=== PATIENT | male | born 1970 | race Caucasian/White ===

== ENCOUNTER 2020-12-17 09:51 | Inpatient (IN) ==
[2020-12-17] MEDS ORDERED: ONDANSETRON INJ 2 MG/ML 2 ML VIAL IV STA (10:42)
[2020-12-17] MEDS ORDERED: HYDROmorphone INJ 0.5 MG/0.5 ML SYR IV PRN (10:42)
--- NOTE | 2020-12-17 10:42 | Emergency Department Note ---
Impression & Plan Left-sided weakness ED Provider Note INFORMANT: Patient ED PROVIDER(S): Reza Felton MD CHIEF COMPLAINT: Weakness PLAN: Disposition: Admitted Condition: Guarded Outpatient prescription management: none Referral: None MEDICAL DECISION MAKING: Patient presented because of left-sided weakness. Patient also noted headache. He has had similar episodes in the past but those other 3 episodes were related to head trauma. He has had no trauma this time around. Patient has a history of a GBM removal but is been doing well with that aspect. Patient worsened today and presented. He does have a significant amount of left upper extremity weakness and some moderate left lower extremity weakness on physical examination. Findings were concerning for possible stroke but his history of intracranial pathology was very concerning. A work-up was initiated. Patient was treated with Dilaudid and Zofran. He underwent CT imaging. He had angiography of the head and neck done as well. Encephalomalacia was noted but no acute process was noted on CT or CT angiography. The patient was reassessed and was feeling better. He still had a mild headache. He had no neck stiffness. No fever. The patient did have a mild leukocytosis. On record review he has had 1 prior visit and had a significant leukocytosis at that point in time it was felt to be stress related. He had no infectious issues. The patient had a consultation placed with neurology, Dr. Moyer. We discussed the case, diagnostic results, history and presentation He did recommend MR imaging. Given the strokelike findings on examination aspirin was also recommended. Patient was given a dose of aspirin. I discussed further management in the hospital with the patient and significant other. They were both in agreement. Consultation was made with Dr. Ya of the hospitalist service. He evaluated patient in the ER and admitted him for further management. Triage Nursing notes reviewed and agree them. Vital Signs: reviewed and remarkable for no significant abnormalities Differential diagnosis: Tumor, ICH, Infection, dehydration, metabolic abnormality, hypo/hyperglycemia, electrolyte disturbance, anemia, hypoxia, cardiac sources, intracerebral event, toxicologic, neurologic, as well as other pathologies. Diagnostics interpreted by me: ECG: Twelve-lead ECG reveals normal sinus rhythm at 60 bpm. LVH present. Left anterior fascicular block present. Inferior T wave inversion noted. Cardiac Monitoring: Cardiac monitoring ordered by me: The patient was placed on continuous cardiac monitoring and observed. It revealed a normal sinus rhythm at 69 beats per minute without ectopy or evidence of dysrhythmia. Imaging studies: CT head and CT angiography as noted below. No acute findings noted. Encephalomalacia. MRI pending. HPI: The patient is a 50 year old male who presents to the Emergency Room with complaints of left sided weakness. This started yesterday and is persisting. The patient also notes the following associated symptoms, nausea and vomiting, headache. The patient has found no relieving factors. Current pain is rated as 7/10. Needed help to get up this morning. Hx of GBM resection 15 years ago. Hx of ICH secondary to a fall 2020. Pt denies LOC, fevers, chills, diaphoresis, visual changes, neck pain, chest pain, breathing difficulties, nausea, vomiting, abdominal pain, back pain, melena, hematochezia, urinary symptoms, numbness, lymphadenopathy, rash, or other complaints. ROS: See above HPI for pertinent positives & negatives. A total of 10 systems reviewed and were otherwise negative. PAST MEDICAL HISTORY:See Below , GBM PAST SURGICAL HISTORY:See Below,GBM resection FAMILY HISTORY:See Below SOCIAL HISTORY:See Below, No tobacco HOME MEDICATIONS:See Below ALLERGIES:See Below VITALS:See Below PHYSICAL EXAMINATION: GENERAL: Awake, alert, well-appearing, in no distress HENT: Normocephalic, atraumatic. Oropharynx unremarkable. EYES: Normal conjunctiva. Sclera non-icteric. NECK: Inspection normal. Non-tender. Supple. No nuchal rigidity. FROM. No masses. RESPIRATORY: Clear to auscultation. No wheezes. No rales. Normal respiratory effort. CARDIAC: Normal rate. Normal rhythm. No murmurs. No rubs. Extremities warm and well perfused. Pulses equal. No JVD. GI: Soft, non-distended. No tenderness to palpation. No rebound or guarding. No masses. RECTAL: Deferred. MUSCULOSKELETAL: Atraumatic. Chest examination reveals no tenderness. The back is symmetrical on inspection without obvious abnormality. There is no CVA tenderness to palpation. No joint edema. LOWER EXTREMITIES: Calves are equal size bilaterally and non-tender. No edema. No discoloration. NEURO: Normal sensorium. No sensory or motor deficits noted. Left sided weakness worse in arm than leg. SKIN: No rash or jaundice noted. Reza Felton MD Past Med/Surg History Medical History (Updated 11/08/21 @ 10:42 by Reza Felton MD) Brain cancer Surgical History (Updated 03/21/20 @ 04:51 by Finn Jaeger PA-C) Status post craniectomy Social History Smoking Status: Unknown if ever smoked Preferred Language: Welsh Feels Safe at Home: Yes Allergies Allergies Allergy/AdvReac Type Severity Reaction Status Date / Time bacitracin Allergy Rash Verified 12/17/20 11:31 [From Neosporin ([id number])] neomycin Allergy Rash Verified 12/17/20 11:31 [From Neosporin ([id number])] polymyxin B Allergy Rash Verified 12/17/20 11:31 [From Neosporin ([id number])] Home Meds Home Medications Medication Instructions Recorded Confirmed levetiracetam 750 mg tablet 1,500 mg PO .OCCASIONALLY 12/17/20 12/17/20 Results & Data (ED) Vital Signs Vital Signs - 24 hr 12/17/20 09:54 12/17/20 11:13 12/17/20 11:20 Temperature 36.7 C Temperature Source Oral Pulse Rate 56 L 59 L 62 Pulse Rate [Apical] Respiratory Rate 16 21 18 Respiratory Effort / Characteristics Blood Pressure 141/87 H Blood Pressure [Right Arm] Blood Pressure Mean 105 Blood Pressure Mean [Right Arm] Blood Pressure Position [Right Arm] Pulse Oximetry 97 Oxygen Delivery Method Sepsis Recent Fever Within 48 Hours No Sepsis New/Unexplained Change in Mental Status No Sepsis Action Taken by Nursing No Action Required 12/17/20 11:30 12/17/20 11:40 12/17/20 11:50 Temperature Temperature Source Pulse Rate 59 L 60 74 Pulse Rate [Apical] Respiratory Rate 17 17 21 Respiratory Effort / Characteristics Blood Pressure Blood Pressure [Right Arm] Blood Pressure Mean Blood Pressure Mean [Right Arm] Blood Pressure Position [Right Arm] Pulse Oximetry Oxygen Delivery Method Sepsis Recent Fever Within 48 Hours Sepsis New/Unexplained Change in Mental Status Sepsis Action Taken by Nursing 12/17/20 11:52 12/17/20 12:00 12/17/20 12:10 Temperature Temperature Source Pulse Rate 57 L 63 Pulse Rate [Apical] 61 Respiratory Rate 15 19 22 Respiratory Effort / Characteristics Non-Labored Blood Pressure Blood Pressure [Right Arm] 137/80 Blood Pressure Mean Blood Pressure Mean [Right Arm] 99 Blood Pressure Position [Right Arm] Lying Pulse Oximetry 97 Oxygen Delivery Method Room Air Sepsis Recent Fever Within 48 Hours Sepsis New/Unexplained Change in Mental Status Sepsis Action Taken by Nursing 12/17/20 12:20 12/17/20 12:30 12/17/20 13:00 Temperature Temperature Source Pulse Rate 64 59 L Pulse Rate [Apical] 72 Respiratory Rate 16 18 13 Respiratory Effort / Characteristics Non-Labored Blood Pressure Blood Pressure [Right Arm] 124/97 Blood Pressure Mean Blood Pressure Mean [Right Arm] 106 Blood Pressure Position [Right Arm] Pulse Oximetry 94 Oxygen Delivery Method Room Air Sepsis Recent Fever Within 48 Hours Sepsis New/Unexplained Change in Mental Status Sepsis Action Taken by Nursing 12/17/20 14:33 12/17/20 14:40 12/17/20 14:50 Temperature Temperature Source Pulse Rate 61 65 Pulse Rate [Apical] Respiratory Rate 15 14 18 Respiratory Effort / Characteristics Blood Pressure Blood Pressure [Right Arm] Blood Pressure Mean Blood Pressure Mean [Right Arm] Blood Pressure Position [Right Arm] Pulse Oximetry Oxygen Delivery Method Sepsis Recent Fever Within 48 Hours Sepsis New/Unexplained Change in Mental Status Sepsis Action Taken by Nursing 12/17/20 15:00 12/17/20 15:10 Temperature Temperature Source Pulse Rate 64 Pulse Rate [Apical] Respiratory Rate 13 14 Respiratory Effort / Characteristics Blood Pressure Blood Pressure [Right Arm] Blood Pressure Mean Blood Pressure Mean [Right Arm] Blood Pressure Position [Right Arm] Pulse Oximetry Oxygen Delivery Method Sepsis Recent Fever Within 48 Hours Sepsis New/Unexplained Change in Mental Status Sepsis Action Taken by Nursing Laboratory Data Result diagrams: 12/17/20 10:55 12/17/20 10:55 Lab Results 12/17/20 12/17/20 12/17/20 Range/Units 10:55 10:55 10:55 WBC 12.80 H (4.8-10.8) K/uL RBC 5.28 (4.7-6.1) M/uL Hgb 16.4 (14.0-18.0) g/dL Hct 46.4 (42-52) % MCV 87.9 (80-100) fL MCH 31.1 (25-34) pg MCHC 35.3 (32-36) g/dL RDW Std Deviation 39.7 (36.4-46.3) fL RDW Coeff of Aisha 12.4 (11.5-14.5) % Plt Count 232 (130-400) K/uL MPV 11.1 H (7.4-10.4) fL Immature Gran % (Auto) 0.2 % Neut % (Auto) 86.2 % Lymph % (Auto) 10.0 % Arthur % (Auto) 3.5 % Eos % (Auto) 0.0 % Baso % (Auto) 0.1 % Neut # (Auto) 11.04 H (1.4-6.5) K/uL Lymph # (Auto) 1.28 (1.2-3.4) K/uL Arthur # (Auto) 0.45 (0.11-0.59) K/uL Eos # (Auto) 0.00 (0-0.5) K/uL Baso # (Auto) 0.01 (0-0.2) K/uL Immature Gran # (Auto) 0.02 (0.00-0.02) K/uL PT 10.3 (9.0-12.0) Seconds INR 1.0 (0.9-1.1) APTT 24.3 (21.0-31.0) Seconds PTT Ratio 0.9 Sodium 131 L (136-145) mmol/L Potassium 3.5 (3.5-5.1) mmol/L Chloride 95 L (98-107) mmol/L Carbon Dioxide 29 (21-32) mmol/L Anion Gap 7.0 (3-11) BUN 10 (7-18) mg/dl Creatinine 0.98 (0.6-1.4) mg/dl Est Cr Clr Drug Dosing Not Reportable Est GFR ( Amer) 103.0 ml/min Est GFR (Non-Af Amer) 88.9 ml/min BUN/Creatinine Ratio 9.9 L (10-20) Glucose 182 H (70-99) mg/dl Calcium 9.1 (8.5-10.1) mg/dl Magnesium 1.8 (1.8-2.4) mg/dl Total Bilirubin 1.7 H (0.2-1) mg/dl AST 13 L (15-37) U/L ALT 27 (12-78) U/L Alkaline Phosphatase 75 (45-117) U/L Troponin I < 0.015 (0-0.045) ng/ml Total Protein 7.6 (6.4-8.2) gm/dl Albumin 3.9 (3.4-5.0) gm/dl Globulin 3.7 (2.5-4.0) gm/dl Albumin/Globulin Ratio 1.1 (0.9-2) COVID-19 Eval Order SARS-CoV-2 (PCR) (Negative) 12/17/20 12/17/20 Range/Units 10:55 10:55 WBC (4.8-10.8) K/uL RBC (4.7-6.1) M/uL Hgb (14.0-18.0) g/dL Hct (42-52) % MCV (80-100) fL MCH (25-34) pg MCHC (32-36) g/dL RDW Std Deviation (36.4-46.3) fL RDW Coeff of Aisha (11.5-14.5) % Plt Count (130-400) K/uL MPV (7.4-10.4) fL Immature Gran % (Auto) % Neut % (Auto) % Lymph % (Auto) % Arthur % (Auto) % Eos % (Auto) % Baso % (Auto) % Neut # (Auto) (1.4-6.5) K/uL Lymph # (Auto) (1.2-3.4) K/uL Arthur # (Auto) (0.11-0.59) K/uL Eos # (Auto) (0-0.5) K/uL Baso # (Auto) (0-0.2) K/uL Immature Gran # (Auto) (0.00-0.02) K/uL PT (9.0-12.0) Seconds INR (0.9-1.1) APTT (21.0-31.0) Seconds PTT Ratio Sodium (136-145) mmol/L Potassium (3.5-5.1) mmol/L Chloride (98-107) mmol/L Carbon Dioxide (21-32) mmol/L Anion Gap (3-11) BUN (7-18) mg/dl Creatinine (0.6-1.4) mg/dl Est Cr Clr Drug Dosing Est GFR ( Amer) ml/min Est GFR (Non-Af Amer) ml/min BUN/Creatinine Ratio (10-20) Glucose (70-99) mg/dl Calcium (8.5-10.1) mg/dl Magnesium (1.8-2.4) mg/dl Total Bilirubin (0.2-1) mg/dl AST (15-37) U/L ALT (12-78) U/L Alkaline Phosphatase (45-117) U/L Troponin I (0-0.045) ng/ml Total Protein (6.4-8.2) gm/dl Albumin (3.4-5.0) gm/dl Globulin (2.5-4.0) gm/dl Albumin/Globulin Ratio (0.9-2) COVID-19 Eval Order Covid19 at [facility] SARS-CoV-2 (PCR) NEGATIVE (Negative) Administered Medications Sodium Chloride (Nss 1000ml) 1,000 mls @ 50 mls/hr IV .Q20H NAMAN Stop: 01/16/21 10:44 Last Infusion: 12/17/20 13:10 Dose: 0 mls/hr Documented by: [id number] Admin: 12/17/20 11:10 Dose: 50 mls/hr Documented by: [id number] Discontinued Medications Aspirin (Aspirin Chew 324 Mg) 324 mg PO NOW STA Stop: 12/17/20 14:19 Last Admin: 12/17/20 14:32 Dose: 324 mg Documented by: [id number] Hydromorphone HCl (Hydromorphone Inj 0.5 Mg/0.5 Ml Syr) 0.5 mg IV Q15M PRN PRN Reason: Pain Stop: 12/31/20 10:41 Last Admin: 12/17/20 11:10 Dose: 0.5 mg Documented by: [id number] Ioversol (Optiray 320 125ml) 120 ml IV ONCE ONE Stop: 12/17/20 12:59 Last Admin: 12/17/20 12:49 Dose: 120 ml Documented by: [id number] Ondansetron HCl (Ondansetron Inj 2 Mg/Ml 2 Ml Vial) 4 mg IV NOW STA Stop: 12/17/20 10:43 Last Admin: 12/17/20 11:10 Dose: 4 mg Documented by: [id number] Imaging Data Radiologist's Impression: Head CT 12/17/20 10:43 CT angio head w con, CT head/brain wo con, CT angio neck with con CLINICAL HISTORY: Left-sided weakness TECHNIQUE: Contiguous axial CT images of the head were acquired from the base of the skull to the vertex without intravenous contrast administration. CT angiography of the head and neck was performed following intravenous administration of iodinated contrast. Automated dose lowering techniques and/or adjustment according to patient size were utilized for this examination. Comparison: None available at the time of this dictation. FINDINGS: CT head: Areas of decreased attenuation are present in the periventricular and subcortical white matter bilaterally consistent with small vessel ischemic disease. Generalized cerebral atrophy with commensurate enlargement of the ventricles, sulci, and cisterns is also present. There is no acute intracranial hemorrhage or evidence of acute territorial infarction. No shift of the midline structures, mass effect, or extra-axial abnormalities are shown. Atherosclerotic calcifications are present in the intracranial segments of the internal carotid arteries. Focal encephalomalacia and post osteotomy changes are again seen in the right parietal region. CTA Neck: The aortic arch and the origins of the innominate, left subclavian, and left common carotid artery are not imaged There is no atherosclerotic plaque at the origins of the vertebral arteries. The common carotid, external carotid, cervical segments of the internal carotid arteries, and the cervical segments of the vertebral arteries are patent. There is no hemodynamically significant diameter stenosis or dissection present. The left vertebral artery is dominant. Subcentimeter thyroid nodules are seen which do not require follow-up by ACR criteria. CTA Head: The anterior and posterior cerebral circulations are patent. No hemodynamically significant stenosis, aneurysm, dissection, or arteriovenous malformation is shown. Incidentally noted is highly diminutive anterior communicating artery on the right with the right anterior cerebral artery supplied from the left anterior communicating artery. origin of the posterior cerebral arteries noted bilaterally. IMPRESSION: 1. No occlusion, hemodynamically significant stenosis, aneurysm, dissection, or arteriovenous malformation in the major intracranial arteries. 2. No occlusion, hemodynamically significant stenosis, or dissection in the m ajor cervical arteries. 3. No acute intracranial hemorrhage, evidence of acute territorial infarction, or other acute intracranial disease process. Old postcraniotomy changes and encephalomalacia noted. Assessment of stenosis of the internal carotid arteries is based on NASCET criteria. ACT 112: Negative or not required by law. Electronically signed by: Gonzalez Becker M.D. 12/17/2020 1:23 PM Head CTA 12/17/20 10:43 CT angio head w con, CT head/brain wo con, CT angio neck with con CLINICAL HISTORY: Left-sided weakness TECHNIQUE: Contiguous axial CT images of the head were acquired from the base of the skull to the vertex without intravenous contrast administration. CT angiography of the head and neck was performed following intravenous administration of iodinated contrast. Automated dose lowering techniques and/or adjustment according to patient size were utilized for this examination. Comparison: None available at the time of this dictation. FINDINGS: CT head: Areas of decreased attenuation are present in the periventricular and s ubcortical white matter bilaterally consistent with small vessel ischemic disease. Generalized cerebral atrophy with commensurate enlargement of the ventricles, sulci, and cisterns is also present. There is no acute intracranial hemorrhage or evidence of acute territorial infarction. No shift of the midline structures, mass effect, or extra-axial abnormalities are shown. Atherosclerotic calcifications are present in the intracranial segments of the internal carotid arteries. Focal encephalomalacia and post osteotomy changes are again seen in the right parietal region. CTA Neck: The aortic arch and the origins of the innominate, left subclavian, and left common carotid artery are not imaged There is no atherosclerotic plaque at the origins of the vertebral arteries. The common carotid, external carotid, cervical segments of the internal carotid arteries, and the cervical segments of the vertebral arteries are patent. There is no hemodynamically significant d iameter stenosis or dissection present. The left vertebral artery is dominant. Subcentimeter thyroid nodules are seen which do not require follow-up by ACR criteria. CTA Head: The anterior and posterior cerebral circulations are patent. No hemodynamically significant stenosis, aneurysm, dissection, or arteriovenous malformation is shown. Incidentally noted is highly diminutive anterior communicating artery on the right with the right anterior cerebral artery supplied from the left anterior communicating artery. origin of the posterior cerebral arteries noted bilaterally. IMPRESSION: 1. No occlusion, hemodynamically significant stenosis, aneurysm, dissection, or arteriovenous malformation in the major intracranial arteries. 2. No occlusion, hemodynamically significant stenosis, or dissection in the ma jodee cervical arteries. 3. No acute intracranial hemorrhage, evidence of acute territorial infarction, or other acute intracranial disease process. Old postcraniotomy changes and encephalomalacia noted. Assessment of stenosis of the internal carotid arteries is based on NASCET criteria. ACT 112: Negative or not required by law. Electronically signed by: Gonzalez Becker M.D. 12/17/2020 1:23 PM Neck CTA 12/17/20 10:43 CT angio head w con, CT head/brain wo con, CT angio neck with con CLINICAL HISTORY: Left-sided weakness TECHNIQUE: Contiguous axial CT images of the head were acquired from the base of the skull to the vertex without intravenous contrast administration. CT angiography of the head and neck was performed following intravenous administration of iodinated contrast. Automated dose lowering techniques and/or adjustment according to patient size were utilized for this examination. Comparison: None available at the time of this dictation. FINDINGS: CT head: Areas of decreased attenuation are present in the periventricular and subcortical white matter bilaterally consistent with small vessel ischemic disease. Generalized cerebral atrophy with commensurate enlargement of the ventricles, sulci, and cisterns is also present. There is no acute intracranial hemorrhage or evidence of acute territorial infarction. No shift of the midline structures, mass effect, or extra-axial abnormalities are shown. Atherosclerotic calcifications are present in the intracranial segments of the internal carotid arteries. Focal encephalomalacia and post osteotomy changes are again seen in the right parietal region. CTA Neck: The aortic arch and the origins of the innominate, left subclavian, and left common carotid artery are not imaged There is no atherosclerotic plaque at the origins of the vertebral arteries. The common carotid, external carotid, cervical segments of the internal carotid arteries, and the cervical segments of the vertebral arteries are patent. There is no hemodynamically significant di ameter stenosis or dissection present. The left vertebral artery is dominant. Subcentimeter thyroid nodules are seen which do not require follow-up by ACR criteria. CTA Head: The anterior and posterior cerebral circulations are patent. No hemodynamically significant stenosis, aneurysm, dissection, or arteriovenous malformation is shown. Incidentally noted is highly diminutive anterior communicating artery on the right with the right anterior cerebral artery supplied from the left anterior communicating artery. origin of the posterior cerebral arteries noted bilaterally. IMPRESSION: 1. No occlusion, hemodynamically significant stenosis, aneurysm, dissection, or arteriovenous malformation in the major intracranial arteries. 2. No occlusion, hemodynamically significant stenosis, or dissection in the jaelyn or cervical arteries. 3. No acute intracranial hemorrhage, evidence of acute territorial infarction, or other acute intracranial disease process. Old postcraniotomy changes and encephalomalacia noted. Assessment of stenosis of the internal carotid arteries is based on NASCET criteria. ACT 112: Negative or not required by law. Electronically signed by: Gonzalez Becker M.D. 12/17/2020 1:23 PM Chest X-Ray 12/17/20 14:36 SINGLE VIEW CHEST CLINICAL HISTORY: Cough. Leukocytosis FINDINGS: An AP, portable, semierect chest radiograph is compared to study dated 03/21/2020. The heart is enlarged. The pulmonary vasculature is noncongested. Airspace consolidation is seen at the left lung base. There is right basilar atelectasis. No large pleural effusion or pneumothorax is identified. The skeletal structures are osteopenic. The bony thorax is grossly intact. IMPRESSION: 1. Cardiomegaly with no radiographic evidence of congestive failure. 2. Airspace consolidation is seen at the left lung base. Correlate clinically for evidence of pneumonia/aspiration pneumonitis. Radiographic follow-up to resolution is recommended. ACT 112: Negative or not required by law. Electronically signed by: Temo Santos M.D. 12/17/2020 3:48 PM Discharge Plan Visit Data Chief Complaint: Illness Stated Complaint: FATIGUE, VOMITING, LT SIDE WEAKNESS ED Provider: Reza Felton Discharge Problem: Left-sided weakness Forms Stand Alone Forms: [facility] Prescriptions Prescriptions: No Action levetiracetam 750 mg tablet 1,500 mg PO .OCCASIONALLY RF: 0 Referrals Referrals: PCP,NO [Primary Care Provider] -
[2020-12-17 11:06] LABS: Basophils # (auto) 0.01 K/uL (0-0.2); Basophils % (auto) 0.1 %; Hematocrit (blood only) 46.4 % (42-52); Hemoglobin 16.4 g/dL (14.0-18.0); Immature Granulocytes # (auto) 0.02 K/uL (0.00-0.02); Immature Granulocytes % (auto) 0.2 %; Lymphocytes # (auto) 1.28 K/uL (1.2-3.4); Mean Corpuscular Hemoglobin 31.1 pg (25-34); Mean Corpuscular Hgb Conc 35.3 g/dL (32-36); Mean Corpuscular Volume 87.9 fL (80-100); Mean Platelet Volume 11.1 fL (7.4-10.4); Monocytes # (auto) 0.45 K/uL (0.11-0.59); Monocytes % (auto) 3.5 %; Neutrophils # (auto) 11.04 K/uL (1.4-6.5); Neutrophils % (auto) 86.2 %; Platelet Count 232 K/uL (130-400); RDW Coefficient of Variation 12.4 % (11.5-14.5); RDW Standard Deviation 39.7 fL (36.4-46.3); Red Blood Count 5.28 M/uL (4.7-6.1)
[2020-12-17] MEDS: SODIUM CHLORIDE 0.9% 1000ML 1,000 ML IV SCH (11:10)
[2020-12-17 11:17] LABS: Partial Thromboplastin Ratio 0.9; Partial Thromboplastin Time 24.3 Seconds (21.0-31.0); Prothrombin Time 10.3 Seconds (9.0-12.0)
[2020-12-17 11:29] LABS: Alanine Aminotransferase 27 U/L (12-78); Albumin Level 3.9 gm/dl (3.4-5.0); Aspartate Aminotransferase 13 U/L (15-37); BUN Creatinine Ratio 9.9 (10-20); Blood Urea Nitrogen 10 mg/dl (7-18); Calcium 9.1 mg/dl (8.5-10.1); Carbon Dioxide 29 mmol/L (21-32); Chloride 95 mmol/L (98-107); Est GFR (Non-African American) 88.9 ml/min; Glucose 182 mg/dl (70-99); Magnesium 1.8 mg/dl (1.8-2.4); Potassium 3.5 mmol/L (3.5-5.1); Sodium 131 mmol/L (136-145)
[2020-12-17 11:33] LABS: Albumin Globulin Ratio 1.1 (0.9-2); Alkaline Phosphatase 75 U/L (45-117); Bilirubin,Total 1.7 mg/dl (0.2-1); Globulin 3.7 gm/dl (2.5-4.0); Total Protein 7.6 gm/dl (6.4-8.2); Troponin I < 0.015 ng/ml (0-0.045)
--- NOTE | 2020-12-17 12:26 | Electrocardiogram Report ---
Test Reason : Blood Pressure : / mmHG Vent. Rate : 060 BPM Atrial Rate : 060 BPM P-R Int : 142 ms QRS Dur : 110 ms QT Int : 410 ms P-R-T Axes : 009 -49 -15 degrees QTc Int : 410 ms Normal sinus rhythm Left anterior fascicular block Moderate voltage criteria for LVH, may be normal variant Abnormal ECG When compared with ECG of 22-JUL-2007 15:35, Left anterior fascicular block is now Present T wave inversion now evident in Inferior leads Confirmed by Hermes Medina ([id number]) on 12/17/2020 12:25:42 PM Referred By: REFERRED SELF Confirmed By:Hermes Medina
[2020-12-17] MEDS ORDERED: OPTIRAY 320 125ml IV ONE (12:58)
--- NOTE | 2020-12-17 13:25 | CT Scan Report ---
CT angio head w con, CT head/brain wo con, CT angio neck with con CLINICAL HISTORY: Left-sided weakness TECHNIQUE: Contiguous axial CT images of the head were acquired from the base of the skull to the vito miguel without intravenous contrast administration. CT angiography of the head and neck was performed f ollowing intravenous administration of iodinated contrast. Automated dose lowering techniques and/or adjustment according to patient size were utilized for this examination. Comparison: None available at the time of this dictation. FINDINGS: CT head: Areas of decreased attenuation are present in the periventricular and subcortical white shelbie er bilaterally consistent with small vessel ischemic disease. Generalized cerebral atrophy with comme nsurate enlargement of the ventricles, sulci, and cisterns is also present. There is no acute intracr anial hemorrhage or evidence of acute territorial infarction. No shift of the midline structures, mas s effect, or extra-axial abnormalities are shown. Atherosclerotic calcifications are present in the intracranial segments of the internal carotid arteries. Focal encephalomalacia and post osteotomy nadiya nges are again seen in the right parietal region. CTA Neck: The aortic arch and the origins of the innominate, left subclavian, and left common caroti d artery are not imaged There is no atherosclerotic plaque at the origins of the vertebral arteries. The common carotid, external carotid, cervical segments of the internal carotid arteries, and the cer vical segments of the vertebral arteries are patent. There is no hemodynamically significant diamete r stenosis or dissection present. The left vertebral artery is dominant. Subcentimeter thyroid nodule s are seen which do not require follow-up by ACR criteria. CTA Head: The anterior and posterior cerebral circulations are patent. No hemodynamically significan t stenosis, aneurysm, dissection, or arteriovenous malformation is shown. Incidentally noted is highl y diminutive anterior communicating artery on the right with the right anterior cerebral artery suppl ied from the left anterior communicating artery. origin of the posterior cerebral arteries note d bilaterally. IMPRESSION: 1. No occlusion, hemodynamically significant stenosis, aneurysm, dissection, or arteriovenous malfor mation in the major intracranial arteries. 2. No occlusion, hemodynamically significant stenosis, or dissection in the major cervical arteries. 3. No acute intracranial hemorrhage, evidence of acute territorial infarction, or other acute intrac ranial disease process. Old postcraniotomy changes and encephalomalacia noted. Assessment of stenosis of the internal carotid arteries is based on NASCET criteria. ACT 112: Negative or not required by law. Electronically signed by: Gonzalez Becker M.D. 12/17/2020 1:23 PM
[2020-12-17] MEDS ORDERED: ASPIRIN CHEW 324 MG PO STA (14:18)
--- NOTE | 2020-12-17 14:33 | History & Physical Report ---
Date of Service December 17, 2020 Assessment & Plan (1) Left-sided weakness: Plan: Similar symptoms cause by recrudescence of are of encephalomalacia after head trauma however no head trauma on this occasion. ?Recrudescence with pneumonia. r/o CVA with MRI w/wo IV contrast r/o cervical spine etiology with MRI cervical spine Lipid panel and HbA1C for risk management in AM Routine neuro checks PT/OT Start aspirin per neurology recommendations Consult neurology - will defer EEG to neurology as no clear seizure activity noted by patient (2) Pneumonia: Plan: Procalcitonin pending Blood cultures Ceftriaxone + azithromycin Incentive spirometry Flutter valve (3) Seizure disorder: Plan: Continue Keppra 750mg PO BID Plan: VTE Prophylaxis - Low risk given age however depending on mobility tomorrow may reconsider lovenox dosing Diet - dysphagia screen passed, heart healthy diet Disposition - observation status to med/tele Admission and Anticipated Discharge Date Admission Date: December 17, 2020 History of Present Illness Chief Complaint: Left sided weakness Primary Care Provider: NO PCP Ziggy Jones is a 50 year old male with significant PMHx glioblastoma multiforme s/p resection 15 years ago who presents to the ER with left upper sided weakness. Unclear onset but possibly yesterday morning however he slept most of yesterday therefore unclear how weak he was at this time. No fever but chills noticed. He has a chronic cough but reports this is at baseline. No sinus pain, however he does report a headache. He also vomited yesterday once and today. No abdominal pain, change in bowels, melena or bright red blood in stool. No urinary symptoms. No chest pain, palpitations. This morning he had more definitive left sided weakness and was unable to get up out of chair to go to bathroom around 3:40am this morning. No change in speech, hearing or vision. No facial droop. He reports similar symptoms in the past but these were all related to head trauma. He has had balance problems since his brain resection and has had multiple falls. On these occasions he has required rehabilitation to get his strength back (although he also tells me he usually gets better in a few days). His last rehabilitation stay was in June this year and his strength had been doing much better since then. He also has a seizure history, many years since a tonic/clonic seizure but reports the rehabilitation doctor at rehab suspected an occasional tingling in his left side was seizure activity. The patient reports only occasionally taking his anti-seizure medication as he doesn't like to take medications. In the ER CT head and angio head/neck were unremarkable for acute etiology however showed old postcraniotomy findings with encephalomalacia of right parietal lobe. Case was discussed by the ER physician with Dr Moyer and recommended admission for stroke workup at this time. He was referred to medicine for admission and ongoing management. Allergies Allergy/AdvReac Type Severity Reaction Status Date / Time bacitracin Allergy Rash Verified 12/17/20 11:31 [From Neosporin ([id number])] neomycin Allergy Rash Verified 12/17/20 11:31 [From Neosporin ([id number])] polymyxin B Allergy Rash Verified 12/17/20 11:31 [From Neosporin ([id number])] Home Medications Medication Instructions Recorded Confirmed Type levetiracetam 750 mg tablet 1,500 mg PO .OCCASIONALLY 12/17/20 12/17/20 History Past Med/Surg History Medical History (Updated 12/17/20 @ 17:56 by Isreal Ya MD) Brain cancer Surgical History (Updated 03/21/20 @ 04:51 by Finn Jaeger PA-C) Status post craniectomy Social History Smoking Status: Never smoker Second Hand Exposure: No; Do You Dip or Chew Tobacco: No; Hx Alcohol Use: Yes Alcohol type: beer Hx Substance Use: Yes Preferred Language: Polish Beliefs That Will Affect Care: None Current Living Situation: Parent and Family Feels Safe at Home: Yes Review of Systems Review of Systems: All systems reviewed & are unremarkable except as noted in HPI & below Physical Exam Constitutional: WD/WN, vitals as above no acute distress Eyes: PERRL, conjunctivae normal, anicteric sclerae Respiratory: normal respiratory effort, lungs clear to auscultation Cardiovascular: Rate/Rhythm: regular rate and regular rhythm Heart Sounds: no murmur Gastrointestinal (Abdomen): normal bowel sounds, soft, nontender, no hepatosplenomegaly Skin: no rashes, warm and dry Neurologic: + focal motor deficit (LUE > LLE weakness) and awake; not confused Speech / Cognition: normal speech Motor/Sensory: + pronator drift (significant LUE weakness); no tremor and no sensory deficit Cranial Nerves: PERRL, EOM intact bilaterally, normal facial strength, tongue midline, able to rotate head bilaterally, able to elevate shoulders bilaterally, no nystagmus and symmetric palate elevation Coordination: + abnormal lhkoxl-jy-vcuh test (Left sided reduced co-ordination) and + abnormal yghe-zr-zjaj test (Left reduced co- ordination) 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, finger extension 3/5, wrist flex 4/5, wrist ext 3/5, elbow ext 2+/5, shoulder abduct 2/5 RUE strength 5/5 throughout Psychiatric: A+Ox3, euthymic affect Genitourinary: no CVA tenderness Results & Data Results & Data ([facility]) Vital Signs (Past 12 Hours) Vital Signs Temp Pulse Pulse Resp BP BP Pulse Ox 12/17/20 11:52 61 15 137/80 97 12/17/20 09:54 36.7 C 56 L 16 141/[address] angio head w con, CT head/brain wo con, CT angio neck with con CLINICAL HISTORY: Left-sided weakness TECHNIQUE: Contiguous axial CT images of the head were acquired from the base of the skull to the vertex without intravenous contrast administration. CT angiography of the head and neck was performed following intravenous administration of iodinated contrast. Automated dose lowering techniques and/or adjustment according to patient size were utilized for this examination. Comparison: None available at the time of this dictation. FINDINGS: CT head: Areas of decreased attenuation are present in the periventricular and subcortical white matter bilaterally consistent with small vessel ischemic disease. Generalized cerebral atrophy with commensurate enlargement of the ventricles, sulci, and cisterns is also present. There is no acute intracranial hemorrhage or evidence of acute territorial infarction. No shift of the midline structures, mass effect, or extra-axial abnormalities are shown. Atherosclerotic calcifications are present in the intracranial segments of the internal carotid arteries. Focal encephalomalacia and post osteotomy changes are again seen in the right parietal region. CTA Neck: The aortic arch and the origins of the innominate, left subclavian, and left common carotid artery are not imaged There is no atherosclerotic plaque at the origins of the vertebral arteries. The common carotid, external carotid, cervical segments of the internal carotid arteries, and the cervical segments of the vertebral arteries are patent. There is no hemodynamically significant diameter stenosis or dissection present. The left vertebral artery is dominant. Subcentimeter thyroid nodules are seen which do not require follow-up by ACR criteria. CTA Head: The anterior and posterior cerebral circulations are patent. No hemodynamically significant stenosis, aneurysm, dissection, or arteriovenous malformation is shown. Incidentally noted is highly diminutive anterior communicating artery on the right with the right anterior cerebral artery supplied from the left anterior communicating artery. origin of the posterior cerebral arteries noted bilaterally. IMPRESSION: 1. No occlusion, hemodynamically significant stenosis, aneurysm, dissection, or arteriovenous malformation in the major intracranial arteries. 2. No occlusion, hemodynamically significant stenosis, or dissection in the major cervical arteries. 3. No acute intracranial hemorrhage, evidence of acute territorial infarction, or other acute intracranial disease process. Old postcraniotomy changes and encephalomalacia noted. Medications Administered ER Medications Given: Dilaudid 0.5mg IV Ondansetron 4mg IV Aspirin 324mg PO ECG Indication: other (stroke like symptoms) Rate (beats per minute): 60 Rhythm: normal sinus Findings: + T-wave inversion (Lateral) Code Status & VTE Plan Code Status Full VTE Prophylaxis Plan VTE Prophylaxis will be ordered: No PG Care Time/CCT Total # of Minutes Spent Total Time Spent with Patient: Total time spent is greater than 50% in coordination of care (as documented) at patient's floor/unit and/or counseling patient: Coding Level of Care Code INT OBSERVATION CARE 70M LVL 3 Diagnoses Left-sided weakness R53.1 Pneumonia J18.9 Seizure disorder G40.909
--- NOTE | 2020-12-17 15:49 | XRay Report ---
SINGLE VIEW CHEST CLINICAL HISTORY: Cough. Leukocytosis FINDINGS: An AP, portable, semierect chest radiograph is compared to study dated 03/21/2020. The heart is enlarged. The pulmonary vasculature is noncongested. Airspace consolidation is seen at the left l yvonne base. There is right basilar atelectasis. No large pleural effusion or pneumothorax is identified . The skeletal structures are osteopenic. The bony thorax is grossly intact. IMPRESSION: 1. Cardiomegaly with no radiographic evidence of congestive failure. 2. Airspace consolidation is seen at the left lung base. Correlate clinically for evidence of pneumon ia/aspiration pneumonitis. Radiographic follow-up to resolution is recommended. ACT 112: Negative or not required by law. Electronically signed by: Temo Santos M.D. 12/17/2020 3:48 PM
[2020-12-17] MEDS ORDERED: guaiFENesin 200 MG TAB PO STA (16:08)
[2020-12-17] MEDS ORDERED: ACETAMINOPHEN 500 MG TAB PO STA (16:08)
[2020-12-17] MEDS ORDERED: ONDANSETRON INJ 2 MG/ML 2 ML VIAL ONE (17:30)
[2020-12-17] MEDS ORDERED: PHARMACIST DISCHARGE MED REC CONSULT PRN (17:33)
[2020-12-17] MEDS ORDERED: ACETAMINOPHEN 325 MG TAB PO PRN (17:33)
[2020-12-17] MEDS ORDERED: AZITHROMYCIN 500 MG in DEXTROSE 5% 250 ML IV ONE (18:00)
[2020-12-17] MEDS ORDERED: HYDROmorphone INJ 0.5 MG/0.5 ML SYR ONE (18:38)
[2020-12-17] MEDS: guaiFENesin 600 MG TABCR PO SCH (18:40)
[2020-12-17] MEDS: cefTRIAXone SODIUM 2,000 MG in DEXTROSE 5% 50 ML IV SCH (18:41)
[2020-12-17] MEDS: HYDROmorphone INJ 0.5 MG/0.5 ML SYR IV PRN (18:43)
[2020-12-17] MEDS: levETIRAcetam 250 MG TAB PO SCH (20:37)
[2020-12-18 05:03] LABS: Appearance Urine Clear (Clear); Bilirubin Urine Negative (Negative); Blood Urine Negative (Negative); Color Urine Yellow; Glucose Urine UA Negative (Negative); Ketones Urine Negative (Negative); Leukocyte Esterase Urine 2+ (Negative); Nitrite Urine Negative (Negative); Protein Urine Negative (Negative); Specific Gravity Urine 1.004 (1.000-1.030); Urobilinogen Urine Negative (Negative)
[2020-12-18] MEDS: SODIUM CHLORIDE 0.9% 1000ML 1,000 ML IV SCH (05:43)
[2020-12-18 05:50] LABS: RBC Urine Automated 0-4 /hpf (0-4)
[2020-12-18 05:52] LABS: Bacteria Urine Automated 1+ (Negative); Cast Urine Automated 0 /lpf (0-5)
[2020-12-18 06:31] LABS: Basophils # (auto) 0.01 K/uL (0-0.2); Basophils % (auto) 0.1 %; Eosinophils # (auto) 0.01 K/uL (0-0.5); Eosinophils % (auto) 0.1 %; Hematocrit (blood only) 47.6 % (42-52); Hemoglobin 16.9 g/dL (14.0-18.0); Immature Granulocytes # (auto) 0.01 K/uL (0.00-0.02); Immature Granulocytes % (auto) 0.1 %; Lymphocytes # (auto) 1.48 K/uL (1.2-3.4); Lymphocytes % (auto) 15.2 %; Mean Corpuscular Hemoglobin 31.2 pg (25-34); Mean Corpuscular Hgb Conc 35.5 g/dL (32-36); Mean Corpuscular Volume 87.8 fL (80-100); Mean Platelet Volume 11.1 fL (7.4-10.4); Monocytes # (auto) 0.69 K/uL (0.11-0.59); Monocytes % (auto) 7.1 %; Neutrophils # (auto) 7.54 K/uL (1.4-6.5); Neutrophils % (auto) 77.4 %; Platelet Count 233 K/uL (130-400); RDW Coefficient of Variation 12.6 % (11.5-14.5); Red Blood Count 5.42 M/uL (4.7-6.1); White Blood Count 9.74 K/uL (4.8-10.8)
[2020-12-18 06:56] LABS: Creatinine Clr Calc Pharmacy 125.1 ml/min; Est GFR (African American) 115.8 ml/min; Est GFR (Non-African American) 99.9 ml/min; Potassium 3.6 mmol/L (3.5-5.1)
[2020-12-18 07:52] LABS: Estimated Average Glucose 137 mg/dl; Hemoglobin A1C 6.4 % (4.5-5.6)
--- NOTE | 2020-12-18 08:36 | Neurology Consultation ---
Date of Consultation December 18, 2020 Assessment & Plan (1) Left-sided weakness: (2) Seizure disorder: (3) Complicated migraine: (4) Status post craniectomy: this patient had the acute onset of left arm greater than leg weakness ( with some left facial asymmetry as well) starting December 17. In addition he has a right-sided headache which has migraine features. He has no other neurologic deficits. The patient has a history of right parietal glioblastoma multiforme removal surg ically in 2004 post radiation therapy and 2-3 years of Temodar pills with gamma knife in 2009 for a mild recurrence. I am not certain when he had his last MRI of the brain but I cannot exclude a recurrence. 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 I cannot exclude a stroke in the right hemisphere. This may be a complicated migraine but may also be a Nathan's paralysis post partial seizure. The patient has had similar events in the past. Recommendations: 1. MRI of the brain with without contrast. 2. Treat headache. Consider ketorolac. Consider short course of prednisone to help the headache as well. 3. The patient is not compliant on levetiracetam and he believes it gives him fatigue. Consider initiating lamotrigine 25 mg twice daily for 1 week then increase to 50 mg twice daily (titrating 25 mg twice a day per week until he hits 100 mg twice a day). Once he gets to a good Lamictal level I would consider tapering off levetiracetam. This would be a better medication for him and control seizures as good better than the levetiracetam. 4. I would be happy to follow him as an outpatient. Overall, I spent a total of 90 minutes with this case including review of records, review of CT films, direct evaluation the patient at bedside, and discussion of the case with the patient and RN at bedside, and Dr. Ya, including differential diagnosis and treatment options. History of Present Illness Reason for Consultation: Patient is a 50-year-old, who was asked to see at the request of Dr. vance, for neurologic consultation regarding acute left mila paresis. Requesting Physician: Dr. Ya Attending Physician: Isreal Ya MD History of Present Illness this patient has a complicated past neurologic history. Apparently he had a right parietal glioblastoma multiforme removal in [place] by Dr. Davis in 2004. he apparently received radiation therapy to the head ( unknown dose ) and Temodar pills for about 2 or 3 years and then he stopped. Apparently, he had a recurrence about 5 years after is our initial surgery and he had received Gamma Knife radiation. Apparently he has had no recurrence of the tumor since. I do not know when his last MRI of the brain was however. Patient had tonic-clonic seizures initially and was put on phenytoin and levetiracetam. He stop the phenytoin a couple of years ago because it affected his liver and gave him other side effects. He remains on levetiracetam 750 mg twice daily, however, he admits to not taking medication regularly. This summer parent Darius he lost his balance and hit his head. He then had a "seizure" consisting of tingling down the left arm and leg followed by weakness that lasted a couple of days. He did not have a headache with that. He does get right-sided headaches only rarely. He denies neck pain. Recently, he was out and had 4 beers December 15. On December 16, he believes he says "slept most of the day". He woke up December 17 at 6:00 a.m. and noticed that his left arm and leg were weak arm greater than leg. He could not walk. He also noted a right sided headache around the right eye and mormon. He had photophobia, nausea, and vomiting. He was a steady sharp pain. He arrived to the emergency room December 17 at 9:54 a.m., with a temperature of 36.7, pulse 56 and regular, respiratory rate 16, blood pressure 141/87, and O2 saturation 97%. He was was noted to have weakness in the arm greater than leg on the left side. CBC showed white count 12.8. Sodium was 131 and glucose 182. The rest of his labs were unremarkable. He was given Dilaudid and Zofran. This helped his nausea and headache temporarily but his headache returned. Chest x-ray showed cardiomegaly and a left lung finding consistent with possible pneumonia. CT scan of the head showed no acute changes. CT angiography of the head and neck were unremarkable as well. He was given a baby aspirin. He has not had any seizures or new spells since admission. He claims that his headache is just as bad as yesterday and is a 7/10. He feels his left leg is less weak but his arm is still very weak as before. He denies neck pain but has some low back pain. Blood pressure is 133/78 and CBC and Chem profile were unremarkable although a triglyceride was 151 and total cholesterol 166. Allergies Allergy/AdvReac Type Severity Reaction Status Date / Time bacitracin Allergy Rash Verified 12/17/20 11:31 [From Neosporin ([id number])] neomycin Allergy Rash Verified 12/17/20 11:31 [From Neosporin ([id number])] polymyxin B Allergy Rash Verified 12/17/20 11:31 [From Neosporin ([id number])] Home Medications Medication Instructions Recorded Confirmed Type levetiracetam 750 mg tablet 1,500 mg PO .OCCASIONALLY 12/17/20 12/17/20 History Patient History Medical History (Updated 12/18/20 @ 08:24 by Zelalem Moyer MD) Brain cancer Renal stone Surgical History (Updated 12/18/20 @ 08:24 by Zelalem Moyer MD) S/P cholecystectomy Status post craniectomy Family History Mother No problems noted. Father , the diagnose 60s of lung cancer Lung cancer Social History Smoking Status: Former smoker Number of Years Since Quit: 20; Second Hand Exposure: No; Do You Dip or Chew Tobacco: No; Hx Alcohol Use: Yes Alcohol type: beer Alcohol Intake Frequency Comment: 4 beers per week every 1-2 weeks Hx Substance Use: Yes Preferred Language: Kyrgyz Beliefs That Will Affect Care: None Current Living Situation: Parent and Family current occupational status: unemployed current occupation: former [employer] Feels Safe at Home: Yes Review of Systems Constitutional: + weakness; no fever and no fatigue Eyes: no diplopia, no eye pain and no worsening vision Ear, Nose, Mouth, Throat: no ear pain, no tinnitus, no hearing loss, no dizziness, no hoarseness and no dysphagia Respiratory: no cough and no dyspnea Cardiovascular: no chest pain, no palpitations and no lightheadedness Gastrointestinal: no abdominal pain, no nausea and no vomiting Musculoskeletal: + back pain; no neck pain, no radicular pain, no joint pain and no myalgia Integumentary: no rash and no lesions Neurologic: + localized weakness and + headache(s); no gait abnormality, no generalized weakness, no tingling, no numbness, no tremor(s), no abnormal movements, no abnormal speech, no confusion and no memory loss Psychiatric: no depression, no irritability, no anxiety, no difficulty concentrating, no confusion and no hallucinations Endocrine: no fatigue and no flushing Hematologic / Lymphatic: no easy bleeding and no easy bruising Allergy / Immunological: no urticaria and no problem reported Exam (Neuro) Physical Exam: The patient ezats and writes with his left hand and throws with his right The patient is awake, alert, and attentive. Speech is normal without any aphasia or dysarthria. The patient can name objects, repeat phrases, and has normal spontaneous speech. Mentation and thought processes are intact, with orientation to person, place and time, and normal fund of knowledge. Attention and concentration are normal. Mood and affect are normal and appropriate. General appearance and grooming are normal. Short and long-term memory are intact. The discs are sharp with positive venous pulsations bilaterally. There are no exudates, hemorrhages, or blood vessel changes seen. Pupils are 4 mm bilaterally and reactive to light. Extraocular eye muscles are intact without nystagmus. Visual acuity and visual cox seem normal grossly to confrontation. There are no deficits to sensation in the face in all 3 distributions of the fifth cranial nerve bilaterally. Corneal reflexes are positive bilaterally. there was some mild facial asymmetry on the left but it did move with voluntary smile. Hearing seems normal bilaterally. Palate moves well without asymmetry. There is normal sternocleidomastoid and trapezius (shoulder shrug) strength bilaterally. Tongue is midline with good strength bilaterally. Neck has a full range of motion without discomfort. There are no cervical bruits bilaterally. There are no cranial or ocular bruits. Heart is without murmur. There is a regular rhythm and rate. Cervical, thoracic, and lumbar spine are nontender to palpation. Gait Is not tested, but his stance was somewhat poor sitting up in bed with feet dangling as he tended to the fall to the left and needed to hold onto the rail. With outstretched arms there is no drift on the right. There are no resting, postural, or action tremors. There is no ataxia with finger to nose testing on the right. There is good facility in the right hand. No other abnormal involuntary movements are noted. Motor strength is 5/5 diffusely in the right upper extremity including deltoids, biceps, triceps, brachioradialis, wrist flexors and extensors, store stocker, and intrinsic hand muscles. Motor strength is 5/5 diffusely in the right lower extremity including hip flexors, quadriceps, hamstrings, gastrocnemius, tibialis anterior, tibialis posterior, and Peroneii muscles. the left upper extremity has 1/5 strength proximally in the shoulder and deltoid. The biceps and triceps is closer to 4/5 but he guards it unusually. The hand including wrist fingers and store stocker seems closer to 1/5. I am not certain that he is giving maximum effort. The left lower extremity has 4+/5 strength proximally and 5/5 strength distally The limbs have good tone without rigidity or spasticity. There is no atrophy noted in the muscles. Muscle bulk is normal, there is no tenderness to palpation, no myotonia to percussion, and no fasciculations seen. Sensory examination is intact to touch and pin throughout all 4 limbs diffusely. Reflexes are 2/4 in the biceps, triceps, quadriceps, and Achilles tendons bilaterally. the left brachioradialis reflex seemed absent and the right was 2/4. There is no clonus bilaterally. Toes are Upgoing with plantar stimulation on the left Peripheral pulses are present and of normal quality distally in all 4 limbs. There is no peripheral edema noted in the limbs. Results & Data ([facility]) Vital Signs (Past 12 Hours) Vital Signs Temp Pulse Pulse Pulse Resp BP Pulse Ox 12/18/20 07:45 36.7 C 59 L 16 124/71 94 12/18/20 04:59 36.7 C 67 18 133/78 94 12/17/20 22:26 36.7 C 59 L 18 148/81 H 94 12/17/20 22:00 56 L PG Care Time/CCT Total # of Minutes Spent Total Time Spent with Patient: Total time spent is greater than 50% in coordination of care (as documented) at patient's floor/unit and/or counseling patient: Coding Level of Care Code 97039 Initial Inpt Care Lvl 3 Diagnoses Left-sided weakness R53.1 Seizure disorder G40.909 Complicated migraine G43.109 Status post craniectomy Z98.890 Time Spent (min) 90 Comment Add modifiers as able
[2020-12-18] MEDS ORDERED: AZITHROMYCIN 250 MG TAB PO SCH (09:00)
[2020-12-18] MEDS: ASPIRIN 81 MG ECTAB PO SCH (09:57)
[2020-12-18] MEDS: levETIRAcetam 250 MG TAB PO SCH ×2 (09:57→20:19)
[2020-12-18] MEDS: guaiFENesin 600 MG TABCR PO SCH ×2 (09:57→20:19)
[2020-12-18] MEDS: HYDROmorphone INJ 0.5 MG/0.5 ML SYR IV PRN (11:04)
[2020-12-18] MEDS ORDERED: KETOROLAC TROMETHAMINE 15 MG/ML VIAL IV ONE (11:16)
--- NOTE | 2020-12-18 11:57 | Hospitalist Progress Note ---
Date of Service December 18, 2020 Assessment & Plan (1) Left-sided weakness: Plan: Patient presents to the hospital with worsening left sided weakness, upper > Lower Some improvement in lower extremity weakness, however, upper remains the same CT head done yesterday showed old encephalomalacia MRI has been orderd Neurology on consult, appreciate recs Continue PT (2) Seizure disorder: Plan: Continue Keppra 750mg PO BID Plan: VTE Prophylaxis - Low risk given age however depending on mobility tomorrow may reconsider lovenox dosing Diet - dysphagia screen passed, heart healthy diet Disposition - observation status to med/tele Admission and Anticipated Discharge Date Admission Date: December 17, 2020 Subjective Patient seen and examined, still some weakness on the left upper extremity, but improving weakness on the lower Review of Systems Review of Systems: All systems reviewed are negative, apart from the ones contained in the history. Physical Exam Physical Exam: The patient is awake, alert and oriented 3, well developed and well nourished, normocephalic and atraumatic, lying in bed and in no acute distress. HEENT--PERRL, EOMI, mucous membranes and oropharynx mildly dry Neck--supple. No JVD. No bruits. Thyroid normal, trachea midline, no adenopathy. Heart--normal S1 and S2. No murmurs, rubs or gallops. Lungs--clear bilaterally, no respiratory distress, no accessory muscle use. Abdomen--normal bowel sounds and soft. Mild epigastric and left sided abdominal pain Extremities--no cyanosis or clubbing. No edema. Dermatologic--normal skin turgor, normal color, no abnormal lymph nodes, no rash. Neurologic--Left mila paresis Rheumatologic--normal range of motion. Psychiatric--normal affect. Results & Data Results & Data ([facility]) Vital Signs (Past 12 Hours) Vital Signs Temp Pulse Resp BP Pulse Ox 12/18/20 10:49 98.1 F 64 18 141/92 H 93 12/18/20 07:45 98.1 F 59 L 16 124/71 94 12/18/20 04:59 98.1 F 67 18 133/78 94 Laboratory Results Vital Signs Temp Pulse Pulse Pulse Resp BP Pulse Ox 12/18/20 10:49 98.1 F 64 18 141/92 H 93 12/18/20 07:45 98.1 F 59 L 16 124/71 94 12/18/20 04:59 98.1 F 67 18 133/78 94 12/17/20 22:26 98.1 F 59 L 18 148/81 H 94 12/17/20 22:00 56 L 12/17/20 19:44 98.1 F 61 20 116/73 93 12/17/20 18:00 60 12/17/20 16:01 69 15 138/75 96 12/17/20 15:10 64 14 12/17/20 15:00 13 12/17/20 14:50 65 18 12/17/20 14:40 14 12/17/20 14:33 61 15 12/17/20 13:00 72 13 124/97 94 12/17/20 12:30 59 L 18 12/17/20 12:20 64 16 12/17/20 12:10 63 22 12/17/20 12:00 57 L 19 Intake and Output 12/17/20 12/18/20 12/18/20 22:59 06:59 14:59 Intake Total 470 / 925 355 / 925 Output Total 200 / 950 750 / 950 350 / 350 Balance 270 / -25 -395 / -25 -350 / -350 Intake: IV 70 / 425 255 / 425 Azithromycin 500 mg In Dextrose 255 / 255 5% 250 ml @ 125 mls/hr IV 1800 ONE Rx#:[id number] cefTRIAXone SODIUM 2,000 mg In 70 / 70 Dextrose 5% 50 ml @ 100 mls/hr IV Q24H [facility] Rx#:[id number] Oral 400 / 500 100 / 500 Output: Urine 200 / 950 750 / 950 350 / 350 Other: Weight 265 lb 6.985 oz 228 lb 9.91 oz Weight Measurement Method Estimated by Patient Built in [facility] Laboratory Results - last 24 hr 12/17/20 12/17/20 12/18/20 10:55 17:14 04:30 WBC RBC Hgb Hct MCV MCH MCHC RDW Std Deviation RDW Coeff of Aisha Plt Count MPV Immature Gran % (Auto) Neut % (Auto) Lymph % (Auto) [place] % (Auto) Eos % (Auto) Baso % (Auto) Neut # (Auto) Lymph # (Auto) [place] # (Auto) Eos # (Auto) Baso # (Auto) Immature Gran # (Auto) Sodium Potassium Chloride Carbon Dioxide Anion Gap BUN Creatinine Est Cr Clr Drug Dosing Est GFR ( Amer) Est GFR (Non-Af Amer) BUN/Creatinine Ratio Glucose Estimat Average Glucose Hemoglobin A1c Calcium Triglycerides Cholesterol LDL Cholesterol, Calc VLDL Cholesterol, Calc HDL Cholesterol Cholesterol/HDL Ratio Procalcitonin < 0.05 Urine Color Yellow Urine Appearance Clear Urine pH 7.0 Ur Specific [place] 1.004 Urine Protein Negative Urine Glucose (UA) Negative Urine Ketones Negative Urine Blood Negative Urine Nitrite Negative Urine Bilirubin Negative Urine Urobilinogen Negative Ur Leukocyte Esterase 2+ H Urine WBC (Auto) 10-30 H Urine RBC (Auto) 0-4 U Hyaline Cast (Auto) 0 U Epithel Cells (Auto) 5-10 H Urine Bacteria (Auto) 1+ H SARS-CoV-2 (PCR) NEGATIVE 12/18/20 12/18/20 12/18/20 05:50 05:50 05:50 WBC 9.74 RBC 5.42 Hgb 16.9 Hct 47.6 MCV 87.8 MCH 31.2 MCHC 35.5 RDW Std Deviation 40.0 RDW Coeff of Aisha 12.6 Plt Count 233 MPV 11.1 H Immature Gran % (Auto) 0.1 Neut % (Auto) 77.4 Lymph % (Auto) 15.2 [place] % (Auto) 7.1 Eos % (Auto) 0.1 Baso % (Auto) 0.1 Neut # (Auto) 7.54 H Lymph # (Auto) 1.48 [place] # (Auto) 0.69 H Eos # (Auto) 0.01 Baso # (Auto) 0.01 Immature Gran # (Auto) 0.01 Sodium 136 Potassium 3.6 Chloride 99 Carbon Dioxide 32 Anion Gap 5.0 BUN 11 Creatinine 0.87 Est Cr Clr Drug Dosing 125.1 Est GFR ( Amer) 115.8 Est GFR (Non-Af Amer) 99.9 BUN/Creatinine Ratio 13.0 Glucose 145 H Estimat Average Glucose 137 Hemoglobin A1c 6.4 H Calcium 9.0 Triglycerides 151 H Cholesterol 166 LDL Cholesterol, Calc 97 VLDL Cholesterol, Calc 30 HDL Cholesterol 39 Cholesterol/HDL Ratio 4 Procalcitonin Urine Color Urine Appearance Urine pH Ur Specific [place] Urine Protein Urine Glucose (UA) Urine Ketones Urine Blood Urine Nitrite Urine Bilirubin Urine Urobilinogen Ur Leukocyte Esterase Urine WBC (Auto) Urine RBC (Auto) U Hyaline Cast (Auto) U Epithel Cells (Auto) Urine Bacteria (Auto) SARS-CoV-2 (PCR) PG Care Time/CCT Total # of Minutes Spent Total Time Spent with Patient: Total time spent is greater than 50% in coordination of care (as documented) at patient's floor/unit and/or counseling patient: Coding Level of Care Code 29088 Subseq Hosp Care Lvl 2 Diagnoses Left-sided weakness R53.1 Seizure disorder G40.909
[2020-12-18] MEDS ORDERED: LORazepam 2 MG/4 ML VIAL IV PRN (12:31)
[2020-12-18] MEDS ORDERED: GADOBUTROL 65ML VIAL IV ONE (18:23)
--- NOTE | 2020-12-18 18:56 | Magnetic Resonance Report ---
MRI OF THE CERVICAL SPINE WITHOUT IV CONTRAST CLINICAL HISTORY: Left-sided weakness. COMPARISON STUDY: CT of the cervical spine dated 03/21/2020. TECHNIQUE: MRI of the cervical spine is performed utilizing various T1 and T2-weighted sequences in t he axial and sagittal planes. IV contrast was not administered for this examination. The examination is significantly degraded by motion artifact. FINDINGS: Cervical spine: Vertebral body height and alignment are maintained throughout the cervical spine. The re is straightening of the cervical lordosis. The atlantodental articulation is maintained. The spino us processes appear intact. Small anterior osteophytes are seen throughout. A large hemangioma is see n in the body of T2. No destructive bony lesion is identified. Mild chronic degenerative endplate nadiya nge is seen at several levels. Intervertebral discs: Degenerative disc desiccation and loss of height are seen throughout the cervic al spine. This is mild to moderate at C5-C6 and C6-C7. Spinal cord: The cervical spinal cord is normal in morphology and signal intensity. C2-C3: Mild facet arthropathy is of no consequence. The central canal and neural foramina are patent. C3-C4: Uncovertebral and facet arthropathy contribute to mild right neural foraminal stenosis. The ce ntral canal is clear. C4-C5: Unremarkable. C5-C6: A posterior disc osteophyte complex eccentric to the left abuts the ventral cord. There is lef t lateral disc extrusion. In conjunction with facet arthropathy, this contributes to severe left-side d neural foraminal stenosis and impinges on the exiting left C6 nerve root. There is mild right-sided neural foraminal stenosis. C6-C7: A posterior disc osteophyte complex effaces the ventral subarachnoid space. Uncovertebral and facet arthropathy contributes to mild to moderate bilateral neural foraminal stenosis. C7-T1: Unremarkable. Soft tissues: The prevertebral and paraspinous soft tissues are normal as visualized. Brain parenchyma: The imaged brain parenchyma at the skull base is normal in appearance. IMPRESSION: 1. Significantly motion compromised examination. 2. Spondylotic change as above, greatest at C5-C6 where there is impingement on the exiting left C6 n erve root. See discussion for detailed level by level analysis. 3. The cervical spinal cord is normal in morphology and signal intensity. 4. No destructive bony process is identified. Dictated: 12/18/2020 6:35 PM Transcribed: 12/18/2020 6:47 PM Kesha [id number] CLAUDIA_Tiffani Electronically signed by: Temo Santos M.D. 12/18/2020 6:55 PM
--- NOTE | 2020-12-18 19:24 | Magnetic Resonance Report ---
MRI OF THE BRAIN COMBO CLINICAL HISTORY: Left hemiparesis. COMPARISON STUDY: CT of the brain dated 12/17/2020. TECHNIQUE: MRI of the brain was performed utilizing various T1 and T2-weighted sequences in the axial , sagittal, and coronal planes. Contrast-enhanced sequences were acquired following the administratio n of 9 cc of Gadavist. The examination is severely compromised by motion artifact. FINDINGS: Brain parenchyma: Left hemiparesis. Right parieto-occipital encephalomalacia is consistent with a rem ote insult/previous surgery. There is a focus of restricted diffusion the right occipital lobe consis tent with acute to subacute ischemia. No additional foci of restricted diffusion are identified. Ther e is no hemorrhage or mass effect. No evidence of enhancing mass lesion is seen on the postcontrast i mages. There is age-related involutional change noting mild subcortical and periventricular microangi opathic disease. No extra-axial fluid collection is identified. The cerebellar tonsils are normal in configuration. Ventricles, sulci, and cisterns: Prominent secondary to involutional change. There is ex vacuo dilata tion of the right lateral ventricle. Pituitary and sella: Unremarkable. Intracranial vasculature: Normal flow voids are maintained at the skull base. Orbits: The bony orbits are grossly intact. Orbital contents are normal in appearance. Sinuses and mastoids: There is trace mucosal thickening in the right maxillary antrum. The remaining paranasal sinuses are clear, as are the mastoid air cells. Calvarium: There is evidence of previous right sided craniotomy. No destructive calvarial lesion is i dentified. Cervical cord: Partially visualized cervical spinal cord is normal in morphology and signal intensity . IMPRESSION: 1. Severely motion compromised examination. 2. A focus of restricted diffusion in the right occipital lobe is consistent with acute to subacute i schemia. 3. No additional foci of ischemia are identified. There is no hemorrhage or mass effect. 4. Chronic and postoperative changes as above. 5. There is no evidence of recurrent or residual enhancing mass lesion on today's examination. ACT 112: Negative or not required by law. Electronically signed by: Temo Santos M.D. 12/18/2020 7:23 PM
[2020-12-18] MEDS: cefTRIAXone SODIUM 2,000 MG in DEXTROSE 5% 50 ML IV SCH (20:19)
[2020-12-19] MEDS: SODIUM CHLORIDE 0.9% 1000ML 1,000 ML IV SCH ×2 (02:30→23:41)
[2020-12-19 07:13] LABS: Basophils # (auto) 0.04 K/uL (0-0.2); Basophils % (auto) 0.4 %; Eosinophils % (auto) 0.9 %; Hematocrit (blood only) 48.8 % (42-52); Hemoglobin 17.1 g/dL (14.0-18.0); Immature Granulocytes # (auto) 0.03 K/uL (0.00-0.02); Immature Granulocytes % (auto) 0.3 %; Lymphocytes # (auto) 2.15 K/uL (1.2-3.4); Lymphocytes % (auto) 20.1 %; Mean Corpuscular Hemoglobin 31.4 pg (25-34); Mean Corpuscular Volume 89.5 fL (80-100); Monocytes # (auto) 0.62 K/uL (0.11-0.59); Monocytes % (auto) 5.8 %; Neutrophils # (auto) 7.78 K/uL (1.4-6.5); Neutrophils % (auto) 72.5 %; Platelet Count 219 K/uL (130-400); RDW Coefficient of Variation 12.5 % (11.5-14.5); RDW Standard Deviation 40.4 fL (36.4-46.3); Red Blood Count 5.45 M/uL (4.7-6.1); White Blood Count 10.72 K/uL (4.8-10.8)
[2020-12-19 07:44] LABS: BUN Creatinine Ratio 13.3 (10-20); Creatinine Clr Calc Pharmacy 99.9 ml/min; Est GFR (African American) 105.6 ml/min; Est GFR (Non-African American) 91.2 ml/min; Potassium 3.4 mmol/L (3.5-5.1)
[2020-12-19] MEDS: levETIRAcetam 250 MG TAB PO SCH (08:29)
[2020-12-19] MEDS: ASPIRIN 81 MG ECTAB PO SCH (08:29)
[2020-12-19] MEDS: guaiFENesin 600 MG TABCR PO SCH ×2 (08:29→23:03)
[2020-12-19] MEDS: lamoTRIgine 25 MG TAB PO SCH ×2 (10:14→23:05)
--- NOTE | 2020-12-19 10:17 | Neurology Progress Note ---
Date of Service December 19, 2020 Assessment & Plan (1) Left-sided weakness: (2) Seizure disorder: (3) Stroke: Plan: Persistent left-sided weakness and associated partial left hemianopsia. Differential diagnosis includes Nathan's paralysis and stroke. Patient's brain MRI does reveal an area of restricted diffusion within the right occipital lobe that would be consistent with an acute to subacute infarct. However, a seizure focus may also exhibit restricted diffusion. It is notable that this patient has had a similar episode of prolonged left-sided weakness in the past, potentially post ictal. There does not appear to be any evidence of a significant vascular lesion on CT angiography of the head and neck. He has been noncompliant with his anticonvulsant regimen. I agree with the addition of Lamictal and continuing with Keppra at this time. The Lamictal will need to be gradually uptitrated going forward, follow-up in neurology clinic with Dr. Moyer or one of our APCs. Would continue with daily low-dose aspirin for secondary stroke risk reduction. Would also recommend 30-day mobile cardiac outpatient telemetry. Patient should also have an outpatient ophthalmology evaluation to assess his visual cox. Admission and Anticipated Discharge Date Admission Date: December 17, 2020 Subjective Follow-up for left-sided weakness The patient continues to complain of left-sided weakness, face arm and leg. He remarks that he has had a similar episode of left-sided weakness in the past that persisted for many weeks. He has a history notable for right parietal glioblastoma resection, follows with Dr. Davis in [place]. He has been noncompliant with his anticonvulsant medication. Patient was evaluated by Dr. Moyer yesterday for initial neurological assessment. Thought to possibly have a post ictal, Nathan's paralysis. May have had a nocturnal seizure prior to the onset of his left-sided weakness. Stroke was also considered in the differential diagnosis. Patient did complete follow-up brain MRI that does reveal an area of restricted diffusion within the right occipital region potentially consistent with acute to subacute infarct. However, a seizure focus may also exhibit restricted diffusion. Previously completed CT angiography of the head and neck were unremarkable. Patient was started on lamotrigine as an adjunctive medication for seizure control. He continues with Keppra. He has not had any observed convulsive activity during his current hospitalization. Results & Data ([facility]) Vital Signs (Past 12 Hours) Vital Signs Temp Pulse Resp BP Pulse Ox 11/10/21 07:36 36.7 C 65 16 133/85 96 12/19/20 04:09 36.9 C 87 16 127/70 100 12/18/20 23:45 36.4 C L 67 16 126/76 95 Exam (Neuro) Neurologic: Oriented to:: Person, Place and Time Attention: Span Intact Speech Fluency: negative Dysarthria or Dysfluency Fund of Knowledge: Vocabulary Cranial Nerves: Normal III, IV, ; Abnorm II (Patient has a partial left hemianopsia with confrontation testing.) or VII (Patient has fl attening of the left nasolabial fold.) Motor Strength: Hemiparesis (Left hemiparesis, leg greater than arm. Arm 0-1 out of 5 strength. Grasp 0. Elbow flexion 2-3 out of 5.) Laterality: Left; negative Normal Lower Extremities or Normal Upper Extremities Muscle Bulk/Involuntary Movements: No Involuntary Movements Special Tests: Babinski Present (left) Coding Level of Care Code 68224 Subseq Hosp Care Lvl 2 Diagnoses Left-sided weakness R53.1 Seizure disorder G40.909 Stroke I63.9
[2020-12-19] MEDS ORDERED: LORazepam 2 MG/4 ML VIAL ONE (12:00)
[2020-12-19] MEDS ORDERED: levETIRAcetam 1,000 MG in 0.9 % SODIUM CHLORIDE 100 ML IV STA (12:32)
[2020-12-19] MEDS ORDERED: levETIRAcetam 1,000 MG in 0.9 % SODIUM CHLORIDE 100 ML IV ONE (12:45)
--- NOTE | 2020-12-19 13:11 | Hospitalist Progress Note ---
Date of Service December 19, 2020 Assessment & Plan (1) Left-sided weakness: Plan: Patient presents to the hospital with worsening left sided weakness, upper > Lower Some improvement in lower extremity weakness, however, upper remains the same CT head done showed old encephalomalacia MRI shows limited diffusion which could be suggestive of acute or subacute stroke. However on the background of his seizures, the finding could also be seen in seizures. Neurology on consult, appreciate recs Continue PT (2) Seizure disorder: Plan: Had a tonic-clonic seizure this morning. I spoke to neurology on the phone. Was already started p.o. lamotrigine 25 mg twice daily Loaded with 1000 mg of IV Keppra Continue Keppra 750mg PO BID (3) Brain cancer: Plan: History of glioblastoma multiforme Status post craniotomy (4) Status post craniectomy: Plan: VTE Prophylaxis - Low risk given age however depending on mobility tomorrow may reconsider lovenox dosing Diet - dysphagia screen passed, heart healthy diet Disposition - observation status to med/tele Admission and Anticipated Discharge Date Admission Date: December 17, 2020 Subjective Patient seen and examined today, was having twitches in the left ear which he correctly identified her seizures, he later developed full-blown tonic-clonic seizures Review of Systems Review of Systems: All systems reviewed are negative, apart from the ones contained in the history. Physical Exam Physical Exam: The patient is awake, alert and oriented 3, well developed and well nourished, normocephalic and atraumatic, lying in bed and in no acute distress. HEENT--PERRL, EOMI, mucous membranes and oropharynx mildly dry Neck--supple. No JVD. No bruits. Thyroid normal, trachea midline, no adenopathy. Heart--normal S1 and S2. No murmurs, rubs or gallops. Lungs--clear bilaterally, no respiratory distress, no accessory muscle use. Abdomen--normal bowel sounds and soft. Mild epigastric and left sided abdominal pain Extremities--no cyanosis or clubbing. No edema. Dermatologic--normal skin turgor, normal color, no abnormal lymph nodes, no rash. Neurologic--Left mila paresis Rheumatologic--normal range of motion. Psychiatric--normal affect. Results & Data Results & Data ([facility]) Vital Signs (Past 12 Hours) Vital Signs Temp Pulse Resp BP Pulse Ox 11/10/21 07:36 98.1 F 65 16 133/85 96 12/19/20 04:09 98.4 F 87 16 127/70 100 PG Care Time/CCT Total # of Minutes Spent Total Time Spent with Patient: Total time spent is greater than 50% in coordination of care (as documented) at patient's floor/unit and/or counseling patient: Coding Level of Care Code 06697 Subseq Hosp Care Lvl 2 Diagnoses Left-sided weakness R53.1 Seizure disorder G40.909 Brain cancer C71.9 Status post craniectomy Z98.890
[2020-12-19] MEDS ORDERED: DIVALPROEX DELAY RELEASE 500 MG TAB PO ONE (17:38)
[2020-12-19] MEDS: HYDROmorphone INJ 0.5 MG/0.5 ML SYR IV PRN ×2 (18:20→22:58)
[2020-12-19] MEDS: levETIRAcetam 1,000 MG in 0.9 % SODIUM CHLORIDE 100 ML IV SCH (22:53)
[2020-12-20] MEDS: HYDROmorphone INJ 0.5 MG/0.5 ML SYR IV PRN (03:11)
[2020-12-20] MEDS: levETIRAcetam 1,000 MG in 0.9 % SODIUM CHLORIDE 100 ML IV SCH (08:15)
[2020-12-20] MEDS ORDERED: LORazepam 2 MG/4 ML VIAL ONE (08:30)
[2020-12-20] MEDS ORDERED: PHENYTOIN 1,500 MG in 0.9 % SODIUM CHLORIDE 100 ML IV ONE (09:00)
[2020-12-20] MEDS ORDERED: 0.2 MICRON FILTER SET 1 EA IV ONE (09:00)
[2020-12-20 09:21] LABS: Basophils # (auto) 0.03 K/uL (0-0.2); Basophils % (auto) 0.3 %; Eosinophils # (auto) 0.09 K/uL (0-0.5); Eosinophils % (auto) 0.9 %; Hematocrit (blood only) 46.2 % (42-52); Hemoglobin 16.5 g/dL (14.0-18.0); Immature Granulocytes # (auto) 0.02 K/uL (0.00-0.02); Immature Granulocytes % (auto) 0.2 %; Lymphocytes % (auto) 13.2 %; Mean Corpuscular Hemoglobin 31.3 pg (25-34); Mean Corpuscular Hgb Conc 35.7 g/dL (32-36); Mean Corpuscular Volume 87.7 fL (80-100); Mean Platelet Volume 10.9 fL (7.4-10.4); Monocytes # (auto) 0.63 K/uL (0.11-0.59); Neutrophils # (auto) 8.41 K/uL (1.4-6.5); Neutrophils % (auto) 79.4 %; Platelet Count 211 K/uL (130-400); RDW Coefficient of Variation 12.5 % (11.5-14.5); RDW Standard Deviation 39.9 fL (36.4-46.3); Red Blood Count 5.27 M/uL (4.7-6.1); White Blood Count 10.58 K/uL (4.8-10.8)
--- NOTE | 2020-12-20 09:40 | Neurology Progress Note ---
Date of Service December 20, 2020 Assessment & Plan (1) Seizure disorder: (2) Focal motor seizure: Plan: Recurrent focal motor seizures originating from the right cerebral hemisphere characterized by left-sided seizure activity and associated Nathan's paralysis, now with another recurrent seizure occurring this morning, resolved with lorazepam and IV phenytoin. Patient has an established diagnosis of seizure disorder related to remote right hemispheric glioma resection. He has been noncompliant with Keppra. He has continued to exhibit seizure activity in spite of receiving additional IV Keppra and starting lamotrigine during this hospitalization. I am concerned about his ongoing clinical stability and high risk for further seizure episodes going forward in the context of this current hospitalization. After further discussion with Dr. Deras, hospitalist physician, I would recommend transfer to a tertiary center for neuro critical care, continuous EEG monitoring as we do not have these capabilities at [facility]. I will order a routine EEG. Continue with Keppra 1000 mg IV every 12 hours. Would also recommend phenytoin 100 mg IV every 8 hours. Would obtain a phenytoin level tomorrow morning if patient remains at [facility]. Admission and Anticipated Discharge Date Admission Date: December 19, 2020 Subjective Follow-up for seizures I was contacted yesterday afternoon regarding recurrent seizures for this patient on the floor. Focal motor seizures affecting the left face arm and leg. He was loaded with additional Keppra. Routine Keppra switched over to IV. This morning, patient exhibited additional focal motor seizure activity localizing to the right cerebral hemisphere characterized by eyes driven over to the left, rhythmic shaking of the left arm, minimal shaking for the left leg. Patient was minimally conversant during this episode. Treated with IV lorazepam and phenytoin IV. Results & Data ([facility]) Vital Signs (Past 12 Hours) Vital Signs Temp Pulse Resp BP Pulse Ox 12/20/20 08:56 37.8 C H 101 H 28 H 144/87 H 90 12/20/20 07:00 36.9 C 81 20 145/82 H 95 12/20/20 06:56 36.4 C L 76 16 128/80 94 12/20/20 04:27 36.9 C 81 20 137/80 93 12/19/20 23:49 36.6 C 67 20 128/66 95 Laboratory Results WBC 10.58, hemoglobin 16.5, hematocrit 46.2, platelet count 211 Diagnostic Findings Brain MRI completed December 18 revealed a focus of restricted diffusion within the right occipital lobe potentially consistent with an acute to subacute infarct although a seizure focus may also exhibit restricted diffusion. CT angiography of the head and neck completed on December [address] of the head and brain MRI have also revealed chronic postoperative changes within the right parieto-occipital region. Exam (Neuro) Physical Exam: Patient observed during focal motor seizure this morning. As above, eyes driven to left. Able to converse minimally. Focal twitching of the left facial musculature observed. Focal seizure activity involving the left arm and leg observed. Seizure activity did not generalize and responded to IV lorazepam. Was also given 1.5 g of phenytoin IV. Patient observed sleeping soundly after the episode. PG Care Time/CCT Total # of Minutes Spent Total Time Spent with Patient: Total time spent is greater than 50% in coordination of care (as documented) at patient's floor/unit and/or counseling patient: Coding Level of Care Code 46315 Subseq Hosp Care Lvl 3 Diagnoses Seizure disorder G40.909 Focal motor seizure G40.109
[2020-12-20 09:51] LABS: BUN Creatinine Ratio 15.6 (10-20); Calcium 8.8 mg/dl (8.5-10.1); Creatinine Clr Calc Pharmacy 148.4 ml/min; Est GFR (African American) 124.5 ml/min; Est GFR (Non-African American) 107.4 ml/min; Potassium 3.5 mmol/L (3.5-5.1)
[2020-12-20] MEDS: ASPIRIN 81 MG ECTAB PO SCH (10:27)
[2020-12-20] MEDS: guaiFENesin 600 MG TABCR PO SCH ×2 (10:28→21:05)
[2020-12-20] MEDS: lamoTRIgine 25 MG TAB PO SCH ×2 (10:29→21:06)
--- NOTE | 2020-12-20 12:15 | Electroencephalogram ---
EEG Procedure Note Date of Service December 20, 2020 Start / End Times Start Time: 10:37 AM End Time: 10:57 AM Referring Physician Teddy Salas MD History Focal motor seizures localizing to the right cerebral hemisphere, history of right parieto-occipital glioma resection. Home Medication List Medication Instructions Recorded Confirmed Type levetiracetam 750 mg tablet 1,500 mg PO .OCCASIONALLY 12/17/20 12/17/20 History Inpatient Medication List Aspirin (Aspirin 81 Mg Ectab) 81 mg PO QAM NAMAN Stop: 01/17/21 08:59 Last Admin: 12/20/20 10:27 Dose: Not Given Documented by: [id number] Admin: 12/19/20 08:29 Dose: 81 mg Documented by: [id number] Admin: 12/18/20 09:57 Dose: 81 mg Documented by: [id number] Guaifenesin (Guaifenesin 600 Mg Tabcr) 1,200 mg PO BID [facility] Stop: 01/16/21 20:59 Last Admin: 12/20/20 10:28 Dose: Not Given Documented by: [id number] Admin: 12/19/20 23:03 Dose: 1,200 mg Documented by: [id number] Admin: 12/19/20 08:29 Dose: 1,200 mg Documented by: [id number] Admin: 12/18/20 20:19 Dose: 1,200 mg Documented by: [id number] Admin: 12/18/20 09:57 Dose: 1,200 mg Documented by: [id number] Admin: 12/17/20 18:40 Dose: 1,200 mg Documented by: [id number] Hydromorphone HCl (Hydromorphone Inj 0.5 Mg/0.5 Ml Syr) 0.5 mg IV Q4H PRN PRN Reason: Pain Stop: 12/31/20 18:19 Last Admin: 12/20/20 03:11 Dose: 0.5 mg Documented by: [id number] Admin: 12/19/20 22:58 Dose: 0.5 mg Documented by: [id number] Admin: 12/19/20 18:20 Dose: 0.5 mg Documented by: [id number] Admin: 12/18/20 11:04 Dose: 0.5 mg Documented by: [id number] Admin: 12/17/20 18:43 Dose: 0.5 mg Documented by: [id number] Sodium Chloride (Nss 1000ml) 1,000 mls @ 50 mls/hr IV .Q20H NAMAN Stop: 01/16/21 10:44 Last Infusion: 12/20/20 00:58 Dose: 0 mls/hr Documented by: [id number] Admin: 12/19/20 23:41 Dose: 50 mls/hr Documented by: [id number] Admin: 12/19/20 02:30 Dose: Not Given Documented by: [id number] Infusion: 12/18/20 15:20 Dose: 0 mls/hr Documented by: [id number] Admin: 12/18/20 05:43 Dose: Not Given Documented by: [id number] Infusion: 12/17/20 13:10 Dose: 0 mls/hr Documented by: [id number] Admin: 12/17/20 11:10 Dose: 50 mls/hr Documented by: [id number] Lamotrigine (Lamotrigine 25 Mg Tab) 25 mg PO BID NAMAN Stop: 01/18/21 08:59 Last Admin: 12/20/20 10:29 Dose: Not Given Documented by: [id number] Admin: 12/19/20 23:05 Dose: 25 mg Documented by: [id number] Admin: 12/19/20 10:14 Dose: 25 mg Documented by: [id number] Discontinued Medications Acetaminophen (Acetaminophen 500 Mg Tab) 1,000 mg PO NOW STA Stop: 12/17/20 16:09 Last Admin: 12/17/20 18:07 Dose: 1,000 mg Documented by: [id number] Aspirin (Aspirin Chew 324 Mg) 324 mg PO NOW STA Stop: 12/17/20 14:19 Last Admin: 12/17/20 14:32 Dose: 324 mg Documented by: [id number] Azithromycin (Azithromycin 250 Mg Tab) 250 mg PO QAM NAMAN Stop: 12/22/20 08:59 Last Admin: 12/18/20 09:57 Dose: 250 mg Documented by: [id number] Divalproex Sodium (Divalproex Delay Release 500 Mg Tab) 500 mg PO NOW ONE Stop: 12/19/20 17:39 Last Admin: 12/19/20 18:37 Dose: 500 mg Documented by: [id number] Gadobutrol (Gadobutrol 65ml Vial) 9 ml IV ONCE ONE Stop: 12/18/20 18:24 Last Admin: 12/18/20 18:23 Dose: 9 ml Documented by: [id number] Guaifenesin (Guaifenesin 200 Mg Tab) 200 mg PO ONE STA Stop: 12/17/20 16:09 Last Admin: 12/17/20 18:41 Dose: Not Given Documented by: [id number] Hydromorphone HCl (Hydromorphone Inj 0.5 Mg/0.5 Ml Syr) 0.5 mg IV Q15M PRN PRN Reason: Pain Stop: 12/31/20 10:41 Last Admin: 12/17/20 11:10 Dose: 0.5 mg Documented by: [id number] Hydromorphone HCl (Hydromorphone Inj 0.5 Mg/0.5 Ml Syr) Confirm Administered Dose 0.5 mg .ROUTE .STK-MED ONE Stop: 12/17/20 18:39 Last Admin: 12/17/20 18:44 Dose: Not Given Documented by: [id number] Ceftriaxone Sodium 2,000 mg/ (Dextrose) 70 mls @ 100 mls/hr IV Q24H [facility]; Protocol Stop: 12/24/20 17:59 Last Infusion: 12/18/20 21:01 Dose: 0 mls/hr Documented by: [id number] Admin: 12/18/20 20:19 Dose: 100 mls/hr Documented by: [id number] Infusion: 12/17/20 19:25 Dose: 0 mls/hr Documented by: [id number] Admin: 12/17/20 18:41 Dose: 100 mls/hr Documented by: [id number] Azithromycin 500 mg/ Dextrose 255 mls @ 125 mls/hr IV 1800 ONE Stop: 12/17/20 20:02 Last Infusion: 12/18/20 00:12 Dose: 0 mls/hr Documented by: [id number] Admin: 12/17/20 22:15 Dose: 125 mls/hr Documented by: [id number] Levetiracetam 1,000 mg/ Sodium (Chloride) 110 mls @ 440 mls/hr IV NOW STA Stop: 12/19/20 12:46 Last Infusion: 12/19/20 14:15 Dose: 0 mls/hr Documented by: [id number] Admin: 12/19/20 13:39 Dose: 440 mls/hr Documented by: [id number] Levetiracetam 1,000 mg/ Sodium (Chloride) 110 mls @ 420 mls/hr IV Q12H NAMAN Stop: 01/18/21 19:59 Last Admin: 12/20/20 08:15 Dose: 420 mls/hr Documented by: [id number] Infusion: 12/19/20 23:42 Dose: 0 mls/hr Documented by: [id number] Admin: 12/19/20 22:53 Dose: 420 mls/hr Documented by: [id number] Phenytoin 1,500 mg/ Sodium (Chloride) 130 mls @ 260 mls/hr IV NOW ONE Stop: 12/20/20 09:29 Last Admin: 12/20/20 10:07 Dose: 260 mls/hr Documented by: [id number] Cosigned by: [id number] Ioversol (Optiray 320 125ml) 120 ml IV ONCE ONE Stop: 12/17/20 12:59 Last Admin: 12/17/20 12:49 Dose: 120 ml Documented by: [id number] Ketorolac Tromethamine (Ketorolac Tromethamine 15 Mg/Ml Vial) 15 mg IV NOW ONE Stop: 12/18/20 11:17 Last Admin: 12/18/20 12:16 Dose: 15 mg Documented by: [id number] Levetiracetam (Levetiracetam 250 Mg Tab) 750 mg PO BID NAMAN Stop: 01/16/21 20:59 Last Admin: 12/19/20 08:29 Dose: 750 mg Documented by: [id number] Admin: 12/18/20 20:19 Dose: 750 mg Documented by: [id number] Admin: 12/18/20 09:57 Dose: 750 mg Documented by: [id number] Admin: 12/17/20 20:37 Dose: 750 mg Documented by: [id number] Lorazepam (Lorazepam 2 Mg/4 Ml Vial) Confirm Administered Dose 2 mg .ROUTE .STK- MED ONE Stop: 12/19/20 12:01 Last Admin: 12/19/20 12:06 Dose: 2 mg Documented by: [id number] Lorazepam (Lorazepam 2 Mg/4 Ml Vial) Confirm Administered Dose 4 mg .ROUTE .STK- MED ONE Stop: 12/20/20 08:31 Last Increment: 12/20/20 08:39 Dose: 2 mg Documented by: [id number] Ondansetron HCl (Ondansetron Inj 2 Mg/Ml 2 Ml Vial) 4 mg IV NOW STA Stop: 12/17/20 10:43 Last Admin: 12/17/20 11:10 Dose: 4 mg Documented by: [id number] Ondansetron HCl (Ondansetron Inj 2 Mg/Ml 2 Ml Vial) Confirm Administered Dose 4 mg .ROUTE .STK-MED ONE Stop: 12/17/20 17:31 Last Admin: 12/17/20 17:40 Dose: 4 mg Documented by: [id number] Description This is a 21 electrode EEG with a single channel dedicated to limited EKG. The electrodes were placed in accordance with the International 10-20 system. There is a posterior dominant rhythm of 10 to 12 Hz which is symmetrically distr ibuted and attenuates with eye opening. There is a normal anterior to posterior organization. Photic stimulation is unremarkable. Hyperventilation is not performed. There is a symmetric frontal beta rhythm. There is fairly continuous right parietal theta slowing and occasional associated right parietal sharps. Interpretation Abnormal awake/drowsy EEG with evidence of right parietal slowing and occasional sharp waves. Clinical Correlation These EEG findings are supportive of an underlying tendency for focal seizures localizing to the right cerebral hemisphere and would be consistent with patient's history of remote right parieto-occipital tumor resection and observed focal motor seizure activity involving the left face arm and leg. Please see neurology clinic notes for further details. [facility] EEG Procedure Codes Indication for Procedure (1) Focal motor seizure: Neurology Neurology: [id number] EEG include record awake & drowsy
--- NOTE | 2020-12-20 12:23 | Hospitalist Progress Note ---
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 He had a recurrent focal seizure again this morning CT head showed old encephalomalcia, MRI showed evidence of acute/sub acute stroke, however, the MRI changes could also be found in focal seizures (2) Seizure disorder: Plan: This morning, patient had what seemed like a Focal motor seizures affecting the left face arm and leg, which lasted for at least 10-15 min He was treated with 4mg of lorazepam and 1500mg of Phenytoin He is still currently on his Keppra 1000 mg BID After talking with the tele neurologist at [facility], he suggested a serum Phenytoin level And also to increase the Keppra to 1500mg BID and add Phenytoin 100mg TID A request for transfer has been placed, but the currently have no beds, probably till tomorrow They suggested to call again tomorrow if he continues to have seizures ([phone]) (3) Brain cancer: Plan: History of glioblastoma multiforme Status post craniotomy (4) Status post craniectomy: Plan: VTE Prophylaxis - Low risk given age however depending on mobility tomorrow may reconsider lovenox dosing Diet - dysphagia screen passed, heart healthy diet Disposition - observation status to med/tele Admission and Anticipated Discharge Date Admission Date: December 19, 2020 Subjective Patient seen and examined this morning, was in status epilepticus, which was eventually controlled with keppra, lorazepam, dilantin Review of Systems Review of Systems: All systems reviewed are negative, apart from the ones contained in the history. Physical Exam Physical Exam: The patient is awake, alert and oriented 3, well developed and well nourished, normocephalic and atraumatic, lying in bed and in no acute distress. HEENT--PERRL, EOMI, mucous membranes and oropharynx mildly dry Neck--supple. No JVD. No bruits. Thyroid normal, trachea midline, no adenopathy. Heart--normal S1 and S2. No murmurs, rubs or gallops. Lungs--clear bilaterally, no respiratory distress, no accessory muscle use. Abdomen--normal bowel sounds and soft. Mild epigastric and left sided abdominal pain Extremities--no cyanosis or clubbing. No edema. Dermatologic--normal skin turgor, normal color, no abnormal lymph nodes, no rash. Neurologic--Left mila paresis Rheumatologic--normal range of motion. Psychiatric--normal affect. Results & Data Results & Data ([facility]) Vital Signs (Past 12 Hours) Vital Signs Temp Pulse Resp BP Pulse Ox 12/20/20 11:00 98.8 F 100 H 20 137/78 95 12/20/20 08:56 100.0 F H 101 H 28 H 144/87 H 90 12/20/20 07:00 98.4 F 81 20 145/82 H 95 12/20/20 06:56 97.5 F L 76 16 128/80 94 12/20/20 04:27 98.4 F 81 20 137/80 93 PG Care Time/CCT Total # of Minutes Spent Total Time Spent with Patient: Total time spent is greater than 50% in coordination of care (as documented) at patient's floor/unit and/or counseling patient: Coding Level of Care Code 84501 Subseq Hosp Care Lvl 2 Diagnoses Left-sided weakness R53.1 Seizure disorder G40.909 Brain cancer C71.9 Status post craniectomy Z98.890
[2020-12-20] MEDS: PHENYTOIN SODIUM ER 100 MG CAP PO SCH ×2 (14:10→21:07)
[2020-12-20] MEDS ORDERED: SODIUM CHLORIDE 0.9% 10ML FLUSH IV STA (17:47)
[2020-12-20] MEDS ORDERED: PHENYTOIN 200 MG in SYRINGE 0 ML IV ONE (17:48)
[2020-12-20] MEDS: SODIUM CHLORIDE 0.9% 1000ML 1,000 ML IV SCH (18:02)
[2020-12-20] MEDS: levETIRAcetam 1,500 MG in 0.9 % SODIUM CHLORIDE 100 ML IV SCH (20:56)
--- NOTE | 2020-12-21 01:10 | Communication Note ---
Date of Service: December 21, 2020 notified by nursing at 11:37 pm patient complaining of "feeling weird" like he's having a seizure but no visible seizing or focal motor activity. Neuro checks shortened from Q4h to Q2h. Notified by nursing at 12:46 am patient again reporting seizure now behaving abnormally, left sided facial droop, slurred and slowed speech. Stroke alert called. Examined patient at bedside. Visible left sided facial droop. Able to raise eyebrows, puff cheeks somewhat uniformly. unable to move left arm (baseline). slow, somewhat slurred speech. stat CT head wo con ordered. Chart review - Pt 50 yo M with hx glioblastoma s/p craniectomy, seizures admitted on 12/17 for L sided weakness. MRI revealed subacute/acute stroke though changes also possibly related to seizure activity. Keppra increased from 1000 mg BID to 1500 mg BID and added phenytoin 100 mg TID. 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 Can increase keppra to 2000 mg BID if worsening seizure activity. Phenytoin level pending.
--- NOTE | 2020-12-21 01:46 | CT Scan Report ---
CT OF THE HEAD WITHOUT CONTRAST CLINICAL HISTORY: stroke alert, recent hx subacute stroke, seizures COMPARISON STUDY: Head CT, CTA of the head December 17, 2020. MRI of the brain December 18, 2020. CT DOSE: 537.48 mGy.cm TECHNIQUE: Helical axial images of the head were obtained without IV contrast. Automated exposure con trol was utilized for the study. A dose lowering technique was utilized adhering to the principles o f ALARA. FINDINGS: No acute intracranial hemorrhage, midline shift or mass effect is present. Right sided cran iotomy is noted. Encephalomalacia within the right occipital lobe is unchanged. The ventricular syste m is stable. Basal cisterns are patent. There are no extra-axial collections. The appearance of the b rain is unchanged. The acute to subacute infarct evident by MRI is not evident by CT. IMPRESSION: 1. No acute intracranial hemorrhage or mass effect. No change in appearance of the brain. 2. The acute to subacute infarct within the right occipital lobe on MRI of December 18, 2020 is not ev ident, possibly due to technique. ACT 112: Negative or not required by law. Electronically signed by: Han Woodruff M.D. 12/21/2020 1:45 AM
[2020-12-21] MEDS ORDERED: OPTIRAY 320 125ml IV ONE (02:14)
--- NOTE | 2020-12-21 02:44 | CT Scan Report ---
CT ANGIOGRAPHY OF THE NECK WITH CONTRAST CLINICAL HISTORY: Stroke alert. Facial droop. COMPARISON STUDY: CTA of the neck December 17, 2020. Technique: CT angiography of the carotid and vertebral arteries was obtained using Optiray and 3D rec onstruction on an independent workstation. NASCET criteria was utilized. Automated exposure control was utilized for the study. A dose lowering technique was utilized adhering to the principles of ALA RA. CT DOSE: 705.37 mGy.cm Findings: There is no cervical lymphadenopathy. No acute cervical spine fracture is present. The bila teral common carotid, cervical internal carotid and vertebral arteries are patent. There is no dissec tion or stenosis within these vessels. No aneurysm within the neck is present. The appearance is unch anged since CTA of December 17, 2020. CTA of the head will be reported separately. IMPRESSION: Unremarkable CTA of the neck. No stenosis or dissection. ACT 112: Negative or not required by law. Electronically signed by: Han Woodruff M.D. 12/21/2020 2:43 AM
--- NOTE | 2020-12-21 02:55 | CT Scan Report ---
CTA ANGIOGRAPHY OF THE HEAD CLINICAL HISTORY: Stroke alert. Facial droop. History of brain tumor. COMPARISON STUDY: CTA of the head and head CT December 17, 2020. MRI of the brain December 18, 2020. H ead CT performed earlier today TECHNIQUE: Helical axial images of the head were obtained following uneventful intravenous administr ation of 119 cc of Optiray. Sagittal and coronal reconstructions were viewed as well as maximal inten sity projections on an independent 3-D workstation. Automated exposure control was utilized for the study. A dose lowering technique was utilized adhering to the principles of ALARA. FINDINGS: Right sided craniotomy is noted. Calvarial irregularity is similar to head CT of March 122020. Associated encephalomalacia within the right parieto-occipital region is noted. There is als o encephalomalacia within the anterior right temporal lobe. This is unchanged since head CT of [facility] 2020. Right temporal lobe encephalomalacia is new since head CT of March 21, 2020. No acute intracranial hemorrhage, midline shift or mass effect is present. There is mild ethmoid sinus mucosal thickening. Both anterior cerebral arteries arise from the left internal carotid artery. Anterior ci rculation is intact. There is no central vessel occlusion or intracranial aneurysm. Posterior circula tion is largely supplied by the anterior circulation. Large right posterior communicating artery is n oted. There is persistence of the left posterior cerebral artery. No dissection within the intr acranial vessels is noted. The appearance is unchanged and CTA of December 17, 2020. Major dural sinus es are patent. IMPRESSION: 1. No central vessel occlusion. No intracranial aneurysm. 2. No significant change since CTA of December 17, 2020. 3. Status post right sided craniotomy with right parieto-occipital encephalomalacia which is unchange d since CT of March 21, 2020. Right temporal lobe encephalomalacia is new since that exam but unch anged since CT of December 17, 2020. ACT 112: Negative or not required by law. Electronically signed by: Han Woodruff M.D. 12/21/2020 2:54 AM
[2020-12-21] MEDS: levETIRAcetam 1,500 MG in 0.9 % SODIUM CHLORIDE 100 ML IV SCH (09:11)
[2020-12-21] MEDS: PHENYTOIN SODIUM ER 100 MG CAP PO SCH ×2 (09:22→14:00)
[2020-12-21] MEDS: guaiFENesin 600 MG TABCR PO SCH (09:23)
[2020-12-21] MEDS: ASPIRIN 81 MG ECTAB PO SCH (09:23)
[2020-12-21] MEDS: lamoTRIgine 25 MG TAB PO SCH (09:23)
--- NOTE | 2020-12-21 10:55 | Neurology Progress Note ---
Date of Service December 21, 2020 Assessment & Plan (1) Focal motor seizure: (2) Stroke: (3) Status post craniectomy: Plan: This patient continues to have focal motor seizures related to a right parieto- occipital glioblastoma resection done in [place] in 2004. 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 However, a brain MRI done on December 18 did suggest an area of possible acute to subacute ischemia within the right occipital region on diffusion-weighted imaging. The location of this area of restricted diffusion would not explain patient's left hemiparesis, however. I would like this patient to have a repeat MRI of the brain with and without contrast to reassess for interval stroke or any significant change compared with the previous study done on December 18. That study was compromised by motion artifact. Patient should continue with daily low-dose aspirin. I would like him to have a transthoracic echocardiogram with bubble study as well. Furthermore, given that he continues to exhibit focal motor seizures I would recommend starting Vimpat as an adjunctive anticonvulsant. Would recommend 100 mg IV every 12 hours. Would discontinue lamotrigine at this time. Continue with phenytoin 100 mg p.o. 3 times daily. Continue with levetiracetam 1500 mg IV every 12 hours. If patient continues to have convulsive episodes would recommend transfer to a tertiary center for continuous EEG monitoring/neuro critical care. Admission and Anticipated Discharge Date Admission Date: December 19, 2020 Subjective Follow-up for seizures The patient has continued to exhibit focal motor seizures with residual left- sided weakness/Nathan's paralysis. He may have had another focal motor seizure episode last night at around 12:46 AM. He was evaluated by the house staff resident at that time who noted his left-sided weakness and contacted the stroke specialist at [facility] who was on-call. Patient had another CT angiogram of the head and neck completed that was unremarkable. He continues with Keppra, current dosage 1500 mg IV every 12 hours. Had also been given a loading dose of phenytoin yesterday followed by maintenance dose, 100 mg p.o. 3 times per day. Follow-up phenytoin levels on the high end of the therapeutic range. He also continues with a low-dose of lamotrigine. Attempts were made by the hospitalist physician to have the patient transferred to a tertiary center for neuro critical care/continuous EEG monitoring. However, no beds available. The patient is sitting quietly in bed this morning. He continues to report left-sided weakness, especially the arm, no headache. Review of Systems Constitutional: no fever and no chills Eyes: no blind spots Neurologic: + localized weakness and + seizure-like activity; no headache(s) Psychiatric: no depression and no anxiety Results & Data ([facility]) Vital Signs (Past 12 Hours) Vital Signs Temp Pulse Pulse Resp BP Pulse Ox 12/21/20 07:23 36.9 C 93 H 20 146/83 H 91 12/21/20 04:54 37.1 C 94 H 18 156/98 H 94 12/21/20 04:00 36.7 C 92 H 20 144/96 H 94 12/21/20 02:35 89 20 141/99 H 95 12/21/20 02:24 90 18 133/89 94 12/21/20 01:32 95 H 20 146/94 H 91 12/21/20 01:17 36.8 C 90 20 149/90 H 96 12/20/20 23:15 37.0 C 89 20 127/75 93 Laboratory Results WBC 10.58, hemoglobin 16.5, hematocrit 46.2, platelet count 211, sodium 136, potassium 3.5, BUN 11, creatinine 0.73, glucose 149, phenytoin level this morning 19.[address] of the head including CT angiography of the head and neck completed overnight reviewed. No evidence of large vessel occlusion or aneurysm, no significant change compared with previous CT angiography done December 17, 2020. There is evidence of chronic encephalomalacia involving the right parieto- occipital region, unchanged compared with previous study. Exam (Neuro) Neurologic: Oriented to:: Person and Place Attention: negative Span Intact Speech Fluency: negative Dysarthria or Dysfluency Fund of Knowledge: Vocabulary Cranial Nerves: Normal II and III, IV, ; Abnorm VII (left lower facial weakness noted) Motor Strength: Hemiparesis (arm>leg) Laterality: Left Muscle Bulk/Involuntary Movements: No Involuntary Movements Special Tests: Babinski Present (left) Details: Patient has a significant left hemiparesis, arm much greater than leg. Does have some residual elbow flexion strength, grasp is 0. Left lower extremity modestly weak. PG Care Time/CCT Total # of Minutes Spent Total Time Spent with Patient: t: Coding Level of Care Code 32810 Subseq Hosp Care Lvl 3 Diagnoses Focal motor seizure G40.109 Stroke I63.9 Status post craniectomy Z98.890
[2020-12-21] MEDS ORDERED: LACOSAMIDE 100 MG in SODIUM CHLORIDE 0.9% 50 ML IV SCH (11:15)
--- NOTE | 2020-12-21 13:25 | XCELERA ---
[id number] \\[id number]
--- NOTE | 2020-12-21 13:34 | Discharge Summary ---
Date of Service December 21, 2020 Admission HPI Per Admitting Provider Ziggy Jones is a 50 year old male with significant PMHx glioblastoma multiforme s/p resection 15 years ago who presents to the ER with left upper sided weakness. Unclear onset but possibly yesterday morning however he slept most of yesterday therefore unclear how weak he was at this time. No fever but chills noticed. He has a chronic cough but reports this is at baseline. No sinus pain, however he does report a headache. He also vomited yesterday once and today. No abdominal pain, change in bowels, melena or bright red blood in stool. No urinary symptoms. No chest pain, palpitations. This morning he had more definitive left sided weakness and was unable to get up out of chair to go to bathroom around 3:40am this morning. No change in speech, hearing or vision. No facial droop. He reports similar symptoms in the past but these were all related to head trauma. He has had balance problems since his brain resection and has had multiple falls. On these occasions he has required rehabilitation to get his strength back (although he also tells me he usually gets better in a few days). His last rehabilitation stay was in June this year and his strength had been doing much better since then. He also has a seizure history, many years since a tonic/clonic seizure but reports the rehabilitation doctor at rehab suspected an occasional tingling in his left side was seizure activity. The patient reports o nly occasionally taking his anti-seizure medication as he doesn't like to take medications. In the ER CT head and angio head/neck were unremarkable for acute etiology however showed old postcraniotomy findings with encephalomalacia of right parietal lobe. Case was discussed by the ER physician with Dr Moyer and recommended admission for stroke workup at this time. He was referred to medicine for admission and ongoing management. Principal Diagnosis seizures Discharge Exam The patient is awake, alert and oriented 3, well developed and well nourished, normocephalic and atraumatic, lying in bed and in no acute distress. HEENT--PERRL, EOMI, mucous membranes and oropharynx mildly dry Neck--supple. No JVD. No bruits. Thyroid normal, trachea midline, no adenopathy. Heart--normal S1 and S2. No murmurs, rubs or gallops. Lungs--clear bilaterally, no respiratory distress, no accessory muscle use. Abdomen--normal bowel sounds and soft. Mild epigastric and left sided abdominal pain Extremities--no cyanosis or clubbing. No edema. Dermatologic--normal skin turgor, normal color, no abnormal lymph nodes, no rash. Neurologic--Left mila paresis Rheumatologic--normal range of motion. Psychiatric--normal affect. Discharge Data Allergies Allergy/AdvReac Type Severity Reaction Status Date / Time bacitracin Allergy Rash Verified 12/17/20 11:31 [From Neosporin ([id number])] neomycin Allergy Rash Verified 12/17/20 11:31 [From Neosporin ([id number])] polymyxin B Allergy Rash Verified 12/17/20 11:31 [From Neosporin ([id number])] Consultations 12/17/20 17:33 Consult Neurology Routine 12/21/20 12:20 Burn CD for patient Stat Ordered Studies 12/17/20 10:43 CT angio head w con Stat CT angio neck with con Stat CT head/brain wo con Stat 12/18/20 14:18 MR brain wo/w con Stat 12/18/20 14:45 MR cervical spine wo con Stat 12/21/20 01:02 CT head/brain wo con Stat 12/21/20 01:36 CT angio head w con Stat CT angio neck with con Stat 12/21/20 10:55 MR brain seizure wo/w con Routine Hospital Course (1) Left-sided weakness: 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 He had a recurrent focal seizure again this morning CT head showed old encephalomalcia, MRI showed evidence of acute/sub acute stroke, however, the MRI changes could also be found in focal seizures (2) Seizure disorder: This morning, patient had what seemed like a Focal motor seizures affecting the left face arm and leg, which lasted for at least 10-15 min He was treated with 4mg of lorazepam and 1500mg of Phenytoin He is still currently on his Keppra 1000 mg BID After talking with the tele neurologist at [facility], he suggested a serum Phenytoin level And also to increase the Keppra to 1500mg BID and add Phenytoin 100mg TID A request for transfer has been placed, but the currently have no beds, probably till tomorrow They suggested to call again tomorrow if he continues to have seizures ([phone]) Eventually, a bed opened up at [facility] and the patient was accepted, however, he refused transfer and said he wanted to go home. All the risks were explained to him but he insisted and signed out Against Medical Advice (3) Brain cancer: History of glioblastoma multiforme Status post craniotomy (4) Status post craniectomy: VTE Prophylaxis - Low risk given age however depending on mobility tomorrow may reconsider lovenox dosing Diet - dysphagia screen passed, heart healthy diet Disposition - observation status to med/tele Total Time Total Time Spent Total Time Spent (In Minutes): 35 min Discharge Plan Discharge Items Patient Disposition: Against Medical Advice Reason For Visit: LT SIDED WEAKNESS Condition on Discharge: Fair Activity: As commented below Non-emergency contact: Primary Care Provider Follow-up/Referrals: PCP,NO [Primary Care Provider] - Pending Studies at Discharge: No Stand-Alone Forms: Repunch, Smoking Cessation Skilled Items Patient informed of condition?: Yes DNR: No Discharge Level of Care: Other Communicable Disease: No Discharge Prognosis: Other Medications and DC Order Prescriptions: New phenytoin sodium extended [Dilantin Extended] 100 mg Capsule 100 mg PO TID 30 Days Qty: 90 RF: 0 aspirin 81 mg Tablet,Delayed Release (Dr/Ec) 81 mg PO QAM 30 Days Qty: 30 RF: 0 lamotrigine [Lamictal] 25 mg Tablet 25 mg PO BID 30 Days Qty: 60 RF: 0 Continued levetiracetam 750 mg tablet 1,500 mg PO .OCCASIONALLY RF: 0 Discharge Orders: Left Against Medical Advice (Routine); Ordered 12/21/20 Ordered By: Taty Gifford/Other Patient Handouts: A1C, Prediabetes, 5 Steps for Eating Healthier Admission Data Admit Date/Time: 12/19/20 13:15 Attending Provider: Taty Deras Admit Provider: Isreal Ya Primary Care Provider: PCP,NO Other Providers: Zelalem Moyer Coding Level of Care Code D/C DAY MANAGEMENT >30 MINS Diagnoses Left-sided weakness R53.1 Seizure disorder G40.909 Brain cancer C71.9 Status post craniectomy Z98.890
[2020-12-21] MEDS ORDERED: clonazePAM 0.5 MG TAB PO SCH (14:00)
[2020-12-21] MEDS: SODIUM CHLORIDE 0.9% 1000ML 1,000 ML IV SCH (17:16)
--- NOTE | 2020-12-29 11:06 | Coding Query ---
To promote full compliance with coding requirements relating to patient care, provider participation is requested in all cases of typewriter aligner uncertainty. Please assist us with the question(s) below: Coding Question(s): The diagnosis(es) below was documented in the H&P and Neuro progress notes then subsequently fell off all further documentation. Please indicate if it is still a possible diagnosis or ruled out. Physician's Response(s): PNEUMONIA ( ) Diagnosed and POA ( ) Diagnosed and not POA ( Y ) Ruled out ( ) Other (please specify) STROKE: a brain MRI done on December 18 suggested an area of possible acute to subacute ischemia within the right occipital region on diffusion-weighted imaging ( ) Diagnosed and POA ( ) Diagnosed and not POA ( ) Ruled out ( unlikely to be stroke ) Other (please specify) Thank you for your time, Melissa Jarquin, [place], [facility]
== END 2020-12-21 18:12 | disposition left against medical advice (07) | DRG 100 ==
LOC: ED 09:51 → 2N 09:51 → SUATTDRO 15:13 → 2N 15:59

== ENCOUNTER 2020-12-21 18:44 | Inpatient (IN) ==
--- NOTE | 2020-12-21 20:35 | XRay Report ---
XR chest 1V portable CLINICAL HISTORY: weakness TECHNIQUE: Single frontal radiograph of the chest was obtained. Comparison: Comparison is made to chest one view 12/17/2020 FINDINGS: No lines and tubes are seen. The cardiomediastinal silhouette is normal. The lungs are clear. No evid ence of pleural effusion or pneumothorax. IMPRESSION: No acute chest disease. ACT 112: Negative or not required by law. Electronically signed by: Gonzalez Becker M.D. 12/21/2020 8:34 PM
[2020-12-21 23:44] LABS: Basophils # (auto) 0.05 K/uL (0-0.2); Basophils % (auto) 0.4 %; Eosinophils # (auto) 0.09 K/uL (0-0.5); Eosinophils % (auto) 0.7 %; Hematocrit (blood only) 51.9 % (42-52); Hemoglobin 18.3 g/dL (14.0-18.0); Immature Granulocytes # (auto) 0.04 K/uL (0.00-0.02); Immature Granulocytes % (auto) 0.3 %; Lymphocytes # (auto) 1.82 K/uL (1.2-3.4); Lymphocytes % (auto) 13.6 %; Mean Corpuscular Hemoglobin 32.3 pg (25-34); Mean Corpuscular Hgb Conc 35.3 g/dL (32-36); Mean Corpuscular Volume 91.5 fL (80-100); Mean Platelet Volume 10.8 fL (7.4-10.4); Monocytes # (auto) 0.69 K/uL (0.11-0.59); Monocytes % (auto) 5.1 %; Neutrophils # (auto) 10.73 K/uL (1.4-6.5); Neutrophils % (auto) 79.9 %; Platelet Count 223 K/uL (130-400); RDW Coefficient of Variation 12.5 % (11.5-14.5); Red Blood Count 5.67 M/uL (4.7-6.1); White Blood Count 13.42 K/uL (4.8-10.8)
[2020-12-21] MEDS ORDERED: LACOSAMIDE 100 MG in SODIUM CHLORIDE 0.9% 50 ML IV STA (23:47)
[2020-12-21] MEDS ORDERED: levETIRAcetam 1,500 MG in 0.9 % SODIUM CHLORIDE 100 ML IV STA (23:47)
[2020-12-21] MEDS ORDERED: PHENYTOIN SODIUM ER 100 MG CAP PO STA (23:47)
[2020-12-22 00:08] LABS: Albumin Level 3.9 gm/dl (3.4-5.0); Aspartate Aminotransferase 10 U/L (15-37); BUN Creatinine Ratio 14.4 (10-20); Blood Urea Nitrogen 13 mg/dl (7-18); Calcium 9.5 mg/dl (8.5-10.1); Carbon Dioxide 27 mmol/L (21-32); Chloride 105 mmol/L (98-107); Creatinine Clr Calc Pharmacy 124.7 ml/min; Est GFR (African American) 114.7 ml/min; Glucose 149 mg/dl (70-99); Magnesium 2.2 mg/dl (1.8-2.4); Potassium 4.4 mmol/L (3.5-5.1); Sodium 138 mmol/L (136-145)
[2020-12-22 00:16] LABS: Alanine Aminotransferase 20 U/L (12-78); Albumin Globulin Ratio 0.9 (0.9-2); Alkaline Phosphatase 83 U/L (45-117); Globulin 4.4 gm/dl (2.5-4.0); Total Protein 8.3 gm/dl (6.4-8.2); Troponin I < 0.015 ng/ml (0-0.045)
[2020-12-22 00:49] LABS: Appearance Urine Clear (Clear); Bacteria Urine Automated Negative (Negative); Blood Urine Negative (Negative); Color Urine Dark Yellow; Epithelial Cell Urine Auto >30 /lpf (0-5); Glucose Urine UA Negative (Negative); Ketones Urine 3+ (Negative); Leukocyte Esterase Urine Trace (Negative); Nitrite Urine Negative (Negative); Protein Urine Trace (Negative); RBC Urine Automated 0-4 /hpf (0-4); Specific Gravity Urine 1.032 (1.000-1.030); Urobilinogen Urine Negative (Negative)
[2020-12-22 00:57] LABS: Bilirubin Urine 1+ (Negative)
--- NOTE | 2020-12-22 01:31 | Emergency Department Note ---
Impression & Plan Focal motor seizure, Left-sided weakness, H/O brain tumor ED Provider Note CHIEF COMPLAINT: Weakness, seizure versus stroke HISTORY OF PRESENT ILLNESS: This patient is a 50-year-old male who presents emergency department with complaints of generalized weakness. The patient was admitted to the hospital 12/17 worsening left sided hemiplegia. The patient has a history of GBM status post resection 15 years ago in [place]. It was determined that the patient was suffering from focal motor seizures although the MRI was read as potentially an acute to subacute infarct. Patient's antiepilept ic medications were rearranged, current recommendations are for Vimpat 100 every 12 hours Keppra 1500 every 12 hours and phenytoin extended 100 p.o. 3 times daily. Arrangements were made for the patient to be transferred to [facility] presumably for EEG monitoring, however the patient signed out AGAINST MEDICAL ADVICE. The patient's bed at [facility] has apparently been given up. The patient was not able to get into the vehicle which came to pick him up at discharge. He then checked back into the emergency department and waited for the better part of 4 hours to be seen. There is a question as to whether or not he had additional focal motor seizures but he confirms he did not have any medications since he was given them in hospital as a patient. He denies any pain, change in mental status or falls. He states he is willing to be hospitalized but does not want transfer to [facility] as they are too far away. He is too weak at this time for private transport to home or elsewhere. He denies any fever, chills, chest pain, shortness of breath, abdominal pain, vomiting or diarrhea. REVIEW OF SYSTEMS: A review of systems was performed with positives and pertinent negatives listed in the history of present illness. 10 systems were reviewed and are otherwise negative. ALLERGIES: see below MEDICATIONS: see below PMH: see below SOCIAL HISTORY: see below DDx: Infection, dehydration, metabolic abnormality, hypo/hyperglycemia, electrol yte disturbance, anemia, hypoxia, cardiac sources, intracerebral event, toxicologic, neurologic, as well as other pathologies. PHYSICAL EXAM: Vital signs reviewed. General: Chronically ill appearing 50 yo male, in no significant distress. HEENT: No scleral icterus, PERRLA, neck supple. Atraumatic. Tongue with thick brown tobacco stained film. Poor dentition Cardiovascular: Regular rate and rhythm, no extra sounds. Pulmonary: Clear to auscultation bilaterally, normal work of breathing. Abdomen: Soft, obese, nontender, nondistended, positive bowel sounds. Musculoskeletal: Atraumatic, no peripheral edema. Neurologic: Patient awake alert and oriented x 3, speech is clear, L subtle facial asymmetry, LUE/LLE weakness with 2/5 strength LUE, 4/5 strength LLE Skin: Warm, dry, no rash. tattoos BUE EMERGENCY DEPARTMENT COURSE/MDM: This patient was evaluated and appeared to be in no significant distress. The patient apparently is at the baseline from what she left the hospital AMA approximately 5 hours prior to my evaluation. The patient waited for his ride after signing out and upon the ride's arrival was unable to get into the vehicle due to his left hemiparesis. The patient had d eclined transfer to [place] when a bed became available as this is too far from home. Patient states his previous surgeries were done at [place]. The patient was medicated with his p.o. Dilantin, IV Vimpat and IV Keppra. He was hydrated with normal saline solution. CT imaging of the head was performed and is read as below. The patient's case was discussed with the hospitalist service who will evaluate the patient for further management. Patient is aware of the plan and agrees. MONITORING: An order for cardiac monitoring was placed and the patient is noted to be in a normal sinus rhythm at 90 beats per minute. RADIOLOGY: See below EKG: Normal sinus rhythm at 91 bpm. No PVC, no PAC. Incomplete right bundle branch block with repolarization abnormality in the inferior leads. Previous inferior infarct. RVH. QTC is 450. DISPOSITION: Hospitalist consult for admission Past Med/Surg History Medical History (Updated 12/22/20 @ 01:31 by Bree Wei MD) Brain cancer Renal stone Surgical History (Updated 12/18/20 @ 08:24 by Zelalem Moyer MD) S/P cholecystectomy Status post craniectomy Family History Mother No problems noted. Father , the diagnose 60s of lung cancer Lung cancer Social History Smoking Status: Former smoker Number of Years Since Quit: 20; Second Hand Exposure: No; Hx Alcohol Use: Yes Alcohol type: beer Alcohol Intake Frequency Comment: 4 beers per week every 1-2 weeks Hx Substance Use: Yes Preferred Language: Turkish Communication Ability: Effective Curtain Worker Required: No Beliefs That Will Affect Care: None Current Living Situation: Family current occupational status: unemployed current occupation: former [employer] Feels Safe at Home: Yes Assistive Devices: None Allergies Allergies Allergy/AdvReac Type Severity Reaction Status Date / Time bacitracin Allergy Rash Verified 12/17/20 11:31 [From Neosporin ([id number])] neomycin Allergy Rash Verified 12/17/20 11:31 [From Neosporin ([id number])] polymyxin B Allergy Rash Verified 12/17/20 11:31 [From Neosporin ([id number])] Home Meds Home Medications Medication Instructions Recorded Confirmed levetiracetam 750 mg tablet 1,500 mg PO .OCCASIONALLY 12/17/20 12/21/20 Previous Rx's Medication Instructions Recorded aspirin 81 mg tablet,delayed 81 mg PO QAM 30 Days #30 tab 12/21/20 release lamotrigine 25 mg tablet (Lamictal) 25 mg PO BID 30 Days #60 tab 12/21/20 phenytoin sodium extended 100 mg 100 mg PO TID 30 Days #90 cap 12/21/20 capsule (Dilantin Extended) Results & Data (ED) Vital Signs Vital Signs - 24 hr 12/21/20 19:59 12/21/20 23:54 12/21/20 23:56 Temperature 36.4 C L Temperature Source Temporal Artery Scan Pulse Rate 99 H 88 Pulse Rate [Finger] 87 Pulse Rhythm Regular Respiratory Rate 18 Respiratory Depth Normal Blood Pressure 153/94 H Blood Pressure [Left Arm] 139/91 Blood Pressure Mean 113 Blood Pressure Mean [Left Arm] 107 Blood Pressure Position [Left Arm] Lying Pulse Oximetry 97 97 97 Oxygen Delivery Method Room Air Room Air Room Air Sepsis Recent Fever Within 48 Hours No Sepsis New/Unexplained Change in Mental Status N/A Sepsis Action Taken by Nursing No Action Required 12/22/20 01:08 Temperature Temperature Source Pulse Rate Pulse Rate [Finger] 87 Pulse Rhythm Respiratory Rate Respiratory Depth Blood Pressure Blood Pressure [Left Arm] 127/101 H Blood Pressure Mean Blood Pressure Mean [Left Arm] 109 Blood Pressure Position [Left Arm] Pulse Oximetry Oxygen Delivery Method Sepsis Recent Fever Within 48 Hours Sepsis New/Unexplained Change in Mental Status Sepsis Action Taken by Intermediate Medications Current Medication List: was personally reviewed by me Laboratory Data Attestation: I reviewed the patient's lab results. Result diagrams: 12/21/20 23:32 12/21/20 23:32 Lab Results 12/21/20 12/21/20 Range/Units 23:32 23:32 WBC 13.42 H (4.8-10.8) K/uL RBC 5.67 (4.7-6.1) M/uL Hgb 18.3 H (14.0-18.0) g/dL Hct 51.9 (42-52) % MCV 91.5 (80-100) fL MCH 32.3 (25-34) pg MCHC 35.3 (32-36) g/dL RDW Std Deviation 42.0 (36.4-46.3) fL RDW Coeff of Aisha 12.5 (11.5-14.5) % Plt Count 223 (130-400) K/uL MPV 10.8 H (7.4-10.4) fL Immature Gran % (Auto) 0.3 % Neut % (Auto) 79.9 % Lymph % (Auto) 13.6 % Gilchrist % (Auto) 5.1 % Eos % (Auto) 0.7 % Baso % (Auto) 0.4 % Neut # (Auto) 10.73 H (1.4-6.5) K/uL Lymph # (Auto) 1.82 (1.2-3.4) K/uL Gilchrist # (Auto) 0.69 H (0.11-0.59) K/uL Eos # (Auto) 0.09 (0-0.5) K/uL Baso # (Auto) 0.05 (0-0.2) K/uL Immature Gran # (Auto) 0.04 H (0.00-0.02) K/uL Sodium 138 (136-145) mmol/L Potassium 4.4 D (3.5-5.1) mmol/L Chloride 105 (98-107) mmol/L Carbon Dioxide 27 (21-32) mmol/L Anion Gap 6.0 (3-11) BUN 13 (7-18) mg/dl Creatinine 0.89 (0.6-1.4) mg/dl Est Cr Clr Drug Dosing 124.7 ml/min Est GFR ( Amer) 114.7 ml/min Est GFR (Non-Af Amer) 99.0 ml/min BUN/Creatinine Ratio 14.4 (10-20) Glucose 149 H (70-99) mg/dl Calcium 9.5 (8.5-10.1) mg/dl Magnesium 2.2 (1.8-2.4) mg/dl Total Bilirubin 1.0 (0.2-1) mg/dl AST 10 L (15-37) U/L ALT 20 (12-78) U/L Alkaline Phosphatase 83 (45-117) U/L Troponin I < 0.015 (0-0.045) ng/ml Total Protein 8.3 H (6.4-8.2) gm/dl Albumin 3.9 (3.4-5.0) gm/dl Globulin 4.4 H (2.5-4.0) gm/dl Albumin/Globulin Ratio 0.9 (0.9-2) TSH 2.020 (0.300-4.500) uIu/ml Administered Medications Acetaminophen (Acetaminophen 325 Mg Tab) 650 mg PO Q4H PRN PRN Reason: pain/fever Stop: 01/21/21 05:20 Last Admin: 12/22/20 12:37 Dose: 650 mg Documented by: [id number] Aspirin (Aspirin 81 Mg Ectab) [facility] Stop: 01/21/21 08:59 Last Admin: 12/22/20 08:59 Dose: 81 mg Documented by: [id number] Lacosamide 100 mg/ Sodium (Chloride) 60 mls @ 120 mls/hr IV Q12H [facility] Stop: 01/21/21 11:59 Last Infusion: 12/23/20 01:00 Dose: 0 mls/hr Documented by: [id number] Admin: 12/23/20 00:29 Dose: 120 mls/hr Documented by: [id number] Infusion: 12/22/20 13:05 Dose: 0 mls/hr Documented by: [id number] Admin: 12/22/20 12:38 Dose: 120 mls/hr Documented by: [id number] Lorazepam (Ativan) 2 mg in 4 mls @ 4 mls/min IV ONCE PRN PRN Reason: during MRI Stop: 01/21/21 15:22 Last Admin: 12/22/20 19:59 Dose: 4 mls/min Documented by: [id number] Levetiracetam (Levetiracetam 500 Mg Tab) 1,500 mg PO BID NAMAN Stop: 01/21/21 08:59 Last Admin: 12/22/20 20:03 Dose: 1,500 mg Documented by: [id number] Admin: 12/22/20 08:59 Dose: 1,500 mg Documented by: [id number] Phenytoin Sodium (Phenytoin Sodium Er 100 Mg Cap) 100 mg PO TID NAMAN Stop: 01/21/21 08:59 Last Admin: 12/22/20 20:03 Dose: 100 mg Documented by: [id number] Admin: 12/22/20 13:16 Dose: 100 mg Documented by: [id number] Admin: 12/22/20 08:59 Dose: 100 mg Documented by: [id number] Discontinued Medications Levetiracetam 1,500 mg/ Sodium (Chloride) 115 mls @ 440 mls/hr IV NOW STA Stop: 12/22/20 00:01 Last Infusion: 12/22/20 00:40 Dose: 0 mls/hr Documented by: [id number] Admin: 12/22/20 00:17 Dose: 440 mls/hr Documented by: [id number] Lacosamide 100 mg/ Sodium (Chloride) 60 mls @ 120 mls/hr IV NOW STA Stop: 12/21/20 23:48 Last Infusion: 12/22/20 01:15 Dose: 0 mls/hr Documented by: [id number] Admin: 12/22/20 00:40 Dose: 120 mls/hr Documented by: [id number] Lorazepam (Lorazepam 2 Mg/4 Ml Vial) Confirm Administered Dose 2 mg .ROUTE .STK- MED ONE Stop: 12/22/20 16:17 Last Admin: 12/22/20 18:30 Dose: Not Given Documented by: [id number] Phenytoin Sodium (Phenytoin Sodium Er 100 Mg Cap) 100 mg PO NOW STA Stop: 12/21/20 23:48 Last Admin: 12/22/20 00:17 Dose: 100 mg Documented by: [id number] Imaging Data Radiologist's Impression: Chest X-Ray 12/21/20 20:13 XR chest 1V portable CLINICAL HISTORY: weakness TECHNIQUE: Single frontal radiograph of the chest was obtained. Comparison: Comparison is made to chest one view 12/17/2020 FINDINGS: No lines and tubes are seen. The cardiomediastinal silhouette is normal. The lungs are clear. No evidence of pleural effusion or pneumothorax. IMPRESSION: No acute chest disease. ACT 112: Negative or not required by law. Electronically signed by: Gonzalez Becker M.D. 12/21/2020 8:34 PM Blood Pressure Blood Pressure Findings: Elevated blood pressure Blood Pressure Disposition: Referred to patients primary care provider Discharge Plan Visit Data Chief Complaint: Weakness Stated Complaint: WEAKNESS ON LEFT SIDE, HISTORY OF STROKE ED Provider: Bree Wei Discharge Problem: Focal motor seizure, Left-sided weakness, H/O brain tumor Patient Disposition: Admitted As Inpatient Discharge Instructions Interventions: ED Discharge Assessment Last Done: 12/22/20 03:10
--- NOTE | 2020-12-22 02:16 | History & Physical Report ---
Date of Service December 22, 2020 Assessment & Plan (1) Seizure disorder: Plan: Ziggy Jones is a 50y/o M with PMH significant for glioblastoma multiforme status post resection; who presents following seizure in the waiting room after leaving AMA earlier today. Seizure: -recently admitted following concern for focal seizures -PMH of glioblastoma s/p resection >15 years ago, with subsequent seizure disorder -had planned/pending transfer to [facility] prior to leaving AMA for monitoring on EEG -as he left AMA the bed at [facility] was not held -despite re-admission does not want transfer to [facility] given distance from family -continue Phenytoin 100mg TID, Keppra 1500mg BID -transition from lamictal to Vimpat 100mg BID Left sided weakness: -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 He was to be transferred to [facility] earlier today for continued EEG monitoring, however due to discomfort with the idea of being so far away from family decided to sign himself out AMA. Due to the weakness of his arm and leg he was unable to get into the car that was his transportation home and subsequently went to the emergency room waiting room to continue to wait. At some point during this time he had a another seizure, as he had not been receiving any his meds and did not have any oral medications on him. Allergies Allergy/AdvReac Type Severity Reaction Status Date / Time bacitracin Allergy Rash Verified 12/17/20 11:31 [From Neosporin ([id number])] neomycin Allergy Rash Verified 12/17/20 11:31 [From Neosporin ([id number])] polymyxin B Allergy Rash Verified 12/17/20 11:31 [From Neosporin ([id number])] Home Medications Medication Instructions Recorded Confirmed Type levetiracetam 750 mg tablet 1,500 mg PO .OCCASIONALLY 12/17/20 12/21/20 History aspirin 81 mg tablet,delayed 81 mg PO QAM 30 Days #30 tab 12/21/20 12/21/20 Rx release lamotrigine 25 mg tablet (Lamictal) 25 mg PO BID 30 Days #60 tab 12/21/20 12/21/20 Rx phenytoin sodium extended 100 mg 100 mg PO TID 30 Days #90 cap 12/21/20 12/21/20 Rx capsule (Dilantin Extended) Past Med/Surg History Medical History (Updated 12/22/20 @ 01:31 by Bree Wei MD) Brain cancer Renal stone Surgical History (Updated 12/18/20 @ 08:24 by Zelalem Moyer MD) S/P cholecystectomy Status post craniectomy Family History Mother No problems noted. Father , the diagnose 60s of lung cancer Lung cancer Social History Smoking Status: Former smoker Number of Years Since Quit: 20; Second Hand Exposure: No; Hx Alcohol Use: Yes Alcohol type: beer Alcohol Intake Frequency Comment: 4 beers per week every 1-2 weeks Hx Substance Use: Yes Preferred Language: Greek Communication Ability: Effective Environmental Epidemiologist Required: No Beliefs That Will Affect Care: None Current Living Situation: Family current occupational status: unemployed current occupation: former [employer] Feels Safe at Home: Yes Assistive Devices: None Review of Systems Review of Systems: All systems reviewed & are unremarkable except as noted in HPI & below Physical Exam Constitutional: WD/WN, vitals as above Eyes: PERRL, conjunctivae normal, anicteric sclerae Respiratory: normal respiratory effort, lungs clear to auscultation Auscultation: no crackles, no rales, no rhonchi and no wheezes Cardiovascular: Rate/Rhythm: regular rate and regular rhythm Heart Sounds: no gallop, no murmur and no cardiac rub Vessels: normal peripheral pulses; no JVD Extremities: no edema Gastrointestinal (Abdomen): Inspection/Auscultation: normal bowel sounds; abdomen not distended Percussion/Palpation: abdomen soft; abdomen nontender and no guarding Musculoskeletal: no cyanosis or clubbing, extremities motor strength 5/5 Left hemiparesis most noted in upper extremity, with limited major motor function of left lower extremity; asymmetric face with left lower facial droop Skin: no rashes, warm and dry Psychiatric: Orientation: alert and oriented x 3 Results & Data Results & Data ([facility]) Vital Signs (Past 12 Hours) Vital Signs Temp Pulse Pulse Resp BP BP Pulse Ox 12/22/20 01:08 87 127/101 H 12/21/20 23:56 88 97 12/21/20 23:54 87 139/91 97 12/21/20 19:59 36.4 C L 99 H 18 153/94 H 97 Laboratory Results 12/22/20 12/22/20 12/22/20 Range/Units Unknown Unknown Unknown WBC (4.8-10.8) K/uL RBC (4.7-6.1) M/uL Hgb (14.0-18.0) g/dL Hct (42-52) % MCV (80-100) fL MCH (25-34) pg MCHC (32-36) g/dL RDW Std Deviation (36.4-46.3) fL RDW Coeff of Aisha (11.5-14.5) % Plt Count (130-400) K/uL MPV (7.4-10.4) fL Immature Gran % (Auto) % Neut % (Auto) % Lymph % (Auto) % [place] % (Auto) % Eos % (Auto) % Baso % (Auto) % Neut # (Auto) (1.4-6.5) K/uL Lymph # (Auto) (1.2-3.4) K/uL [place] # (Auto) (0.11-0.59) K/uL Eos # (Auto) (0-0.5) K/uL Baso # (Auto) (0-0.2) K/uL Immature Gran # (Auto) (0.00-0.02) K/uL Sodium (136-145) mmol/L Potassium (3.5-5.1) mmol/L Chloride (98-107) mmol/L Carbon Dioxide (21-32) mmol/L Anion Gap (3-11) BUN (7-18) mg/dl Creatinine (0.6-1.4) mg/dl Est Cr Clr Drug Dosing ml/min Est GFR ( Amer) ml/min Est GFR (Non-Af Amer) ml/min BUN/Creatinine Ratio (10-20) Glucose (70-99) mg/dl Calcium (8.5-10.1) mg/dl Magnesium (1.8-2.4) mg/dl Total Bilirubin (0.2-1) mg/dl AST (15-37) U/L ALT (12-78) U/L Alkaline Phosphatase (45-117) U/L Troponin I (0-0.045) ng/ml Total Protein (6.4-8.2) gm/dl Albumin (3.4-5.0) gm/dl Globulin (2.5-4.0) gm/dl Albumin/Globulin Ratio (0.9-2) TSH (0.300-4.500) uIu/ml Urine Color Dark Yellow Urine Appearance Clear (Clear) Urine pH 6.0 (4.5-7.5) Ur Specific Vina 1.032 H (1.000-1.030) Urine Protein Trace H (Negative) Urine Glucose (UA) Negative (Negative) Urine Ketones 3+ H (Negative) Urine Blood Negative (Negative) Urine Nitrite Negative (Negative) Urine Bilirubin 1+ H (Negative) Urine Urobilinogen Negative (Negative) Ur Leukocyte Esterase Trace H (Negative) Urine WBC (Auto) 5-10 H (0-5) /hpf Urine RBC (Auto) 0-4 (0-4) /hpf U Hyaline Cast (Auto) 5-10 H (0-5) /lpf U Epithel Cells (Auto) >30 H (0-5) /lpf Urine Bacteria (Auto) Negative (Negative) COVID-19 Eval Order Covid19 at [facility] SARS-CoV-2 (PCR) NEGATIVE (Negative) 12/21/20 12/21/20 Range/Units 23:32 23:32 WBC 13.42 H (4.8-10.8) K/uL RBC 5.67 (4.7-6.1) M/uL Hgb 18.3 H (14.0-18.0) g/dL Hct 51.9 (42-52) % MCV 91.5 (80-100) fL MCH 32.3 (25-34) pg MCHC 35.3 (32-36) g/dL RDW Std Deviation 42.0 (36.4-46.3) fL RDW Coeff of Aisha 12.5 (11.5-14.5) % Plt Count 223 (130-400) K/uL MPV 10.8 H (7.4-10.4) fL Immature Gran % (Auto) 0.3 % Neut % (Auto) 79.9 % Lymph % (Auto) 13.6 % [place] % (Auto) 5.1 % Eos % (Auto) 0.7 % Baso % (Auto) 0.4 % Neut # (Auto) 10.73 H (1.4-6.5) K/uL Lymph # (Auto) 1.82 (1.2-3.4) K/uL [place] # (Auto) 0.69 H (0.11-0.59) K/uL Eos # (Auto) 0.09 (0-0.5) K/uL Baso # (Auto) 0.05 (0-0.2) K/uL Immature Gran # (Auto) 0.04 H (0.00-0.02) K/uL Sodium 138 (136-145) mmol/L Potassium 4.4 D (3.5-5.1) mmol/L Chloride 105 (98-107) mmol/L Carbon Dioxide 27 (21-32) mmol/L Anion Gap 6.0 (3-11) BUN 13 (7-18) mg/dl Creatinine 0.89 (0.6-1.4) mg/dl Est Cr Clr Drug Dosing 124.7 ml/min Est GFR ( Amer) 114.7 ml/min Est GFR (Non-Af Amer) 99.0 ml/min BUN/Creatinine Ratio 14.4 (10-20) Glucose 149 H (70-99) mg/dl Calcium 9.5 (8.5-10.1) mg/dl Magnesium 2.2 (1.8-2.4) mg/dl Total Bilirubin 1.0 (0.2-1) mg/dl AST 10 L (15-37) U/L ALT 20 (12-78) U/L Alkaline Phosphatase 83 (45-117) U/L Troponin I < 0.015 (0-0.045) ng/ml Total Protein 8.3 H (6.4-8.2) gm/dl Albumin 3.9 (3.4-5.0) gm/dl Globulin 4.4 H (2.5-4.0) gm/dl Albumin/Globulin Ratio 0.9 (0.9-2) TSH 2.020 (0.300-4.500) uIu/ml Urine Color Urine Appearance (Clear) Urine pH (4.5-7.5) Ur Specific Vina (1.000-1.030) Urine Protein (Negative) Urine Glucose (UA) (Negative) Urine Ketones (Negative) Urine Blood (Negative) Urine Nitrite (Negative) Urine Bilirubin (Negative) Urine Urobilinogen (Negative) Ur Leukocyte Esterase (Negative) Urine WBC (Auto) (0-5) /hpf Urine RBC (Auto) (0-4) /hpf U Hyaline Cast (Auto) (0-5) /lpf U Epithel Cells (Auto) (0-5) /lpf Urine Bacteria (Auto) (Negative) COVID-19 Eval Order SARS-CoV-2 (PCR) (Negative) Medications Administered Home Medication List Medication Instructions Recorded levetiracetam 750 mg tablet 1,500 mg PO .OCCASIONALLY 12/17/20 aspirin 81 mg tablet,delayed 81 mg PO QAM 30 Days #30 tab 12/21/20 release lamotrigine 25 mg tablet (Lamictal) 25 mg PO BID 30 Days #60 tab 12/21/20 phenytoin sodium extended 100 mg 100 mg PO TID 30 Days #90 cap 12/21/20 capsule (Dilantin Extended) Supervising Physician Co-Signing Physician Notes Attending addendum: I have physically seen this patient, have supervised the medical residents activities, and agree with the H&P unless as otherwise noted. Assessment and Plan: Seizure activity/known seizure disorder- History glioblastoma status post resection greater than 15 years ago Patient left AMA from previous admission due to not wanting to be transferred to [facility], with bed [facility] loss Continue phenytoin 100 mg p.o 3 times daily, Keppra 1500 mg p.o. twice daily Stop Lamictal as recommended previously. Start Vimpat 100 mg p.o. twice daily Admit with seizure protocol Remaining orders and notations as noted Resident Activity Tracking Resident Involvement: Resident Care Provided Care Provided: Adult Hospital Medicine
[2020-12-22] MEDS ORDERED: MAGNESIUM HYDROXIDE SUSP 30 ML UDC PO PRN (05:21)
[2020-12-22] MEDS ORDERED: POLYETHYLENE (MIRALAX) 17 GM PACK PO PRN (05:21)
[2020-12-22] MEDS ORDERED: ONDANSETRON INJ 2 MG/ML 2 ML VIAL IV PRN (05:21)
[2020-12-22] MEDS ORDERED: ALUMINUM/MAGNESIUM SUSP 30 ML UDC PO PRN (05:21)
[2020-12-22] MEDS ORDERED: ZOLPIDEM TARTRATE 5 MG TAB PO PRN (05:21)
[2020-12-22] MEDS: PHENYTOIN SODIUM ER 100 MG CAP PO SCH ×3 (08:59→20:03)
[2020-12-22] MEDS: levETIRAcetam 500 MG TAB PO SCH ×2 (08:59→20:03)
[2020-12-22] MEDS: ASPIRIN 81 MG ECTAB PO SCH (08:59)
--- NOTE | 2020-12-22 09:21 | Neurology Progress Note ---
Date of Service December 22, 2020 Assessment & Plan (1) H/O brain tumor: (2) Focal motor seizure: (3) Stroke: Plan: History of focal motor seizures originating from the right cerebral hemisphere with recurrent episodes of left-sided weakness/Nathan's paralysis, current hospitalization, discharged AGAINST MEDICAL ADVICE yesterday, readmission noted. History of noncompliance with outpatient anticonvulsant treatment. Patient's focal motor seizures have been difficult to control although much improved with the addition of Vimpat IV yesterday. We will continue with Vimpat 100 mg IV every 12 hours. Continue with Keppra 1500 mg p.o. twice daily and phenytoin 100 mg p.o. 3 times daily. Would check a follow-up phenytoin level tomorrow morning. Would recommend obtaining a follow-up brain MRI to reassess the area of restricted diffusion identified within the right occipital lobe on previous MRI done on the . As discussed previously, this imaging abnormality could be consistent with either an acute to subacute infarct or possibly a seizure focus given this patient's clinical presentation. Would continue with aspirin 81 mg/day as well. As noted, patient has refused transfer to [facility] for what had been refractory seizures. I am cautiously optimistic that his seizures will remain better controlled with his current anticonvulsant regimen. However, if he continues to exhibit further convulsive episodes would again need to recomm end transfer to a tertiary center for neuro critical care services including prolonged EEG monitoring. Admission and Anticipated Discharge Date Admission Date: December 22, 2020 Subjective Follow-up for seizures Patient signed out AGAINST MEDICAL ADVICE yesterday afternoon. However, due to his persistent left-sided weakness he was unable to get into a motor vehicle that came to pick him up and subsequently went to the emergency department where he reportedly waited several hours prior to being seen. Is unclear if he had additional focal motor seizures while waiting to be seen. The patient was readmitted to the medical service and neurology has been reconsulted to assist with his management. Because I last saw this patient for a follow-up visit yesterday morning, today's encounter will be a follow-up visit rather than a repeat consultation. Please see my previous inpatient follow-up encounter notes as well as Dr. Moyer's initial consultation note for additional details. His previous inpatient anticonvulsant regimen has been restarted. He is currently receiving Vimpat 100 mg IV every 12 hours, Keppra 1500 mg p.o. twice daily, and phenytoin 100 mg 3 times daily. He is also on aspirin 81 mg/day as his recently completed brain MRI suggested a possible ischemic infarct within the right occipital region. However, this focus of restricted diffusion could also be related to recurrent focal motor seizures originating from this region. CT angiography of the head and neck are unremarkable. He did have a transthoracic echocardiogram completed yesterday that was negative for cardioembolic source. He continues to exhibit a significant left hemiparesis, arm greater than leg. I did review nursing notes as well, there is no documentation of any definitive seizure activity overnight. Review of Systems Eyes: no blind spots and no diplopia Cardiovascular: no chest pain and no palpitations Neurologic: + gait abnormality, + localized weakness and + seizure-like activity; no headache(s) Results & Data ([facility]) Vital Signs (Past 12 Hours) Vital Signs Pulse Pulse Resp BP Pulse Ox 12/22/20 05:22 88 14 137/89 95 12/22/20 03:33 90 18 153/109 H 97 12/22/20 03:04 92 H 153/97 H 97 12/22/20 01:08 87 127/101 H 12/21/20 23:56 88 97 12/21/20 23:54 87 139/91 97 Laboratory Results WBC 13.42, hemoglobin 18.3, hematocrit 51.9, platelet count 223, sodium 138, potassium 4.4, BUN 13, creatinine 0.89, glucose 149, calcium 9.5, magnesium 2.2, AST 10, ALT 20, troponin less than 0.015, TSH 2.020, phenytoin level yesterday 19.6 Exam (Neuro) Neurologic: Oriented to:: Person and Place Attention: negative Span Intact or Concentration Intact Speech Fluency: negative Dysarthria or Dysfluency Fund of Knowledge: Current Events, Past History and Vocabulary Cranial Nerves: Normal II and III, IV, ; Abnorm VII Motor Strength: Hemiparesis (arm>leg) Laterality: Left Muscle Bulk/Involuntary Movements: No Involuntary Movements Coordination: Finger-Nose Abnormal Laterality: Left and Heel-Cavazos Abnormal Laterality: Left Details: Patient continues to display a significant left hemiparesis, arm much greater than leg. Unable to grasp with the left hand. Strength for the left upper extremity 0-1 out of 5. Strength for the left lower extremity 2-3 out of 5. Coding Level of Care Code 88164 Subseq Hosp Care Lvl 3 Diagnoses H/O brain tumor Z87.898 Focal motor seizure G40.109 Stroke I63.9
[2020-12-22] MEDS: ACETAMINOPHEN 325 MG TAB PO PRN (12:37)
[2020-12-22] MEDS: LACOSAMIDE 100 MG in SODIUM CHLORIDE 0.9% 50 ML IV SCH (12:38)
--- NOTE | 2020-12-22 14:42 | Hospitalist Progress Note ---
Date of Service December 22, 2020 Assessment & Plan (1) Focal motor seizure: Plan: Patient was admitted to the hospital initially on the Dec on account of left sided weakness He later started having seizures, MRI showed some restricted diffusion Despite escalating doses of AED, he continued to have seizures Initial plan was to transfer him to [facility] for continuous EEG monitoring, however, patient refused and left the hospital Against Medical Advice He came back to the Ed again today Currently on Vimpat 100mg IV Q 12 hrs, Keppra 1500mg BID and Phenytoin 100mg TID Neurology on consult Will obtain repeat MRI per neurology (2) H/O brain tumor: Plan: Had craniotomy for glioblastoma (3) Status post craniectomy: Admission and Anticipated Discharge Date Admission Date: December 22, 2020 Subjective patient seen and examined in he ED Review of Systems Review of Systems: All systems reviewed are negative, apart from the ones contained in the history. Physical Exam Physical Exam: The patient is awake, alert and oriented 3, well developed and well nourished, normocephalic and atraumatic, lying in bed and in no acute distress. HEENT--PERRL, EOMI, mucous membranes and oropharynx mildly dry Neck--supple. No JVD. No bruits. Thyroid normal, trachea midline, no adenopathy. Heart--normal S1 and S2. No murmurs, rubs or gallops. Lungs--clear bilaterally, no respiratory distress, no accessory muscle use. Abdomen--normal bowel sounds and soft. Mild epigastric and left sided abdominal pain Extremities--no cyanosis or clubbing. No edema. Dermatologic--normal skin turgor, normal color, no abnormal lymph nodes, no rash. Neurologic--cranial nerves II through XII grossly intact. left hemiparesis Rheumatologic--normal range of motion. Psychiatric--normal affect. Results & Data Results & Data ([facility]) Vital Signs (Past 12 Hours) Vital Signs Pulse Resp BP Pulse Ox 12/22/20 05:22 88 14 137/89 95 12/22/20 03:33 90 18 153/109 H 97 12/22/20 03:04 92 H 153/97 H 97 Laboratory Results Laboratory Results - last 24 hr 12/21/20 12/21/20 12/22/20 23:32 23:32 Unknown WBC 13.42 H RBC 5.67 Hgb 18.3 H Hct 51.9 MCV 91.5 MCH 32.3 MCHC 35.3 RDW Std Deviation 42.0 RDW Coeff of Aisha 12.5 Plt Count 223 MPV 10.8 H Immature Gran % (Auto) 0.3 Neut % (Auto) 79.9 Lymph % (Auto) 13.6 [place] % (Auto) 5.1 Eos % (Auto) 0.7 Baso % (Auto) 0.4 Neut # (Auto) 10.73 H Lymph # (Auto) 1.82 [place]ell # (Auto) 0.69 H Eos # (Auto) 0.09 Baso # (Auto) 0.05 Immature Gran # (Auto) 0.04 H Sodium 138 Potassium 4.4 D Chloride 105 Carbon Dioxide 27 Anion Gap 6.0 BUN 13 Creatinine 0.89 Est Cr Clr Drug Dosing 124.7 Est GFR ( Amer) 114.7 Est GFR (Non-Af Amer) 99.0 BUN/Creatinine Ratio 14.4 Glucose 149 H Calcium 9.5 Magnesium 2.2 Total Bilirubin 1.0 AST 10 L ALT 20 Alkaline Phosphatase 83 Troponin I < 0.015 Total Protein 8.3 H Albumin 3.9 Globulin 4.4 H Albumin/Globulin Ratio 0.9 TSH 2.020 Urine Color Dark Yellow Urine Appearance Clear Urine pH 6.0 Ur Specific Balm 1.032 H Urine Protein Trace H Urine Glucose (UA) Negative Urine Ketones 3+ H Urine Blood Negative Urine Nitrite Negative Urine Bilirubin 1+ H Urine Urobilinogen Negative Ur Leukocyte Esterase Trace H Urine WBC (Auto) 5-10 H Urine RBC (Auto) 0-4 U Hyaline Cast (Auto) 5-10 H U Epithel Cells (Auto) >30 H Urine Bacteria (Auto) Negative COVID-19 Eval Order SARS-CoV-2 (PCR) 12/22/20 12/22/20 Unknown Unknown WBC RBC Hgb Hct MCV MCH MCHC RDW Std Deviation RDW Coeff of Aisha Plt Count MPV Immature Gran % (Auto) Neut % (Auto) Lymph % (Auto) [place] % (Auto) Eos % (Auto) Baso % (Auto) Neut # (Auto) Lymph # (Auto) [place] # (Auto) Eos # (Auto) Baso # (Auto) Immature Gran # (Auto) Sodium Potassium Chloride Carbon Dioxide Anion Gap BUN Creatinine Est Cr Clr Drug Dosing Est GFR ( Amer) Est GFR (Non-Af Amer) BUN/Creatinine Ratio Glucose Calcium Magnesium Total Bilirubin AST ALT Alkaline Phosphatase Troponin I Total Protein Albumin Globulin Albumin/Globulin Ratio TSH Urine Color Urine Appearance Urine pH Ur Specific Balm Urine Protein Urine Glucose (UA) Urine Ketones Urine Blood Urine Nitrite Urine Bilirubin Urine Urobilinogen Ur Leukocyte Esterase Urine WBC (Auto) Urine RBC (Auto) U Hyaline Cast (Auto) U Epithel Cells (Auto) Urine Bacteria (Auto) COVID-19 Eval Order Covid19 at [facility] SARS-CoV-2 (PCR) NEGATIVE PG Care Time/CCT Total # of Minutes Spent Total Time Spent with Patient: Total time spent is greater than 50% in coordination of care (as documented) at patient's floor/unit and/or counseling patient: Coding Level of Care Code 30811 Subseq Hosp Care Lvl 2 Diagnoses Focal motor seizure G40.109 H/O brain tumor Z87.898 Status post craniectomy Z98.890
[2020-12-22] MEDS ORDERED: LORazepam 2 MG/4 ML VIAL IV PRN (15:23)
[2020-12-22] MEDS ORDERED: LORazepam 2 MG/4 ML VIAL ONE (16:16)
--- NOTE | 2020-12-22 19:55 | Billing Data ---
Date of Service December 22, 2020 Coding Level of Care Code 77290 Initial Inpt Care Lvl 2
--- NOTE | 2020-12-22 21:48 | Magnetic Resonance Report ---
MR brain seizure wo/w con CLINICAL HISTORY: seizure TECHNIQUE: Multiplanar and multisequence MR images of the brain were obtained prior to and following administration of gadolinium contrast. Comparison: Comparison is made to MR brain 12/18/2020 FINDINGS: Exam is limited by patient motion. No abnormal restricted diffusion is identified. Focal encephalomal acia is seen in the right occipital cortex with overlying craniotomy changes. There is no evidence of acute intraparenchymal hemorrhage. No extra axial fluid collections are seen. There are no masses, m ass effect, or midline shift. No abnormal enhancement is seen. The ventricular system is normal in ap pearance. The corpus callosum, pituitary gland, and cerebellar tonsils appear grossly unremarkable.Hi gh-resolution images of the temporal lobes do not demonstrate any signal abnormality. Flow voids of the major intracranial arterial vessels are identified. The imaged portions of the para nasal sinuses, mastoid air cells, and orbits are unremarkable. IMPRESSION: 1. Limited exam. No edema is seen in the temporal lobes bilaterally in this postictal patient. 2. Redemonstration of right occipital encephalomalacia with overlying craniotomy changes. ACT 112: Negative or not required by law. Electronically signed by: Gonzalez Becker M.D. 12/22/2020 9:46 PM
[2020-12-23] MEDS: LACOSAMIDE 100 MG in SODIUM CHLORIDE 0.9% 50 ML IV SCH ×2 (00:29→11:37)
--- NOTE | 2020-12-23 06:50 | Electrocardiogram Report ---
Test Reason : Blood Pressure : / mmHG Vent. Rate : 091 BPM Atrial Rate : 091 BPM P-R Int : 164 ms QRS Dur : 102 ms QT Int : 366 ms P-R-T Axes : 000 177 -72 degrees QTc Int : 450 ms Poor data quality, interpretation may be adversely affected Normal sinus rhythm Incomplete right bundle branch block Right ventricular hypertrophy Inferior infarct , age undetermined Abnormal ECG When compared with ECG of 17-DEC-2020 10:55, Vent. rate has increased BY 31 BPM Left anterior fascicular block is no longer Present Incomplete right bundle branch block is now Present Inferior infarct is now Present Confirmed by Ranjan Daley ([id number]) on 12/23/2020 6:49:45 AM Referred By: REFERRED SELF Confirmed By:Ranjan Daley
[2020-12-23] MEDS: ASPIRIN 81 MG ECTAB PO SCH (07:57)
[2020-12-23] MEDS: levETIRAcetam 500 MG TAB PO SCH ×2 (07:58→20:33)
[2020-12-23] MEDS: PHENYTOIN SODIUM ER 100 MG CAP PO SCH ×3 (07:59→20:34)
[2020-12-23 08:24] LABS: Basophils # (auto) 0.04 K/uL (0-0.2); Basophils % (auto) 0.4 %; Eosinophils # (auto) 0.21 K/uL (0-0.5); Eosinophils % (auto) 2.1 %; Hematocrit (blood only) 50.1 % (42-52); Hemoglobin 17.1 g/dL (14.0-18.0); Immature Granulocytes # (auto) 0.02 K/uL (0.00-0.02); Immature Granulocytes % (auto) 0.2 %; Lymphocytes # (auto) 2.38 K/uL (1.2-3.4); Mean Corpuscular Hemoglobin 31.1 pg (25-34); Mean Corpuscular Hgb Conc 34.1 g/dL (32-36); Mean Corpuscular Volume 91.3 fL (80-100); Monocytes # (auto) 0.52 K/uL (0.11-0.59); Monocytes % (auto) 5.3 %; Neutrophils # (auto) 6.73 K/uL (1.4-6.5); Platelet Count 248 K/uL (130-400); RDW Coefficient of Variation 12.6 % (11.5-14.5); RDW Standard Deviation 42.2 fL (36.4-46.3); Red Blood Count 5.49 M/uL (4.7-6.1)
[2020-12-23 08:38] LABS: BUN Creatinine Ratio 18.7 (10-20); Calcium 9.2 mg/dl (8.5-10.1); Creatinine Clr Calc Pharmacy 154.1 ml/min; Est GFR (African American) 125.2 ml/min; Magnesium 2.2 mg/dl (1.8-2.4); Phosphorus 2.9 mg/dl (2.5-4.9); Potassium 4.1 mmol/L (3.5-5.1)
--- NOTE | 2020-12-23 12:24 | Hospitalist Progress Note ---
Date of Service December 23, 2020 Assessment & Plan (1) Seizure disorder: Plan: Patient was admitted to the hospital initially on the Dec on account of left sided weakness He later started having focal seizures, MRI showed some restricted diffusion, repeat MRI showed evidence of encephalomalacia Despite escalating doses of AED, he continued to have seizures Initial plan was to transfer him to [place] for continuous EEG monitoring, however, patient refused and left the hospital Against Medical Advice He came back to the Ed again and was admitted Currently on Vimpat 100mg IV Q 12 hrs, Keppra 1500mg BID and Phenytoin 100mg TID No more seizures overnight Neurology on consult (2) Left-sided weakness: Plan: 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 Physical Exam Physical Exam: The patient is awake, alert and oriented 3, well developed and well nourished, normocephalic and atraumatic, lying in bed and in no acute distress. HEENT--PERRL, EOMI, mucous membranes and oropharynx mildly dry Neck--supple. No JVD. No bruits. Thyroid normal, trachea midline, no adenopathy. Heart--normal S1 and S2. No murmurs, rubs or gallops. Lungs--clear bilaterally, no respiratory distress, no accessory muscle use. Abdomen--normal bowel sounds and soft. Mild epigastric and left sided abdominal pain Extremities--no cyanosis or clubbing. No edema. Dermatologic--normal skin turgor, normal color, no abnormal lymph nodes, no rash. Neurologic--cranial nerves II through XII grossly intact. left hemiparesis Rheumatologic--normal range of motion. Psychiatric--normal affect. Results & Data Results & Data ([facility]) Vital Signs (Past 12 Hours) Vital Signs Temp Pulse Pulse Resp BP Pulse Ox 12/23/20 09:05 84 12/23/20 03:53 97.7 F 92 H 16 138/90 96 12/23/20 00:46 105 H Laboratory Results Laboratory Results - last 24 hr 12/23/20 12/23/20 07:33 07:33 WBC 9.90 RBC 5.49 Hgb 17.1 Hct 50.1 MCV 91.3 MCH 31.1 MCHC 34.1 RDW Std Deviation 42.2 RDW Coeff of Aisha 12.6 Plt Count 248 MPV 11.0 H Immature Gran % (Auto) 0.2 Neut % (Auto) 68.0 Lymph % (Auto) 24.0 Wilcox % (Auto) 5.3 Eos % (Auto) 2.1 Baso % (Auto) 0.4 Neut # (Auto) 6.73 H Lymph # (Auto) 2.38 Wilcox # (Auto) 0.52 Eos # (Auto) 0.21 Baso # (Auto) 0.04 Immature Gran # (Auto) 0.02 Sodium 142 Potassium 4.1 Chloride 106 Carbon Dioxide 28 Anion Gap 8.0 BUN 14 Creatinine 0.72 Est Cr Clr Drug Dosing 154.1 Est GFR ( Amer) 125.2 Est GFR (Non-Af Amer) 108.0 BUN/Creatinine Ratio 18.7 Glucose 137 H Calcium 9.2 Phosphorus 2.9 Magnesium 2.2 PG Care Time/CCT Total # of Minutes Spent Total Time Spent with Patient: Total time spent is greater than 50% in coordination of care (as documented) at patient's floor/unit and/or counseling patient: Coding Level of Care Code 88986 Subseq Hosp Care Lvl 2 Diagnoses Seizure disorder G40.909 Left-sided weakness R53.1 H/O brain tumor Z87.898
[2020-12-23] MEDS ORDERED: diphenhydrAMINE 50 MG/ML VIAL IV ONE (21:38)
[2020-12-24] MEDS: LACOSAMIDE 100 MG in SODIUM CHLORIDE 0.9% 50 ML IV SCH (00:15)
[2020-12-24 08:13] LABS: Est GFR (African American) 124.5 ml/min; Est GFR (Non-African American) 107.4 ml/min
[2020-12-24] MEDS: levETIRAcetam 500 MG TAB PO SCH ×2 (08:44→20:42)
[2020-12-24] MEDS: PHENYTOIN SODIUM ER 100 MG CAP PO SCH ×2 (08:45→20:43)
[2020-12-24] MEDS: ASPIRIN 81 MG ECTAB PO SCH (08:45)
--- NOTE | 2020-12-24 09:09 | Hospitalist Progress Note ---
Date of Service December 24, 2020 Assessment & Plan (1) Seizure disorder: Plan: Hx GBM, s/p RIGHT SIDED resection in 2004. Follows w Dr Davis (also NEEDS NEW PCP). Never had issues until previous Thursday per patient (although issues at prior rehab where thought to have had seizures but no tx at that time) Admitted to the hospital initially on the Nov on account of left sided weakness He later started having focal seizures, MRI showed some restricted diffusion, repeat MRI showed evidence of encephalomalacia Despite escalating doses of AED, he continued to have seizures Initial plan was to transfer him to [place] for continuous EEG monitoring, however, patient refused and left the hospital Against Medical Advice but came back to ER when unable to get into car and apparently had an additional seizure Neurology consulted Follow up Brain MRI completed given concerns for restricted diffusion seen on previous admit on the , but follow up NEGATIVE and relt likely due to seizure focus Vimpat 100mg IV BID --> changed to PO today (started last admit) Continue Keppra 1500mg BID (has had issues with non-compliance in past) Phenytoin level rechecked, elevated --> Per Neuro, reducing phenytoin to 100mg BID x 5 days, then 10mg x 5 days, then stop altogether Seizure precautions Follow up with Neuro in office in next 2-3 weeks No need for EEG at this time but if any further episodes would rec tx for continuous monitoring PT/OT -- recs rehab CM following --> he would like [facility] [place]. He is on ex- insurance and living with mom and friends and moving around so home health not ideal. 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 Also needs new PCP as was released from previous practice at [facility] Admission and Anticipated Discharge Date Admission Date: December 22, 2020 Supervising Physician Co-Signing Physician Notes CRYSTAL Supervision Note: I did not personally see or examine the patient today, but I verified all martinez points of CRYSTAL Liriano's assessment and plan with the following exceptions/additions: None Subjective seen this morning Doing well. Neurosurgeon in past Dr Davis not received infor from this hosp -- will ensure recs get sent at d/c. Reviewed recs by neuro with patient and he is agreeable to rehab -- [facility]. Alerted CM. No further seizure activity and weaning phenytoin as discussed some side effects and hoping to limit extra pills. He notes "you could be like me and not take them." In a joking manner however did appear to be serious and discussed this is cause for patient to have seizures. Had been doing well since surgery in 2005 up until this past Thursday when he had weakness on left side. Previously he notes at rehab he had been having shakes and thought was seizures all along but never did anything about it, using profanity to describe experience. Review of Systems Review of Systems: All systems reviewed & are unremarkable except as noted in HPI & below Physical Exam Physical Exam: General: AOx3, WN/ND, no acute distress, laying in hospital bed HEENT--PERRL, EOMI, mmm Neck--supple. No JVD. No bruits. Thyroid normal, trachea midline Heart--normal S1 and S2. No murmurs, rubs or gallops. Lungs--clear bilaterally, no respiratory distress, no accessory muscle use. Abdomen--+BS throughout, non-tender, no guarding or rigidity Extremities--no cyanosis or clubbing. No edema. Dermatologic--normal skin turgor, normal color, no abnormal lymph nodes, no rash. Neurologic--cranial nerves II through XII grossly intact. left hemiparesis Rheumatologic--normal range of motion. Psychiatric--AOx3, cooperative Results & Data Results & Data ([facility]) Vital Signs (Past 12 Hours) Vital Signs Temp Pulse Pulse Resp BP Pulse Ox 12/24/20 08:21 82 12/24/20 04:54 36.4 C L 81 18 131/74 96 12/24/20 02:02 86 12/23/20 23:14 36.6 C 77 18 116/74 94 Laboratory Results 12/24/20 12/24/20 Range/Units 10:26 07:19 Sodium 140 (136-145) mmol/L Potassium 4.0 (3.5-5.1) mmol/L Chloride 107 (98-107) mmol/L Carbon Dioxide 27 (21-32) mmol/L Anion Gap 6.0 (3-11) BUN 11 (7-18) mg/dl Creatinine 0.73 (0.6-1.4) mg/dl Est Cr Clr Drug Dosing 152.0 ml/min Est GFR ( Amer) 124.5 ml/min Est GFR (Non-Af Amer) 107.4 ml/min BUN/Creatinine Ratio 15.0 (10-20) Glucose 133 H (70-99) mg/dl Calcium 9.0 (8.5-10.1) mg/dl Phenytoin 20.7 H (10-20) mcg/ml PG Care Time/CCT Total # of Minutes Spent Total Time Spent with Patient: Total time spent is greater than 50% in coordination of care (as documented) at patient's floor/unit and/or counseling patient: Coding Level of Care Code 68182 Subseq Hosp Care Lvl 2 Diagnoses Seizure disorder G40.909 Left-sided weakness R53.1 H/O brain tumor Z87.898
--- NOTE | 2020-12-24 10:07 | Neurology Progress Note ---
Date of Service December 24, 2020 Assessment & Plan (1) Focal motor seizure: (2) H/O brain tumor: (3) Seizure disorder: Plan: History of seizure disorder related to right parieto-occipital craniotomy done in 2004 for resection of glioma. Patient has been noncompliant with outpatient anticonvulsant regimen and presented with recurrent focal motor seizures affecting the left face arm and leg and associated Nathan's paralysis. His left- sided weakness is significantly improved this morning although he continues to have some difficulty with strength and fine motor control for the left upper limb. Follow-up brain MRI negative for acute or subacute stroke. Previous identified area of restricted diffusion likely due to seizure focus. Patient may switch from IV Vimpat to p.o. Would use same dose, therefore, 100 mg p.o. twice daily. Continue with Keppra 1500 mg p.o. twice daily. Would taper off phenytoin. Reduce dosage to 100 mg p.o. twice daily for 5 days, then 100 mg p.o. daily for 5 days, then stop altogether. Ongoing outpatient follow-up with Dr. Moyer or one of our APC's within the next 2 to 3 weeks. Admission and Anticipated Discharge Date Admission Date: December 22, 2020 Subjective Follow-up for seizures No further seizure episodes have occurred. Patient's left-sided weakness is modestly improved. He continues with Vimpat 100 mg IV every 12 hours, levetiracetam 1500 mg p.o. twice daily and phenytoin 100 mg p.o. 3 times daily. He does relate a history of liver disease potentially related to phenytoin in the past. Follow-up brain MRI completed on December 22 was negative for acute or subacute infarct. Post craniotomy changes affecting the right occipital region were again observed. I did review the images as well as the radiologist interpretation of this test. The previously identified area of restricted diffusion within the right occipital lobe on MRI done December 18 is no longer present. Last phenytoin level done December 21 was 19.6. Review of Systems Eyes: no blind spots Neurologic: + localized weakness; no headache(s) Results & Data ([facility]) Vital Signs (Past 12 Hours) Vital Signs Temp Pulse Pulse Resp BP Pulse Ox 12/24/20 08:21 82 12/24/20 04:54 36.4 C L 81 18 131/74 96 12/24/20 02:02 86 12/23/20 23:14 36.6 C 77 18 116/74 94 Exam (Neuro) Neurologic: Oriented to:: Person and Place Attention: Span Intact; negative Concentration Intact Speech Fluency: negative Dysarthria or Dysfluency Fund of Knowledge: Vocabulary Cranial Nerves: Normal II, III, IV, and VII Motor Strength: Hemiparesis (arms>leg, mild, poor dexterity left hand) Laterality: Left Muscle Bulk/Involuntary Movements: No Involuntary Movements Coordination: Finger-Nose Abnormal Laterality: Left and Heel-Cavazos Abnormal Laterality: Left PG Care Time/CCT Total # of Minutes Spent Total Time Spent with Patient: Total time spent is greater than 50% in coordination of care (as documented) at patient's floor/unit and/or counseling patient: Coding Level of Care Code 62715 Subseq Hosp Care Lvl 2 Diagnoses Focal motor seizure G40.109 H/O brain tumor Z87.898 Seizure disorder G40.909
[2020-12-24] MEDS: LACOSAMIDE 50 MG TABLET PO SCH (12:15)
[2020-12-24] MEDS: diphenhydrAMINE 50 MG/ML VIAL IV PRN (20:43)
[2020-12-25] MEDS: LACOSAMIDE 50 MG TABLET PO SCH ×3 (01:57→21:50)
[2020-12-25] MEDS: PHENYTOIN SODIUM ER 100 MG CAP PO SCH ×2 (08:06→20:37)
[2020-12-25] MEDS: levETIRAcetam 500 MG TAB PO SCH ×2 (08:06→20:36)
[2020-12-25] MEDS: ASPIRIN 81 MG ECTAB PO SCH (08:07)
[2020-12-25] MEDS: diphenhydrAMINE 50 MG/ML VIAL IV PRN ×2 (08:12→21:55)
--- NOTE | 2020-12-25 08:25 | Hospitalist Progress Note ---
Date of Service December 25, 2020 Assessment & Plan (1) Seizure disorder: Plan: Hx GBM, s/p RIGHT SIDED resection in 2004. Follows w Dr Davis (also NEEDS NEW PCP). Never had issues until previous Thursday per patient (although issues at prior rehab where thought to have had seizures but no tx at that time) and upon further questioning today he did have recurrence of brain ca and had undergone gamma knife he thinks within 5 year of initial surgery. Admitted 12/17 for left sided weakness Later started having focal seizures, MRI showed some restricted diffusion, repeat MRI showed evidence of encephalomalacia Despite escalating doses of AED, he continued to have seizures and initial plan was for tx to [facility] for continuous EEG monitoring however patient refused and left AMA but came back to ER when unable to get back into car and may have had additional seizure Seizure precautions Neurology consulted. Follow up Brain MRI completed given concerns for restricted diffusion seen on previous admit on the , but follow up NEGATIVE and felt likely due to seizure focus Vimpat 100mg IV BID --> changed to PO 12/24 (started last admit) and continue at discharge Continue Keppra 1500mg BID (has had issues with non-compliance in past) Phenytoin level rechecked, elevated --> Per Neuro, reducing phenytoin to 100mg BID x 5 days, then 10mg x 5 days (starting 12/29 through 01/02 ) , then stop altogether No need for EEG at this time but if any further episodes would rec tx for continuous monitoring Follow up with Neuro in office in next 2-3 weeks --> Patient did report he hates taking pills and while joking yesterday about "just not taking them", he did endorse that once out of rehab in June he stopped taking his medications and hasn't picked them up since that time. Discussed [id number] as major issue for seizures (also hx alcohol but none recently and discussed this lowers threshold as well) and encouraged compliance. Hopefully limiting number of pills by eliminating the phenytoin and utilizing Vimpat will help but do have concerns about him again being non-complaint. Stated he had been using marijuana off the street for his seizures as rec by Dr. Davis and he had been approved for MMJ program however never completed the proce ss and does not have card. Encouraged antiepileptic medications as ordered given it is apparent that route is no longer keeping seizures at bay as evident by recent events PT/OT -- recs rehab CM following --> he would like [facility] [place]. He is on ex- insurance and living friend and mom who lives nearby, making home health difficult given living situation (gets ~8-900$ monthly support from his ex) Prior PFA from ex- but they have been talking recently. Unsafe for return home currently and would benefit from short term at rehab but if continues to make progress if not able to go to rehab (prior episodes resolving after 2-3 days) may be able to go home. (2) Left-sided weakness: Plan: Improving -- upper extremity chronic issues, lower extremity most recent issue (occurred in past two with resolution) and this strength is also improving. made advancements with therapy Most likely due to todds paralysis from above Hopefully will be able to go to [facility] tomorrow if approved as had been going to gym several days/week prior since d/c from rehab and would benefit from short term stay Continue PT/OT while inpatient. CM following (3) H/O brain tumor: Plan: post craniotomy, gamma knife for recurrence no recurrence on MRI Brain w/w/o during hospitalization Plan: Continued inpatient stay Also needs new PCP as was released from previous practice at [facility] -- messaged nurse navigator to look into setting this up. Spoke with Anca avalos prior about getting new PCP as well. PT/OT recs rehab -- CM following. Just got insurance approved for [facility] in [place] for tomorrow. CM to attempt to set up w/c van for tomorrow late morning. Admission and Anticipated Discharge Date Admission Date: December 22, 2020 Supervising Physician Co-Signing Physician Notes PA Supervision Note: I did not personally see or examine the patient today, but I verified all martinez points of CRYSTAL Liriano's assessment and plan with the following exceptions/additions: None Subjective patient eval this afternoon doing well anxious to get up and moving out of bed discussed therapy evals to be sent today for review -- he wsa up and did couple side steps with therapy today. left upper arm still w weakness/contractures but that's chronic LLE weakness improved and lifting leg off bed and moving around without issue. discussed continuing PT while here if still waiting and home if able to make progress as he had in past but hopeful for [facility] approval and possible discharge to rehab tomorrow. he notes main issue may be he stopped all antiepileptic medications once d/c from rehab earlier in june. discussed compliance as #1 reason for recurrence. and getting divorce from . 4 kids. oldest son heroin addict and destroyed current house -- had one seen 1x in past 2 yrs due to PFA from ex- although denied ever putting hand on her. living at friends who is within eyeshot of his mom's house and occasionally stays there. Pre-DM and drinking 8 2L bottles of Mt Dew at times -- discussed dietary changes/watching carbs. His favorite things to eat are nauruan fries fried in butter and venison wrapped in fernandes. Also discussed this could be problematic. Previous hx with alcohol use but no "addiction" and hasn't drank in a while. Discussed could also lead to seizures. He notes he did have recurrence of brain tumor maybe within 5 years of initial surgery and he had gamma knife following and no issues since that time and follows with Dr. Davis in [place] and rec records at d/c get forwarded t him as well. Review of Systems Review of Systems: All systems reviewed & are unremarkable except as noted in HPI & below Physical Exam Physical Exam: General: AOx3, WN/ND, no acute distress, laying in hospital bed HEENT--PERRL, EOMI, mmm Neck--supple. No JVD. No bruits. Thyroid normal, trachea midline Heart--normal S1 and S2. No murmurs, rubs or gallops. Lungs--clear bilaterally, no respiratory distress, no accessory muscle use. Abdomen--+BS throughout, non-tender, no guarding or rigidity Extremities--no cyanosis or clubbing. No edema. Dermatologic--normal skin turgor, normal color, no rash. Neurologic--cranial nerves II through XII grossly intact. left hemiparesis with L hand contracture. moving left leg much better today with improved strength(reported side stepping with therapy) Rheumatologic--normal range of motion Psychiatric--AOx3, cooperative Results & Data Results & Data ([facility]) Vital Signs (Past 12 Hours) Vital Signs Temp Pulse Pulse Resp BP Pulse Ox 12/25/20 04:51 89 12/25/20 03:41 36.8 C 82 20 128/82 96 12/24/20 23:16 36.6 C 85 16 141/79 H 96 Laboratory Results 12/25/20 12/25/20 Range/Units 09:41 09:41 Sodium 139 (136-145) mmol/L Potassium 3.6 (3.5-5.1) mmol/L Chloride 105 (98-107) mmol/L Carbon Dioxide 25 (21-32) mmol/L Anion Gap 9.0 (3-11) BUN 10 (7-18) mg/dl Creatinine 0.91 (0.6-1.4) mg/dl Est Cr Clr Drug Dosing 121.9 ml/min Est GFR ( Amer) 112.7 ml/min Est GFR (Non-Af Amer) 97.2 ml/min BUN/Creatinine Ratio 10.8 (10-20) Glucose 226 H (70-99) mg/dl Calcium 9.6 (8.5-10.1) mg/dl Vitamin B12 681 (193-986) pg/ml PG Care Time/CCT Total # of Minutes Spent Total Time Spent with Patient: Total time spent is greater than 50% in coordination of care (as documented) at patient's floor/unit and/or counseling patient: Coding Level of Care Code 22457 Subseq Hosp Care Lvl 2 Diagnoses Seizure disorder G40.909 Left-sided weakness R53.1 H/O brain tumor Z87.898
[2020-12-25 10:33] LABS: BUN Creatinine Ratio 10.8 (10-20); Calcium 9.6 mg/dl (8.5-10.1); Creatinine Clr Calc Pharmacy 121.9 ml/min; Est GFR (African American) 112.7 ml/min; Est GFR (Non-African American) 97.2 ml/min; Potassium 3.6 mmol/L (3.5-5.1)
[2020-12-25] MEDS ORDERED: hydrALAZINE HCL 20 MG/ML VIAL IV PRN (11:32)
[2020-12-26] MEDS: ACETAMINOPHEN 325 MG TAB PO PRN (06:15)
--- NOTE | 2020-12-26 07:43 | Discharge Summary ---
Date of Service December 26, 2020 Admission HPI Per Admitting Provider Ziggy Jones is a 50y/o M with PMH significant for glioblastoma multiforme status post resection; who presents following seizure in the waiting room after leaving AMA earlier today. He was to be transferred to [facility] earlier today for continued EEG monitoring, however due to discomfort with the idea of being so far away from family decided to sign himself out AMA. Due to the weakness of his arm and leg he was unable to get into the car that was his transportation home and subsequently went to the emergency room waiting room to continue to wait. At some point during this time he had a another seizure, as he had not been receiving any his meds and did not have any oral medications on him. Admission Exam Per Admitting Provider Constitutional: WD/WN, vitals as above Eyes: PERRL, conjunctivae normal, anicteric sclerae Respiratory: normal respiratory effort, lungs clear to auscultation Auscultation: no crackles, no rales, no rhonchi and no wheezes Cardiovascular: Rate/Rhythm: regular rate and regular rhythm Heart Sounds: no gallop, no murmur and no cardiac rub Vessels: normal peripheral pulses; no JVD Extremities: no edema Gastrointestinal (Abdomen): Inspection/Auscultation: normal bowel sounds; abdomen not distended Percussion/Palpation: abdomen soft; abdomen nontender and no guarding Musculoskeletal: no cyanosis or clubbing, extremities motor strength 5/5 Left hemiparesis most noted in upper extremity, with limited major motor function of left lower extremity; asymmetric face with left lower facial droop Skin: no rashes, warm and dry Psychiatric: Orientation: alert and oriented x 3 Principal Diagnosis Seizures Discharge Exam General: AOx3, WN/ND, no acute distress, laying in hospital bed HEENT--PERRL, EOMI, mmm Neck--supple. No JVD. No bruits. Thyroid normal, trachea midline Heart--normal S1 and S2. No murmurs, rubs or gallops. Lungs--clear bilaterally, no respiratory distress, no accessory muscle use. Abdomen--+BS throughout, non-tender, no guarding or rigidity Extremities--no cyanosis or clubbing. No edema. Dermatologic--normal skin turgor, normal color, no rash. Neurologic--cranial nerves II through XII grossly intact. left hemiparesis with residual L upper ext weakness (improving but limited against resistance), improved strength LLE against resistance today Rheumatologic--normal range of motion Psychiatric--AOx3, cooperative Discharge Data Allergies Allergy/AdvReac Type Severity Reaction Status Date / Time bacitracin Allergy Rash Verified 12/17/20 11:31 [From Neosporin ([id number])] neomycin Allergy Rash Verified 12/17/20 11:31 [From Neosporin ([id number])] polymyxin B Allergy Rash Verified 12/17/20 11:31 [From Neosporin ([id number])] Consultations 12/22/20 01:05 ED Decision to Admit Stat 12/22/20 05:21 Consult Neurology Routine Ordered Studies Chest X-Ray 12/21/20 20:13 XR chest 1V portable CLINICAL HISTORY: weakness TECHNIQUE: Single frontal radiograph of the chest was obtained. Comparison: Comparison is made to chest one view 12/17/2020 FINDINGS: No lines and tubes are seen. The cardiomediastinal silhouette is normal. The lungs are clear. No evidence of pleural effusion or pneumothorax. IMPRESSION: No acute chest disease. ACT 112: Negative or not required by law. Electronically signed by: Gonzalez Becker M.D. 12/21/2020 8:34 PM Brain MRI 12/22/20 15:04 MR brain seizure wo/w con CLINICAL HISTORY: seizure TECHNIQUE: Multiplanar and multisequence MR images of the brain were obtained prior to and following administration of gadolinium contrast. Comparison: Comparison is made to MR brain 12/18/2020 FINDINGS: Exam is limited by patient motion. No abnormal restricted diffusion is identified. Focal encephalomalacia is seen in the right occipital cortex with overlying craniotomy changes. There is no evidence of acute intraparenchymal he morrhage. No extra axial fluid collections are seen. There are no masses, mass effect, or midline shift. No abnormal enhancement is seen. The ventricular system is normal in appearance. The corpus callosum, pituitary gland, and cerebellar tonsils appear grossly unremarkable.High-resolution images of the temporal lobes do not demonstrate any signal abnormality. Flow voids of the major intracranial arterial vessels are identified. The imaged portions of the paranasal sinuses, mastoid air cells, and orbits are unremarkable. IMPRESSION: 1. Limited exam. No edema is seen in the temporal lobes bilaterally in this postictal patient. 2. Redemonstration of right occipital encephalomalacia with overlying craniotomy changes. ACT 112: Negative or not required by law. Electronically signed by: Gonzalez Becker M.D. 12/22/2020 9:46 PM Hospital Course (1) Seizure disorder: Hx GBM, s/p RIGHT SIDED resection in 2004. Follows w Dr Davis (also NEEDS NEW PCP). Never had issues until previous Thursday per patient (although issues at prior rehab where thought to have had seizures but no tx at that time) and upon further questioning today he did have recurrence of brain ca and had undergone gamma knife he thinks within 5 year of initial surgery. Admitted 12/17 for left sided weakness Later started having focal seizures, MRI showed some restricted diffusion, repeat MRI showed evidence of encephalomalacia Despite escalating doses of AED, he continued to have seizures and initial plan was for tx to [facility] for continuous EEG monitoring however patient refused and left AMA but came back to ER when unable to get back into car and may have had additional seizure Seizure precautions Neurology consulted. Follow up Brain MRI completed given concerns for restricted diffusion seen on previous admit on the , but follow up NEGATIVE and felt likely due to seizure focus Vimpat 100mg IV BID --> changed to PO 12/24 (started last admit) and continue at discharge Continued Keppra 1500mg BID (has had issues with non-compliance in past). His lamictal was discontinued Phenytoin level rechecked, elevated --> Per Neuro, reducing phenytoin to 100mg BID x 5 days, then 10mg x 5 days (starting 12/29 through 01/02 ) , then stop altogether No need for EEG at this time but if any further episodes would rec tx for continuous monitoring Follow up with Neuro in office in next 2-3 weeks --> Patient did report he hates taking pills and while joking about "just not taking them", he did endorse that once out of rehab in June he stopped taking his medications and hasn't picked them up since that time. Discussed [id number] as major issue for seizures (also hx alcohol but none recently and discussed this lowers threshold as well) and encouraged compliance. Hopefully limiting number of pills by eliminating the phenytoin and utilizing Vimpat will help but do have concerns about him again being non-complaint. Stated he had been using marijuana off the street for his seizures as rec by Dr. Davis and he had been approved for MMJ program however never completed the process and does not have card. Encouraged antiepileptic medications as ordered given it is apparent that route is no longer keeping seizures at bay as evident by recent events PT/OT -- recs rehab. [place] [facility] arranged He is on ex- insurance and living friend and mom who lives nearby, making home health difficult given living situation (gets ~8-900$ monthly support from his ex) Prior PFA from ex- but they have been talking recently. (2) Left-sided weakness: Improving -- upper extremity chronic issues, lower extremity most recent issue (occurred in past two with resolution) and this strength is also improving. made advancements with therapy Most likely due to todds paralysis from above PT/OT --> [facility] for rehab (3) H/O brain tumor: post craniotomy, gamma knife for recurrence no recurrence on MRI Brain w/w/o during hospitalization [facility] for rehab in [place] Nurse navigator working on getting patient new PCP as was released from last practice Total Time Total Time Spent Total Time Spent (In Minutes): 45 Discharge Plan Discharge Items Patient Disposition: Transfer Inpatient Rehab Fac Reason For Visit: SEIZURE Discharge Diagnosis: Seizure Goals: You have been hospitalized for an acute medical problem. During your stay at [facility], we have made an effort to correct the problem that brought you to the hospital while keeping you as comfortable as possible. Medications were used to bring your condition under control and your discharge instructions will include directions for any medications you should take after leaving the hospital. Please make sure you see your Primary Care Provider as part of your follow up plan. Activity: As commented below Activity Comment: advance with therapy as tolerated Non-emergency contact: Primary Care Provider and Neurologist Call non-emergency contact if: you have any medication questions, your symptoms worsen and your pain is unusual for you Follow-up/Referrals: Teddy Salas MD [Physician] - (2-3 weeks, PA is ok for follow up) Finn Davis MD [Outside Practitioners] - PCP,NO [Primary Care Provider] - Diet: Carb Consistent or DM2 and Heart Healthy Addtl Attending Provider Instructions: You have been hospitalized for seizure. Imaging of brain was negative for stroke. It did not show any evidence of recurrence of brain tumor as well, and repeat imaging that was done for concerns of stroke showed that this resolved and was likely from the seizure. You were seen by Neurology and recommendations were made and adjustments to your medications as follows: * Vimpat 100mg by mouth twice daily * Keppra 1500mg by mouth twice daily * Phenytoin --> this medication is being weaned off to discontinue and you will continue this as 100mg by mouth twice daily until 12/28, then decrease to 100mg by mouth once daily until 01/02, then stop altogether Your LAMICTAL WAS DISCONTINUED It is very important to continue these medications to prevent recurrence. You will have follow up with Neurology in the next 2-3 weeks for follow up. You have been set up for rehab at [facility]. We are working on getting you a new primary care provider and you should be called for follow up appointment. As discussed, it is important to watch dietary intake given pre-diabetic state to prevent fci effects from this, as well as watch your salt intake to prevent need for additional medications for your blood pressure as you have voiced you don't like taking pills. This can be helped by diet/exercise, however sometimes medications are necessary, as above and discussed at length. Please follow up with your primary neurosurgeon as regularly scheduled -- we will forward your records to their office as requested. Please return to the emergency department with any increased weakness, confusion, fever, or for any other symptoms that are concerning for you. It has been a pleasure being a part of the medical team providing for you while you have been in the hospital. Take care! Pending Studies at Discharge: No Stand-Alone Forms: My [facility] Skilled Items Patient informed of condition?: Yes DNR: No Discharge Level of Care: Acute rehab Communicable Disease: No Discharge Prognosis: Improving Lines: None Urinary Catheter: No Medications and DC Order Prescriptions: New levetiracetam [Keppra] 500 mg Tablet 1,500 mg PO BID 30 Days Qty: 180 RF: 0 phenytoin sodium extended [Dilantin Extended] 100 mg Capsule See Rx Instructions .ROUTE .COMPLEX Qty: 10 RF: 0 Vimpat 50 mg Tablet 100 mg PO Q12H 30 Days Qty: 120 RF: 0 Continued aspirin 81 mg Tablet,Delayed Release (Dr/Ec) 81 mg PO QAM 30 Days Qty: 30 RF: 0 Discontinued levetiracetam 750 mg tablet 1,500 mg PO .OCCASIONALLY RF: 0 phenytoin sodium extended [Dilantin Extended] 100 mg Capsule 100 mg PO TID 30 Days Qty: 90 RF: 0 lamotrigine [Lamictal] 25 mg Tablet 25 mg PO BID 30 Days Qty: 60 RF: 0 Discharge Orders: Discharge Order (Routine); Ordered 12/26/20 Ordered By: Kenzie Liriano Admission Data Admit Date/Time: 12/22/20 02:13 Attending Provider: Haily Olmstead Admit Provider: Shahzad Cespedes Primary Care Provider: PCP,NO Other Providers: Carlo Tirado ; Teddy Salas Coding Level of Care Code D/C DAY MANAGEMENT >30 MINS Diagnoses Seizure disorder G40.909 Left-sided weakness R53.1 H/O brain tumor Z87.898
[2020-12-26] MEDS: levETIRAcetam 500 MG TAB PO SCH (08:51)
[2020-12-26] MEDS: ASPIRIN 81 MG ECTAB PO SCH (08:51)
[2020-12-26] MEDS: PHENYTOIN SODIUM ER 100 MG CAP PO SCH (08:51)
[2020-12-26] MEDS: LACOSAMIDE 50 MG TABLET PO SCH (09:33)
== END 2020-12-26 15:35 | DRG 101 ==
LOC: ED 18:44 → SUATTDRO 12-22 02:13 → EDINP 12-22 02:13 → 2W 12-22 03:10

== ENCOUNTER 2021-04-10 19:29 | Inpatient (IN) ==
--- NOTE | 2021-04-10 19:57 | Emergency Department Note ---
Impression & Plan Acute left-sided weakness, Seizure ED Provider Note NAME: KIRBY KRUSE JR AGE: 50 SEX: M : 1970 ARRIVES VIA: Walk-In INFORMANT: Patient, ED PROVIDER(S): Hermes Damian DO CHIEF COMPLAINT: Weakness HPI: The patient is a 50-year-old male who has a history of glioblastoma who presented to the emergency department for an evaluation of left-sided weakness. The patient has had similar symptoms in the past. Yesterday he started having a headache and thinks he may have had a seizure. The patient states that in the p ast when this is happened has had weakness which has been ongoing in his left side. He noticed ongoing weakness in his arm as well as his leg. He has had no speech difficulty. He said no tonic-clonic activity. He presented with his significant other. He does complain of a headache as well. He has had no recent nausea or vomiting. He had no trauma. He did not see his family doctor for the symptoms. The patient states that in the past he has been admitted to our facility and then sent to inpatient rehab. ROS: See above HPI for pertinent positives & negatives. A total of 10 systems reviewed and were otherwise negative. PAST MEDICAL HISTORY: See Below PAST SURGICAL HISTORY: See Below FAMILY HISTORY: See Below SOCIAL HISTORY: See Below HOME MEDICATIONS: See Below ALLERGIES: See Below VITALS: See Below PHYSICAL EXAMINATION: MEDICAL DECISION MAKING: GENERAL: Patient is awake alert in no acute distress patient is resting comfortably and showing no signs of anxiety EYES: The conjunctivae are clear. The pupils are round and reactive. EARS, NOSE, MOUTH AND THROAT: The nose is without any evidence of any deformity. Mucous membranes are moist. Tongue is midline. NECK: The neck is nontender and supple. RESPIRATORY: Normal respiratory effort is noted there is no evidence of wheezing rhonchi or rales CARDIOVASCULAR: Regular rate and rhythm noted there no murmurs rubs or gallops normal S1 normal S2. GASTROINTESTINAL: The abdomen is soft. Abdomen is nontender. MUSCULOSKELETAL/EXTREMITIES: There is no evidence of gross deformity full range of motion is noted in the hips and shoulders. SKIN: There is no obvious evidence of any rash. There are no petechiae, pallor or cyanosis noted. NEUROLOGIC: Patient is awake alert and oriented x 3. Rubber Liner strength is diminished in the left upper extremity. There is a drift in the left upper extremity. The patient is able to hold each leg off the bed for greater than 5 seconds however there is asymmetry between the strength in the left leg and the right leg. The left leg appears weaker. There is no facial droop. Speech is clear. Triage Nursing notes reviewed. The patient is a 50-year-old male who has a history of glioblastoma who presented to emergency department for an evaluation of left-sided weakness. The patient thinks he may have had a seizure yesterday and afterwards he had left- sided weakness. 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 I discussed patient's laboratory and radiographic studies with him. Given his ongoing symptoms I discussed his case with the on-call [facility] hospitalist. The patient admitted to the hospitalist that he had not been taking his seizure medication. For this reason he was loaded with IV Keppra in the emergency department. Vital Signs: reviewed and remarkable for elevated blood pressure. Differential diagnosis: Infection, dehydration, metabolic abnormality, hypo/hyperglycemia, electrolyte disturbance, anemia, hypoxia, cardiac sources, intracerebral event, toxicologic, neurologic, as well as other pathologies. ER treatment provided: See below Diagnostics interpreted by me: ECG: AG was obtained in the emergency department. My interpretation is normal sinus rhythm at 60 bpm. There was no ectopy. LVH was suggested by voltage criteria. Nonspecific ST segment abnormalities were noted. This was compared to a tracing from December 212020. No changes were noted. Cardiac Monitoring: An order was placed for continuous cardiac monitoring. The monitor shows a rate of 69 bpm with sinus rhythm. Laboratory studies: As stated above and show below. Imaging studies: See below Consultation(s): I discussed this case with the on-call [facility] hospitalist. Past Med/Surg History Medical History Brain cancer Renal stone Surgical History S/P cholecystectomy Status post craniectomy Family History Mother No problems noted. Father , the diagnose 60s of lung cancer Lung cancer Social History (Reviewed 04/10/21 @ 19:55 by ANTWAN Dewey Smoking Status: Never smoker Number of Years Since Quit: 20; Second Hand Exposure: No; Hx Alcohol Use: Yes Alcohol type: beer Alcohol Intake Frequency Comment: 4 beers per week every 1-2 weeks Hx Substance Use: Yes Preferred Language: [place] Communication Ability: Effective Mattress Maker Required: No Beliefs That Will Affect Care: None marital status: Current Living Situation: Family current occupational status: unemployed current occupation: former [employer] How many Children do You have: 4 Feels Safe at Home: Yes Assistive Devices: None Allergies Allergies Allergy/AdvReac Type Severity Reaction Status Date / Time bacitracin Allergy Rash Verified 04/10/21 20:37 [From Neosporin ([id number])] neomycin Allergy Rash Verified 04/10/21 20:37 [From Neosporin ([id number])] polymyxin B Allergy Rash Verified 04/10/21 20:37 [From Neosporin ([id number])] Home Meds Home Medications Medication Instructions Recorded Confirmed levetiracetam 750 mg tablet 1,500 mg PO BID 04/10/21 04/10/21 Results & Data (ED) Vital Signs Vital Signs - 24 hr 04/10/21 19:32 04/10/21 19:52 04/10/21 19:56 Temperature 36.6 C Temperature Source Temporal Artery Scan Pulse Rate 71 Pulse Rate [Apical] 69 Pulse Rhythm [Apical] Regular Respiratory Rate 16 18 Respiratory Effort / Characteristics Non-Labored Respiratory Depth Normal Blood Pressure 132/79 Blood Pressure [Left Arm] 151/86 H Blood Pressure Mean 96 Blood Pressure Mean [Left Arm] 107 Blood Pressure Position Sitting Pulse Oximetry 95 95 95 Oxygen Delivery Method Room Air Room Air Room Air Sepsis Recent Fever Within 48 Hours No Sepsis New/Unexplained Change in Mental Status No Sepsis Action Taken by Nursing No Action Required Home Medications Current Medication List: was personally reviewed by me Laboratory Data Attestation: I reviewed the patient's lab results. Result diagrams: 04/10/21 20:05 04/10/21 20:05 Lab Results 04/10/21 04/10/21 04/10/21 Range/Units 20:05 20:05 20:05 WBC 10.72 (4.8-10.8) K/uL RBC 5.07 (4.7-6.1) M/uL Hgb 15.7 (14.0-18.0) g/dL Hct 45.2 (42-52) % MCV 89.2 (80-100) fL MCH 31.0 (25-34) pg MCHC 34.7 (32-36) g/dL RDW Std Deviation 39.0 (36.4-46.3) fL RDW Coeff of Aisha 12.0 (11.5-14.5) % Plt Count 205 (130-400) K/uL MPV 11.1 H (7.4-10.4) fL Immature Gran % (Auto) 0.1 % Neut % (Auto) 77.7 % Lymph % (Auto) 18.1 % Titus % (Auto) 3.8 % Eos % (Auto) 0.1 % Baso % (Auto) 0.2 % Neut # (Auto) 8.33 H (1.4-6.5) K/uL Lymph # (Auto) 1.94 (1.2-3.4) K/uL Titus # (Auto) 0.41 (0.11-0.59) K/uL Eos # (Auto) 0.01 (0-0.5) K/uL Baso # (Auto) 0.02 (0-0.2) K/uL Immature Gran # (Auto) 0.01 (0.00-0.02) K/uL PT 11.1 (9.0-12.0) Seconds INR 1.0 (0.9-1.1) APTT 23.6 (21.0-31.0) Seconds PTT Ratio 0.9 Sodium 134 L (136-145) mmol/L Potassium 3.4 L (3.5-5.1) mmol/L Chloride 98 (98-107) mmol/L Carbon Dioxide 28 (21-32) mmol/L Anion Gap 8 (3-11) BUN 6 (6-23) mg/dl Creatinine 0.81 (0.6-1.4) mg/dl Est Cr Clr Drug Dosing Not Reportable Est GFR ( Amer) 119.3 ml/min Est GFR (Non-Af Amer) 102.9 ml/min BUN/Creatinine Ratio 7.4 L (10-20) Glucose 143 H (70-99(Fasting)) mg/dl POC Glucose (70-99) mg/dl Calcium 9.4 (8.5-10.1) mg/dl Magnesium 1.5 L (1.7-2.4) mg/dl Total Bilirubin 1.3 H (0.2-1.0) mg/dl AST 11 L (13-39) U/L ALT 17 (7-52) U/L Alkaline Phosphatase 59 (34-104) U/L Troponin I < 0.03 (0-0.04) ng/ml Total Protein 6.8 (6.0-8.3) gm/dl Albumin 4.3 (3.4-5.0) gm/dl Globulin 2.5 (2.5-4.0) gm/dl Albumin/Globulin Ratio 1.7 (0.9-2) Phenytoin (10-20) mcg/ml SARS-CoV-2, RNA, NAAT (NEGATIVE) 04/10/21 04/10/21 04/10/21 Range/Units 20:05 20:24 Unknown WBC (4.8-10.8) K/uL RBC (4.7-6.1) M/uL Hgb (14.0-18.0) g/dL Hct (42-52) % MCV (80-100) fL MCH (25-34) pg MCHC (32-36) g/dL RDW Std Deviation (36.4-46.3) fL RDW Coeff of Aisha (11.5-14.5) % Plt Count (130-400) K/uL MPV (7.4-10.4) fL Immature Gran % (Auto) % Neut % (Auto) % Lymph % (Auto) % Titus % (Auto) % Eos % (Auto) % Baso % (Auto) % Neut # (Auto) (1.4-6.5) K/uL Lymph # (Auto) (1.2-3.4) K/uL Titus # (Auto) (0.11-0.59) K/uL Eos # (Auto) (0-0.5) K/uL Baso # (Auto) (0-0.2) K/uL Immature Gran # (Auto) (0.00-0.02) K/uL PT (9.0-12.0) Seconds INR (0.9-1.1) APTT (21.0-31.0) Seconds PTT Ratio Sodium (136-145) mmol/L Potassium (3.5-5.1) mmol/L Chloride (98-107) mmol/L Carbon Dioxide (21-32) mmol/L Anion Gap (3-11) BUN (6-23) mg/dl Creatinine (0.6-1.4) mg/dl Est Cr Clr Drug Dosing Est GFR ( Amer) ml/min Est GFR (Non-Af Amer) ml/min BUN/Creatinine Ratio (10-20) Glucose (70-99(Fasting)) mg/dl POC Glucose 131 H (70-99) mg/dl Calcium (8.5-10.1) mg/dl Magnesium (1.7-2.4) mg/dl Total Bilirubin (0.2-1.0) mg/dl AST (13-39) U/L ALT (7-52) U/L Alkaline Phosphatase (34-104) U/L Troponin I (0-0.04) ng/ml Total Protein (6.0-8.3) gm/dl Albumin (3.4-5.0) gm/dl Globulin (2.5-4.0) gm/dl Albumin/Globulin Ratio (0.9-2) Phenytoin < 3.0 L (10-20) mcg/ml SARS-CoV-2, RNA, NAAT NEGATIVE (NEGATIVE) Administered Medications Discontinued Medications Ioversol (Optiray 320 125ml) 120 ml IV ONCE ONE Stop: 04/10/21 21:18 Last Admin: 04/10/21 21:23 Dose: 120 ml Documented by: [id number] Magnesium Oxide (Magnesium Oxide 400 Mg Tab) 800 mg PO ONE ONE Stop: 04/10/21 21:24 Last Admin: 04/10/21 21:51 Dose: 800 mg Documented by: [id number] Imaging Data Radiologist's Impression: Chest X-Ray 04/10/21 19:38 SINGLE VIEW CHEST CLINICAL HISTORY: Strokelike symptoms. FINDINGS: 2 AP, portable, upright chest radiographs are compared to study dated 12/21/2020. The heart is top normal for projection. The lungs and pleural spaces are clear. No pneumothorax is seen. The bony thorax is grossly intact. IMPRESSION: No active disease in the chest. ACT 112: Negative or not required by law. Electronically signed by: Temo Santos M.D. 04/10/2021 8:19 PM Patient: KIRBY KRUSE JR (Male) : 68 Status: ER Date: 04/10/21 21:32 Room #: History: Patient cannot currently afford his seizure medication and believes he had a seizure around 1300 yesterday. Patient reports weakness in his left arm and leg. Similar issues before, has been to rehab for symtoms post seizure. Also c/o a headache. Has not had seizure medications for 3 weeks. Slices: 630 Priors: Tech: Jayme Bauer @ [phone] Exams: CTA HEAD Contrast: IV Amt: 120 Accession Numbers: [id number] Referring Physician: REFERRED SELF Preliminary Findings Only See Final Report For Complete Findings CTA HEAD: No large vessel occlusion or flow-limiting stenosis. Radiologist:Luc Oropeza MD Study ready at 22:18 and initial results transmitted at 22:20 Patient: KIRBY KURSE JR (Male) : 68 Status: ER Date: 04/10/21 21:31 Room #: History: Patient cannot currently afford his seizure medication and believes he had a seizure around 1300 yesterday. Patient reports weakness in his left arm and leg. Similar issues before, has been to rehab for symtoms post seizure. Also c/o a headache. Has not had seizure medications for 3 weeks. Slices: [id number] Priors: Tech: Jayme Bauer @ [phone] C Exams: CTA NECK Contrast: IV Amt: 120 Accession Numbers: [id number] Referring Physician: REFERRED SELF Preliminary Findings Only See Final Report For Complete Findings CTA NECK: No arterial occlusion, flow limiting stenosis, aneurysm, or dissection. Radiologist: Siddhartha Oropeza MD Study ready at 22:18 and initial results transmitted at 22:21 Patient: KIRBY KRUSE JR (Male) : 68 Status: ER Date: 04/10/21 21:30 Room #: History: Patient cannot currently afford his seizure medication and believes he had a seizure around 1300 yesterday. Patient reports weakness in his left arm and leg. Similar issues before, has been to rehab for symtoms post seizure. Also c/o a headache. Has not had seizure medications for 3 weeks. Slices: 59 Priors: Tech: KemperJayme olson @ [phone] Exams: CT HEAD Contrast: Accession Numbers: [id number] Referring Physician: REFERRED SELF Preliminary Findings Only See Final Report For Complete Findings CT HEAD: Comparison 12/21/2020 Encephalomalacia within the right parietal lobe and right temporal lobe. No hemorrhage or mass-effect. Exvacuo dilatation of the right lateral ventricle. Prior right-sided craniotomy. Somewhat permeative appearance of the skull aroun d the region of craniotomy which is unchanged. Radiologist: Siddhartha Oropeza MD Study ready at 21:33 and initial results transmitted at 21:49 Discharge Plan Visit Data Chief Complaint: Neuro Symptoms/Deficit Stated Complaint: LT SIDE WEAKNESS, HEADACHE, CAN'T MOVE LT ARM ED Provider: Hermes Damian Discharge Problem: Acute left-sided weakness, Seizure Patient Disposition: Being Evaluated by Hospitalist Forms Stand Alone Forms: My [facility] [employer] Prescriptions Prescriptions: No Action levetiracetam 750 mg tablet 1,500 mg PO BID RF: 0 Referrals Referrals: Ronald Hickman DO [Primary Care Provider] -
--- NOTE | 2021-04-10 20:20 | XRay Report ---
SINGLE VIEW CHEST CLINICAL HISTORY: Strokelike symptoms. FINDINGS: 2 AP, portable, upright chest radiographs are compared to study dated 12/21/2020. The heart is top normal for projection. The lungs and pleural spaces are clear. No pneumothorax is seen. The b ellen thorax is grossly intact. IMPRESSION: No active disease in the chest. ACT 112: Negative or not required by law. Electronically signed by: Temo Santos M.D. 04/10/2021 8:19 PM
[2021-04-10 20:24] LABS: Basophils # (auto) 0.02 K/uL (0-0.2); Basophils % (auto) 0.2 %; Eosinophils # (auto) 0.01 K/uL (0-0.5); Eosinophils % (auto) 0.1 %; Hematocrit (blood only) 45.2 % (42-52); Hemoglobin 15.7 g/dL (14.0-18.0); Immature Granulocytes # (auto) 0.01 K/uL (0.00-0.02); Immature Granulocytes % (auto) 0.1 %; Lymphocytes # (auto) 1.94 K/uL (1.2-3.4); Lymphocytes % (auto) 18.1 %; Mean Corpuscular Hgb Conc 34.7 g/dL (32-36); Mean Corpuscular Volume 89.2 fL (80-100); Mean Platelet Volume 11.1 fL (7.4-10.4); Monocytes # (auto) 0.41 K/uL (0.11-0.59); Monocytes % (auto) 3.8 %; Neutrophils # (auto) 8.33 K/uL (1.4-6.5); Neutrophils % (auto) 77.7 %; Platelet Count 205 K/uL (130-400); Red Blood Count 5.07 M/uL (4.7-6.1); White Blood Count 10.72 K/uL (4.8-10.8)
[2021-04-10 20:35] LABS: Partial Thromboplastin Ratio 0.9; Partial Thromboplastin Time 23.6 Seconds (21.0-31.0); Prothrombin Time 11.1 Seconds (9.0-12.0)
[2021-04-10 20:43] LABS: Alanine Aminotransferase 17 U/L (7-52); Albumin Globulin Ratio 1.7 (0.9-2); Albumin Level 4.3 gm/dl (3.4-5.0); Alkaline Phosphatase 59 U/L (34-104); Anion Gap 8 (3-11); Aspartate Aminotransferase 11 U/L (13-39); BUN Creatinine Ratio 7.4 (10-20); Bilirubin,Total 1.3 mg/dl (0.2-1.0); Blood Urea Nitrogen 6 mg/dl (6-23); Calcium 9.4 mg/dl (8.5-10.1); Carbon Dioxide 28 mmol/L (21-32); Chloride 98 mmol/L (98-107); Est GFR (African American) 119.3 ml/min; Est GFR (Non-African American) 102.9 ml/min; Globulin 2.5 gm/dl (2.5-4.0); Glucose 143 mg/dl (70-99(Fasting)); Magnesium 1.5 mg/dl (1.7-2.4); Potassium 3.4 mmol/L (3.5-5.1); Sodium 134 mmol/L (136-145); Total Protein 6.8 gm/dl (6.0-8.3)
[2021-04-10 20:45] LABS: Troponin I < 0.03 ng/ml (0-0.04)
[2021-04-10] MEDS ORDERED: OPTIRAY 320 125ml IV ONE (21:17)
[2021-04-10] MEDS ORDERED: MAGNESIUM OXIDE 400 MG TAB PO ONE (21:23)
--- NOTE | 2021-04-10 23:11 | History & Physical Report ---
Date of Service April 10, 2021 Assessment & Plan (1) Anthan's paralysis (postepileptic): Plan: Seizure disorder/residual left-sided weakness/Nathan's paralysis/history of glioblastoma status post craniectomy- Patient has not taken his Keppra 1500 milligrams p.o. twice daily for at least 2 weeks Giving Keppra 2000 mg IV loading dose in the ED Resume Keppra 1500 [address] twice daily CT head showing old right parietal and temporal encephalomalacia CTA head neck negative Most recent brain MRI on 12/22/2020 Patient symptoms are consistent with similar post epileptic weakness in the past Consult neurology (2) Seizure disorder: Plan: See above (3) Left-sided weakness: Plan: See above (4) Glioblastoma: Plan: See above (5) Status post craniectomy: Plan: See above (6) Complicated migraine: (7) Hypomagnesemia: Plan: Hypomagnesemia/hypokalemia- Replace with IV supplementation, recheck laboratories in a.m. (8) Hypokalemia: Plan: See above History of Present Illness Chief Complaint: The patient presents to the emergency department, with his , who reports that he probably had a headache followed by a seizure yesterday, and continues to have fluctuating left-sided weakness, similar to symptoms in the past. Primary Care Provider: Ronald Hickman DO The patient is a 50-year-old male with a past medical history including history of glioblastoma status post surgery, focal motor seizure, CVA, complicated migraine, pneumonia, left-sided weakness, and status post craniectomy. The patient presents with symptoms similar to previous events of seizures. Work-up in the emergency department include the following imaging: CT of head shows chronic right parietal and temporal encephalomalacia. CTA head and neck were both negative. Upon further discussion with the patient's , she reports that the patient stopped taking his Keppra at least 2 weeks ago when his last prescription ran out, because he did not like the way it made his body feel At that point, he was given a loading dose of Keppra 2000 mg IV by the ED. Allergies Allergy/AdvReac Type Severity Reaction Status Date / Time bacitracin Allergy Rash Verified 04/10/21 20:37 [From Neosporin ([id number])] neomycin Allergy Rash Verified 04/10/21 20:37 [From Neosporin ([id number])] polymyxin B Allergy Rash Verified 04/10/21 20:37 [From Neosporin ([id number])] Home Medications Medication Instructions Recorded Confirmed Type levetiracetam 750 mg tablet 1,500 mg PO BID 04/10/21 04/10/21 History Past Med/Surg History Medical History (Updated 04/11/21 @ 04:04 by Carlo Tirado MD) Brain cancer Glioblastoma Renal stone Surgical History S/P cholecystectomy Status post craniectomy Family History Mother No problems noted. Father , the diagnose 60s of lung cancer Lung cancer Social History Smoking Status: Never smoker Number of Years Since Quit: 20; Second Hand Exposure: Yes; Hx Alcohol Use: Yes Alcohol type: beer Alcohol Intake Frequency Comment: 4 beers per week every 1-2 weeks Hx Substance Use: Yes Last Used Substance: Unknown Preferred Language: Moldovan Communication Ability: Effective Back Up Scan Coordinator Required: No Beliefs That Will Affect Care: None marital status: Current Living Situation: Spouse current occupational status: unemployed current occupation: former [employer] How many Children do You have: 4 Other Information That Helps Us Care for You: No Feels Safe at Home: Yes Assistive Devices: Walker Review of Systems Review of Systems: The patient denies chest pain, palpitations, shortness of breath, dyspnea on exertion, cough, lower extremity swelling, sore throat, fevers, chills, sweats, nausea, vomiting, diarrhea , constipation, abdominal pain, pelvic pain, blood in urine or stool, dysuria, urinary frequency or urgency, rash, abnormal bruising or bleeding, back or neck pain, or night sweats. The review of systems is otherwise negative other than for that already noted above, and at least 10 systems have been reviewed. Physical Exam Physical Exam: The patient lethargic w, developed and well nourished, normocephalic and atraumatic, lying in bed and in no acute distress. HEENT--PERRL, EOMI, mucous membranes and oropharynx dry. Neck--supple. No JVD. No bruits. Thyroid normal, trachea midline, no adenopathy. Heart--normal S1 and S2. No murmurs, rubs or gallops. Lungs--clear bilaterally, no respiratory distress, no accessory muscle use. Abdomen--normal bowel sounds and soft. Nontender. Nondistended, no hernias or masses, no organomegaly. Extremities--no cyanosis or clubbing. No edema. Dermatologic--normal skin turgor, normal color, no abnormal lymph nodes, no rash. Neurologic--cranial nerves II through XII grossly intact. Decreased strength left upper and lower extremity compared to right... A chronic finding Rheumatologic--normal range of motion. Psychiatric--normal affect. Results & Data Results & Data ([facility]) Vital Signs (Past 12 Hours) Vital Signs Temp Pulse Pulse Resp BP BP Pulse Ox 04/10/21 19:56 95 04/10/21 19:52 69 18 151/86 H 95 04/10/21 19:32 36.6 C 71 16 132/79 95 Laboratory Results Laboratory Results WBC 10.72 K/uL (4.8-10.8) 04/10/21 20:05 RBC 5.07 M/uL (4.7-6.1) 04/10/21 20:05 Hgb 15.7 g/dL (14.0-18.0) 04/10/21 20:05 Hct 45.2 % (42-52) 04/10/21 20:05 MCV 89.2 fL (80-100) 04/10/21 20:05 MCH 31.0 pg (25-34) 04/10/21 20:05 MCHC 34.7 g/dL (32-36) 04/10/21 20:05 RDW Std Deviation 39.0 fL (36.4-46.3) 04/10/21 20:05 RDW Coeff of Aisha 12.0 % (11.5-14.5) 04/10/21 20:05 Plt Count 205 K/uL (130-400) 04/10/21 20:05 MPV 11.1 fL (7.4-10.4) H 04/10/21 20:05 Immature Gran % (Auto) 0.1 % 04/10/21 20:05 Neut % (Auto) 77.7 % 04/10/21 20:05 Lymph % (Auto) 18.1 % 04/10/21 20:05 [place] % (Auto) 3.8 % 04/10/21 20:05 Eos % (Auto) 0.1 % 04/10/21 20:05 Baso % (Auto) 0.2 % 04/10/21 20:05 Neut # (Auto) 8.33 K/uL (1.4-6.5) H 04/10/21 20:05 Lymph # (Auto) 1.94 K/uL (1.2-3.4) 04/10/21 20:05 [place] # (Auto) 0.41 K/uL (0.11-0.59) 04/10/21 20:05 Eos # (Auto) 0.01 K/uL (0-0.5) 04/10/21 20:05 Baso # (Auto) 0.02 K/uL (0-0.2) 04/10/21 20:05 Immature Gran # (Auto) 0.01 K/uL (0.00-0.02) 04/10/21 20:05 PT 11.1 Seconds (9.0-12.0) 04/10/21 20:05 INR 1.0 (0.9-1.1) 04/10/21 20:05 APTT 23.6 Seconds (21.0-31.0) 04/10/21 20:05 PTT Ratio 0.9 04/10/21 20:05 Sodium 134 mmol/L (136-145) L 04/10/21 20:05 Potassium 3.4 mmol/L (3.5-5.1) L 04/10/21 20:05 Chloride 98 mmol/L (98-107) 04/10/21 20:05 Carbon Dioxide 28 mmol/L (21-32) 04/10/21 20:05 Anion Gap 8 (3-11) 04/10/21 20:05 BUN 6 mg/dl (6-23) 04/10/21 20:05 Creatinine 0.81 mg/dl (0.6-1.4) 04/10/21 20:05 Est Cr Clr Drug Dosing Not Reportable 04/10/21 20:05 Est GFR ( Amer) 119.3 ml/min 04/10/21 20:05 Est GFR (Non-Af Amer) 102.9 ml/min 04/10/21 20:05 BUN/Creatinine Ratio 7.4 (10-20) L 04/10/21 20:05 Glucose 143 mg/dl (70-99(Fasting)) H 04/10/21 20:05 POC Glucose 131 mg/dl (70-99) H 04/10/21 20:24 Calcium 9.4 mg/dl (8.5-10.1) 04/10/21 20:05 Magnesium 1.5 mg/dl (1.7-2.4) L 04/10/21 20:05 Total Bilirubin 1.3 mg/dl (0.2-1.0) H 04/10/21 20:05 AST 11 U/L (13-39) L 04/10/21 20:05 ALT 17 U/L (7-52) 04/10/21 20:05 Alkaline Phosphatase 59 U/L (34-104) 04/10/21 20:05 Troponin I < 0.03 ng/ml (0-0.04) 04/10/21 20:05 Total Protein 6.8 gm/dl (6.0-8.3) 04/10/21 20:05 Albumin 4.3 gm/dl (3.4-5.0) 04/10/21 20:05 Globulin 2.5 gm/dl (2.5-4.0) 04/10/21 20:05 Albumin/Globulin Ratio 1.7 (0.9-2) 04/10/21 20:05 Phenytoin < 3.0 mcg/ml (10-20) L 04/10/21 20:05 SARS-CoV-2, RNA, NAAT NEGATIVE (NEGATIVE) 04/10/21 Unknown Impressions Chest X-Ray 04/10/21 19:38 SINGLE VIEW CHEST CLINICAL HISTORY: Strokelike symptoms. FINDINGS: 2 AP, portable, upright chest radiographs are compared to study dated 12/21/2020. The heart is top normal for projection. The lungs and pleural spaces are clear. No pneumothorax is seen. The bony thorax is grossly intact. IMPRESSION: No active disease in the chest. ACT 112: Negative or not required by law. Electronically signed by: Temo Santos M.D. 04/10/2021 8:19 PM Diagnostic Findings [facility] Patient: KIRBY KRUSE JR (Male) : 68 Status: ER Date: 04/10/21 21:30 Room #: History: Patient cannot currently afford his seizure medication and believes he had a seizure around 1300 yesterday. Patient reports weakness in his left arm and leg. Similar issues before, has been to rehab for symtoms post seizure. Also c/o a headache. Has not had seizure medications for 3 weeks. Slices: 59 Priors: Tech: Jayme Bauer @ [phone] Exams: CT HEAD Contrast: Accession Numbers: [id number] Referring Physician: REFERRED SELF Preliminary Findings Only See Final Report For Complete Findings CT HEAD: Comparison 12/21/2020 Encephalomalacia within the right parietal lobe and right temporal lobe. No hemorrhage or mass-effect. Exvacuo dilatation of the right lateral ventricle. Prior right-sided craniotomy. Somewhat permeative appearance of the skull around the region of craniotomy which is unchanged. Radiologist: Siddhartha Oropeza MD Study ready at 21:33 and initial results transmitted at 21:49 *This report constitutes a preliminary interpretation only. Non-acute findings felt to be unrelated to the clinical presentation may not be discussed in this report. The study will be interpreted and a final report will be generated by the local Radiologist the following shift. To reach the [facility] radiology department call [phone]. If a discrepancy is found between the preliminary and final interpretations of this study, please notify us via our Client Portal at [email or web address], under [email or web address] [email or web address]. You can also fax this report with a description of the discrepancy, or include the final report, to our daytime fax number [phone]. If faxing, please indicate the severity of discrepancy using one of the following categories: [ ] 1 - Agree/Informational [ ] 2 - Unlikely to Affect Management [ ] 3 - Possible Eventual Change of Management [ ] 4 - Probable Immediate Change of Management For all other patient related information, please fax us at [phone]. [id number] [facility] Patient: KIRBY KRUSE JR (Male) : 68 Status: ER Date: 04/10/21 21:31 Room #: History: Patient cannot currently afford his seizure medication and believes he had a seizure around 1300 yesterday. Patient reports weakness in his left arm and leg. Similar issues before, has been to rehab for symtoms post seizure. Also c/o a headache. Has not had seizure medications for 3 weeks. Slices: 868 Priors: Tech: Jayme Bauer @ [phone] Exams: CTA NECK Contrast: IV Amt: 120 Accession Numbers: [id number] Referring Physician: REFERRED SELF Preliminary Findings Only See Final Report For Complete Findings CTA NECK: No arterial occlusion, flow limiting stenosis, aneurysm, or dissection. Radiologist: Siddhartha Oropeza MD Study ready at 22:18 and initial results transmitted at 22:21 *This report constitutes a preliminary interpretation only. Non-acute findings felt to be unrelated to the clinical presentation may not be discussed in this report. The study will be interpreted and a final report will be generated by the local Radiologist the following shift. To reach the [facility] radiology department call [phone]. If a discrepancy is found between the preliminary and final interpretations of this study, please notify us via our Client Portal at [email or web address], under QA Exams. You can also fax this report with a description of the discrepancy, or include the final report, to our daytime fax number [phone]. If faxing, please indicate the severity of discrepancy using one of the following categories: [ ] 1 - Agree/Informational [ ] 2 - Unlikely to Affect Management [ ] 3 - Possible Eventual Change of Management [ ] 4 - Probable Immediate Change of Management For all other patient related information, please fax us at [phone]. [id number] [facility] Patient: KIRBY KRUSE JR (Male) : 68 Status: ER Date: 04/10/21 21:32 Room #: History: Patient cannot currently afford his seizure medication and believes he had a seizure around 1300 yesterday. Patient reports weakness in his left arm and leg. Similar issues before, has been to rehab for symtoms post seizure. Also c/o a headache. Has not had seizure medications for 3 weeks. Slices: 630 Priors: Tech: [place], Jayme @ [phone] Exams:K CTA HEAD Contrast: IV Amt: 120 Accession Numbers: [id number] Referring Physician: REFERRED SELF Preliminary Findings Only See Final Report For Complete Findings CTA HEAD: No large vessel occlusion or flow-limiting stenosis. Radiologist: Siddhartha Oropeza MD Study ready at 22:18 and initial results transmitted at 22:20 *This report constitutes a preliminary interpretation only. Non-acute findings felt to be unrelated to the clinical presentation may not be discussed in this report. The study will be interpreted and a final report will be generated by the local Radiologist the following shift. To reach the [facility] radiology department call [phone]. If a discrepancy is found between the preliminary and final interpretations of this study, please notify us via our Client Portal at [email or web address], under [email or web address] Exams. You can also fax this report with a description of the discrepancy, or include the final report, to our daytime fax number [phone]. If faxing, please indicate the severity of discrepancy using one of the following categories: [ ] 1 - Agree/Informational [ ] 2 - Unlikely to Affect Management [ ] 3 - Possible Eventual Change of Management [ ] 4 - Probable Immediate Change of Management For all other patient related information, please fax us at [phone]. [id number] Code Status & VTE Plan Code Status Full code VTE Prophylaxis Plan VTE Prophylaxis will be ordered: Yes PG Care Time/CCT Total # of Minutes Spent Total Time Spent with Patient: Total time spent is greater than 50% in coordination of care (as documented) at patient's floor/unit and/or counseling patient: Coding Level of Care Code 76647 Initial Inpt Care Lvl 3 Diagnoses Nathan's paralysis (postepileptic) G83.84 Complicated migraine G43.109 Seizure disorder G40.909 Left-sided weakness R53.1 Glioblastoma C71.9 Status post craniectomy Z98.890 Hypomagnesemia E83.42 Hypokalemia E87.6
[2021-04-10] MEDS: MAGNESIUM SULFATE / D5W 1 GM/100 ML BAG IV SCH (23:37)
[2021-04-11] MEDS ORDERED: ONDANSETRON INJ 2 MG/ML 2 ML VIAL IV PRN (00:36)
[2021-04-11] MEDS ORDERED: NSS + 20MEQ KCL 20 MEQ/1,000 ML BAG IV SCH (00:36)
[2021-04-11] MEDS: ACETAMINOPHEN 325 MG TAB PO PRN ×3 (01:09→16:48)
[2021-04-11] MEDS: MAGNESIUM SULFATE / D5W 1 GM/100 ML BAG IV SCH (02:34)
[2021-04-11 06:10] LABS: Basophils # (auto) 0.02 K/uL (0-0.2); Basophils % (auto) 0.2 %; Eosinophils # (auto) 0.02 K/uL (0-0.5); Eosinophils % (auto) 0.2 %; Hematocrit (blood only) 43.2 % (42-52); Immature Granulocytes # (auto) 0.02 K/uL (0.00-0.02); Immature Granulocytes % (auto) 0.2 %; Lymphocytes # (auto) 2.02 K/uL (1.2-3.4); Lymphocytes % (auto) 24.8 %; Mean Corpuscular Hemoglobin 30.7 pg (25-34); Mean Corpuscular Hgb Conc 34.7 g/dL (32-36); Mean Corpuscular Volume 88.5 fL (80-100); Mean Platelet Volume 11.3 fL (7.4-10.4); Monocytes % (auto) 6.1 %; Neutrophils # (auto) 5.56 K/uL (1.4-6.5); Neutrophils % (auto) 68.5 %; Platelet Count 183 K/uL (130-400); RDW Standard Deviation 38.4 fL (36.4-46.3); Red Blood Count 4.88 M/uL (4.7-6.1); White Blood Count 8.14 K/uL (4.8-10.8)
[2021-04-11 06:33] LABS: Albumin Globulin Ratio 1.7 (0.9-2); Albumin Level 3.7 gm/dl (3.4-5.0); BUN Creatinine Ratio 7.2 (10-20); Calcium 8.7 mg/dl (8.5-10.1); Creatinine Clr Calc Pharmacy 160.8 ml/min; Est GFR (African American) 127.4 ml/min; Est GFR (Non-African American) 109.9 ml/min; Globulin 2.2 gm/dl (2.5-4.0); Magnesium 2.1 mg/dl (1.7-2.4); Potassium 3.6 mmol/L (3.5-5.1); Total Protein 5.9 gm/dl (6.0-8.3)
--- NOTE | 2021-04-11 07:15 | CT Scan Report ---
CT angio head w con CLINICAL HISTORY: Stroke Like Symptoms . Possible seizure COMPARISON STUDY: Noncontrast CT from 04/10/2021 CT DOSE: 1190.55 mGy.cm TECHNIQUE: CT Angio of the brain was performed.followed by image post processing with coronal, and s agittal MIP reformats. Contrast Volume: Optiray 320, 120 ml FINDINGS: Vascular findings: There is normal enhancement within the internal carotid arteries bilaterally. The re is normal enhancement noted within the anterior, middle and posterior cerebral arteries. Nonvascular findings: There is homogeneous attenuation of the brain parenchyma bilaterally. There is no evidence for an acute infarct or cerebral edema. There is encephalomalacia again seen involving th e right posterior parietal lobe with ex vacuo deformity of the right ventricle. Craniotomy defect is present. IMPRESSION: 1. Negative CTA of the brain with contrast. 2. No acute intracerebral pathology with old right posterior parietal infarct and craniotomy again se en. ACT 112: Negative or not required by law. Electronically signed by: Jose Cummins M.D. 04/11/2021 7:14 AM
--- NOTE | 2021-04-11 07:20 | CT Scan Report ---
CT head/brain wo con CLINICAL HISTORY: Stroke Like Symptoms . Possible seizure COMPARISON STUDY: No previous studies for comparison. CT DOSE: TECHNIQUE: Standard CT of the Brain was performed without IV contrast. A dose lowering technique was utilized adhering to the principles of ALARA. FINDINGS: Extraaxial space: There is no evidence for subdural hematoma. There are no extra-axial fluid collecti ons. Ventricles and cisterns: There is ex vacuo deformity present involving the right lateral ventricle p articularly posteriorly. There is no evidence for midline shift or mass effect. Parenchyma: There is no subarachnoid or intraparenchymal hemorrhage. There is no evidence for an acu te infarct or cerebral edema. There is encephalomalacia present involving the right posterior parieta l lobe with adjacent craniotomy defect. There is mild cerebral cortical atrophy and decreased attenua tion in the periventricular white matter representing remote small vessel disease. There are no gross mass lesions. Osseous structures: There is no evidence for an acute fracture. The visualized paranasal sinuses are clear. The mastoid air cells are clear bilaterally. Soft tissues: There is no evidence for focal soft tissue swelling. IMPRESSION: 1. No acute intracerebral pathology. 2. Cerebral cortical atrophy and remote small vessel disease. 3. Encephalomalacia and craniotomy involving the right posterior parietal lobe. ACT 112: Negative or not required by law. Electronically signed by: Jose Cummins M.D. 04/11/2021 7:19 AM
[2021-04-11] MEDS: levETIRAcetam 500 MG TAB PO SCH ×2 (08:37→21:45)
[2021-04-11] MEDS: ENOXAPARIN INJ 40 MG/0.4 ML SYR SQ SCH ×2 (08:37→08:38)
--- NOTE | 2021-04-11 08:42 | CT Scan Report ---
NECK CTA HISTORY: Possible seizure. Headache. Stroke Like Symptoms TECHNIQUE: Multiaxial CT images of the neck were performed following the intravenous administration o f contrast to evaluate the major cervical vessels. Maximum intensity projection images were also obta ined. All measurements were calculated based on NASCET criteria. A dose lowering technique was utili zed adhering to the principles of ALARA. COMPARISON STUDY: None. FINDINGS: The aortic arch and proximal great vessels are widely patent. There is no significant sten osis, occlusion, or dissection identified within the bilateral common carotid, internal carotid, or v ertebral arteries. IMPRESSION: No significant stenosis, occlusion, or dissection identified within the carotid or vertebral arteries . ACT 112: Negative or not required by law. Electronically signed by: Jovani Meneses M.D. 04/11/2021 8:41 AM
--- NOTE | 2021-04-11 09:00 | Neurology Consultation ---
Date of Consultation April 11, 2021 Assessment & Plan (1) Acute left-sided weakness: (2) Nathan's paralysis (postepileptic): (3) H/O brain tumor: (4) Seizure disorder: The patient has a history of right parietal glioblastoma multiforme removal surgically in 2004, post radiation therapy, and 2-3 years of Temodar pills with gamma knife in 2009 for a mild recurrence. His last MRI of the brain was in December of 2020 and shows no recurrence . He has complex and simple partial seizure disorder, secondary to the right parietal lesion site and is noncompliant with his Anticonvulsant medication. he has trouble paying for the medication ( expensive co-pays) and is typically not compliant with pills anyway. He has left-sided weakness of acute nature which is likely a post seizure phenomenon. I cannot entirely exclude a small stroke near his tumor site. Recommendations: 1. consult case management to help him get medication pay for to help ensure compliance 2. continue p.o. levetiracetam 1500 mg twice daily. Hopefull,y if he is compliant, he will not have seizures. We could consider adding Vimpat back if he did have more seizures. 3. He should not be driving until he is compliant on medicine and not had a seizure for 6 months. 4. Remain off alcohol. 5. follow up with Neurology PA in 2-3 weeks as an outpatient. Overall, I spent a total of 100 minutes with this case including review of records, review of MRI films, direct evaluation the patient at bedside, and discussion of the case with the patient and RN at bedside, and Dr. Still, including differential diagnosis and treatment options History of Present Illness Reason for Consultation: Patient is a 50-year-old, who I was asked to see the request of Dr. Tirado, for neurologic consultation regarding left-sided weakness and s eizures Requesting Physician: Dr. Tirado Attending Physician: Evelio Still MD History of Present Illness I 1st saw this patient in December of 2020. He has a complicated past neurologic history. Apparently he had a right parietal glioblastoma multiforme removal in [place] by Dr. Davis in 2004. he apparently received radiation therapy to the head ( unknown dose or extent ) and Temodar pills for about 2 or 3 years and then he stopped. He had a recurrence (Unknown degree) about 5 years after is our initial surgery and he had received Gamma Knife radiation. Apparently he has had no recurrence of the tumor since. Patient had tonic-clonic seizures initially and was put on phenytoin and levetiracetam. He stop the phenytoin a few years ago because it affected his liver and gave him other side effects. although he remained on levetiracetam 750 mg twice daily, he admited to not taking medication regularly. in December of 2020 he was drinking multiple beers and woke up with left arm greater than leg weakness. He also had a headache with this. MRI of the brain revealed no new tumor recurrence and the area of old right parieto-occipital encephalomalacia and craniotomy changes. Patient had some focal motor seizures and was given IV Vimpat 100 mg twice a day. Keppra was increased to a total of 1500 mg twice daily. was also given some phenytoin but this was discontinued after admission. He went to the rehabilitation hospital for a week and continued on both anticonvulsants. He had no further seizures as far as he was aware. The patient tells me the stopped all alcohol usage around that time. Patient tells me that he stopped Vimpat not too long after leaving the rehab hospital. He claims that the co-pay was "1000 dollars a month". He then discontinued Keppra because he felt the co-pay was too high for this medication also. Additionally, The nurse told me that the patient was telling her that he was noncompliant and did not like taking pills ( almost in a joking manner ). Yesterday, patient episode of some flashing lights in his vision lasting "seconds" with a right-sided headache. He did have some twitching the right side. He had left-sided weakness and then the going to the emergency at 7:32 p.m. April 10. Blood pressure was 132/79, pulse 71 and regular, respiratory rate 16, temperature 36.1, O2 saturation 95% . He had left-sided weakness and admitted to not taking his seizure medication. examination in the emergency room showed a left-sided weakness and no other deficits. CBC and Chem profile were unremarkable although the glucose was 143. CT scan of the head was unremarkable. CT angiography of the head and neck were unremarkable any significant stenoses or vascular anomalies. Chest x-ray was unremarkable. This morning he feels that his weakness is about the same as it was last night. He still has a bit of right-sided headache. Allergies Allergy/AdvReac Type Severity Reaction Status Date / Time bacitracin Allergy Rash Verified 04/10/21 20:37 [From Neosporin ([id number])] neomycin Allergy Rash Verified 04/10/21 20:37 [From Neosporin ([id number])] polymyxin B Allergy Rash Verified 04/10/21 20:37 [From Neosporin ([id number])] Home Medications Medication Instructions Recorded Confirmed Type levetiracetam 750 mg tablet 1,500 mg PO BID 04/10/21 04/10/21 History Patient History Medical History Brain cancer Glioblastoma Renal stone Surgical History S/P cholecystectomy Status post craniectomy Family History Mother No problems noted. Father , the diagnose 60s of lung cancer Lung cancer Social History Smoking Status: Never smoker Number of Years Since Quit: 20; Second Hand Exposure: Yes; Hx Alcohol Use: Yes Alcohol type: beer Alcohol Intake Frequency Comment: 4 beers per week every 1-2 weeks Hx Substance Use: Yes Last Used Substance: Unknown Preferred Language: Danish Communication Ability: Effective Rug Measurer Required: No Beliefs That Will Affect Care: None marital status: Current Living Situation: Spouse current occupational status: unemployed current occupation: former [employer] How many Children do You have: 4 Other Information That Helps Us Care for You: No Feels Safe at Home: Yes Assistive Devices: Walker Review of Systems Constitutional: no fever, no fatigue and no weakness Eyes: no diplopia, no eye pain and no worsening vision Ear, Nose, Mouth, Throat: no ear pain, no tinnitus, no hearing loss, no dizziness, no snoring, no hoarseness and no dysphagia Respiratory: no cough and no dyspnea Cardiovascular: no chest pain, no palpitations and no lightheadedness Gastrointestinal: no abdominal pain, no nausea and no vomiting Musculoskeletal: no back pain, no neck pain, no radicular pain, no joint pain and no myalgia Integumentary: no rash and no lesions Neurologic: + gait abnormality, + localized weakness and + headache(s); no generalized weakness, no tingling, no numbness, no tremor(s), no abnormal movements, no abnormal speech, no confusion and no memory loss Psychiatric: no depression, no irritability, no anxiety, no difficulty concentrating, no confusion and no hallucinations Endocrine: no fatigue and no flushing Hematologic / Lymphatic: no easy bleeding and no easy bruising Allergy / Immunological: no urticaria and no problem reported Exam (Neuro) Physical Exam: The patient is Ambidextrous. The patient is awake, alert, and attentive. Speech is normal without any aphasia or dysarthria. The patient can name objects, repeat phrases, and has normal spontaneous speech. Mentation and thought processes are intact, with orientation to person, place and time, and normal fund of knowledge. Attention and concentration are normal. Mood and affect are normal and appropriate. General appearance and grooming are normal. Short and long-term memory are intact. Pupils are 4 mm bilaterally and reactive to light. Extraocular eye muscles are intact without nystagmus. Visual acuity and visual cox seem normal grossly to confrontation. There are no deficits to sensation in the face in all 3 distributions of the fifth cranial nerve bilaterally. Corneal reflexes are positive bilaterally. Facial strength and symmetry was normal bilaterally. Hearing seems normal bilaterally. Palate moves well without asymmetry. There is normal sternocleidomastoid and trapezius (shoulder shrug) strength bilaterally. Tongue is midline with good strength bilaterally. Neck has a full range of motion without discomfort. There are no cervical bruits bilaterally. There are no cranial or ocular bruits. Heart is without murmur. There is a regular rhythm and rate. Cervical, thoracic, and lumbar spine are nontender to palpation. Gait was not officially tested however his stance by the bedside with feet together was somewhat tenuous because of left leg clumsiness. When he set up in the bed and had his feet dangle he will eat a little bit to the left. With outstretched arms there is no drift. There are no resting, postural, or action tremors. There is no ataxia with finger to nose testing. There is good facility in the hands. No other abnormal involuntary movements are noted. Motor strength is 5/5 diffusely in the Right upper extremity including deltoids, biceps, triceps, brachioradialis, wrist flexors and extensors, local city driver, and intrinsic hand muscles. left upper extremity strength was 4/5 and he was clumsy with the hand and arm. Motor strength is 5/5 diffusely in the legs bilaterally including hip flexors, quadriceps, hamstrings, gastrocnemius, tibialis anterior, tibialis posterior, and Peroneii muscles , although patient had clumsiness the left leg.. Toe extensors are normal and there is good bulk in the extensor digitorum brevis muscles bilaterally. The limbs have good tone without rigidity or spasticity. There is no atrophy noted in the muscles. Muscle bulk is normal, there is no tenderness to palpation, no myotonia to percussion, and no fasciculations seen. Sensory examination is intact to touch and pin throughout all 4 limbs diffusely. Reflexes are 1/4 in the right biceps, triceps, brachioradialis, quadriceps, and Achilles tendons bilaterally. Reflexes were 2/4 in the left upper and lower extremity. There is no clonus bilaterally. Toes are downgoing with plantar stimulation bilaterally. Peripheral pulses are present and of normal quality distally in all 4 limbs. There is no peripheral edema noted in the limbs. Results & Data ([facility]) Vital Signs (Past 12 Hours) Vital Signs Temp Pulse Pulse Resp BP BP Pulse Ox 04/11/21 07:54 37.0 C 62 16 145/89 H 96 04/11/21 07:04 72 04/11/21 04:09 37.4 C 73 18 135/80 93 04/11/21 01:00 67 04/11/21 00:36 37 C 67 16 135/80 95 04/10/21 23:57 66 18 137/85 100 04/10/21 23:43 37 C 66 16 137/83 94 Pulse Ox 04/11/21 07:54 04/11/21 07:04 04/11/21 04:09 04/11/21 01:00 04/11/21 00:36 95 04/10/21 23:57 04/10/21 23:43 PG Care Time/CCT Total # of Minutes Spent Total Time Spent with Patient: Total time spent is greater than 50% in coordination of care (as documented) at patient's floor/unit and/or counseling patient: Coding Level of Care Code 70149 Inpt Consult Level 5 Diagnoses Acute left-sided weakness R53.1 Nathan's paralysis (postepileptic) G83.84 H/O brain tumor Z87.898 Seizure disorder G40.909 Time Spent (min) 100
[2021-04-11] MEDS ORDERED: LORazepam 1 MG TAB PO ONE (09:57)
--- NOTE | 2021-04-11 14:57 | Hospitalist Progress Note ---
Date of Service April 11, 2021 Assessment & Plan (1) Nathan's paralysis (postepileptic): Plan: Seizure, history of glioblastoma s/p surgical intervention and craniectomy off Keppra for 2 weeks Patient with Nathan's paralysis/residual weakness on initial presentation Patient had not taken Keppra for 2 weeks due to insurance change Loaded with Keppra 2 g IV in ER, then continued on Keppra 1500 mg p.o. twice daily Keppra has worked well for patient in the past CThead, CTA neck no acute findings, old findings redemonstrated Neurology consulted. Recommend following up with MRI with and without contrast, pending at this time PT/OT pending, patient is amenable to rehab if needed CM consulted, patient with difficulty filling medications recently, these are critically important for him to remain seizure-free Remain alcohol free Outpatient neurology follow-up in 2 to 3 weeks once discharged Should not drive at this time (2) Seizure disorder: Plan: See above (3) Left-sided weakness: Plan: See above (4) Glioblastoma: Plan: See above (5) Status post craniectomy: Plan: See above (6) Complicated migraine: (7) Hypomagnesemia: Plan: Repleted Trend daily (8) Hypokalemia: Plan: See above Admission and Anticipated Discharge Date Admission Date: April 10, 2021 Subjective Seen at bedside. Patient endorses chronic left-sided weakness, but feels he is very close to his normal baseline. Has slight headache today. Denies acute numbness, tingling, lightheadedness, dizziness, chest pain, chest pressure, nausea, vomiting, diarrhea, constipation. No recurrent seizure-like episode, no auditory or visual hallucinations or flushing. Reports he had not taken his Keppra at home due to cost and insurance change, expresses an understanding of the importance in preventing seizures using his Keppra. Is open to rehab if needed for strength. Saw neurology this morning, pending MRI with and without contrast. No additional questions or concerns at this time. Review of Systems Review of Systems: All systems reviewed & are unremarkable except as noted in Subjective Physical Exam Physical Exam: General: A&Ox3. NAD. Cooperative. HEENT: Atraumatic, normocephalic. Visual acuity and hearing grossly intact. No facial asymmetry. Pulls equal and reactive to light. Pulm: CTAB A&P. -wheezes, -rales, -rhonchi. Symmetrical chest rise. No increase in work of breathing. No respiratory distress. Cardiac: RRR, -mrg. Radial pulses intact and symmetrical. Abdominal: Nontender, nondistended, soft. BS present. Extremity: Shoulder flexion intact bilaterally, [id number] coordination worsened in left compared to right. Finger flexion, elbow flexion/extension, shoulder flexion 4/5 left and 5/5 right. Hip flexion 5/5 bilaterally. Results & Data Results & Data ([facility]) Vital Signs (Past 12 Hours) Vital Signs Temp Pulse Pulse Resp BP Pulse Ox 04/11/21 11:00 36.8 C 72 20 147/99 H 97 04/11/21 07:54 37.0 C 62 16 145/89 H 96 04/11/21 07:04 72 04/11/21 04:09 37.4 C 73 18 135/80 93 PG Care Time/CCT Total # of Minutes Spent Total Time Spent with Patient: Total time spent is greater than 50% in coordination of care (as documented) at patient's floor/unit and/or counseling patient: Coding Level of Care Code 65507 Subseq Hosp Care Lvl 2 Diagnoses Nathan's paralysis (postepileptic) G83.84 Seizure disorder G40.909 Left-sided weakness R53.1 Glioblastoma C71.9 Status post craniectomy Z98.890 Complicated migraine G43.109 Hypomagnesemia E83.42 Hypokalemia E87.6
[2021-04-11] MEDS ORDERED: LORazepam 1 MG TAB PO PRN (21:51)
[2021-04-11] MEDS ORDERED: GADOBUTROL 65ML VIAL IV ONE (23:34)
--- NOTE | 2021-04-12 05:36 | Electrocardiogram Report ---
Test Reason : Blood Pressure : / mmHG Vent. Rate : 060 BPM Atrial Rate : 060 BPM P-R Int : 144 ms QRS Dur : 108 ms QT Int : 390 ms P-R-T Axes : 006 -45 -01 degrees QTc Int : 390 ms Normal sinus rhythm Incomplete right bundle branch block Left anterior fascicular block Moderate voltage criteria for LVH, may be normal variant Cannot rule out Septal infarct , age undetermined Abnormal ECG When compared with ECG of 21-DEC-2020 23:44, Criteria for Inferior infarct is no longer Present Confirmed by Ranjan Daley ([id number]) on 04/12/2021 5:35:35 AM Referred By: REFERRED SELF Confirmed By:Ranjan Daley
[2021-04-12 07:07] LABS: Basophils # (auto) 0.02 K/uL (0-0.2); Basophils % (auto) 0.2 %; Eosinophils # (auto) 0.02 K/uL (0-0.5); Eosinophils % (auto) 0.2 %; Hematocrit (blood only) 46.5 % (42-52); Hemoglobin 16.1 g/dL (14.0-18.0); Immature Granulocytes # (auto) 0.01 K/uL (0.00-0.02); Immature Granulocytes % (auto) 0.1 %; Lymphocytes % (auto) 22.5 %; Mean Corpuscular Hemoglobin 30.6 pg (25-34); Mean Corpuscular Hgb Conc 34.6 g/dL (32-36); Mean Corpuscular Volume 88.4 fL (80-100); Mean Platelet Volume 11.3 fL (7.4-10.4); Monocytes # (auto) 0.43 K/uL (0.11-0.59); Monocytes % (auto) 4.6 %; Neutrophils # (auto) 6.75 K/uL (1.4-6.5); Neutrophils % (auto) 72.4 %; Platelet Count 182 K/uL (130-400); RDW Standard Deviation 38.3 fL (36.4-46.3); Red Blood Count 5.26 M/uL (4.7-6.1); White Blood Count 9.33 K/uL (4.8-10.8)
[2021-04-12 07:27] LABS: Albumin Globulin Ratio 1.4 (0.9-2); BUN Creatinine Ratio 10.9 (10-20); Bilirubin,Total 0.9 mg/dl (0.2-1.0); Calcium 8.5 mg/dl (8.5-10.1); Creatinine Clr Calc Pharmacy 173.4 ml/min; Est GFR (African American) 131.4 ml/min; Est GFR (Non-African American) 113.4 ml/min; Globulin 2.9 gm/dl (2.5-4.0); Magnesium 1.9 mg/dl (1.7-2.4); Potassium 3.8 mmol/L (3.5-5.1); Total Protein 6.9 gm/dl (6.0-8.3)
[2021-04-12] MEDS: ACETAMINOPHEN 325 MG TAB PO PRN ×2 (07:27→21:07)
--- NOTE | 2021-04-12 08:25 | Magnetic Resonance Report ---
MRI OF THE BRAIN WITHOUT AND WITH IV CONTRAST SEIZURE PROTOCOL CLINICAL HISTORY: hx seizure, history of glioblastoma. COMPARISON STUDY: MRI of the brain December 22, 2020. Head CT and CTA of the head April 10, 2021. TECHNIQUE: Utilizing a 1.5 Sarah magnet and dedicated coil, multiplanar, multiecho imaging of the br ain was performed pre and postcontrast administration. IV administration of 10 cc [address] contra [address] was uneventful. Thin cut coronal T2 imaging was performed according to seizure protocol. Thin cut T1 post contrast imaging was also performed. FINDINGS: Note is made of a 3 mm focus of restricted diffusion within the right temporal lobe on axia l diffusion-weighted sequence image 11 of 24. This may be within the right hippocampus. No additional foci of restricted diffusion are present. There is no mass effect. Ventricular system is stable. Bas al cisterns are patent. There are are no extra axial collections. Bifrontal and anterior right tempor al lobe encephalomalacia is unchanged. This is chronic and could be posttraumatic. Right-sided cranio geovanny is noted. A right parieto-occipital resection cavity is unchanged in appearance since MRI of Dec. There is no nodular enhancement to suggest tumor recurrence. Note is made of extensiv e gyriform enhancement within the right temporal, parietal and occipital lobes. The degree of enhance ment has mildly decreased since MRI of December 22, 2020. There is no mass effect. This favors a suba cute infarct although is nonspecific. No new foci of abnormal enhancement are present. Calvarial sign al is unchanged. Orbits are unremarkable. There is minimal ethmoid sinus mucosal thickening. IMPRESSION: 1. 3 mm focus of restricted diffusion within the right temporal lobe. This could reflect a small acut e infarct or seizure focus. No mass effect. 2. Extensive gyral enhancement within the right parietal, occipital and temporal lobes, mildly decrea sed in degree since MRI of December 22, 2020. Although nonspecific, this favors resolving subacute in farct. Imaging follow-up to ensure resolution is recommended. Less likely considerations include infe ctious and posterior radiation change. 3. Stable postoperative appearance of the right parieto-occipital resection bed. No evidence for tumo r recurrence. ACT 112: Negative or not required by law. Electronically signed by: Han Woodruff M.D. 04/12/2021 8:23 AM
[2021-04-12] MEDS: ENOXAPARIN INJ 40 MG/0.4 ML SYR SQ SCH (08:46)
[2021-04-12] MEDS: levETIRAcetam 500 MG TAB PO SCH ×2 (08:46→21:07)
[2021-04-12] MEDS ORDERED: KETOROLAC TROMETHAMINE 15 MG/ML VIAL IV ONE (09:56)
--- NOTE | 2021-04-12 10:04 | Neurology Progress Note ---
Date of Service April 12, 2021 Assessment & Plan (1) Acute left-sided weakness: (2) Nathan's paralysis (postepileptic): (3) H/O brain tumor: (4) Seizure disorder: Plan: The patient has a history of right parietal glioblastoma multiforme removal surgically in 2004, post radiation therapy, and 2-3 years of Temodar pills with gamma knife in 2009 for a mild recurrence. His last MRI of the brain was in December of 2020 and shows no recurrence . He has complex and simple partial seizure disorder, secondary to the right parietal lesion site and is noncompliant with his Anticonvulsant medication. he has trouble paying for the medication ( expensive co-pays) and is typically not compliant with pills anyway. He had left-sided weakness of an acute nature April 10, which turns out to be from a small right parietal stroke. His tumor /operative site is stable. He may be weaker because of some edema around the small stroke site. CT angiography showed no vascular issues. Recommendations: 1. consult case management to help him get medication pay for to help ensure compliance 2. continue p.o. levetiracetam 1500 mg twice daily. Hopefully if he is compliant, he will not have seizures. We could consider adding Vimpat back if he did have more seizures. 3. He should not be driving until he is compliant on medicine and not had a seizure for 6 months. 4. Remain off alcohol. 5. Initiate Plavix 75 mg daily. Discontinue aspirin. 6. follow up with Neurology PA in 3 weeks as an outpatient. Overall, I spent a total of 35minutes with this case including review of records, review of MRI films, direct evaluation the patient at bedside, and discussion of the case with the patient and RN at bedside, and Dr. Still, including differential diagnosis and treatment options Admission and Anticipated Discharge Date Admission Date: April 10, 2021 Subjective Patient has no complaint of pain but his left arm is much weaker. He feels he has some slurred speech and a facial weakness also. He has not had any seizures. MRI of the brain shows a small right parietal stroke of an acute nature. CBC and Chem profile were largely unremarkable. Blood pressure is 149/82. Results & Data ([facility]) Vital Signs (Past 12 Hours) Vital Signs Temp Pulse Pulse Resp BP Pulse Ox Pulse Ox 04/12/21 07:00 36.7 C 65 20 149/82 H 95 04/12/21 03:38 36.7 C 70 18 137/80 96 04/12/21 00:36 95 04/11/21 22:26 36.6 C 67 18 138/89 95 04/11/21 22:18 60 Exam (Neuro) Physical Exam: He is awake and alert. Speech is slightly dysarthric but otherwise has no aphasia. At rest he has no obvious facial droop but there is some asymmetry when he smiles with the left being weaker. His left upper extremity is quite weak with decreased tone. The left leg is mildly weak and he can stand and ambulate some with assistance. PG Care Time/CCT Total # of Minutes Spent Total Time Spent with Patient: Total time spent is greater than 50% in coordination of care (as documented) at patient's floor/unit and/or counseling patient: Coding Level of Care Code 30693 Subseq Hosp Care Lvl 3 Diagnoses Acute left-sided weakness R53.1 Nathan's paralysis (postepileptic) G83.84 H/O brain tumor Z87.898 Seizure disorder G40.909
[2021-04-12 10:51] LABS: Chol HDL Ratio 4.5 (0-5)
[2021-04-12 11:16] LABS: Estimated Average Glucose 128 mg/dl; Hemoglobin A1C 6.1 % (4.5-5.6)
[2021-04-12] MEDS: CLOPIDOGREL BISULFATE 75 MG TAB PO SCH (12:29)
--- NOTE | 2021-04-12 15:17 | Hospitalist Progress Note ---
Date of Service April 12, 2021 Assessment & Plan (1) Acute CVA (cerebrovascular accident): Plan: Acute CVA Initially symptoms thought to be due to seizure with Nathan's paralysis due to history and being off Keppra CThead: No acute pathology, small vessel disease and chronic findings CTA head/neck: Negative, no intracerebral pathology with old right parietal infarct appreciated. Neck with no significant stenosis occlusion or dissection. MRIbrain: Read overnight by stat read, 3 mm focus of restricted diffusion in right temporal lobe consistent with small acute infarct. Right parietal/occipital/temporal gyral enhancement suspicious for resolving subacute infarct. Neurology consulted, discussed with neurology. While history and initial negative CT/CTA were suspicious for symptoms being caused by seizure and context of above it is highly likely that all of his symptoms and his interval worsening are due to acute CVA. Echo pending Plavix added Cholesterol 172, LDL 116, HDL 38. Patient placed on atorvastatin 40 mg. Follow-up examination check within 2 weeks. 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 Case management following and assisting. Anticipate may take 72 hours for placement. A1c 6.1% without pharmacotherapy, no additional antilipemics indicated at this time Neurology follow-up in 3 weeks as outpatient Does not meet criteria for TPA (2) Nathan's paralysis (postepileptic): Plan: history of glioblastoma s/p surgical intervention and craniectomy off Keppra for 2 weeks Symptoms now thought to be due to acute CVA as above Patient had not taken Keppra for 2 weeks due to insurance change Loaded with Keppra 2 g IV in ER, then continued on Keppra 1500 mg p.o. twice daily Keppra has worked well for patient in the past CThead, CTA neck no acute findings, old findings redemonstrated Despite CVA and current symptoms as above, would continue prescribed Keppra with his history as noted (3) Seizure disorder: Plan: See above (4) Left-sided weakness: Plan: See above (5) Glioblastoma: Plan: See above (6) Status post craniectomy: Plan: See above (7) Complicated migraine: Plan: With strokelike findings as above. Low risk for bleeding, and discussed with neurology. Improved with Tylenol/Toradol (8) Hypomagnesemia: Plan: Repleted Trend daily (9) Hypokalemia: Plan: See above Admission and Anticipated Discharge Date Admission Date: April 10, 2021 Subjective Seen at bedside this morning. Patient has had progressive worsening of his left extremity weakness, sensation is diminished and with near inability to flex his left arm at the shoulder today. MRI read overnight by stat rad, does show a small temporal lobe lesion consistent with acute CVA. Discussed this with patient, and that his symptoms are cash posting representative of a stroke rather than seizure with Nathan's paralysis. Patient had been prescribed aspirin in the past, has not taken this recently. Does not like to take medicines, and reports "I might not take stuff at home "even if it would help reduce risk of stroke, however on shared decision making patient expresses an understanding that there is not a treatment to reverse his current stroke and it is important to prevent recurrent strokes which he is at risk for in the future which could lynette him of both his quality and length of life. Endorses headache this morning, mostly frontal. Denies fever, chills, sweats, nausea, vomiting, diarrhea, constipation, lightheadedness, dizziness, dysuria, urinary retention, bowel incontinence. Physical Exam Physical Exam: General: A&Ox3. NAD. Cooperative. HEENT: Atraumatic, normocephalic. Visual acuity and hearing grossly intact. No facial asymmetry. Pupils equal and reactive to light. Trace left asymmetry on smile today compared to prior. Pulm: CTAB A&P. -wheezes, -rales, -rhonchi. Symmetrical chest rise. No increase in work of breathing. No respiratory distress. Cardiac: RRR, -mrg. Radial pulses intact and symmetrical. Abdominal: Nontender, nondistended, soft. BS present. Extremity: We less of the left upper extremity. Activation but near complete weakness to left finger flexion, finger extension, elbow flexion, elbow flexion, shoulder flexion. Some strength to shoulder external rotation/internal rotation. Sensation intact but greatly diminished to soft touch on left compared to right. Decreased tone in left upper extremity compared to right. Right upper extremity with full strength normal tone, left lower extremity with 4-/5 strength to hip flexion, knee flexion/extension, ankle dorsiflexion/extension and patient is able to walk and get in and out of bed Results & Data Results & Data ([facility]) Vital Signs (Past 12 Hours) Vital Signs Temp Pulse Resp BP Pulse Ox 03/04/22 10:00 36.9 C 64 20 147/87 H 97 04/12/21 07:00 36.7 C 65 20 149/82 H 95 04/12/21 03:38 36.7 C 70 18 137/80 96 PG Care Time/CCT Total # of Minutes Spent Total Time Spent with Patient: Total time spent is greater than 50% in coordination of care (as documented) at patient's floor/unit and/or counseling patient: Coding Level of Care Code 00836 Subseq Hosp Care Lvl 3 Diagnoses Nathan's paralysis (postepileptic) G83.84 Seizure disorder G40.909 Left-sided weakness R53.1 Glioblastoma C71.9 Status post craniectomy Z98.890 Complicated migraine G43.109 Hypomagnesemia E83.42 Hypokalemia E87.6 Acute CVA (cerebrovascular accident) I63.9
[2021-04-12] MEDS: ATORVASTATIN 40 MG TAB PO SCH (15:18)
--- NOTE | 2021-04-12 18:07 | XCELERA ---
[id number]
[2021-04-12] MEDS: MELATONIN 3 MG TAB PO PRN (21:07)
[2021-04-13] MEDS: ACETAMINOPHEN 325 MG TAB PO PRN ×2 (04:42→11:57)
[2021-04-13 07:01] LABS: Basophils # (auto) 0.03 K/uL (0-0.2); Basophils % (auto) 0.4 %; Eosinophils % (auto) 1.4 %; Hematocrit (blood only) 47.8 % (42-52); Hemoglobin 16.4 g/dL (14.0-18.0); Immature Granulocytes # (auto) 0.01 K/uL (0.00-0.02); Immature Granulocytes % (auto) 0.1 %; Lymphocytes # (auto) 1.94 K/uL (1.2-3.4); Lymphocytes % (auto) 26.6 %; Mean Corpuscular Hemoglobin 30.4 pg (25-34); Mean Corpuscular Hgb Conc 34.3 g/dL (32-36); Mean Corpuscular Volume 88.5 fL (80-100); Mean Platelet Volume 11.4 fL (7.4-10.4); Monocytes # (auto) 0.51 K/uL (0.11-0.59); Neutrophils # (auto) 4.71 K/uL (1.4-6.5); Neutrophils % (auto) 64.5 %; Platelet Count 205 K/uL (130-400); RDW Coefficient of Variation 12.2 % (11.5-14.5); RDW Standard Deviation 38.6 fL (36.4-46.3)
[2021-04-13 07:28] LABS: Albumin Globulin Ratio 1.3 (0.9-2); Albumin Level 4.3 gm/dl (3.4-5.0); BUN Creatinine Ratio 15.7 (10-20); Bilirubin,Total 0.9 mg/dl (0.2-1.0); Calcium 8.7 mg/dl (8.5-10.1); Creatinine Clr Calc Pharmacy 155.7 ml/min; Est GFR (African American) 126.6 ml/min; Est GFR (Non-African American) 109.3 ml/min; Globulin 3.2 gm/dl (2.5-4.0); Magnesium 1.9 mg/dl (1.7-2.4); Potassium 3.6 mmol/L (3.5-5.1); Total Protein 7.5 gm/dl (6.0-8.3)
[2021-04-13] MEDS: CLOPIDOGREL BISULFATE 75 MG TAB PO SCH (08:11)
[2021-04-13] MEDS: levETIRAcetam 500 MG TAB PO SCH ×2 (08:11→20:40)
[2021-04-13] MEDS: ATORVASTATIN 40 MG TAB PO SCH (08:11)
[2021-04-13] MEDS: ENOXAPARIN INJ 40 MG/0.4 ML SYR SQ SCH (08:11)
[2021-04-13] MEDS ORDERED: KETOROLAC TROMETHAMINE 15 MG/ML VIAL IV ONE (15:30)
--- NOTE | 2021-04-13 15:55 | Hospitalist Progress Note ---
Date of Service April 13, 2021 Assessment & Plan (1) Acute CVA (cerebrovascular accident): Plan: Acute CVA Initially symptoms thought to be due to seizure with Nathan's paralysis due to history and being off Keppra CThead: No acute pathology, small vessel disease and chronic findings CTA head/neck: Negative, no intracerebral pathology with old right parietal infarct appreciated. Neck with no significant stenosis occlusion or dissection. MRIbrain: Read overnight by stat read, 3 mm focus of restricted diffusion in right temporal lobe consistent with small acute infarct. Right parietal/occipital/temporal gyral enhancement suspicious for resolving subacute infarct. Neurology consulted, discussed with neurology. While history and initial negative CT/CTA were suspicious for symptoms being caused by seizure and context of above it is highly likely that all of his symptoms and his interval worsening are due to acute CVA. Echo with grade 1 diastolic dysfunction otherwise normal Continue Plavix Cholesterol 172, LDL 116, HDL 38. Patient placed on atorvastatin 40 mg. Follow-up examination check within 2 weeks. 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 Case management following and assisting. Anticipate may take 72 hours for placement. A1c 6.1% without pharmacotherapy, no additional antilipemics indicated at this time Neurology follow-up in 3 weeks as outpatient Does not meet criteria for TPA (2) Nathan's paralysis (postepileptic): Plan: history of glioblastoma s/p surgical intervention and craniectomy off Keppra for 2 weeks Symptoms now thought to be due to acute CVA as above Patient had not taken Keppra for 2 weeks due to insurance change Loaded with Keppra 2 g IV in ER, then continued on Keppra 1500 mg p.o. twice daily Keppra has worked well for patient in the past CThead, CTA neck no acute findings, old findings redemonstrated Despite CVA and current symptoms as above, would continue prescribed Keppra with his history as noted 3/5 pdoes endorse continued intermittent numbness tingling in his left upper extremity which is intermittent but not persistent and which is not associated with other neuro deficits or loss of consciousness. No signs of status epilepticus, generalized seizure,? Residual deficit from CVA above control at this time. Cognitively intact. (3) Seizure disorder: Plan: See above (4) Left-sided weakness: Plan: See above (5) Glioblastoma: Plan: See above (6) Status post craniectomy: Plan: See above (7) Complicated migraine: Plan: With strokelike findings as above. Low risk for bleeding, and discussed with neurology. Improved with Tylenol/Toradol. Continue Tylenol as needed and intermittent Toradol as needed (8) Hypomagnesemia: Plan: Repleted Trend daily (9) Hypokalemia: Plan: See above Plan: DVT prophylaxis: Lovenox Disposition: [facility] CODE STATUS: DNR/DNI, updated at patient request 04/13 with family present and POLST form completed at patient request. Admission and Anticipated Discharge Date Admission Date: April 10, 2021 Subjective Patient seen at bedside this morning and again with sister in the afternoon. Patient has been having episodes of numbness and tingling which are transient in his face and upper left arm. These occur sporadically, have not been sustained. No other neuro changes. Feel his strength in his left arm is actually improving, has improved strength to elbow flexion/extension although continues to be extremely weak to finger flexion/extension and is barely able to flex his hand, and is not able to internally or externally rotate his left shoulder. Patient did request his CODE STATUS to be updated. He notes that he has had discussions with this before including after his glioblastoma resection. He would like his CODE STATUS to reflect DNR/DNI, would not want intubation under any circumstances, and would not want artificial nutrition. He would want other medical treatments and interventions, and would be okay if his CODE STATUS were transiently made full code around a medical procedure/surgery if otherwise indicated. His sister would be his advocate, patient would also like a copy of a POLST form to keep with him. This was completed at bedside with the patient to reflect the above, signed by patient. Review of Systems Review of Systems: Negative except as noted in subjective Physical Exam Physical Exam: General: A&Ox3. NAD. Cooperative. HEENT: Atraumatic, normocephalic. Visual acuity and hearing grossly intact confrontation although patient endorses decreased acuity in left eye. No facial asymmetry. Pupils equal and reactive to light. No asymmetry at rest, trace asymmetry on left smile similar to prior. Pulm: CTAB A&P. -wheezes, -rales, -rhonchi. Symmetrical chest rise. No increase in work of breathing. No respiratory distress. Cardiac: RRR, -mrg. Radial pulses intact and symmetrical. Abdominal: Nontender, nondistended, soft. BS present. Extremity: Continues to have severe left upper extremity weakness. Strength improved on elbow flexion/extension, wrist flexion/extension nearly absent, 2+ finger flexion, nearly absent finger extension, and nearly absent left shoulder flexion, internal and external rotation. Right extremity strength intact. Left hip flexion weak compared to the right, but otherwise intact. Sensation to soft touch in left upper extremity diminished compared to the right. Results & Data Results & Data ([facility]) Vital Signs (Past 12 Hours) Vital Signs Temp Pulse Resp BP Pulse Ox 04/13/21 15:16 36.8 C 67 18 147/92 H 96 04/13/21 11:17 37.0 C 67 18 118/76 97 04/13/21 07:37 36.7 C 98 H 18 143/91 H 95 PG Care Time/CCT Total # of Minutes Spent Total Time Spent with Patient: Total time spent is greater than 50% in coordination of care (as documented) at patient's floor/unit and/or counseling patient: Coding Level of Care Code 66365 Subseq Hosp Care Lvl 2 Diagnoses Acute CVA (cerebrovascular accident) I63.9 Nathan's paralysis (postepileptic) G83.84 Seizure disorder G40.909 Left-sided weakness R53.1 Glioblastoma C71.9 Status post craniectomy Z98.890 Complicated migraine G43.109 Hypomagnesemia E83.42 Hypokalemia E87.6
--- NOTE | 2021-04-13 15:55 | Billing Data ---
Date of Service April 13, 2021 Coding Level of Care Code 77785 Prolonged Care (int'l)
[2021-04-13] MEDS: guaiFENesin 600 MG TABCR PO SCH (20:40)
[2021-04-13] MEDS: MELATONIN 3 MG TAB PO PRN (21:04)
[2021-04-14] MEDS: ACETAMINOPHEN 325 MG TAB PO PRN ×2 (04:12→08:07)
[2021-04-14] MEDS: levETIRAcetam 500 MG TAB PO SCH ×2 (08:03→21:22)
[2021-04-14] MEDS: guaiFENesin 600 MG TABCR PO SCH ×2 (08:03→21:23)
[2021-04-14] MEDS: CLOPIDOGREL BISULFATE 75 MG TAB PO SCH (08:03)
[2021-04-14] MEDS: ENOXAPARIN INJ 40 MG/0.4 ML SYR SQ SCH (08:03)
[2021-04-14] MEDS: ATORVASTATIN 40 MG TAB PO SCH (08:04)
[2021-04-14] MEDS: LACOSAMIDE 50 MG TABLET PO SCH ×2 (10:22→21:22)
[2021-04-14] MEDS ORDERED: diazePAM 5 MG TABLET PO PRN (10:38)
[2021-04-14] MEDS ORDERED: GADOBUTROL 30ML VIAL IV ONE (11:50)
--- NOTE | 2021-04-14 13:23 | Magnetic Resonance Report ---
MR brain seizure wo/w con CLINICAL HISTORY: worsening seizure-like activity. COMPARISON STUDY: 04/10/2021 TECHNIQUE: Multiplanar multisequence images of the brain were performed before and after Gadavist, 1 0 mL of IV contrast. Diffusion weighted imaging and ADC mapping was also performed. FINDINGS: Compared to the previous examination, there has been resolution of the small focus of restr icted diffusion within the right temporal lobe. No new foci of restricted diffusion are identified. T he findings are characteristic of improved right temporal infarct with no acute infarct seen. The patient is again status post previous craniotomy and evidence for gamma knife treatment to previo us occipitoparietal glioblastoma in the right. Compared following contrast administration, there is n o enhancement at this site with no evidence for local recurrence. However, there has been increase in the degree of extensive gyriform enhancement within the right tem poral, parietal and occipital lobes. The findings suggest the possibility of cerebritis. No definite cerebral edema is seen. IMPRESSION: 1. Compared to previous examination, there has been resolution of 3 mm focus of restricted diffusion within the right temporal lobe with no acute infarcts identified. 2. However, there has been interval increase in the gyriform enhancement within the right parietal, o ccipital and temporal lobes with no definite cerebral edema. The findings suggest increasing cerebrit is. 3. Postsurgical/posttraumatic treatment of right parieto-occipital glioblastoma with no evidence for local recurrence. ACT 112: Negative or not required by law. Electronically signed by: Jose Cummins M.D. 04/14/2021 1:21 PM
[2021-04-14] MEDS ORDERED: LORazepam 2 MG/1 ML VIAL IV STA ×2 (15:28→21:35)
[2021-04-14] MEDS ORDERED: VANCOMYCIN CONSULT ACTIVE PRN (15:28)
[2021-04-14] MEDS ORDERED: LORazepam 2 MG/1 ML VIAL ONE (15:33)
[2021-04-14] MEDS ORDERED: VANCOMYCIN HCL 2,500 MG in SODIUM CHLORIDE 0.9% 500 ML IV ONE (16:00)
[2021-04-14] MEDS: cefTRIAXone SODIUM 2,000 MG in DEXTROSE 5% 50 ML IV SCH (16:13)
[2021-04-14] MEDS: DEXTROSE 5% IV SCH ×2 (16:29→23:59)
[2021-04-14] MEDS: ACYCLOVIR SOD IV SCH ×2 (16:29→23:59)
[2021-04-14] MEDS: AMPICILLIN 2,000 MG in SODIUM CHLOR 0.9% AD-VAN 100 ML IV SCH ×2 (17:53→21:22)
[2021-04-14 18:25] LABS: Appearance CSF Bloody; CSF Count Tube # 2; Color CSF Red
[2021-04-14 18:44] LABS: CSF Xanthrochromic No xanthochromia; Red Blood Cell CSF (A) 5450 /uL (0-); Total Protein CSF 87.6 mg/dl (15-45); White Blood Cell CSF (A) 2 /uL (0-5); White Blood Cell CSF (B) 2 /uL (0-5)
[2021-04-14 18:45] LABS: Red Blood Cell CSF (B) 5750 /uL (0-)
--- NOTE | 2021-04-14 18:49 | Fluoroscopy Report ---
04/14/2021 5:42 PM FL lumbar puncture diagnostic EXAMINATION: Fluoroscopic-guided lumbar puncture. CLINICAL HISTORY: cerebritis Fluoroscopy time: 30 seconds. Images: 1 PROCEDURE: After the technique, risks, alternatives, and benefits of the procedure were explained to the patient, signed consent was obtained. A confirmatory timeout was performed prior to initiation o f the procedure. A suitable puncture site at the L3-4 level was obtained using fluoroscopy. The site was then cleaned and prepped in the usual sterile fashion. A total of 5 mL of 1% lidocaine was infus ed into the subcutaneous tissues during the procedure to achieve local anesthesia. Using a 20-gauge 6 inch spinal needle, the thecal sac was accessed under fluoroscopic guidance with t he patient in the prone position.. Approximately 2 mL of clear CSF was collected into 2 separate vials of 1.5 and 0.5 mL each. The spina l needle with stylet in place was removed and pressure was placed over the puncture site until hemost asis was achieved. There were no immediate complications. The patient tolerated the procedure well. IMPRESSION: Fluoroscopic guided lumbar puncture. Approximately 2 mL of clear CSF was collected into 2 separate vials of 1.5 and 0.5 mL each. No immediate complications. ACT 112: Negative or not required by law. Electronically signed by: Jose Cummins M.D. 04/14/2021 6:48 PM
--- NOTE | 2021-04-14 19:29 | Pharmacy Report ---
Pharmacy Abx Dose Short Note - Date of Service April 14, 2021 - Assessment & Plan Assessment 50 year old M receiving IV Vancomycin, ceftriaxone, ampicillin, and acyclovir for treatment of empiric, possible meningitis Day # 1 of antimicrobial therapy. * No labs were drawn today, but no renal impairment noted and renal fx appears at baseline. On 04/13/21, sCr = 0.70 mg/dL with estimated CrCl >100 mL/min. Estimated pharmacokinetic parameters: * Ke ~0.087/hr, T1/2 ~8 hrs Plan Vancomycin * Give Vancomycin 2500mg (~24mg/kg) IV x 1 as a loading dose * Initiate Vancomycin 1500mg (~14mg/kg) IV q12 as maintenance regimen. According to [facility], this regimen is predicted to achieve therapeutic AUC 600-800. * Goal trough level for meningitis : 15 to 20 mcg/mL * No trough level ordered at this time given empiric indication. Will order trough if Vancomycin to be continued >48 hours Pharmacy will continue to follow and will adjust dose/frequency as necessary. Thank you.
[2021-04-14 19:39] LABS: Cryptococcus neoformans/ga PCR Not Detected (NotDetected); Cytomegalovirus PCR Not Detected (NotDetected); Enterovirus PCR Not Detected (NotDetected); Escherichia coli K1 PCR Not Detected (NotDetected); Haemophilius influenzae PCR Not Detected (NotDetected); Herpes Simplex Virus 1 PCR Not Detected (NotDetected); Herpes Simplex Virus 2 PCR Not Detected (NotDetected); Human Herpes Virus 6 PCR Not Detected (NotDetected); Human Parechovirus PCR Not Detected (NotDetected); Listeria monocytogenes PCR Not Detected (NotDetected); Neisseria meningitidis PCR Not Detected (NotDetected); Streptococcus agalactiae PCR Not Detected (NotDetected); Streptococcus pneumoniae PCR Not Detected (NotDetected); Varicella Zoster Virus PCR Not Detected (NotDetected)
--- NOTE | 2021-04-14 19:54 | Hospitalist Progress Note ---
Date of Service April 14, 2021 Assessment & Plan (1) Acute CVA (cerebrovascular accident): Plan: Initially symptoms thought to be due to seizure with Nathan's paralysis due to history and being off Keppra CThead: No acute pathology, small vessel disease and chronic findings CTA head/neck: Negative, no intracerebral pathology with old right parietal infarct appreciated. Neck with no significant stenosis occlusion or dissection. MRIbrain: Read overnight by stat read, 3 mm focus of restricted diffusion in right temporal lobe consistent with small acute infarct. Right parietal/occipital/temporal gyral enhancement suspicious for resolving subacute infarct. Neurology consulted, discussed with neurology. While history and initial negative CT/CTA were suspicious for symptoms being caused by seizure and context of above it is highly likely that all of his symptoms and his interval worsening are due to acute CVA. Echo with grade 1 diastolic dysfunction otherwise normal Continue Plavix Cholesterol 172, LDL 116, HDL 38. Patient placed on atorvastatin 40 mg. Follow-up examination check within 2 weeks. 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 Case management following and assisting. Anticipate may take 72 hours for placement. A1c 6.1% without pharmacotherapy, no additional antilipemics indicated at this time Neurology follow-up in 3 weeks as outpatient Did not meet criteria for TPA (2) Cerebritis: Plan: Due to ongoing focal seizure-like activity repeat MRI ordered and was concerning for worsening cerebritis. Lumbar puncture ordered with gram stain, cell count, glucose, protein and biofire. Will empirically treat with IV antibiotics and acyclovir pending results. Neurology to review imaging tomorrow to see whether this if felt to be a true infection contributing towards focal seizures (3) Nathan's paralysis (postepileptic): Plan: history of glioblastoma s/p surgical intervention and craniectomy off Keppra for 2 weeks Symptoms now thought to be due to acute CVA as above Patient had not taken Keppra for 2 weeks due to insurance change Loaded with Keppra 2 g IV in ER, then continued on Keppra 1500 mg p.o. twice daily Keppra has worked well for patient in the past He has continued tingling and worsening weakness on his left sided with changes in his vision. He feels these are ongoing seizures that he has had before in the past. Previous EEG has supported underlying tendency for these focal seizures. Vimpat added per last neurology note Diazepam given prior to MRI and patient was still have these despite this being given Due to prolonged episodes last for > 15 minutes lorazepam 2mg IV given and patient has been sedated since this. EEG taken however patient reports he was not having a seizure during this therefore may need to retry if recurrent ?due to cerebritis as above (4) Seizure disorder: Plan: See above (5) Left-sided weakness: Plan: See above (6) Glioblastoma: Plan: See above (7) Status post craniectomy: Plan: See above (8) Complicated migraine: Plan: With strokelike findings as above. Low risk for bleeding, and discussed with neurology. Improved with Tylenol/Toradol. Continue Tylenol as needed and intermittent Toradol as needed (9) Hypomagnesemia: Plan: Repleted Trend daily (10) Hypokalemia: Plan: See above Plan: DVT prophylaxis: Lovenox Disposition: Pending placement to [facility], review by neurology tomorrow CODE STATUS: DNR/DNI, updated at patient request 04/13 with family present and POLST form completed at patient request. Admission and Anticipated Discharge Date Admission Date: April 10, 2021 Subjective Patient reports ongoing focal seizure activity with intermittent left sided weakness and vision changes. Episodes lasting for 2-3 minutes and they are occurring every 20 minutes. Increasing frequency since yesterday. He is awake during these episodes. Focal seizures previously confirmed with EEG in December. Restarted on Keppra this admission but they have continued despite this. Per neurology note recommended starting on Vimpat is seizure like activity continues. Sister asked for update but no answer on number in EHR. Repeat brain MRI concerning for worsening cerebritis. Discussed case with Dr Cummins - radiology and able to perform lumbar puncture today. Review of Systems Review of Systems: All systems reviewed & are unremarkable except as noted in Subjective Physical Exam Constitutional: WD/WN, vitals as above ENMT: external ear and nose normal, oropharynx normal Respiratory: normal respiratory effort, lungs clear to auscultation Cardiovascular: RRR, no murmur, no edema Gastrointestinal (Abdomen): Percussion/Palpation: abdomen soft; abdomen nontender Neurologic: + focal motor deficit (unable to move left side) and awake; not confused Speech / Cognition: normal speech Cranial Nerves: PERRL and EOM intact bilaterally; + abnormal facial strength (left sided facial droop) Psychiatric: A+Ox3, euthymic affect Results & Data Results & Data ([facility]) Vital Signs (Past 12 Hours) Vital Signs Temp Pulse Resp BP Pulse Ox 04/14/21 18:00 36.8 C 68 18 114/68 96 04/14/21 16:00 36.8 C 102 H 16 139/79 92 04/14/21 14:46 36.6 C 81 18 146/92 H 95 04/14/21 11:30 36.8 C 85 18 128/89 95 PG Care Time/CCT Total # of Minutes Spent Total Time Spent with Patient: Total time spent is greater than 50% in coordination of care (as documented) at patient's floor/unit and/or counseling patient: Coding Level of Care Code 70878 Subseq Hosp Care Lvl 3 Diagnoses Acute CVA (cerebrovascular accident) I63.9 Nathan's paralysis (postepileptic) G83.84 Seizure disorder G40.909 Left-sided weakness R53.1 Glioblastoma C71.9 Status post craniectomy Z98.890 Complicated migraine G43.109 Hypomagnesemia E83.42 Hypokalemia E87.6 Cerebritis G04.90
[2021-04-14] MEDS: MELATONIN 3 MG TAB PO PRN (21:22)
[2021-04-15] MEDS: AMPICILLIN 2,000 MG in SODIUM CHLOR 0.9% AD-VAN 100 ML IV SCH ×3 (00:59→09:05)
[2021-04-15] MEDS ORDERED: VANCOMYCIN HCL 1,500 MG in SODIUM CHLORIDE 0.9% 500 ML IV SCH (04:00)
[2021-04-15] MEDS: cefTRIAXone SODIUM 2,000 MG in DEXTROSE 5% 50 ML IV SCH (05:52)
[2021-04-15] MEDS: ACYCLOVIR SOD IV SCH ×3 (07:08→22:34)
[2021-04-15] MEDS: DEXTROSE 5% IV SCH ×3 (07:08→22:34)
[2021-04-15 08:13] LABS: Basophils # (auto) 0.03 K/uL (0-0.2); Basophils % (auto) 0.4 %; Eosinophils # (auto) 0.11 K/uL (0-0.5); Eosinophils % (auto) 1.4 %; Hematocrit (blood only) 43.6 % (42-52); Hemoglobin 15.2 g/dL (14.0-18.0); Immature Granulocytes # (auto) 0.01 K/uL (0.00-0.02); Immature Granulocytes % (auto) 0.1 %; Lymphocytes # (auto) 1.73 K/uL (1.2-3.4); Lymphocytes % (auto) 22.6 %; Mean Corpuscular Hemoglobin 30.8 pg (25-34); Mean Corpuscular Hgb Conc 34.9 g/dL (32-36); Mean Corpuscular Volume 88.3 fL (80-100); Mean Platelet Volume 11.4 fL (7.4-10.4); Monocytes # (auto) 0.45 K/uL (0.11-0.59); Monocytes % (auto) 5.9 %; Neutrophils # (auto) 5.32 K/uL (1.4-6.5); Neutrophils % (auto) 69.6 %; Platelet Count 182 K/uL (130-400); RDW Coefficient of Variation 12.2 % (11.5-14.5); RDW Standard Deviation 38.7 fL (36.4-46.3); Red Blood Count 4.94 M/uL (4.7-6.1); White Blood Count 7.65 K/uL (4.8-10.8)
[2021-04-15 08:34] LABS: BUN Creatinine Ratio 16.4 (10-20); Creatinine Clr Calc Pharmacy 165.1 ml/min; Est GFR (African American) 128.9 ml/min; Est GFR (Non-African American) 111.3 ml/min; Potassium 3.7 mmol/L (3.5-5.1)
[2021-04-15] MEDS: guaiFENesin 600 MG TABCR PO SCH ×2 (09:06→19:39)
[2021-04-15] MEDS: ACETAMINOPHEN 325 MG TAB PO PRN (09:06)
[2021-04-15] MEDS: CLOPIDOGREL BISULFATE 75 MG TAB PO SCH (09:07)
[2021-04-15] MEDS: levETIRAcetam 500 MG TAB PO SCH (09:07)
[2021-04-15] MEDS: ATORVASTATIN 40 MG TAB PO SCH (09:07)
--- NOTE | 2021-04-15 10:02 | Hospitalist Progress Note ---
Date of Service April 15, 2021 Assessment & Plan (1) Acute CVA (cerebrovascular accident): Plan: Initially symptoms thought to be due to seizure with Nathan's paralysis due to history and being off Keppra CThead: No acute pathology, small vessel disease and chronic findings CTA head/neck: Negative, no intracerebral pathology with old right parietal infarct appreciated. Neck with no significant stenosis occlusion or dissection. MRIbrain: Read overnight by stat read, 3 mm focus of restricted diffusion in right temporal lobe consistent with small acute infarct. Right parietal/occipital/temporal gyral enhancement suspicious for resolving subacute infarct. Neurology consulted, discussed with neurology. While history and initial negative CT/CTA were suspicious for symptoms being caused by seizure and context of above it is highly likely that all of his symptoms and his interval worsening are due to acute CVA. Echo with grade 1 diastolic dysfunction otherwise normal Continue Plavix Cholesterol 172, LDL 116, HDL 38. Patient placed on atorvastatin 40 mg. Follow-up examination check within 2 weeks. PT/OT pending rehab, pending placement to [facility] Patient recommended for acute rehab, able to be taken at [facility] however with Medicare/insurance issues due to insurance private branch exchange service [employer] [facility] [employer] [facility]. Case management following and assisting. Anticipate may take 72 hours for placement. A1c 6.1% without pharmacotherapy, no additional antilipemics indicated at this time Neurology follow-up in 3 weeks as outpatient Did not meet criteria for TPA 37: Repeat MRI noted LP so far not impressive except for slightly increased protein Await neurology follow-up Addendum: Extensive discussion with neurology; they recommend transfer to tertiary care for continuous EEG monitoring and I also think will benefit from epileptologist Discussed and accepted at [facility] by Dr. Daniel; awaiting bed (2) Cerebritis: Plan: LP neg; per d/w neurology stop antibiotics; ct acyclovir for now-low threshold to stop (3) Nathan's paralysis (postepileptic): Plan: history of glioblastoma s/p surgical intervention and craniectomy off Keppra for 2 weeks Symptoms now thought to be due to acute CVA as above Patient had not taken Keppra for 2 weeks due to insurance change Loaded with Keppra 2 g IV in ER, then continued on Keppra 1500 mg p.o. twice daily Keppra has worked well for patient in the past He has continued tingling and worsening weakness on his left sided with changes in his vision. He feels these are ongoing seizures that he has had before in the past. Previous EEG has supported underlying tendency for these focal seizures. Vimpat added per last neurology note Diazepam given prior to MRI and patient was still have these despite this being given Due to prolonged episodes last for > 15 minutes lorazepam 2mg IV given and patient has been sedated since this. EEG taken however patient reports he was not having a seizure during this therefore may need to retry if recurrent ?due to cerebritis as above 3-7: ongoing sz - per d/w Dr. Salas transfer to tertiary care; increase Vimpat - change to IV; noted change of Keppra to IV (4) Seizure disorder: Plan: See above (5) Left-sided weakness: Plan: See above-appears post ictal (6) Glioblastoma: Plan: See above (7) Status post craniectomy: Plan: See above (8) Complicated migraine: Plan: With strokelike findings as above. Low risk for bleeding, and discussed with neurology. Improved with Tylenol/Toradol. Continue Tylenol as needed and intermittent Toradol as needed (9) Hypomagnesemia: Plan: Repleted Trend daily (10) Hypokalemia: Plan: See above Plan: DVT prophylaxis: Lovenox CODE STATUS: DNR/DNI, updated at patient request 04/13 with family present and POLST form completed at patient request. Admission and Anticipated Discharge Date Admission Date: April 10, 2021 Subjective Patient reports ongoing focal seizure activity -intermittent ongoing through the day.; status post lumbar puncture; Persistent left-sided weakness Physical Exam Physical Exam: Constitutional and general: No acute distress, looks biologic age Head and face: No puffiness, atraumatic Eyes: No scleral icterus, extraocular movements normal Neck: Supple, no JVD Musculoskeletal: No acute joint swelling, no bony abnormalities Skin/dermatologic/integument: No rash, no purpura Hematologic and lymphatic: pallor +, no petechia Gastrointestinal/abdomen: Nondistended, soft, nonacute Neurologic: Left hemiparesis Psychiatry: Awake, alert, pleasant, communicative Cardiovascular: Heart rhythm regular, no rub, no murmur, no gallop Respiratory: Chest movements equal, no use of accessory muscles, no adventitious sounds Extremities: No edema, no cyanosis Results & Data Results & Data ([facility]) Vital Signs (Past 12 Hours) Vital Signs Temp Pulse Resp BP Pulse Ox 04/15/21 07:16 36.8 C 70 18 138/88 96 04/15/21 04:00 36.5 C 69 18 133/78 97 04/14/21 23:14 36.8 C 72 18 128/85 97 PG Care Time/CCT Total # of Minutes Spent Total Time Spent with Patient: Total time spent is greater than 50% in coordination of care (as documented) at patient's floor/unit and/or counseling patient: Coding Level of Care Code 84846 Subseq Hosp Care Lvl 3 Diagnoses Acute CVA (cerebrovascular accident) I63.9 Cerebritis G04.90 Nathan's paralysis (postepileptic) G83.84 Seizure disorder G40.909 Left-sided weakness R53.1 Glioblastoma C71.9 Status post craniectomy Z98.890 Complicated migraine G43.109 Hypomagnesemia E83.42 Hypokalemia E87.6
[2021-04-15] MEDS: LACOSAMIDE 50 MG TABLET PO SCH (10:34)
--- NOTE | 2021-04-15 11:18 | Neurology Progress Note ---
Date of Service April 15, 2021 Assessment & Plan (1) Nathan's paralysis (postepileptic): (2) H/O brain tumor: (3) Cerebritis: Plan: This patient has a persistent, significant, Nathan's paralysis following refractory focal motor seizures related to a remote right parieto-occipital craniotomy/glioblastoma resection. I had evaluated him for a very similar presentation this past December. The observed small focus of restricted diffusion within the right temporal lobe on brain MRI completed April 11, 2021 may have been related to either a seizure focus or tiny acute ischemic infarct. This area of restricted diffusion was not seen on a follow-up brain MRI done 3 days later. However, there was evidence of an interval increase in gyriform enhancement within the right parietal, occipital, and temporal lobes, without associated cerebral edema. Findings potentially consistent with cerebritis. Patient's CSF analysis, however, is not suggestive of infection. Normal white blood cell count, meningoencephalitis bio fire testing negative. CSF was bloody, and red, without xanthochromia, may have been a traumatic tap. Other than patient's significant left hemiparesis, his mentation is intact, he is alert, and appropriate. Therefore, I would not strongly suspect meningoencephalitis in this patient on clinical grounds. I suspect the observed changes on brain MRI are related to what appears to be a significant Nathan's paralysis and possible associated focal cerebral hypoperfusion and/or prolonged focal cerebral depolarization. He has had normal CT angiography of the head and neck recently, and several times in December, with similar presentations. He is currently receiving Plavix 75 mg/day. His blood pressure has been fairly normal, only slightly elevated yesterday, normal today. Would switch Keppra to IV, 1500 mg IV every 12 hours. Continue with Vimpat 100 mg IV every 12 hours. Would like to check a bedside EEG today. Patient has been accepted to [facility] for neuro intensive care/continuous EEG monitoring. I do agree with this transfer given the complexity of this patient's case and refractory nature of his seizures in the context of worrisome changes on brain MRI as described above. Case discussed with attending hospitalist. Admission and Anticipated Discharge Date Admission Date: April 10, 2021 Subjective Follow-up for seizures The patient has continued to have focal motor seizures during his hospitalization, he has a persistent Nathan's paralysis affecting the left face arm and leg. He is otherwise awake, alert, and appropriate. He complains of a persistent low-grade right frontal headache, no fevers. Patient had a follow-up gadolinium enhanced brain MRI completed yesterday. The previously seen 3 mm focus of restricted diffusion within the right temporal lobe has resolved. There has been interval increase in the gyriform enhancement within the right parietal, occipital, and temporal lobes, without associated cerebral edema. Findings potentially consistent with worsening cerebritis. Postsurgical changes again seen in the right parieto-occipital region for treatment of glioblastoma, without evidence of recurrence identified as well. I reviewed the images as well as the radiologist interpretation of this test and agree. Patient had a lumbar puncture completed yesterday as well. CSF bloody, red, no xanthochromia, WBC 2, RBC 5450, glucose 77, total protein 87.6. CSF meningoencephalitis bio fire panel negative. Patient has been placed on broad-spectrum antimicrobial therapy although Rocephin, ampicillin, and vancomycin have been discontinued. Acyclovir has been continued, however. Patient continues with Keppra 1500 mg twice daily. He had been on a low-dose of oral Vimpat. I discussed his case with the hospitalist physician this morning and recommended increasing decreasing oral Vimpat and switching to IV at a larger dosage of 100 mg IV every 12 hours. After review of patient's imaging had also suggested looking into transfer to a tertiary center for refractory seizures with evidence of progressive focal cerebritis on follow-up MRI. Review of Systems Constitutional: no fever Eyes: + blind spots Neurologic: as per Subjective / HPI, + localized weakness, + seizure-like activity and + headache(s); no loss of sensation Results & Data ([facility]) Vital Signs (Past 12 Hours) Vital Signs Temp Pulse Resp BP Pulse Ox 04/15/21 11:04 36.8 C 78 18 139/91 92 04/15/21 07:16 36.8 C 70 18 138/88 96 04/15/21 04:00 36.5 C 69 18 133/78 97 04/14/21 23:14 36.8 C 72 18 128/85 97 Laboratory Results CSF results are as described above. WBC 7.65, hemoglobin 15.2, hematocrit 43.6, MCV 88.3, platelet count 182, sodium 138, potassium 3.7, BUN 11, creatinine 0.67, glucose 162, calcium 8.0 Diagnostic Findings MRI results are as described above. CT angiography of the head and neck completed April 10, 2021 were negative for significant stenosis, occlusion, or dissection. An echocardiogram completed April 12, 2021 revealed normal left ventricular systolic function, grade 1 diastolic dysfunction, no interatrial shunt, normal left atrial size. An electrocardiogram completed April 10, 2021 revealed a normal sinus rhythm, incomplete right bundle branch block, left anterior fascicular block. Exam (Neuro) Neurologic: Oriented to:: Person, Place and Time Memory: Short Term Intact and Remote Intact Attention: Span Intact and Concentration Intact Speech Fluency: Dysfluency (mild) and Slowed Speech Aphasia: negative Aphasia Fund of Knowledge: Current Events, Past History and Vocabulary Cranial Nerves: Normal III, IV, ; Abnorm II (Left visual field deficit with confrontation testing noted) or VII (Mild left lower facial droop noted) Motor Strength: Hemiparesis (Left upper extremity 0 out of 5 distally, able to shrug the shoulder and has mild residual proximal strength for the left upper limb. Left lower extremity 3 out of 5.) Laterality: Left; negative Normal Lower Extremities or Normal Upper Extremities Muscle Bulk/Involuntary Movements: No Involuntary Movements Sensation: Light Touch Intact and Pain/Temperature Intact Deep Tendon Reflexes: Rt Biceps: 2+, Lt Biceps: 2+, Rt Patellar: 2+ and Lt Patellar: 2+ Special Tests: negative Babinski Present Coding Level of Care Code 57398 Subseq Hosp Care Lvl 3 Diagnoses Nathan's paralysis (postepileptic) G83.84 H/O brain tumor Z87.898 Cerebritis G04.90
[2021-04-15] MEDS: LACOSAMIDE 100 MG in SODIUM CHLORIDE 0.9% 50 ML IV SCH ×2 (11:46→22:34)
[2021-04-15] MEDS: levETIRAcetam 1,500 MG in 0.9 % SODIUM CHLORIDE 100 ML IV SCH ×2 (12:55→19:39)
[2021-04-15] MEDS ORDERED: KETOROLAC 30 MG/ML VIAL IV ONE (14:06)
--- NOTE | 2021-04-16 07:41 | Hospitalist Progress Note ---
Date of Service April 16, 2021 Assessment & Plan (1) Acute CVA (cerebrovascular accident): Plan: Initially symptoms thought to be due to seizure with Nathan's paralysis due to history and being off Keppra CThead: No acute pathology, small vessel disease and chronic findings CTA head/neck: Negative, no intracerebral pathology with old right parietal infarct appreciated. Neck with no significant stenosis occlusion or dissection. MRIbrain: Read overnight by stat read, 3 mm focus of restricted diffusion in right temporal lobe consistent with small acute infarct. Right parietal/occipital/temporal gyral enhancement suspicious for resolving subacute infarct. Neurology consulted, discussed with neurology. While history and initial negative CT/CTA were suspicious for symptoms being caused by seizure and context of above it is highly likely that all of his symptoms and his interval worsening are due to acute CVA. Echo with grade 1 diastolic dysfunction otherwise normal Continue Plavix Cholesterol 172, LDL 116, HDL 38. Patient placed on atorvastatin 40 mg. Follow-up examination check within 2 weeks. PT/OT pending rehab, pending placement to [facility] Patient recommended for acute rehab, able to be taken at [facility] however with Medicare/insurance issues due to insurance ticket dispenser [employer] [facility]. Case management following and assisting. Anticipate may take 72 hours for placement. A1c 6.1% without pharmacotherapy, no additional antilipemics indicated at this time Neurology follow-up in 3 weeks as outpatient Did not meet criteria for TPA 37: Repeat MRI noted LP so far not impressive except for slightly increased protein Await neurology follow-up Addendum: Extensive discussion with neurology; they recommend transfer to tertiary care for continuous EEG monitoring and I also think will benefit from epileptologist Discussed and accepted at [facility] by Dr. Daniel; awaiting bed 3-8: Somewhat improved; still awaiting bed at [facility] but await neurology follow-up now that better (2) Cerebritis: Plan: LP neg; per d/w neurology stopped antibiotics; ct acyclovir for now-at some point decision will have to made in this regard, somewhat empiric. (3) Nathan's paralysis (postepileptic): Plan: history of glioblastoma s/p surgical intervention and craniectomy off Keppra for 2 weeks Symptoms now thought to be due to acute CVA as above Patient had not taken Keppra for 2 weeks due to insurance change Loaded with Keppra 2 g IV in ER, then continued on Keppra 1500 mg p.o. twice daily Keppra has worked well for patient in the past He has continued tingling and worsening weakness on his left sided with changes in his vision. He feels these are ongoing seizures that he has had before in the past. Previous EEG has supported underlying tendency for these focal seizures. Vimpat added per last neurology note Diazepam given prior to MRI and patient was still have these despite this being given Due to prolonged episodes last for > 15 minutes lorazepam 2mg IV given and patient has been sedated since this. EEG taken however patient reports he was not having a seizure during this therefore may need to retry if recurrent ?due to cerebritis as above 3-7: ongoing sz - per d/w Dr. Salas transfer to tertiary care; increase Vimpat - change to IV; noted change of Keppra to IV 3-8: Bettersee above #1 (4) Seizure disorder: Plan: See above (5) Left-sided weakness: Plan: See above-appears post ictal (6) Glioblastoma: Plan: See above (7) Status post craniectomy: Plan: See above (8) Complicated migraine: Plan: With strokelike findings as above. Low risk for bleeding, and discussed with neurology. Improved with Tylenol/Toradol. Continue Tylenol as needed and intermittent Toradol as needed (9) Hypomagnesemia: Plan: Repleted Trend daily (10) Hypokalemia: Plan: See above Plan: DVT prophylaxis: Lovenox CODE STATUS: DNR/DNI, updated at patient request 04/13 with family present and POLST form completed at patient request. Admission and Anticipated Discharge Date Admission Date: April 10, 2021 Subjective Follow-up of seizures; no more seizures since 6 PM; some recovery of left-sided movement Physical Exam Physical Exam: Constitutional and general: No acute distress, looks biologic age Head and face: No puffiness, atraumatic Eyes: No scleral icterus, extraocular movements normal Neck: Supple, no JVD Musculoskeletal: No acute joint swelling, no bony abnormalities Skin/dermatologic/integument: No rash, no purpura Hematologic and lymphatic: pallor +, no petechia Gastrointestinal/abdomen: Nondistended, soft, nonacute Neurologic: Left hemiparesis-better Psychiatry: Awake, alert, pleasant, communicative Cardiovascular: Heart rhythm regular, no rub, no murmur, no gallop Respiratory: Chest movements equal, no use of accessory muscles, no adventitious sounds Extremities: No edema, no cyanosis Results & Data Results & Data ([facility]) Vital Signs (Past 12 Hours) Vital Signs Temp Pulse Resp BP Pulse Ox 04/16/21 03:57 36.8 C 80 18 126/82 97 04/15/21 23:26 36.7 C 81 18 137/87 95 04/15/21 19:57 37.0 C 85 18 136/84 96 Laboratory Results Laboratory Results - last 24 hr 04/15/21 04/16/21 04/16/21 Unknown 08:36 08:36 WBC 6.73 RBC 5.18 Hgb 15.6 Hct 46.4 MCV 89.6 MCH 30.1 MCHC 33.6 RDW Std Deviation 40.0 RDW Coeff of Aisha 12.2 Plt Count 194 MPV 11.0 H Immature Gran % (Auto) 0.3 Neut % (Auto) 70.1 Lymph % (Auto) 22.0 Barbour % (Auto) 5.5 Eos % (Auto) 1.5 Baso % (Auto) 0.6 Neut # (Auto) 4.72 Lymph # (Auto) 1.48 [place] # (Auto) 0.37 Eos # (Auto) 0.10 Baso # (Auto) 0.04 Immature Gran # (Auto) 0.02 Sodium 140 Potassium 4.4 Chloride 107 Carbon Dioxide 29 Anion Gap 4 BUN 10 Creatinine 0.68 Est Cr Clr Drug Dosing 161.4 Est GFR ( Amer) 128.2 Est GFR (Non-Af Amer) 110.6 BUN/Creatinine Ratio 14.7 Glucose 133 H Calcium 8.5 Magnesium 1.9 SARS-CoV-2, RNA, NAAT NEGATIVE PG Care Time/CCT Total # of Minutes Spent Total Time Spent with Patient: Total time spent is greater than 50% in coordination of care (as documented) at patient's floor/unit and/or counseling patient: Coding Level of Care Code 56229 Subseq Hosp Care Lvl 2 Diagnoses Acute CVA (cerebrovascular accident) I63.9 Cerebritis G04.90 Nathan's paralysis (postepileptic) G83.84 Seizure disorder G40.909 Left-sided weakness R53.1 Glioblastoma C71.9 Status post craniectomy Z98.890 Complicated migraine G43.109 Hypomagnesemia E83.42 Hypokalemia E87.6
--- NOTE | 2021-04-16 08:12 | Electroencephalogram ---
EEG Procedure Note Date of Service April 16, 2021 Start / End Times Start Time: 12:43 PM End Time: 1:03 PM Referring Physician Isreal Ya MD History Seizure disorder, right hemispheric glioma resection Home Medication List Medication Instructions Recorded Confirmed Type levetiracetam 750 mg tablet 1,500 mg PO BID 04/10/21 04/10/21 History Inpatient Medication List Acetaminophen (Acetaminophen 325 Mg Tab) 650 mg PO Q4H PRN PRN Reason: Pain or Fever Stop: 05/11/21 00:35 Last Admin: 04/15/21 09:06 Dose: 650 mg Documented by: [id number] Admin: 04/14/21 08:07 Dose: 650 mg Documented by: [id number] Admin: 04/14/21 04:12 Dose: 650 mg Documented by: [id number] Admin: 04/13/21 11:57 Dose: 650 mg Documented by: [id number] Admin: 04/13/21 04:42 Dose: 650 mg Documented by: [id number] Admin: 04/12/21 21:07 Dose: 650 mg Documented by: [id number] Admin: 04/12/21 07:27 Dose: 650 mg Documented by: [id number] Admin: 04/11/21 16:48 Dose: 650 mg Documented by: [id number] Admin: 04/11/21 11:55 Dose: 650 mg Documented by: [id number] Admin: 04/11/21 01:09 Dose: 650 mg Documented by: [id number] Atorvastatin Calcium (Atorvastatin 40 Mg Tab) 40 mg PO [facility] Stop: 05/12/21 13:44 Last Admin: 04/15/21 09:07 Dose: 40 mg Documented by: [id number] Admin: 04/14/21 08:04 Dose: 40 mg Documented by: [id number] Admin: 04/13/21 08:11 Dose: 40 mg Documented by: [id number] Admin: 04/12/21 15:18 Dose: 40 mg Documented by: [id number] Clopidogrel Bisulfate (Clopidogrel Bisulfate 75 Mg Tab) [facility] [place]: 05/12/21 10:29 Last Admin: 04/15/21 09:07 Dose: 75 mg Documented by: [id number] Admin: 04/14/21 08:03 Dose: 75 mg Documented by: [id number] Admin: 04/13/21 08:11 Dose: 75 mg Documented by: [id number] Admin: 04/12/21 12:29 Dose: 75 mg Documented by: [id number] Enoxaparin Sodium (Enoxaparin Inj 40 Mg/0.4 Ml Syr) 40 mg SQ Q24H [facility] Stop: 05/11/21 08:59 Last Admin: 04/14/21 08:03 Dose: Not Given Documented by: [id number] Admin: 04/13/21 08:11 Dose: Not Given Documented by: [id number] Admin: 04/12/21 08:46 Dose: Not Given Documented by: [id number] Admin: 04/11/21 08:38 Dose: Not Given Documented by: [id number] Guaifenesin (Guaifenesin 600 Mg Tabcr) 600 mg PO Q12 [facility] Stop: 05/13/21 20:59 Last Admin: 04/15/21 19:39 Dose: 600 mg Documented by: [id number] Admin: 04/15/21 09:06 Dose: 600 mg Documented by: [id number] Admin: 04/14/21 21:23 Dose: 600 mg Documented by: [id number] Admin: 04/14/21 08:03 Dose: 600 mg Documented by: [id number] Admin: 04/13/21 20:40 Dose: 600 mg Documented by: [id number] Acyclovir Sodium 880 mg/ (Dextrose) 267.6 mls @ 250 mls/hr IV Q8H [facility]; Protocol Stop: 04/16/21 15:59 Last Infusion: 04/15/21 23:44 Dose: 0 mls/hr Documented by: [id number] Admin: 04/15/21 22:34 Dose: 250 mls/hr Documented by: [id number] Infusion: 04/15/21 17:29 Dose: 0 mls/hr Documented by: [id number] Admin: 04/15/21 16:24 Dose: 250 mls/hr Documented by: [id number] Infusion: 04/15/21 08:17 Dose: 0 mls/hr Documented by: [id number] Admin: 04/15/21 07:08 Dose: 250 mls/hr Documented by: [id number] Infusion: 04/15/21 01:07 Dose: 0 mls/hr Documented by: [id number] Admin: 04/14/21 23:59 Dose: 250 mls/hr Documented by: [id number] Infusion: 04/14/21 17:52 Dose: 0 mls/hr Documented by: [id number] Admin: 04/14/21 16:29 Dose: 250 mls/hr Documented by: [id number] Lacosamide 100 mg/ Sodium (Chloride) 60 mls @ 120 mls/hr IV Q12H [facility] Stop: 05/15/21 10:44 Last Infusion: 04/15/21 22:58 Dose: 0 mls/hr Documented by: [id number] Admin: 04/15/21 22:34 Dose: 120 mls/hr Documented by: [id number] Infusion: 04/15/21 12:30 Dose: 0 mls/hr Documented by: [id number] Admin: 04/15/21 11:46 Dose: 120 mls/hr Documented by: [id number] Levetiracetam 1,500 mg/ Sodium (Chloride) 115 mls @ 440 mls/hr IV Q12 [facility] Stop: 05/15/21 11:59 Last Infusion: 04/15/21 19:56 Dose: 0 mls/hr Documented by: [id number] Admin: 04/15/21 19:39 Dose: 440 mls/hr Documented by: [id number] Infusion: 04/15/21 13:23 Dose: 0 mls/hr Documented by: [id number] Admin: 04/15/21 12:55 Dose: 440 mls/hr Documented by: [id number] Melatonin (Melatonin 3 Mg Tab) 3 mg PO HS PRN PRN Reason: Sleep Stop: 05/12/21 20:00 Last Admin: 04/14/21 21:22 Dose: 3 mg Documented by: [id number] Admin: 04/13/21 21:04 Dose: 3 mg Documented by: [id number] Admin: 04/12/21 21:07 Dose: 3 mg Documented by: [id number] Discontinued Medications Diazepam (Diazepam 5 Mg Tablet) 5 mg PO UD PRN PRN Reason: 1 hour prior to MRI Stop: 04/15/21 10:37 Last Admin: 04/14/21 10:51 Dose: 5 mg Documented by: [id number] Gadobutrol (Gadobutrol 65ml Vial) 10 ml IV ONCE ONE Stop: 04/11/21 23:35 Last Admin: 04/11/21 23:34 Dose: 10 ml Documented by: [id number] Gadobutrol (Gadobutrol 30ml Vial) 10 ml IV ONCE ONE Stop: 04/14/21 11:51 Last Admin: 04/14/21 11:50 Dose: 10 ml Documented by: [id number] Levetiracetam 2,000 mg/ Sodium (Chloride) 270 mls @ 999 mls/hr IV NOW STA Stop: 04/10/21 23:01 Last Infusion: 04/10/21 23:33 Dose: 0 mls/hr Documented by: [id number] Admin: 04/10/21 23:17 Dose: 999 mls/hr Documented by: [id number] Magnesium Sulfate/Dextrose (Magnesium Sulfate / D5w) 1 gm in 100 mls @ 50 mls/hr IV Q2H [facility] Stop: 04/11/21 03:29 Last Infusion: 04/11/21 04:46 Dose: 0 mls/hr Documented by: [id number] Admin: 04/11/21 02:34 Dose: 50 mls/hr Documented by: [id number] Infusion: 04/11/21 01:37 Dose: 50 mls/hr Documented by: [id number] Admin: 04/10/21 23:37 Dose: 50 mls/hr Documented by: [id number] Potassium Chloride/Sodium Chloride (Normal Saline W/20 Meq Kcl) 20 meq in 1,000 mls @ 100 mls/hr IV .Q10H [facility] Stop: 04/11/21 10:35 Last Infusion: 04/11/21 10:38 Dose: 0 mls/hr Documented by: [id number] Admin: 04/11/21 01:09 Dose: 100 mls/hr Documented by: [id number] Vancomycin HCl 2,500 mg/ (Sodium Chloride) 550 mls @ 180 mls/hr IV NOW ONE Stop: 04/14/21 19:03 Last Infusion: 04/14/21 20:39 Dose: 0 mls/hr Documented by: [id number] Admin: 04/14/21 16:34 Dose: 180 mls/hr Documented by: [id number] Ceftriaxone Sodium 2,000 mg/ (Dextrose) 70 mls @ 100 mls/hr IV Q12H [facility]; Protocol Stop: 04/16/21 15:59 Last Infusion: 04/15/21 06:44 Dose: 0 mls/hr Documented by: [id number] Admin: 04/15/21 05:52 Dose: 100 mls/hr Documented by: [id number] Infusion: 04/14/21 17:52 Dose: 0 mls/hr Documented by: [id number] Admin: 04/14/21 16:13 Dose: 100 mls/hr Documented by: [id number] Ampicillin Sodium 2,000 mg/ (Sodium Chloride) 100 mls @ 200 mls/hr IV Q4H [facility] Stop: 04/24/21 16:59 Last Infusion: 04/15/21 10:18 Dose: 0 mls/hr Documented by: [id number] Infusion: 04/15/21 09:10 Dose: 0 mls/hr Documented by: [id number] Admin: 04/15/21 09:05 Dose: 200 mls/hr Documented by: [id number] Infusion: 04/15/21 06:26 Dose: 0 mls/hr Documented by: [id number] Admin: 04/15/21 05:50 Dose: 200 mls/hr Documented by: [id number] Infusion: 04/15/21 03:05 Dose: 0 mls/hr Documented by: [id number] Admin: 04/15/21 00:59 Dose: 200 mls/hr Documented by: [id number] Infusion: 04/14/21 22:01 Dose: 0 mls/hr Documented by: [id number] Admin: 04/14/21 21:22 Dose: 200 mls/hr Documented by: [id number] Infusion: 04/14/21 18:23 Dose: 0 mls/hr Documented by: [id number] Admin: 04/14/21 17:53 Dose: 200 mls/hr Documented by: [id number] Vancomycin HCl 1,500 mg/ (Sodium Chloride) 530 mls @ 200 mls/hr IV Q12H [facility] Stop: 04/17/21 03:59 Last Infusion: 04/15/21 05:50 Dose: 0 mls/hr Documented by: [id number] Admin: 04/15/21 03:05 Dose: 200 mls/hr Documented by: [id number] Ioversol (Optiray 320 125ml) 120 ml IV ONCE ONE Stop: 04/10/21 21:18 Last Admin: 04/10/21 21:23 Dose: 120 ml Documented by: [id number] Ketorolac Tromethamine (Ketorolac Tromethamine 15 Mg/Ml Vial) 10 mg IV NOW ONE Stop: 04/12/21 09:57 Last Admin: 04/12/21 10:48 Dose: 10 mg Documented by: [id number] Ketorolac Tromethamine (Ketorolac Tromethamine 15 Mg/Ml Vial) 10 mg IV NOW ONE Stop: 04/13/21 15:31 Last Admin: 04/13/21 16:07 Dose: 10 mg Documented by: [id number] Ketorolac Tromethamine (Ketorolac 30 Mg/Ml Vial) 30 mg IV NOW ONE Stop: 04/15/21 14:07 Last Admin: 04/15/21 15:11 Dose: 30 mg Documented by: [id number] Lacosamide (Lacosamide 50 Mg Tablet) 50 mg PO BID [facility] Stop: 05/14/21 09:44 Last Admin: 04/15/21 10:34 Dose: Not Given Documented by: [id number] Admin: 04/14/21 21:22 Dose: 50 mg Documented by: [id number] Admin: 04/14/21 10:22 Dose: 50 mg Documented by: [id number] Levetiracetam (Levetiracetam 500 Mg Tab) 1,500 mg PO BID [facility] Stop: 05/11/21 08:59 Last Admin: 04/15/21 09:07 Dose: 1,500 mg Documented by: [id number] Admin: 04/14/21 21:22 Dose: 1,500 mg Documented by: [id number] Admin: 04/14/21 08:03 Dose: 1,500 mg Documented by: [id number] Admin: 04/13/21 20:40 Dose: 1,500 mg Documented by: [id number] Admin: 04/13/21 08:11 Dose: 1,500 mg Documented by: [id number] Admin: 04/12/21 21:07 Dose: 1,500 mg Documented by: [id number] Admin: 04/12/21 08:46 Dose: 1,500 mg Documented by: [id number] Admin: 04/11/21 21:45 Dose: 1,500 mg Documented by: [id number] Admin: 04/11/21 08:37 Dose: 1,500 mg Documented by: [id number] Lorazepam (Lorazepam 1 Mg Tab) 1 mg PO ONE ONE Stop: 04/11/21 09:58 Last Admin: 04/11/21 18:55 Dose: Not Given Documented by: [id number] Lorazepam (Lorazepam 1 Mg Tab) 1 mg PO ONE PRN PRN Reason: MRI Last Admin: 04/11/21 21:54 Dose: 1 mg Documented by: [id number] Lorazepam (Lorazepam 2 Mg/1 Ml Vial) 2 mg IV NOW STA Stop: 04/14/21 15:29 Last Admin: 04/14/21 15:38 Dose: 2 mg Documented by: [id number] Lorazepam (Lorazepam 2 Mg/1 Ml Vial) Confirm Administered Dose 2 mg .ROUTE .STK- MED ONE Stop: 04/14/21 15:34 Last Admin: 04/14/21 17:19 Dose: Not Given Documented by: [id number] Lorazepam (Lorazepam 2 Mg/1 Ml Vial) 2 mg IV NOW STA Stop: 04/14/21 21:36 Last Admin: 04/14/21 21:48 Dose: 2 mg Documented by: [id number] Magnesium Oxide (Magnesium Oxide 400 Mg Tab) 800 mg PO ONE ONE Stop: 04/10/21 21:24 Last Admin: 04/10/21 21:51 Dose: 800 mg Documented by: [id number] Description This is a 21 electrode EEG with a single channel dedicated to limited EKG. The electrodes were placed in accordance with the International 10-20 system. There is a posterior dominant rhythm of 10 Hz which is symmetrically distributed and attenuates with eye opening. There is a normal anterior to posterior organization. Photic stimulation at various frequencies is unremarkable. Hyperventilation is not performed. There is a symmetric frontal beta rhythm. There is fairly continuous right frontal theta slowing of moderate amplitude seen throughout the study. There are no epileptiform abnormalities. Interpretation Abnormal awake/drowsy EEG with evidence of focal cerebral dysfunction localizing to the right frontoparietal region. There are no epileptiform abnormalities. Correlation with neuroimaging recommended. [facility] EEG Procedure Codes Indication for Procedure (1) Nathan's paralysis (postepileptic): (2) Seizure: (3) H/O brain tumor: Neurology Neurology: [id number] EEG include record awake & drowsy
[2021-04-16] MEDS: ACYCLOVIR SOD IV SCH (08:35)
[2021-04-16] MEDS: DEXTROSE 5% IV SCH (08:35)
[2021-04-16] MEDS: guaiFENesin 600 MG TABCR PO SCH ×3 (08:41→20:04)
[2021-04-16] MEDS: CLOPIDOGREL BISULFATE 75 MG TAB PO SCH (08:41)
[2021-04-16] MEDS: ATORVASTATIN 40 MG TAB PO SCH (08:41)
[2021-04-16] MEDS: levETIRAcetam 1,500 MG in 0.9 % SODIUM CHLORIDE 100 ML IV SCH ×2 (08:41→20:04)
[2021-04-16] MEDS: ENOXAPARIN INJ 40 MG/0.4 ML SYR SQ SCH ×2 (08:41→08:43)
[2021-04-16 08:55] LABS: Basophils # (auto) 0.04 K/uL (0-0.2); Basophils % (auto) 0.6 %; Eosinophils % (auto) 1.5 %; Hematocrit (blood only) 46.4 % (42-52); Hemoglobin 15.6 g/dL (14.0-18.0); Immature Granulocytes # (auto) 0.02 K/uL (0.00-0.02); Immature Granulocytes % (auto) 0.3 %; Lymphocytes # (auto) 1.48 K/uL (1.2-3.4); Mean Corpuscular Hemoglobin 30.1 pg (25-34); Mean Corpuscular Hgb Conc 33.6 g/dL (32-36); Mean Corpuscular Volume 89.6 fL (80-100); Monocytes # (auto) 0.37 K/uL (0.11-0.59); Monocytes % (auto) 5.5 %; Neutrophils # (auto) 4.72 K/uL (1.4-6.5); Neutrophils % (auto) 70.1 %; Platelet Count 194 K/uL (130-400); RDW Coefficient of Variation 12.2 % (11.5-14.5); Red Blood Count 5.18 M/uL (4.7-6.1); White Blood Count 6.73 K/uL (4.8-10.8)
[2021-04-16 09:12] LABS: BUN Creatinine Ratio 14.7 (10-20); Calcium 8.5 mg/dl (8.5-10.1); Creatinine Clr Calc Pharmacy 161.4 ml/min; Est GFR (African American) 128.2 ml/min; Est GFR (Non-African American) 110.6 ml/min; Magnesium 1.9 mg/dl (1.7-2.4); Potassium 4.4 mmol/L (3.5-5.1)
--- NOTE | 2021-04-16 09:45 | Neurology Progress Note ---
Date of Service April 16, 2021 Assessment & Plan (1) Nathan's paralysis (postepileptic): (2) H/O brain tumor: Plan: Improving Nathan's paralysis. Remote history of right parieto-occipital glioblastoma resection. History of seizure disorder, typically focal motor seizures with recurrent associated Nathan's paralysis. Poor medication compliance. I suspect the tiny area of resolved restricted diffusion within patient's right temporal lobe was related to a seizure focus, rather than an acute ischemic infarct. Patient's follow-up MRI did reveal progressive gyriform enhancement within the right parietal, occipital, and temporal lobes without associated cerebral edema. I believe this imaging finding is more likely related to uncontrolled seizures and associated Nathan's paralysis, rather than focal cerebritis. Again, patient is clinically improved this morning, no headache, fevers, or altered mental status but I would otherwise expect an cerebritis. Lumbar puncture was also unremarkable in this regard. Post seizure/Nathan's paralysis associated hypoperfusion and/or neuronal depression seems more likely. I would recommend a follow-up gadolinium-enhanced brain MRI in 1 to 2 weeks to ensure resolution. The study should be done at [facility] to ensure an adequate comparison. Patient's anticonvulsants may be switched over to p.o. formulations. Would continue with the same dosage, Keppra 1500 mg twice daily and Vimpat 100 mg twice daily. Medication compliance needs to be stressed. He may need additional assistance from our social media marketing manager to ensure he has access to these medications. Patient should continue with Plavix 75 mg/day given the possibility of acute ischemic infarct as well. His angiography has been unremarkable on multiple occasions. His echocardiography has been without evidence of obvious cardioembolic source. It would not be unreasonable to obtain prolonged outpatient cardiac monitoring, such as 30-day mobile cardiac outpatient telemetry, to further exclude atrial fibrillation or other significant cardiac arrhythmia. Given patient's considerable improvement, he may not need to go to [facility] for prolonged inpatient EEG monitoring/neuro intensive care at this point in time. Patient will need inpatient rehabilitation, however, prior to being discharged to home. He will need additional outpatient follow-up in neurology clinic. Patient may follow-up with either Dr. Moyer, myself, or one of our advanced practice clinicians 2 to 3 weeks after discharge. Admission and Anticipated Discharge Date Admission Date: April 10, 2021 Subjective Follow-up for Nathan's paralysis, seizure disorder Patient's left-sided weakness is considerably improved this morning although he still has residual moderate distal weakness of the left upper extremity. No sensory loss. Has a chronic left visual field deficit, unchanged. Denies headache. No further seizure activity observed. Continues to deny headache, neck stiffness, or fever. Recently completed EEG reviewed. Does have right frontoparietal slowing, no epileptiform abnormalities. Recently completed brain MRI has revealed nonspecific right hemispheric gyriform enhancement potentially consistent with cerebritis although lumbar puncture unremarkable in this context. Clinically, patient has intact mentation and cerebritis would be extremely unlikely. As described yesterday, I suspect the observed MRI findings are related to his Nathan's paralysis and may reflect associated hypoperfusion or localized neuronal depression. No evidence of tumor recurrence. Patient continues with levetiracetam 1500 mg IV every 12 hours and Vimpat 100 mg IV every 12 hours. He has been accepted at [facility] although has exhibited considerable improvement in his Nathan's paralysis this morning. Review of Systems Eyes: + blind spots Neurologic: + localized weakness and + seizure-like activity; no headache(s), no confusion and no memory loss Results & Data ([facility]) Vital Signs (Past 12 Hours) Vital Signs Temp Pulse Resp BP Pulse Ox 04/16/21 07:41 36.6 C 72 18 143/90 H 98 04/16/21 03:57 36.8 C 80 18 126/82 97 04/15/21 23:26 36.7 C 81 18 137/87 95 Laboratory Results WBC 6.73, hemoglobin 15.6, hematocrit 46.4, MCV 89.6, platelet count 194, sodium 140, potassium 4.4, BUN 10, creatinine 0.68, glucose 133, calcium 8.5, magnesium 1.9. Diagnostic Findings EEG completed yesterday revealed right hemispheric slowing, no epileptiform abnormalities. Exam (Neuro) Neurologic: Oriented to:: Person, Place and Time Memory: Short Term Intact and Remote Intact Attention: Span Intact and Concentration Intact Speech Fluency: negative Dysarthria or Verbal Skills Limited Speech Aphasia: negative Aphasia Fund of Knowledge: Current Events, Past History and Vocabulary Cranial Nerves: Normal II and III, IV, ; Abnorm VII (Mild left lower facial weakness noted (improved compared with yesterday)) Motor Strength: Hemiparesis (Mild to moderate left hemiparesis noted, improved compared with yesterday. Able to minimally grasp with the left hand today.) Laterality: Left Muscle Bulk/Involuntary Movements: No Involuntary Movements Coding Level of Care Code 43789 Subseq Hosp Care Lvl 2 Diagnoses Nathan's paralysis (postepileptic) G83.84 H/O brain tumor Z87.898
[2021-04-16] MEDS: LACOSAMIDE 100 MG in SODIUM CHLORIDE 0.9% 50 ML IV SCH ×2 (11:19→22:57)
[2021-04-17] MEDS: ACETAMINOPHEN 325 MG TAB PO PRN (03:50)
[2021-04-17] MEDS: CLOPIDOGREL BISULFATE 75 MG TAB PO SCH (08:26)
[2021-04-17] MEDS: ATORVASTATIN 40 MG TAB PO SCH (08:26)
[2021-04-17] MEDS: guaiFENesin 600 MG TABCR PO SCH (08:26)
[2021-04-17] MEDS: levETIRAcetam 1,500 MG in 0.9 % SODIUM CHLORIDE 100 ML IV SCH (08:27)
[2021-04-17] MEDS: ENOXAPARIN INJ 40 MG/0.4 ML SYR SQ SCH ×2 (08:27→08:33)
[2021-04-17] MEDS ORDERED: LACOSAMIDE 50 MG TABLET PO SCH (09:00)
--- NOTE | 2021-04-17 10:04 | Neurology Progress Note ---
Date of Service April 17, 2021 Assessment & Plan (1) Nathan's paralysis (postepileptic): (2) Seizure disorder: (3) H/O brain tumor: Plan: Resolving Nathan's paralysis in the context of recurrent seizures localizing to the right cerebral hemisphere in the context of remote glioblastoma resection and noncompliance with anticonvulsant regimen. Patient's left hemiparesis continues to improve although he still has some impairment of motor control and facility of the left upper limb. Patient should continue with Keppra and Vimpat. He will need prescriptions for these medications at the time of discharge. Please make sure our perinatal social worker has seen him to assist with access to these medications. Patient will also need a follow-up gadolinium-enhanced brain MRI completed at [facility] in 1 to 2 weeks after discharge to reassess the area of gyriform enhancement within the right cerebral hemisphere which I suspect is related to hypoperfusion injury in the context of refractory seizures and associated Nathan's paralysis. No evidence of associated vascular abnormality on CT angiography of the head or neck. Patient should continue with clopidogrel 75 mg/day. Would also recommend 30-day mobile cardiac outpatient telemetry although my clinical suspicion for cardioembolic stroke/TIA is low in this individual. He has had a very similar presentation before that was most likely related to Nathan's paralysis rather than stroke. Patient may follow-up in neurology clinic in 2 to [address] Moyer or myself. Admission and Anticipated Discharge Date Admission Date: April 10, 2021 Subjective Follow-up for Nathan's paralysis, seizure disorder Patient has not had any further seizures, his left-sided weakness continues to improve. Still has some residual, mild left upper extremity weakness and associated dysmetria, insurance verifier function has been improving, facility still modestly impaired. No associated numbness or pain. Leg strength normal. No headache. No change in chronic left visual field loss. Denies headache, neck stiffness, or fever. Patient's Keppra and Vimpat have been switched from IV to tablets. Continues with clopidogrel as well given possibility of recent ischemic infarct on MRI although small area of restricted diffusion within right temporal lobe may have been a seizure focus. Angiography of the head and neck unremarkable. Possible evolving focal cerebritis observed on follow-up MRI as well although lumbar puncture negative and clinically patient has been significantly improved, doubtful has evolving or progressive cerebritis. Imaging finding may be related to seizure related hypoperfusion injury in the context of Nathan's paralysis. Review of Systems Eyes: as per Subjective / HPI and + blind spots Neurologic: as per Subjective / HPI and + localized weakness; no headache(s), no confusion and no memory loss Results & [facility] ([facility]) Vital Signs (Past 12 Hours) Vital Signs Temp Pulse Resp BP Pulse Ox 04/17/21 07:14 36.9 C 67 18 143/82 H 98 04/16/21 23:09 36.7 C 72 18 123/82 94 Exam (Neuro) Neurologic: Oriented to:: Person, Place and Time Attention: Span Intact and Concentration Intact Speech Fluency: negative Dysarthria or Dysfluency Fund of Knowledge: Current Events, Past History and Vocabulary Cranial Nerves: Normal III, IV, and VII; Abnorm II Motor Strength: Hemiparesis Laterality: Left Muscle Bulk/Involuntary Movements: No Involuntary Movements Coordination: Finger-Nose Abnormal Laterality: Left Coding Level of Care Code 35321 Subseq Hosp Care Lvl 2 Diagnoses Nathan's paralysis (postepileptic) G83.84 Seizure disorder G40.909 H/O brain tumor Z87.898
--- NOTE | 2021-04-17 12:09 | Discharge Summary ---
Date of Service April 17, 2021 Admission HPI Per Admitting Provider The patient is a 50-year-old male with a past medical history including history of glioblastoma status post surgical removal in 2004 and and gamma knife, focal motor seizure, CVA, complicated migraine presented with flashing of lights right side followed by focal seizures and left-sided weakness, somewhat similar to previous events of seizures. Work-up in the emergency department include the following imaging: CT of head shows chronic right parietal and temporal encephalomalacia. CTA head and neck were both negative. Upon further discussion with the patient's , she reports that the patient stopped taking his Keppra at least 2 weeks ago when his last prescription ran out, because he did not like the way it made his body feel. He also did not take Vimpat after leaving rehab facility last time on account of cost; there is also apparently a history of nontolerance of phenytoin. 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 Discharge Exam Constitutional and general: No acute distress, looks biologic age Head and face: No puffiness, atraumatic Eyes: No scleral icterus, extraocular movements normal Neck: Supple, no JVD Musculoskeletal: No acute joint swelling, no bony abnormalities Skin/dermatologic/integument: No rash, no purpura Hematologic and lymphatic: pallor +, no petechia Gastrointestinal/abdomen: Nondistended, soft, nonacute Neurologic: Left hemiparesis-better Psychiatry: Awake, alert, pleasant, communicative Cardiovascular: Heart rhythm regular, no rub, no murmur, no gallop Respiratory: Chest movements equal, no use of accessory muscles, no adventitious sounds Extremities: No edema, no cyanosis Vital Signs Temp Pulse Pulse Resp BP BP Pulse Ox 04/17/21 11:46 36.7 C 67 74 18 139/75 130/76 96 04/17/21 10:47 36.7 C 74 18 130/76 96 04/17/21 07:14 36.9 C 67 18 143/82 H 98 04/16/21 23:09 36.7 C 72 18 123/82 94 04/16/21 14:42 36.7 C 82 20 153/84 H 96 Intake and Output 04/16/21 04/17/21 04/17/21 22:59 06:59 14:59 Intake Total 165 / 987.6 180 / 987.6 115 / 115 Output Total 1151 / 1601 200 / 1601 Balance -986 / -613.4 -20 / -613.4 115 / 115 Intake: IV 115 / 617.6 60 / 617.6 115 / 115 Lacosamide 100 mg In Sodium 60 / 120 Chloride 0.9% 50 ml @ 120 mls/ hr IV Q12H NAMAN Rx#:[id number] levETIRAcetam 1,500 mg In 0.9 % 115 / 230 115 / 115 Sodium Chloride 100 ml @ 440 mls/hr IV Q12 NAMAN Rx#:[id number] Oral 50 / 370 120 / 370 Output: Urine 1150 / 1600 200 / 1600 # Bowel Movements Other: Weight 101.5 kg 101.5 kg Weight Measurement Method Built in [facility] Patient Weight 04/18/21 06:59 Weight 101.5 kg Discharge Data Allergies Allergy/AdvReac Type Severity Reaction Status Date / Time bacitracin Allergy Rash Verified 04/10/21 20:37 [From Neosporin ([id number])] neomycin Allergy Rash Verified 04/10/21 20:37 [From Neosporin ([id number])] polymyxin B Allergy Rash Verified 04/10/21 20:37 [From Neosporin ([id number])] Consultations 04/10/21 23:29 ED Decision to Admit Stat 04/11/21 00:36 Consult Neurology Routine 04/15/21 11:13 Burn CD for patient Routine Ordered Studies 04/10/21 19:38 CT angio head w con Urgent CT angio neck with con Urgent CT head/brain wo con Urgent 04/11/21 09:55 MR brain seizure wo/w con Urgent 04/14/21 09:46 MR brain seizure wo/w con Urgent 04/14/21 15:57 FL lumbar puncture diagnostic Stat Hospital Course (1) Seizure disorder: Primary diagnosis is focal seizures followed by Nathan's paralysisduring the course had multiple seizures and at one point was going to be transferred to tertiary care for continuous EEG monitoring; however became free after Keppra 1500 mg twice a day and Vimpat 100 mg twice a day with improvement in left sided weakness; therefore, transfer was canceled; note, he did not want to be transferred there would have if it became medically necessary. Now stable to be transferred to inpatient rehab. Medically recommended he go via ambulance but he declined since he cannot afford the cost, and will go at his own risk with family transport; since he is seizure-free I assented to this plan with reluctance; it is recommended he have a peripheral IV placed there in case of recurrent seizures. Discussed with him with emphasis about being able to and taking seizure medicineshe assures that he will-he promises!; Discussed with case management and per case management family is going to assistlikely need involvement of case management at rehab facility for other potential assistance. Patient will need a follow-up gadolinium-enhanced brain MRI completed at [facility] in 1 to 2 weeks after discharge to reassess the area of gyriform enhancement within the right cerebral hemisphere which is suspected by neurology related to hypoperfusion injury in the context of refractory seizures and associated Nathan's paralysis. No evidence of associated vascular abnormality on CT angiography of the head or neck. Patient should continue with clopidogrel 75 mg/day. Would also recommend 30-day mobile cardiac outpatient telemetry although clinical suspicion for cardioembolic stroke/TIA is low in this individual. Should follow up with Dr. Salas, neurology in 1 week. (2) Acute CVA (cerebrovascular accident): Some question of CVA on initial MRI, not seen on repeat; initiated on Plavix, on statin and should get outpatient 30-day monitoring as noted above. (3) Cerebritis: Some question based on repeat MRI; lumbar puncture did not isolate any organism and bio fire completely negative; no CSF pleocytosis and only abnormality was mildly elevated protein; initially treated on empiric meningitis treatment and IV acyclovir such as for HSV encephalitisall discontinued. The diagnosis is questionable but should get follow-up MRI as noted above. (4) Nathan's paralysis (postepileptic): Improving, see above (5) Left-sided weakness: See above-appears post ictal (6) Glioblastoma: See above (7) Status post craniectomy: See above (8) Complicated migraine: With strokelike findings as above. Low risk for bleeding, and discussed with neurology. Improved with Tylenol/Toradol. Continue Tylenol as needed and intermittent Toradol as needed (9) Hypomagnesemia: Repleted DVT prophylaxis: Lovenox CODE STATUS: DNR/DNI, updated at patient request 04/13 with family present and POLST form completed at patient request. Total Time Total Time Spent Total Time Spent (In Minutes): 45 Discharge Plan Discharge Items Patient Disposition: Transfer Inpatient Rehab Fac Reason For Visit: SEIZURE ACTIVITY, LEFT SIDE WEAKNESS Discharge Diagnosis: Focal seizures with post seizure Nathan's paralysis Activity: As commented below Activity Comment: As tolerated Non-emergency contact: Primary Care Provider and Neurologist Call non-emergency contact if: your symptoms worsen Follow-up/Referrals: Teddy Salas MD [Physician] - (1 week -posthospitalization follow up) Ronald Hickman DO [Primary Care Provider] - Diet: Regular Addtl Attending Provider Instructions: Complete abstinence from alcohol recommended; should not drive; should not undertake any activities that would put your self or others at risk were you to have a seizure that include but are not limited to No operating heavy machinery, no climbing heights or ladders, being in a bathtub or swimming alone (unless in the presence of someone who could save you were you to have a seizure), flying airplane or helicopter, and any commonsense activity that could put yourself or others at risk while you to have a seizure Pending Studies at Discharge: No Stand-Alone Forms: My [facility] Skilled Items Patient informed of condition?: Yes DNR: Yes Discharge Level of Care: Acute rehab Communicable Disease: No Discharge Prognosis: Stable Lines: Peripheral IV Urinary Catheter: No Medications and DC Order Prescriptions: New atorvastatin 40 mg Tablet 40 mg PO QAM 30 Days Qty: 30 RF: 0 acetaminophen 325 mg Tablet 650 mg PO Q4H PRN (Reason: fever or pain) 30 Days Qty: 30 RF: 0 levetiracetam [Keppra] 500 mg Tablet 1,500 mg PO BID 30 Days Qty: 180 RF: 0 melatonin 3 mg Tablet 3 mg PO HS PRN (Reason: sleep) 30 Days RF: 0 clopidogrel 75 mg Tablet 75 mg PO QAM 30 Days Qty: 30 RF: 0 enoxaparin [Lovenox] 40 mg/0.4 mL Syringe 40 mg subcut Q24H 30 Days Qty: 12 RF: 0 Vimpat 50 mg Tablet 100 mg PO BID 30 Days Qty: 120 RF: 0 guaifenesin [Mucinex] 600 mg Tablet Extended Release 12hr 600 mg PO Q12 30 Days Qty: 60 RF: 0 Discontinued levetiracetam 750 mg tablet 1,500 mg PO BID RF: 0 Discharge Orders: Discharge Order (Routine); Ordered 04/17/21 Ordered By: Dorcas Gifford/Other Patient Handouts: Prediabetes, 5 Steps for Eating Healthier Admission Data Admit Date/Time: 04/10/21 23:11 Attending Provider: Dorcas Gross Admit Provider: Carlo Tirado Primary Care Provider: Ronald Hickman Other Providers: Carlo Tirado ; Teddy Salas Other Interventions: Discharge Summary Assessment (RN) Last Done: 04/17/21 11:46 Coding Level of Care Code D/C DAY MANAGEMENT >30 MINS Diagnoses Acute CVA (cerebrovascular accident) I63.9 Cerebritis G04.90 Nathan's paralysis (postepileptic) G83.84 Seizure disorder G40.909 Left-sided weakness R53.1 Glioblastoma C71.9 Status post craniectomy Z98.890 Complicated migraine G43.109 Hypomagnesemia E83.42
[2021-04-17] MEDS ORDERED: levETIRAcetam 500 MG TAB PO SCH (21:00)
== END 2021-04-17 13:43 | DRG 101 ==
LOC: ED 19:29 → 2N 23:11 → SUATTDRO 23:11 → 2N 23:57

== ENCOUNTER 2022-02-09 21:55 | Inpatient (IN) ==
[2022-02-09 22:51] LABS: iSTAT Creatinine 0.8 mg/dl (0.6-1.3); iSTAT Hemoglobin 16.7 g/dl (14.0-18.0); iSTAT Ionized Calcium 1.13 mmol/l (1.12-1.32); iSTAT Potassium 4.1 mmol/L (3.3-5.0)
[2022-02-09 22:55] LABS: Basophils # (auto) 0.06 K/uL (0-0.2); Basophils % (auto) 0.6 %; Eosinophils # (auto) 0.08 K/uL (0-0.50); Eosinophils % (auto) 0.8 %; Hematocrit (blood only) 49.4 % (40.1-51.0); Immature Granulocytes # (auto) 0.04 K/uL (0.00-0.02); Immature Granulocytes % (auto) 0.4 %; Lymphocytes # (auto) 2.28 K/uL (1.2-3.4); Lymphocytes % (auto) 22.1 %; Mean Corpuscular Hemoglobin 30.9 pg (25.0-34.0); Mean Corpuscular Hgb Conc 34.4 g/dL (32.0-36.0); Mean Corpuscular Volume 89.8 fL (80.0-100.0); Mean Platelet Volume 11.1 fL (9.4-12.4); Monocytes # (auto) 0.47 K/uL (0.24-0.82); Monocytes % (auto) 4.5 %; Neutrophils # (auto) 7.41 K/uL (1.4-6.5); Neutrophils % (auto) 71.6 %; Platelet Count 197 K/uL (130-400); RDW Coefficient of Variation 11.8 % (11.5-14.5); RDW Standard Deviation 38.5 fL (36.4-46.3); White Blood Count 10.34 K/ul (4.8-10.8)
[2022-02-09] MEDS ORDERED: OPTIRAY 320 500ml IV ONE (22:58)
--- NOTE | 2022-02-09 23:07 | Emergency Department Note ---
History of Present Illness General Chief complaint: Weakness Stated complaint: LEFT SIDE WEAKNESS Time Seen by Provider: 02/09/22 22:07 History of Present Illness Provider complaint: Left-sided weakness Onset (ago): day(s) 1 Location: upper extremity, lower extremity and left Associated symptoms: no chest pain, no cough, no fever/chills, no headaches, no nausea/vomiting or no shortness of breath 51-year-old male with history of seizure disorder on Keppra, glioblastoma status post craniectomy in 2004, presents emergency department with left upper extremity lower extremity weakness. Patient reports his symptoms began when he woke up this morning. He reports no headaches. He reports no seizures. He reports no recent head trauma. He reports no fevers. Home Medications Medication Instructions Recorded Confirmed Type levetiracetam 750 mg tablet 1,500 mg PO BID 30 days #120 tabs 11/01/21 02/09/22 Rx Allergies Allergy/AdvReac Type Severity Reaction Status Date / Time bacitracin Allergy Intermediate Rash Verified 02/09/22 22:40 [From Neosporin ([id number])] neomycin Allergy Intermediate Rash Verified 02/09/22 22:40 [From Neosporin ([id number])] polymyxin B Allergy Intermediate Rash Verified 02/09/22 22:40 [From Neosporin ([id number])] Past Med/Surg History Medical History Brain cancer Renal stone Seizure Surgical History S/P cholecystectomy Status post craniectomy Family History Mother No problems noted. Father , the diagnose 60s of lung cancer Lung cancer Social History Smoking Status: Never smoker Second Hand Exposure: Yes; Hx Alcohol Use: Yes Alcohol type: beer Alcohol Intake Frequency Comment: 4 beers per week every 1-2 weeks Hx Substance Use: Yes Last Used Substance: Unknown Preferred Language: Emir[place] Communication Ability: Effective Stock Lifter Required: No Beliefs That Will Affect Care: None marital status: Current Living Situation: Spouse current occupational status: unemployed current occupation: former [employer] How many Children do You have: 4 Feels Safe at Home: Yes Assistive Devices: Walker Physical Exam Vital Signs Vital Signs - 24 hr 02/09/22 21:59 02/09/22 21:56 02/09/22 22:39 Temperature 36.5 C Temperature Source Temporal Artery Scan Pulse Rate 90 80 Pulse Rate from SpO2 Sensor 80 Respiratory Rate 20 16 Respiratory Effort / Characteristics Non-Labored Spontaneous Respiratory Depth Normal Blood Pressure 148/94 H Blood Pressure Mean 112 Pulse Oximetry 96 97 97 Oxygen Delivery Method Room Air Room Air Sepsis New/Unexplained Change in Mental Status N/A Sepsis Action Taken by Nursing No Action Required 02/09/22 23:22 02/09/22 23:30 Temperature Temperature Source Pulse Rate 88 76 Pulse Rate from SpO2 Sensor 86 73 Respiratory Rate 18 18 Respiratory Effort / Characteristics Respiratory Depth Blood Pressure 170/99 H 163/96 H Blood Pressure Mean 122 118 Pulse Oximetry 98 97 Oxygen Delivery Method Sepsis New/Unexplained Change in Mental Status Sepsis Action Taken by Nursing Physical Exam GENERAL: He is oriented to person, place, and time. He appears well-developed and well-nourished. He does not appear distressed. HENT: Exam performed. - Head: Normocephalic and atraumatic. - Mouth/Throat: The oropharynx is clear and moist. No trismus in the jaw. No dental abscesses or uvula swelling. No oropharyngeal exudate or tonsillar abscesses. EYES: Conjunctivae and EOM are normal. Pupils are equal, round, and reactive to light. Right eye exhibits no discharge. Left eye exhibits no discharge. No scleral icterus. NECK: Normal range of motion. Neck supple. No JVD present. No spinous process tenderness present. No carotid bruit present. No rigidity. No tracheal deviation and normal range of motion present. No Brudzinski's sign and no Kernig's sign noted. CV: Normal rate, regular rhythm, normal heart sounds and intact distal pulses. There is no peripheral edema. Palpable radial pulses bue. PULM/CHEST: Effort normal and breath sounds normal. No respiratory distress. No stridor. He has no wheezes. He has no rales. - Chest Wall: He exhibits no tenderness. ABD: The abdomen is soft and obese. MUSC/SKEL: Normal range of motion. There is no peripheral edema, tenderness or deformity. LYMPH: No cervical adenopathy. NEURO: Decreased left upper extremity pharm spec. Left upper extremity drift. Left lower extremity drift. SKIN: Skin is warm and dry. He is not diaphoretic. PSYCH: He has a normal mood and affect. Behavior is normal. Judgment and thought content normal. Course Course 2206: The patient was evaluated in room B8. A complete history and physical exam was performed Cardiac monitoring: An order was placed for continuous cardiac monitoring. The monitor shows a rate of 90 with sinus rhythm No stroke alert called as the patient has a history of craniotomy for resection of brain tumor as well as him not being in the window for TNKase since he woke up with symptoms. External medical records reviewed. Patient has had previous visits to the emergency department to this hospital for similar symptoms with left-sided weakness. At those times it has been thought that the patient's symptoms could be due to Nathan's paralysis because he is noncompliant with his seizure medications. Patient does report he is on Keppra and states he has missed a few doses lately. Will obtain labs and imaging. 2350: Vital signs stable. Labs and imaging within normal limits. It is unclear if the patient had a seizure and was suffering from Nathan's paralysis as he has in the past or had a TIA/CVA. Patient will be admitted to the [facility] team for further MRI imaging and neurology evaluation. Keppra level sent out for reference. Dr. Elizabeth [facility] was notified. Administered Medications Discontinued Medications Ioversol (Optiray 320 500ml) 113 ml IV ONCE ONE Stop: 02/09/22 22:59 Last Admin: 02/09/22 22:59 Dose: 113 ml Documented By: [facility] Medical Decision Making Laboratory Data Result diagrams: 02/09/22 22:35 02/09/22 22:35 Lab Results 02/09/22 02/09/22 02/09/22 Range/Units 22:30 22:35 22:35 WBC 10.34 (4.8-10.8) K/ul RBC 5.50 (4.63-6.08) M/uL Hgb 17.0 (14.0-18.0) g/dl POC Hgb (14.0-18.0) g/dl Hct 49.4 (40.1-51.0) % POC Hct (42-52) % MCV 89.8 (80.0-100.0) fL MCH 30.9 (25.0-34.0) pg MCHC 34.4 (32.0-36.0) g/dL RDW Std Deviation 38.5 (36.4-46.3) fL RDW Coeff of Aisha 11.8 (11.5-14.5) % Plt Count 197 (130-400) K/uL MPV 11.1 (9.4-12.4) fL Immature Gran % (Auto) 0.4 % Neut % (Auto) 71.6 % Lymph % (Auto) 22.1 % [place] % (Auto) 4.5 % Eos % (Auto) 0.8 % Baso % (Auto) 0.6 % Neut # (Auto) 7.41 H (1.4-6.5) K/uL Lymph # (Auto) 2.28 (1.2-3.4) K/uL [place] # (Auto) 0.47 (0.24-0.82) K/uL Eos # (Auto) 0.08 (0-0.50) K/uL Baso # (Auto) 0.06 (0-0.2) K/uL Immature Gran # (Auto) 0.04 H (0.00-0.02) K/uL PT (9.0-12.0) Seconds INR (0.9-1.1) APTT (21.0-31.0) Seconds PTT Ratio POC Sodium (135-144) mmol/L Sodium (136-145) mmol/L POC Potassium (3.3-5.0) mmol/L Potassium (3.5-5.1) mmol/L POC Chloride (101-112) mmol/L Chloride (98-107) mmol/L Carbon Dioxide (21-32) mmol/L POC Total CO2 (24-31) mmol/L Anion Gap (3-11) POC Anion Gap (16-25) mmol/L POC BUN (7-18) mg/dl BUN (6-23) mg/dl Creatinine (0.6-1.4) mg/dl POC Creatinine (0.6-1.3) mg/dl Est Cr Clr Drug Dosing ml/min Est GFR ( Amer) ml/min Est GFR (Non-Af Amer) ml/min BUN/Creatinine Ratio (10-20) Glucose (70-99(Fasting)) mg/dl POC Glucose (other) (70-99) mg/dl Calcium (8.5-10.1) mg/dl POC Ioniz Calcium Prudence (1.12-1.32) mmol/l Magnesium (1.7-2.4) mg/dl Total Bilirubin (0.2-1.0) mg/dl AST (13-39) U/L ALT (7-52) U/L Alkaline Phosphatase (34-104) U/L Troponin I High Sens (0-20) pg/ml Total Protein (6.0-8.3) gm/dl Albumin (3.4-5.0) gm/dl Globulin (2.5-4.0) gm/dl Albumin/Globulin Ratio (0.9-2) SARS-CoV-2, RNA, NAAT NEGATIVE (NEGATIVE) Blood Type B Positive Antibody Screen NEGATIVE 02/09/22 02/09/22 02/09/22 Range/Units 22:35 22:35 22:38 WBC (4.8-10.8) K/ul RBC (4.63-6.08) M/uL Hgb (14.0-18.0) g/dl POC Hgb 16.7 (14.0-18.0) g/dl Hct (40.1-51.0) % POC Hct 49 (42-52) % MCV (80.0-100.0) fL MCH (25.0-34.0) pg MCHC (32.0-36.0) g/dL RDW Std Deviation (36.4-46.3) fL RDW Coeff of Aisha (11.5-14.5) % Plt Count (130-400) K/uL MPV (9.4-12.4) fL Immature Gran % (Auto) % Neut % (Auto) % Lymph % (Auto) % [place] % (Auto) % Eos % (Auto) % Baso % (Auto) % Neut # (Auto) (1.4-6.5) K/uL Lymph # (Auto) (1.2-3.4) K/uL [place] # (Auto) (0.24-0.82) K/uL Eos # (Auto) (0-0.50) K/uL Baso # (Auto) (0-0.2) K/uL Immature Gran # (Auto) (0.00-0.02) K/uL PT 10.4 (9.0-12.0) Seconds INR 1.0 (0.9-1.1) APTT 23.6 (21.0-31.0) Seconds PTT Ratio 0.9 POC Sodium 141 (135-144) mmol/L Sodium 139 (136-145) mmol/L POC Potassium 4.1 (3.3-5.0) mmol/L Potassium 4.1 (3.5-5.1) mmol/L POC Chloride 101 (101-112) mmol/L Chloride 104 (98-107) mmol/L Carbon Dioxide 29 (21-32) mmol/L POC Total CO2 27 (24-31) mmol/L Anion Gap 6 (3-11) POC Anion Gap 18.0 (16-25) mmol/L POC BUN 7 (7-18) mg/dl BUN 8 (6-23) mg/dl Creatinine 0.82 (0.6-1.4) mg/dl POC Creatinine 0.8 (0.6-1.3) mg/dl Est Cr Clr Drug Dosing 133.0 ml/min Est GFR ( Amer) 117.8 ml/min Est GFR (Non-Af Amer) 101.7 ml/min BUN/Creatinine Ratio 9.8 L (10-20) Glucose 179 H (70-99(Fasting)) mg/dl POC Glucose (other) 178 H (70-99) mg/dl Calcium 8.7 (8.5-10.1) mg/dl POC Ioniz Calcium Prudence 1.13 (1.12-1.32) mmol/l Magnesium 1.8 (1.7-2.4) mg/dl Total Bilirubin 0.6 (0.2-1.0) mg/dl AST 17 (13-39) U/L ALT 34 (7-52) U/L Alkaline Phosphatase 59 (34-104) U/L Troponin I High Sens 4.2 (0-20) pg/ml Total Protein 7.0 (6.0-8.3) gm/dl Albumin 4.2 (3.4-5.0) gm/dl Globulin 2.8 (2.5-4.0) gm/dl Albumin/Globulin Ratio 1.5 (0.9-2) SARS-CoV-2, RNA, NAAT (NEGATIVE) Blood Type Antibody Screen Imaging Data Attestation: I personally reviewed and interpreted this imaging study as follows: My Impression: Chest x-ray negative. Airway clear. No pneumothorax. No consolidation. No cardiomegaly or cephalization.. No free air under the diaphragm. No fractures of the skeletal structures. Radiologist's Impression: PreliminaryFindingsOnly See Final Report For Complete Findings CT HEAD:Comparison head CT 04/10/2021 Volume loss/encephalomalacia in the right parietal region with associated craniotomystatus post tumor excision, and ex vacuo dilatation of the atriumof the right lateral ventricle. Grosslystable compared with prior Stable scattered punctate calcifications in the right frontal lobe anterior to the focus of volume loss/encephalomalacia No intracran ial hemorrhage Minimal periventricular microvascular disease Radiologist: Gonzalez Glez MD Study ready at 23:13 and initial results transmitted at 23:25 PreliminaryFindingsOnly See Final Report For Complete Findings CTAHEAD:Comparison CT angiogramhead 04/10/2021 Absent A1 segment of the right ACAlikelyanatomic variation. The more distal branches of the ACAare normal What mayreflect origin left PCAis noted. The P1 segment of the left PCAis an atretic smallcaliber vessel. Findings grosslystable compared with prior No large vessel stenosis or occlusion Radiologist: Gonzalez Glez MD Study ready at 23:13 and initial results transmitted at 23:30 PreliminaryFindingsOnly See Final Report For Complete Findings CTANECK: No evidence for carotid or vertebral arterystenosis, occlusion or dissection Radiologist: Gonzalez Glez MD Study ready at 23:16 and initial results transmitted at 23:32 [facility] Narrative 2207: The patient was evaluated in room B8. A complete history and physical exam was performed Cardiac monitoring: An order was placed for continuous cardiac monitoring. The monitor shows a rate of 90 with sinus rhythm No stroke alert called as the patient has a history of craniotomy for resection of brain tumor as well as him not being in the window for TNKase since he woke up with symptoms. External medical records reviewed. Patient has had previous visits to the emergency department to this hospital for similar symptoms with left-sided weakness. At those times it has been thought that the patient's symptoms could be due to Nathan's paralysis because he is noncompliant with his seizure medications. Patient does report he is on Keppra and states he has missed a few doses lately. Will obtain labs and imaging. 2350: Vital signs stable. Labs and imaging within normal limits. It is unclear if the patient had a seizure and was suffering from Nathan's paralysis as he has in the past or had a TIA/CVA. Patient will be admitted to the [facility] team for further MRI imaging and neurology evaluation. Keppra level sent out for reference. Dr. Elizabeth [facility] was notified. Impression & Plan Left-sided weakness Discharge Plan Visit Data Chief Complaint: Weakness Stated Complaint: LEFT SIDE WEAKNESS ED Provider: Luis Manuel Chu Discharge Problem: Left-sided weakness Patient Disposition: Being Evaluated by Hospitalist Forms Stand Alone Forms: My [facility] Prescriptions Prescriptions: No Action levetiracetam 750 mg tablet 1,500 mg PO BID 30 Days Qty: 120 5RF Referrals Referrals: Ronald Hickman DO [Primary Care Provider] -
[2022-02-09 23:08] LABS: Partial Thromboplastin Ratio 0.9; Partial Thromboplastin Time 23.6 Seconds (21.0-31.0); Prothrombin Time 10.4 Seconds (9.0-12.0)
[2022-02-09 23:18] LABS: Albumin Globulin Ratio 1.5 (0.9-2); Albumin Level 4.2 gm/dl (3.4-5.0); BUN Creatinine Ratio 9.8 (10-20); Bilirubin,Total 0.6 mg/dl (0.2-1.0); Calcium 8.7 mg/dl (8.5-10.1); Est GFR (African American) 117.8 ml/min; Est GFR (Non-African American) 101.7 ml/min; Globulin 2.8 gm/dl (2.5-4.0); Magnesium 1.8 mg/dl (1.7-2.4); Potassium 4.1 mmol/L (3.5-5.1)
[2022-02-09 23:23] LABS: Troponin I High Sensitivity 4.2 pg/ml (0-20)
--- NOTE | 2022-02-10 00:38 | History & Physical Report ---
Date of Service February 10, 2022 Assessment & Plan (1) Left-sided weakness: Plan: 51-year-old male with history of glioblastoma status post resection in 2004, status posttreatment in 2009 with gamma knife in [facility] for small recurrence, known seizure disorder, some mild baseline left-sided weakness since his tumor resection presenting with progression of left lower extremity weakness, ambulatory dysfunction and increased frequency of falls. Patient denies head tr auma or seizure activity. Consider TIA/CVA, Nathan's paralysis following potential seizure, recurrence of malignancy Admit to medical with telemetry Neuro check every 4 hours Check MRI brain Neurology consultation appreciated PT/OT evaluation appreciated (2) Seizure disorder: Plan: Patient with history of seizure disorder. He is on Keppra. He does admit to missing some doses occasionally. Did take it today. He follows with neurology, last saw Dr. Salas in October 2021. Maintain seizure precautions Continue Keppra 1500 mg p.o. twice daily MRI brain as above Neurology consult as above FENHep-Lock, electrolytes within normal limits, regular diet as tolerated ProphylaxisSCDs to bilateral lower extremities CodeDNR/DNI per discussion with patient Dispoadmit to medical with telemetry History of Present Illness Chief Complaint: left sided weakness Primary Care Provider: Ronald Hickman DO Ziggy Jones is a pleasant 51yo male with history of right parietal glioblastoma s/p resection in 2004, s/p XRT, Temozolomide and gamma knife performed in 2009 for a mild recurrence. Patient with history of complex partial seizures for which he takes Keppra. Follows with Neurology - last seen in October 2021. Patient reports that since his surgery he has had some mild weakness of his LUE with occasional stiffness and tremor. Also with some LLE weakness as well. He feels that his LLE symptoms have been progressing over the last year with significant worsening over the last several weeks. He has difficulty ambulating - states that his gait appears unsteady. He has a difficult time lifting his left leg with ambulation and has been dragging his left foot which has been causing him to fall. He feels that his left leg will give out now when he puts weight on it. Today he fell three times - no LOC, no head trauma. No additional complaints. No fever, chills, chest pain, nausea, vomiting, diarrhea or constipation. No recent seizure activity. In the ER he is afebrile, hypertensive otherwise HD stable, NAD ER Course: no medications given Allergies Allergy/AdvReac Type Severity Reaction Status Date / Time bacitracin Allergy Intermediate Rash Verified 02/09/22 22:40 [From Neosporin ([id number])] neomycin Allergy Intermediate Rash Verified 02/09/22 22:40 [From Neosporin ([id number])] polymyxin B Allergy Intermediate Rash Verified 02/09/22 22:40 [From Neosporin ([id number])] Home Medications Medication Instructions Recorded Confirmed Type levetiracetam 750 mg tablet 1,500 mg PO BID 30 days #120 tabs 11/01/21 02/09/22 Rx Past Med/Surg History Medical History Brain cancer Renal stone Seizure Surgical History S/P cholecystectomy Status post craniectomy Family History Mother No problems noted. Father , the diagnose 60s of lung cancer Lung cancer Social History Smoking Status: Never smoker Second Hand Exposure: Yes; Hx Alcohol Use: Yes Alcohol type: beer Alcohol Intake Frequency Comment: 4 beers per week every 1-2 weeks Hx Substance Use: Yes Last Used Substance: Unknown Preferred Language: Sinhala Communication Ability: Effective Diversified Crops Supervisor Required: No Beliefs That Will Affect Care: None marital status: Current Living Situation: Spouse current occupational status: unemployed current occupation: former [employer] How many Children do You have: 4 Feels Safe at Home: Yes Assistive Devices: Walker Review of Systems Review of Systems: All systems reviewed & are unremarkable except as noted in HPI & below Physical Exam Physical Exam: General: patient resting comfortably, NAD, non-toxic in appearance, AA&O x 4 Skin: warm, dry, intact, no rashes or lesions HEENT: NC/AT, PERRL, EOMI, anicteric sclera, conjunctiva without injection, external ear normal to inspection and nontender, nares patent, moist mucus membranes, dentition intact, no oropharyngeal lesions, neck supple, trachea midline, no LAD, no thyromegaly, no JVD Heart: +S1/S2, regular, no m/r/g Lungs: equal air entry bilaterally, no rales/rhonchi/wheezes Abd: +BS, soft, NT/ND, no masses/organomegaly/ascites Ext: warm, 2+ pulses in UE/LE bilaterally, no clubbing/cyanosis or edema Neuro: AA&O, speech clear and appropriate, no facial droop, CN II - XII grossly intact, sensation to light touch intact, LUE with some stiffness, mild tremor, fasciculation and mild weakness 4/5, LLE with strength intact. Gait not assessed Results & Data Results & Data ([facility]) Vital Signs (Past 12 Hours) Vital Signs Temp Pulse Resp BP Pulse Ox O2 Del Method 02/09/22 23:30 76 18 163/96 H 97 02/09/22 23:22 88 18 170/99 H 98 02/09/22 22:39 80 16 97 02/09/22 21:56 97 Room Air 02/09/22 21:59 36.5 C 90 20 148/94 H 96 Room Air Laboratory Results Laboratory Results WBC 10.34 K/ul (4.8-10.8) 02/09/22 22:35 RBC 5.50 M/uL (4.63-6.08) 02/09/22 22:35 Hgb 17.0 g/dl (14.0-18.0) 02/09/22 22:35 POC Hgb 16.7 g/dl (14.0-18.0) 02/09/22 22:38 Hct 49.4 % (40.1-51.0) 02/09/22 22:35 POC Hct 49 % (42-52) 02/09/22 22:38 MCV 89.8 fL (80.0-100.0) 02/09/22 22:35 MCH 30.9 pg (25.0-34.0) 02/09/22 22:35 MCHC 34.4 g/dL (32.0-36.0) 02/09/22 22:35 RDW Std Deviation 38.5 fL (36.4-46.3) 02/09/22 22:35 RDW Coeff of Aisha 11.8 % (11.5-14.5) 02/09/22 22:35 Plt Count 197 K/uL (130-400) 02/09/22 22:35 MPV 11.1 fL (9.4-12.4) 02/09/22 22:35 Immature Gran % (Auto) 0.4 % 02/09/22 22:35 Neut % (Auto) 71.6 % 02/09/22 22:35 Lymph % (Auto) 22.1 % 02/09/22 22:35 [place] % (Auto) 4.5 % 02/09/22 22:35 Eos % (Auto) 0.8 % 02/09/22 22:35 Baso % (Auto) 0.6 % 02/09/22 22:35 Neut # (Auto) 7.41 K/uL (1.4-6.5) H 02/09/22 22:35 Lymph # (Auto) 2.28 K/uL (1.2-3.4) 02/09/22 22:35 [place] # (Auto) 0.47 K/uL (0.24-0.82) 02/09/22 22:35 Eos # (Auto) 0.08 K/uL (0-0.50) 02/09/22 22:35 Baso # (Auto) 0.06 K/uL (0-0.2) 02/09/22 22:35 Immature Gran # (Auto) 0.04 K/uL (0.00-0.02) H 02/09/22 22:35 PT 10.4 Seconds (9.0-12.0) 02/09/22 22:35 INR 1.0 (0.9-1.1) 02/09/22 22:35 APTT 23.6 Seconds (21.0-31.0) 02/09/22 22:35 PTT Ratio 0.9 02/09/22 22:35 POC Sodium 141 mmol/L (135-144) 02/09/22 22:38 Sodium 139 mmol/L (136-145) 02/09/22 22:35 POC Potassium 4.1 mmol/L (3.3-5.0) 02/09/22 22:38 Potassium 4.1 mmol/L (3.5-5.1) 02/09/22 22:35 POC Chloride 101 mmol/L (101-112) 02/09/22 22:38 Chloride 104 mmol/L (98-107) 02/09/22 22:35 Carbon Dioxide 29 mmol/L (21-32) 02/09/22 22:35 POC Total CO2 27 mmol/L (24-31) 02/09/22 22:38 Anion Gap 6 (3-11) 02/09/22 22:35 POC Anion Gap 18.0 mmol/L (16-25) 02/09/22 22:38 POC BUN 7 mg/dl (7-18) 02/09/22 22:38 BUN 8 mg/dl (6-23) 02/09/22 22:35 Creatinine 0.82 mg/dl (0.6-1.4) 02/09/22 22:35 POC Creatinine 0.8 mg/dl (0.6-1.3) 02/09/22 22:38 Est Cr Clr Drug Dosing 133.0 ml/min 02/09/22 22:35 Est GFR ( Amer) 117.8 ml/min 02/09/22 22:35 Est GFR (Non-Af Amer) 101.7 ml/min 02/09/22 22:35 BUN/Creatinine Ratio 9.8 (10-20) L 02/09/22 22:35 Glucose 179 mg/dl (70-99(Fasting)) H 02/09/22 22:35 POC Glucose (other) 178 mg/dl (70-99) H 02/09/22 22:38 Calcium 8.7 mg/dl (8.5-10.1) 02/09/22 22:35 POC Ioniz Calcium Prudence 1.13 mmol/l (1.12-1.32) 02/09/22 22:38 Magnesium 1.8 mg/dl (1.7-2.4) 02/09/22 22:35 Total Bilirubin 0.6 mg/dl (0.2-1.0) 02/09/22 22:35 AST 17 U/L (13-39) 02/09/22 22:35 ALT 34 U/L (7-52) 02/09/22 22:35 Alkaline Phosphatase 59 U/L (34-104) 02/09/22 22:35 Troponin I High Sens 4.2 pg/ml (0-20) 02/09/22 22:35 Total Protein 7.0 gm/dl (6.0-8.3) 02/09/22 22:35 Albumin 4.2 gm/dl (3.4-5.0) 02/09/22 22:35 Globulin 2.8 gm/dl (2.5-4.0) 02/09/22 22:35 Albumin/Globulin Ratio 1.5 (0.9-2) 02/09/22 22:35 SARS-CoV-2, RNA, NAAT NEGATIVE (NEGATIVE) 02/09/22 22:30 Blood Type B Positive 02/09/22 22:35 Antibody Screen NEGATIVE 02/09/22 22:[address] head per stat radcomparison CT head from 04/10/2009 Volume loss/encephalomalacia in the right parietal region with associated craniotomy status post tumor excision, and ex vacuo dilatation of the atrium of the right lateral ventricle. Grossly stable compared with prior. Stable scattered punctate calcifications in the right frontal lobe anterior to the focus of volume loss/encephalomalacia. No intracranial hemorrhage. Minimal periventricular microvascular disease CTA head: Per stat radabsent A1 segment of the right ALEKSANDER likely anatomic variation. The more distal branches of the ALEKSANDER are normal. May reflect origin left WIPING CLOTH CUTTER is noted. The P1 segment of the left WIPING CLOTH CUTTER is in a treated small caliber vessel. Findings grossly stable compared with prior. No large vessel stenosis or occlusion. CTA neck: Per stat radno evidence for carotid or vertebral artery stenosis, occlusion or dissection Code Status & VTE Plan VTE Prophylaxis Plan VTE Prophylaxis will be ordered: Yes PG Care Time/CCT Total # of Minutes Spent Total Time Spent with Patient: Total time spent is greater than 50% in coordination of care (as documented) at patient's floor/unit and/or counseling patient: Coding Level of Care Code 93095 Initial Inpt Care Lvl 2 Diagnoses Left-sided weakness R53.1 Seizure disorder G40.909
[2022-02-10] MEDS ORDERED: GADOBUTROL 65ML VIAL IV ONE (05:50)
--- NOTE | 2022-02-10 06:38 | XRay Report ---
XR chest 1V portable HISTORY: 51 years-old Male neuro deficit, acute stroke suspected acute strokelike symptoms COMPARISON: 04/10/2021 TECHNIQUE: AP view of the chest FINDINGS: Cardiomediastinal and hilar silhouettes are within normal limits. There is no pneumothorax, pleural e ffusion, airspace consolidation or overt pulmonary edema. Degenerative changes of the shoulders and s pine. IMPRESSION: No acute process. ACT 112: Negative or not required by law. The above report was generated using voice recognition software. It may contain grammatical, syntax o r spelling errors. Electronically signed by: Jr Downs M.D. 02/10/2022 6:36 AM
[2022-02-10] MEDS: levETIRAcetam 500 MG TAB PO SCH ×2 (07:48→20:34)
--- NOTE | 2022-02-10 07:51 | CT Scan Report ---
CT OF THE HEAD WITHOUT CONTRAST CLINICAL HISTORY: neuro deficit, acute stroke suspected. Left-sided weakness. History of glioblastoma . COMPARISON STUDY: MRI of the brain May 14, 2021. Head CT and CTA of the head April 10, 2021. TECHNIQUE: Helical axial images of the head were obtained without IV contrast. Automated exposure con trol was utilized for the study. A dose lowering technique was utilized adhering to the principles o f ALARA. FINDINGS: Right craniotomy is noted. Right parietal encephalomalacia is unchanged with associated dil atation of the right lateral ventricle. Basal cisterns are patent. No acute intracranial hemorrhage, midline shift or mass effect is present. Postoperative appearance is similar to prior exam. A 9 mm hy podensity within the right basal ganglia on axial image 13 of 32 is new since prior head CT and MRI. Lucencies within the calvarium remain unchanged. These may be postsurgical. There is no acute calvari al fracture. Mild ethmoid sinus mucosal thickening is present. IMPRESSION: 1. No acute intracranial hemorrhage. Stable postoperative findings following right sided craniotomy. 2. 9 mm hypodensity within the right basal ganglia which is new since prior head CT and MRI. This fav ors a small acute infarct. ACT 112: Negative or not required by law. Electronically signed by: Han Woodruff M.D. 02/10/2022 7:50 AM
--- NOTE | 2022-02-10 08:01 | CT Scan Report ---
CTA ANGIOGRAPHY OF THE HEAD CLINICAL HISTORY: neuro deficit, acute stroke suspected. Left-sided weakness. COMPARISON STUDY: MRI of the brain May 14, 2021 and CTA of the head April 10, 2021. TECHNIQUE: Helical axial images of the head were obtained following uneventful intravenous administr ation of 113 cc of Optiray. Sagittal and coronal reconstructions were viewed as well as maximal inten sity projections on an independent 3-D workstation. Automated exposure control was utilized for the study. A dose lowering technique was utilized adhering to the principles of ALARA. CT DOSE: 1271.58 mGy.cm FINDINGS: Please note that the head CT will be reported separately. No acute intracranial hemorrhage, midline shift or mass effect is present. There are stable postoperative findings within the right pa rietal lobe with encephalomalacia and dilatation of the right lateral ventricle. Appearance of the cr aniotomy is unchanged. 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 There is no cent ral vessel occlusion. persistence of the bilateral posterior cerebral arteries is noted. There is no intracranial aneurysm. Appearance of the intracranial circulation is similar to prior exam. Allen or dural sinuses are patent. IMPRESSION: 1. No central vessel occlusion. No intracranial aneurysm. No significant change since CTA of April 10, 2021. 2. Stable postoperative findings following right sided craniotomy with right parietal encephalomalaci a. ACT 112: Negative or not required by law. Electronically signed by: Han Woodruff M.D. 02/10/2022 7:59 AM
--- NOTE | 2022-02-10 09:00 | Neurology Consultation ---
Date of Consultation February 10, 2022 Assessment & Plan (1) Acute left-sided weakness: (2) H/O malignant neoplasm of brain: (3) Seizure disorder: Plan patient had an exacerbation of his left-sided weakness of an acute nature on February 09. He has left arm greater than leg weakness currently and no other neurologic deficits, meningeal signs, or encephalopathy. MRI of the brain is consistent with a right basal ganglia acute stroke (I reviewed these films with Dr. Downs). This is likely small-vessel ischemia and he has risk factors including previous radiation to the brain, history of significant alcohol use in the past, and more concerning, hypertension. His glucose is elevated and he has no history of dyslipidemia. I believe he used to smoke cigarettes in the past. Patient has a history of a right parietal glioblastoma multiforme, post surgery, radiation, and gamma knife. He has not had a recurrence of the tumor for over 10 years. He has a history of seizure disorder secondary to the tumor and treatment but he seems to be fairly well controlled on levetiracetam 1500 milligrams twice daily. Recommendations: 1. Awaiting CT angiography of the neck results. 2. Consider echocardiogram ( most recent echocardiogram was in April of 2021 and was unremarkable) 3. Awaiting levetiracetam level. 4. Initiate 81 milligram aspirin tablet daily. 5. Control blood pressure as you are doing 6. obtain hemoglobin A1c and fasting lipid profile 7. Increase activity as able and the patient needs physical and occupational therapy consult. Overall, I spent a total of 60 minutes with this case including review of records, review of MRI films, direct evaluation the patient at bedside, and discussion of the case with the patient and RN at bedside, Dr. Downs, and Dr. Antonio, including differential diagnosis and treatment options. History of Present Illness Reason for Consultation: Patient is a 51-year-old, who I was asked to see the request of Dr. Elizabeth, for neurologic consultation regarding new onset left-sided weakness. Requesting Physician: Dr. Paulino Attending Physician: Ana Elizabeth, DO History of Present Illness This patient had a right parietal glioblastoma multiforme removal in [place] by Dr. Davis in 2004. he apparently received radiation therapy to the head ( unknown dose or extent ) and Temodar pills for about 2 or 3 years and then he stopped. He had a recurrence (Unknown extent/degree) around 2009 and then had Gamma Knife radiation. Apparently, he has had no recurrence of the tumor since. Patient had tonic-clonic seizures initially and was put on phenytoin and levetiracetam. He stopped the phenytoin a few years ago because it affected his liver and gave him other side effects.he remained on levetiracetam 750 mg twice daily, he admitted to not taking medication regularly. in December of 2020 he was drinking multiple beers and woke up with left arm greater than leg weakness. He also had a headache with this. MRI of the brain revealed no new tumor recurrence and the area of old right parieto-occipital encephalomalacia and craniotomy changes. Patient had some focal motor seizures and was given IV Vimpat 100 mg twice a day. Keppra was increased to a total of 1500 mg twice daily. was also given some phenytoin but this was discontinued after admission. He went to the rehabilitation hospital for a week and continued on both anticonvulsants. The patient tells me the stopped all alcohol usage around that time. Patient tells me that he stopped Vimpat not too long after leaving the rehab hospital. He claims that the co-pay was "1000 dollars a month". I saw him in April of 2021 after a seizure. He was not taking levetiracetam very compliantly. the patient has been on Levetiracetam 1500 milligrams twice daily , and last saw Dr. Salas in October of 2021. On February 08, he had a good day. He woke up at 02:00 on February 09 with some left leg weakness. He felt his arm was normal at that. He went back to bed and woke up around 6 a.m. and his arm and his leg were both weak. Tried to get her room and had trouble ambulating and using his left arm. He went the whole day without improvement decided to go to the emergency room in the even ing. Patient arrived to the emergency room at 21:59, with temperature 36.5, pulse 90 and regular, respiratory rate 20, blood pressure 140/94, and O2 saturation 96 percent. In the emergency room he was noted to be weak in the left arm and leg. He had no other deficits symptoms. Chest x-ray was unremarkable. CT scan of the head showed probable new right basal ganglia lesion. CT angiography of the head was unremarkable. CT angiography of the neck Report is pending. MRI of the brain was performed and the final result is pending. I reviewed these films and he seems to have a small to medium acute right basal ganglia lesion. He does not enhance. There is no mass effect. This is most consistent with a small stroke. I see no evidence of tumor recurrence. This morning the patient has had no headache, vision problems, dizziness, or confusion. He has no speech problems. He continues to have left arm greater than left leg weakness (the leg may be a little stronger than was yesterday but the arm is the same to worse). There is no numbness or tingling in the limbs. CBC and Chem profile remarkable only for mildly elevated glucose in 70s. Blood pressure is 147/89 this Morning. Allergies Allergy/AdvReac Type Severity Reaction Status Date / Time bacitracin Allergy Intermediate Rash Verified 02/09/22 22:40 [From Neosporin ([id number])] neomycin Allergy Intermediate Rash Verified 02/09/22 22:40 [From Neosporin ([id number])] polymyxin B Allergy Intermediate Rash Verified 02/09/22 22:40 [From Neosporin ([id number])] Home Medications Medication Instructions Recorded Confirmed Type levetiracetam 750 mg tablet 1,500 mg PO BID 30 days #120 tabs 11/01/21 02/09/22 Rx Patient History Medical History Brain cancer Renal stone Seizure Surgical History S/P cholecystectomy Status post craniectomy Family History Mother No problems noted. Father , the diagnose 60s of lung cancer Lung cancer Social History Smoking Status: Former smoker Cigarettes Per Day: 0; Smoking End Date: Per pt quit smoking a long time ago; currently chews tobacco; Second Hand Exposure: Yes; Do You Dip or Chew Tobacco: Yes; Tobacco Cessation Education Requested by Patient: No Hx Alcohol Use: Yes Alcohol type: beer Alcohol Intake Frequency Comment: 4 beers per week every 1-2 weeks Hx Substance Use: Yes Last Used Substance: Days (ago) Last Used Substance Other:: 02/09/22 Preferred Language: Andorran Communication Ability: Effective Baked And Graphite Inspector Required: No Beliefs That Will Affect Care: None marital status: Current Living Situation: Family current occupational status: unemployed current occupation: former [employer] How many Children do You have: 4 Other Information That Helps Us Care for You: No Feels Safe at Home: Yes Safety Concerns: Feels Safe At This Time Assistive Devices: None and Walker Review of Systems Constitutional: + weakness; no fever and no fatigue Eyes: no diplopia, no eye pain and no worsening vision Ear, Nose, Mouth, Throat: no ear pain, no tinnitus, no hearing loss, no dizziness, no snoring, no hoarseness and no dysphagia Respiratory: no cough and no dyspnea Cardiovascular: no chest pain, no palpitations and no lightheadedness Gastrointestinal: no abdominal pain, no nausea and no vomiting Musculoskeletal: no back pain, no neck pain, no radicular pain, no joint pain and no myalgia Integumentary: no rash and no lesions Neurologic: + gait abnormality and + localized weakness; no generalized weakness, no tingling, no numbness, no tremor(s), no abnormal movements, no headache(s), no abnormal speech, no confusion and no memory loss Psychiatric: no depression, no irritability, no anxiety, no difficulty concentrating, no confusion and no hallucinations Endocrine: no fatigue and no flushing Hematologic / Lymphatic: no easy bleeding and no easy bruising Allergy / Immunological: no urticaria and no problem reported Exam (Neuro) Physical Exam: The patient is ambidextrous The patient is awake, alert, and attentive. Speech is normal without any aphasia or dysarthria. The patient can name objects, repeat phrases, and has normal spontaneous speech. Mentation and thought processes are intact, with orientation to person, place and time, and normal fund of knowledge. Attention and concentration are normal. Mood and affect are normal and appropriate. General appearance and grooming are normal. Short and long-term memory are intact. Pupils are 4 mm bilaterally and reactive to light. Extraocular eye muscles are intact without nystagmus. Visual acuity and visual cox seem normal grossly to confrontation. There are no deficits to sensation in the face in all 3 distributions of the fifth cranial nerve bilaterally. Corneal reflexes are positive bilaterally. Facial strength and symmetry was normal bilaterally. Hearing seems normal bilaterally. Palate moves well without asymmetry. There is normal sternocleidomastoid and trapezius (shoulder shrug) strength bilaterally. Tongue is midline with good strength bilaterally. Neck has a full range of motion without discomfort. There are no cervical bruits bilaterally. There are no cranial or ocular bruits. Heart is without murmur. There is a regular rhythm and rate. Cervical, thoracic, and lumbar spine are nontender to palpation. Gait is cautious and he limps favoring the left leg. Stance is reasonable once he is in the sitting position. Is very difficult for him to go from sitting to standing position because of the left leg weakness. With outstretched arms there is drift in the left upper extremity. There is no drift to the left lower extremity. There are no resting, postural, or action tremors. There is no ataxia with finger to nose testing. There is good facility in the Right hand, but decreased facility in the left hand. No other abnormal involuntary movements are noted. Motor strength is 5/5 diffusely in the Right upper extremity including deltoids, biceps, triceps, brachioradialis, wrist flexors and extensors, transportation planner, and intrinsic hand muscles. these muscles are 4/5 diffusely in the left upper extremity. Motor strength is 5/5 diffusely in the Right lower extremity, including hip flexors, quadriceps, hamstrings, gastrocnemius, tibialis anterior, tibialis posterior, and Peroneii muscles. left lower extremity is fairly close to 5/5 diffusely although proximally he may have some very mild weakness at 4+/5 Toe extensors are normal and there is good bulk in the extensor digitorum brevis muscles bilaterally. The limbs have good tone without rigidity or spasticity. There is no atrophy noted in the muscles. Muscle bulk is normal, there is no tenderness to palpation, no myotonia to percussion, and no fasciculations seen. Sensory examination is intact to touch and pin throughout all 4 limbs diffusely. Reflexes are 2/4 in the biceps, triceps, brachioradialis, quadriceps, and Achilles tendons bilaterally. There is no clonus bilaterally. Toes are downgoing with plantar stimulation bilaterally. Peripheral pulses are present and of normal quality distally in all 4 limbs. There is no peripheral edema noted in the limbs. Results & Data ([facility]) Vital Signs (Past 12 Hours) Vital Signs Temp Pulse Pulse Resp BP BP Pulse Ox 02/10/22 06:00 81 02/10/22 07:42 36.9 C 78 16 147/89 H 94 02/10/22 03:41 02/10/22 03:41 36.5 C 20 149/85 H 97 02/09/22 23:30 76 18 163/96 H 97 02/09/22 23:22 88 18 170/99 H 98 02/09/22 22:39 80 16 97 02/09/22 21:56 97 02/09/22 21:59 36.5 C 90 20 148/94 H 96 O2 Del Method 02/10/22 06:00 02/10/22 07:42 Room Air 02/10/22 03:41 Room Air 02/10/22 03:41 Room Air 02/09/22 23:30 02/09/22 23:22 02/09/22 22:39 02/09/22 21:56 Room Air 02/09/22 21:59 Room Air PG Care Time/CCT Total # of Minutes Spent Total Time Spent with Patient: Total time spent is greater than 50% in coordination of care (as documented) at patient's floor/unit and/or counseling patient: Coding Level of Care Code INT OBSERVATION CARE 70M LVL 3 Diagnoses Acute left-sided weakness R53.1 H/O malignant neoplasm of brain Z85.841 Seizure disorder G40.909 Time Spent (min) 60
--- NOTE | 2022-02-10 09:25 | Magnetic Resonance Report ---
MRI OF THE BRAIN WITHOUT AND WITH IV CONTRAST CLINICAL HISTORY: Left sided weakness, h/o glioblastoma. COMPARISON STUDY: MRI of the brain May 14, [address] and CTA of the head February 09, 2022. TECHNIQUE: Utilizing a 1.5 Sarah magnet and dedicated coil, multiplanar, multiecho imaging of the br ain was performed pre and postcontrast administration. IV administration of 11 mL of [address] contra st was uneventful. Thin cut T1 post contrast imaging was performed. FINDINGS: Note is made of a 1.6 cm focus of restricted diffusion within the right basal ganglia and r ight torrez radiata consistent with an acute infarct. There is no mass effect. There is no acute hemo rrhage. No additional acute infarcts are present. Stable postoperative findings following right sided craniotomy with encephalomalacia centered within the right parietal lobe are present. Associated dil atation of the occipital horn of the right lateral ventricle is unchanged. There is no suspicious enh ancement to suggest tumor recurrence. Encephalomalacia within the anterior right temporal lobe and th e anterior bilateral frontal lobes remains unchanged. Basal cisterns are patent. Small white matter T 2 hyperintense foci suggest small vessel disease. Scattered small foci susceptibility biliary artifac t on the gradient echo sequence remain unchanged. The appearance of the calvarium is unchanged. IMPRESSION: 1. 1.6 cm acute infarct within the right basal ganglia and torrez radiata. No mass effect. No hemorrh age. 2. Stable postoperative findings following right sided craniotomy with encephalomalacia centered with in the right parietal lobe. No evidence for tumor recurrence. ACT 112: Negative or not required by law. Electronically signed by: Han Woodruff M.D. 02/10/2022 9:23 AM
--- NOTE | 2022-02-10 09:34 | CT Scan Report ---
CT angio neck with con CLINICAL HISTORY: 51 years-old Male with neuro deficit, acute stroke suspected. Acute strokelike s ymptoms with left-sided weakness COMPARISON STUDY: CTA of the head of same day, CTA neck 04/10/2021 TECHNIQUE: Following the IV administration of 113 mL of Optiray, CT angiogram of the neck was perform ed from the aortic arch to the skull base. Images are reviewed in the axial, sagittal, and coronal pl anes. 3-D MIPS images are created and assessed. IV contrast was administered without complication. Al l measurements were calculated based on NASCET criteria. A dose lowering technique was utilized adhe ring to the principles of ALARA. FINDINGS: The aortic arch and proximal great vessels are widely patent. There is no significant stenosis, occlu eric, or dissection identified within the bilateral common carotid, internal carotid, or vertebral ar teries. Portions of the vertebral arteries are suboptimally dilated secondary to opacified adjacent v enous structures. There is mild mucosal thickening of the ethmoid air cells. The lung apices appear clear. Degenerative changes of the cervical and thoracic spine. IMPRESSION:Unremarkable CTA of the neck. ACT 112: Negative or not required by law. The above report was generated using voice recognition software. It may contain grammatical, syntax o r spelling errors. Electronically signed by: Jr Downs M.D. 02/10/2022 9:33 AM
[2022-02-10] MEDS ORDERED: ACETAMINOPHEN 325 MG TAB PO PRN (15:13)
--- NOTE | 2022-02-10 18:58 | Electrocardiogram Report ---
Test Reason : Blood Pressure : / mmHG Vent. Rate : 078 BPM Atrial Rate : 078 BPM P-R Int : 162 ms QRS Dur : 098 ms QT Int : 386 ms P-R-T Axes : 067 -49 008 degrees QTc Int : 440 ms Poor data quality, interpretation may be adversely affected Sinus rhythm with marked sinus arrhythmia Left anterior fascicular block Moderate voltage criteria for LVH, may be normal variant Abnormal ECG When compared with ECG of 10-APR-2021 19:58, Right bundle branch block is no longer Present Minimal criteria for Septal infarct are no longer Present Confirmed by Prince Woods ([id number]) on 02/10/2022 6:58:44 PM Referred By: REFERRED SELF Confirmed By:Germán Woods
[2022-02-10] MEDS ORDERED: HYDROmorphone INJ 0.5 MG/0.5 ML SYR IV STA (22:01)
[2022-02-11 06:14] LABS: Basophils # (auto) 0.05 K/uL (0-0.2); Basophils % (auto) 0.7 %; Eosinophils # (auto) 0.12 K/uL (0-0.50); Eosinophils % (auto) 1.6 %; Hematocrit (blood only) 46.6 % (40.1-51.0); Hemoglobin 16.1 g/dl (14.0-18.0); Immature Granulocytes # (auto) 0.02 K/uL (0.00-0.02); Immature Granulocytes % (auto) 0.3 %; Lymphocytes # (auto) 2.36 K/uL (1.2-3.4); Lymphocytes % (auto) 31.8 %; Mean Corpuscular Hemoglobin 30.8 pg (25.0-34.0); Mean Corpuscular Hgb Conc 34.5 g/dL (32.0-36.0); Mean Corpuscular Volume 89.1 fL (80.0-100.0); Monocytes # (auto) 0.43 K/uL (0.24-0.82); Monocytes % (auto) 5.8 %; Neutrophils # (auto) 4.44 K/uL (1.4-6.5); Neutrophils % (auto) 59.8 %; Platelet Count 178 K/uL (130-400); RDW Coefficient of Variation 11.8 % (11.5-14.5); RDW Standard Deviation 37.7 fL (36.4-46.3); Red Blood Count 5.23 M/uL (4.63-6.08); White Blood Count 7.42 K/ul (4.8-10.8)
[2022-02-11 06:35] LABS: BUN Creatinine Ratio 14.1 (10-20); Calcium 8.5 mg/dl (8.5-10.1); Creatinine Clr Calc Pharmacy 153.6 ml/min; Est GFR (Non-African American) 107.9 ml/min
[2022-02-11] MEDS: levETIRAcetam 500 MG TAB PO SCH ×2 (09:23→20:13)
--- NOTE | 2022-02-11 12:40 | Neurology Progress Note ---
Date of Service February 11, 2022 Assessment & Plan (1) Acute left-sided weakness: (2) H/O malignant neoplasm of brain: (3) Seizure disorder: Plan Patient had the acute onset of an exacerbation of his left-sided weakness of an acute nature on February 09. He has left arm greater than leg weakness currently and no other neurologic deficits, meningeal signs, or encephalopathy. Today, he is improved compared to yesterday. MRI of the brain is consistent with a right basal ganglia acute stroke (I reviewed these films with Dr. Downs). This is likely small-vessel ischemia and he has risk factors including previous radiation to the brain, history of significant alcohol use in the past, and more concerning, hypertension. His glucose is elevated and he has no history of dyslipidemia. I believe he used to smoke cigarettes in the past. Patient has a history of a right parietal glioblastoma multiforme, post surgery, radiation, and gamma knife. He has not had a recurrence of the tumor for over 10 years. The MRI of the brain shows no tumor recurrence. He has a history of seizure disorder secondary to the tumor and treatment but he seems to be fairly well controlled on levetiracetam 1500 milligrams twice daily. Recommendations: 1. Consider echocardiogram ( most recent echocardiogram was in April of 2021 and was unremarkable) 2. Awaiting levetiracetam level. 3. Initiate 81 milligram aspirin tablet daily. 4. Control blood pressure as you are doing 5. obtain hemoglobin A1c and fasting lipid profile 6. Increase activity as able and the patient needs physical and occupational therapy consult. Overall, I spent a total of 25 minutes with this case including review of records, direct evaluation the patient at bedside, and discussion of the case with the patient and RN at bedside, and Dr. Antonio, including differential diagnosis and treatment options. Admission and Anticipated Discharge Date Admission Date: February 10, 2022 Subjective Patient continues to have some left-sided weakness arm greater than leg had some balance problems. Nursing reports that his gait was unbalanced and difficult. MRI of the brain showed the right basal ganglia stroke of an acute nature. CT angiography of the neck was unremarkable with no significant vascular stenoses. CBC and Chem profile were unremarkable except for glucose of 169. levetiracetam level is still pending. Blood pressure today was 146/69 and he is afebrile. Results & Data ([facility]) Vital Signs (Past 12 Hours) Vital Signs Temp Pulse Pulse Resp BP Pulse Ox O2 Del Method 02/11/22 11:26 36.6 C 76 20 146/69 H 93 Room Air 02/11/22 07:53 36.7 C 68 18 161/98 H 97 Room Air 02/11/22 07:31 73 02/11/22 02:36 36.4 C L 62 18 146/80 H 97 Room Air Exam (Neuro) Physical Exam: He is awake and alert. Speech is without obvious aphasia or dysarthria. Mood is reasonable and affect is appropriate. Thought processes are intact conversation. There is no facial droop and extraocular muscles are intact without nystagmus. He has no abnormal involuntary movements and no tremor. there is drift in the left upper extremity thought not the leg. The leg seems improved being closer to 5/5 diffusely. The left arm is improved in strength but is very clumsy in the hand. PG Care Time/CCT Total # of Minutes Spent Total Time Spent with Patient: Total time spent is greater than 50% in coordination of care (as documented) at patient's floor/unit and/or counseling patient: Coding Level of Care Code 42941 Subseq Hosp Care Lvl 2 Diagnoses Acute left-sided weakness R53.1 H/O malignant neoplasm of brain Z85.841 Seizure disorder G40.909 Time Spent (min) 25
--- NOTE | 2022-02-11 13:24 | Hospitalist Progress Note ---
Date of Service February 11, 2022 Assessment & Plan (1) Left-sided weakness: Plan: 51-year-old male with history of glioblastoma status post resection in 2004, status posttreatment in 2009 with gamma knife in [facility] for small recurrence, known seizure disorder, some mild baseline left-sided weakness since his tumor resection presenting with progression of left lower extremity weakness, ambulatory dysfunction and increased frequency of falls. Patient denies head tr auma or seizure activity. Consider TIA/CVA, Nathan's paralysis following potential seizure, recurrence of malignancy Neurology input appreciated Patient has basal ganglier CVA Continue antiplatelet with aspirin Check echo as per neurology Needs good glycemic control and blood pressure control to address risk factors (2) Seizure disorder: Plan: Patient with history of seizure disorder. He is on Keppra. He does admit to missing some doses occasionally. Did take it today. He follows with neurology, last saw Dr. Salas in October 2021. Maintain seizure precautions Continue Keppra 1500 mg p.o. twice daily Check Keppra level Admission and Anticipated Discharge Date Admission Date: February 10, 2022 Subjective Patient has right upper back and shoulder pain that has been chronic but exacerbated Patient has left-sided weakness, arm greater than the leg still present but improved since admission No fevers or chills Physical Exam Physical Exam: Constitutional: no acute distress, Vitals as above. HEENT: No scleral injection or discharge. . Clear oropharynx without exudate. Neck: Supple without lymphadenopathy or thyromegaly. Trachea midline. Lungs: Clear to auscultation bilaterally with good effort. Cardiac: Normal rhythm. No murmurs. trace extremity edema. Abdomen:Bowel sounds present. Soft and nondistended. MSK: No cyanosis or clubbing. Skin: No rashes, warm, dry. Neurologic: Left-sided weakness noted. Results & Data Results & Data ([facility]) Vital Signs (Past 12 Hours) Vital Signs Temp Pulse Pulse Resp BP Pulse Ox O2 Del Method 02/11/22 11:26 36.6 C 76 20 146/69 H 93 Room Air 02/11/22 07:53 36.7 C 68 18 161/98 H 97 Room Air 02/11/22 07:31 73 02/11/22 02:36 36.4 C L 62 18 146/80 H 97 Room Air Laboratory Results Short CBC 02/11/22 Range/Units 05:57 WBC 7.42 (4.8-10.8) K/ul Hgb 16.1 (14.0-18.0) g/dl Hct 46.6 (40.1-51.0) % Plt Count 178 (130-400) K/uL BMP 02/11/22 05:57 Sodium 139 Potassium 4.0 Chloride 105 Carbon Dioxide 30 BUN 10 Creatinine 0.71 Glucose 169 H Calcium 8.5 PG Care Time/CCT Total # of Minutes Spent Total Time Spent with Patient: Total time spent is greater than 50% in coordination of care (as documented) at patient's floor/unit and/or counseling patient: Coding Level of Care Code 68052 Subseq Hosp Care Lvl 2 Diagnoses Left-sided weakness R53.1 Seizure disorder G40.909
[2022-02-11] MEDS: HYDROcodone/ACETAMINOPHEN 10/325 TAB PO PRN ×2 (13:32→20:13)
[2022-02-11] MEDS: LIDOCAINE 5% 1 PATCH TD SCH (16:49)
[2022-02-12 06:44] LABS: Basophils # (auto) 0.05 K/uL (0-0.2); Basophils % (auto) 0.8 %; Eosinophils # (auto) 0.13 K/uL (0-0.50); Hematocrit (blood only) 47.8 % (40.1-51.0); Hemoglobin 16.6 g/dl (14.0-18.0); Immature Granulocytes # (auto) 0.02 K/uL (0.00-0.02); Immature Granulocytes % (auto) 0.3 %; Mean Corpuscular Hemoglobin 30.6 pg (25.0-34.0); Mean Corpuscular Hgb Conc 34.7 g/dL (32.0-36.0); Mean Corpuscular Volume 88.2 fL (80.0-100.0); Monocytes # (auto) 0.36 K/uL (0.24-0.82); Monocytes % (auto) 5.5 %; Neutrophils # (auto) 4.29 K/uL (1.4-6.5); Neutrophils % (auto) 65.4 %; Platelet Count 179 K/uL (130-400); RDW Coefficient of Variation 11.9 % (11.5-14.5); RDW Standard Deviation 38.4 fL (36.4-46.3); Red Blood Count 5.42 M/uL (4.63-6.08); White Blood Count 6.55 K/ul (4.8-10.8)
[2022-02-12 07:19] LABS: BUN Creatinine Ratio 16.5 (10-20); Calcium 8.5 mg/dl (8.5-10.1); Creatinine Clr Calc Pharmacy 132.7 ml/min; Est GFR (African American) 119.7 ml/min; Est GFR (Non-African American) 103.2 ml/min; Potassium 3.9 mmol/L (3.5-5.1)
[2022-02-12 07:23] LABS: Estimated Average Glucose 146 mg/dl; Hemoglobin A1C 6.7 % (4.5-5.6)
[2022-02-12] MEDS: levETIRAcetam 500 MG TAB PO SCH (08:48)
[2022-02-12] MEDS: HYDROcodone/ACETAMINOPHEN 10/325 TAB PO PRN ×2 (08:48→17:38)
[2022-02-12] MEDS: LIDOCAINE 5% 1 PATCH TD SCH (08:49)
[2022-02-12] MEDS ORDERED: ASPIRIN 81 MG ECTAB PO SCH (09:00)
--- NOTE | 2022-02-12 09:18 | Pain Management Consultation ---
Date of Consultation February 12, 2022 Assessment & Plan (1) H/O malignant neoplasm of brain: (2) Acute left-sided weakness: (3) Right shoulder pain: (4) Lumbar pain: Plan I suspect that the right shoulder and lumbar pain are compensatory secondary to ambulatory dysfunction and acute left sided weakness. Continue to work with physical therapy. I would recommend continue Hydrocodone if needed for breakthrough pain. I would not recommend any interventional procedures for lumbar pain at this time. Could consider evaluation by orthopedics to see if a right shoulder injection is warranted. Please contact with any questions or concerns. Thank you. History of Present Illness Reason for Consultation: Shoulder and back pain Attending Physician: Tevin Mcmahon History of Present Illness Mr. Jones is a 51 year old male that has been admitted for seizure disorder with history of glioblastoma and CVA resulting in progressive left-sided weakness. He does report intermittent right shoulder pain times several months which has been worsened since yesterday without any known injury. He describes an aching, clicking sensation in the right shoulder with range of motion. The pain does shoot down into the right elbow since yesterday. There is also aching, spasming sensation along the right trapezius musculature. Lidocaine patches have been applied onto the shoulder which has provided some pain relief. He is also ordered hydrocodone 10/325 3 times daily which does intermittently help the pain. He has not undergone any evaluation of the right shoulder. Patient does also describe an aching, cramping pain in the low back. He denies any radicular symptoms. Back pain has been ongoing for about 2 days without any known injury. No bowel/bladder incontinence, saddle anesthesia. No right sided leg weakness. + left upper and lower extremity weakness. He is working with PT on ambulatory dysfunction. Case discussed with Dr. Ольга Monroe Allergies Allergy/AdvReac Type Severity Reaction Status Date / Time bacitracin Allergy Intermediate Rash Verified 02/09/22 22:40 [From Neosporin ([id number])] neomycin Allergy Intermediate Rash Verified 02/09/22 22:40 [From Neosporin ([id number])] polymyxin B Allergy Intermediate Rash Verified 02/09/22 22:40 [From Neosporin ([id number])] Home Medications Medication Instructions Recorded Confirmed Type levetiracetam 750 mg tablet 1,500 mg PO BID 30 days #120 tabs 09/23/22 01/01/23 Rx Patient History Medical History Brain cancer Renal stone Seizure Surgical History S/P cholecystectomy Status post craniectomy Family History Mother No problems noted. Father , the diagnose 60s of lung cancer Lung cancer Social History Smoking Status: Former smoker Cigarettes Per Day: 0; Smoking End Date: Per pt quit smoking a long time ago; currently chews tobacco; Second Hand Exposure: Yes; Do You Dip or Chew Tobacco: Yes; Tobacco Cessation Education Requested by Patient: No Hx Alcohol Use: Yes Alcohol type: beer Alcohol Intake Frequency Comment: 4 beers per week every 1-2 weeks Hx Substance Use: Yes Last Used Substance: Days (ago) Last Used Substance Other:: 02/09/22 Preferred Language: Somali Communication Ability: Effective Service Clerk Required: No Beliefs That Will Affect Care: None marital status: Current Living Situation: Family current occupational status: unemployed current occupation: former [employer] How many Children do You have: 4 Other Information That Helps Us Care for You: No Feels Safe at Home: Yes Safety Concerns: Feels Safe At This Time Assistive Devices: Walker Physical Exam Physical Exam: GENERAL: This is a 51 year old male that not appear in any acute distress. HEAD/FACE: Normocephalic and atraumatic. EYES: No drainage or conjunctival injection. ENT: Nose without bleeding or discharge. Oral mucosa moist. NECK: Mild limitation of left lateral ROM without apparent pain. No swelling or masses noted. No myofascial spasm or trigger points noted. RESPIRATORY: Patient with unlabored breathing. No signs of respiratory distress. CHEST/AXILLA: Chest movement symmetrical. No deformities noted. BACK: Moves without difficulty. No midline, facet joint, or SI joint tenderness. No myofascial spasm or trigger points noted. SKIN: [place], warm and dry. No rash noted. MS/EXTREMITY: There is full ROM of the right shoulder. Negative lift offer, hawking testing, empty can testing. No tenderness of the right shoulder on palpation. 5/5 strength of the right upper extremity. NEURO: Alert and appears oriented. Speech is fluent. Cranial Nerves are grossly intact. PSYCH: Alert, pleasant, affect is calm
--- NOTE | 2022-02-12 13:36 | XCELERA ---
[id number]
--- NOTE | 2022-02-12 14:04 | Discharge Summary ---
Date of Service February 12, 2022 Admission HPI Per Admitting Provider Ziggy Jones is a pleasant 51yo male with history of right parietal glioblastoma s/p resection in 2004, s/p XRT, Temozolomide and gamma knife performed in 2009 for a mild recurrence. Patient with history of complex partial seizures for which he takes Keppra. Follows with Neurology - last seen in October 2021. Patient reports that since his surgery he has had some mild weakness of his LUE with occasional stiffness and tremor. Also with some LLE weakness as well. He feels that his LLE symptoms have been progressing over the last year with significant worsening over the last several weeks. He has difficulty ambulating - states that his gait appears unsteady. He has a difficult time lifting his left leg with ambulation and has been dragging his left foot which has been causing him to fall. He feels that his left leg will give out now when he puts weight on it. Today he fell three times - no LOC, no head trauma. No additional complaints. No fever, chills, chest pain, nausea, vomiting, diarrhea or constipation. No recent seizure activity. In the ER he is afebrile, hypertensive otherwise HD stable, NAD ER Course: no medications given Admission Exam (Per Admitting) Constitutional General: patient resting comfortably, NAD, non-toxic in appearance, AA&O x 4 Skin: warm, dry, intact, no rashes or lesions HEENT: NC/AT, PERRL, EOMI, anicteric sclera, conjunctiva without injection, external ear normal to inspection and nontender, nares patent, moist mucus membranes, dentition intact, no oropharyngeal lesions, neck supple, trachea midline, no LAD, no thyromegaly, no JVD Heart: +S1/S2, regular, no m/r/g Lungs: equal air entry bilaterally, no rales/rhonchi/wheezes Abd: +BS, soft, NT/ND, no masses/organomegaly/ascites Ext: warm, 2+ pulses in UE/LE bilaterally, no clubbing/cyanosis or edema Neuro: AA&O, speech clear and appropriate, no facial droop, CN II - XII grossly intact, sensation to light touch intact, LUE with some stiffness, mild tremor, fasciculation and mild weakness 4/5, LLE with strength intact. Gait not assessed Discharge Data Consultations 02/09/22 23:47 ED Decision to Admit Stat 02/10/22 03:41 Consult Neurology Routine 02/11/22 15:28 Consult Pain Management Routine Diabetes Follow Up Diabetes Follow Up: Diabetes Follow-up Needed for Newly Diagnosed Diabetes Hospital Course (1) Left-sided weakness: 51-year-old male with history of glioblastoma status post resection in 2004, status posttreatment in 2009 with gamma knife in [facility] for small recurrence, known seizure disorder, some mild baseline left-sided weakness since his tumor resection presenting with progression of left lower extremity weakness, ambulatory dysfunction and increased frequency of falls. Patient denies head trauma or seizure activity. Consider TIA/CVA, Nathan's paralysis following potential seizure, recurrence of malignancy Neurology input appreciated Patient has basal ganglier CVA Continue antiplatelet with aspirin Check echo as per neurology Needs good glycemic control and blood pressure control to address risk factors (2) Seizure disorder: Patient with history of seizure disorder. He is on Keppra. He does admit to missing some doses occasionally. Did take it today. He follows with neurology, last saw Dr. Salas in October 2021. Maintain seizure precautions Continue Keppra 1500 mg p.o. twice daily Check Keppra level Coding Level of Care Code HOSP INP/OBS DISCH >30 MIN Diagnoses Left-sided weakness R53.1 Seizure disorder G40.909 Time Spent (min) 45
== END 2022-02-12 18:20 | DRG 65 ==
LOC: 2N 21:55 → ED 21:55 → SUATTDRO 02-10 00:30 → 2N 02-10 02:55 → SUATTDRO 02-11 13:27

== ENCOUNTER 2022-02-27 10:55 | Inpatient (IN) ==
--- NOTE | 2022-02-27 11:05 | Emergency Department Note ---
Impression & Plan Weakness, H/O brain tumor, COVID-19, Hypoxia ED Provider Note Provider: Sy Sandy MD DATE OF SERVICE: 02/27/2022 CHIEF COMPLAINT: Weakness HISTORY OF PRESENT ILLNESS: Patient is a 51-year-old gentleman history of GBM and seizures as well as recent hospitalization for stroke presenting with after recent rehab stay at [facility] for increased weakness. Patient was discharged 2 days ago by the report evidently there were some insurance issues leading to this. Patient initially was getting better but over the last several days has been weaker. Since being home while not suffering any significant falls has been having increased weakness. Denies nausea vomiting or diarrhea. Denies abdominal pain or chest pain. Patient states he is having difficulty transferring and that both his left and right lower leg cannot really push him up well and he again is having weakness but no new change on the numbness of the left side. No seizures reported. No fevers reported however a bit of cough. PAST MEDICAL HISTORY: As noted above MEDICATIONS: Reviewed home medications includes Keppra as well as aspirin SOCIAL HISTORY: Lives at home with PHYSICAL EXAM: GENERAL: alert and oriented in no acute distress on stretcher Head: normocephalic and atraumatic EYES: No injection, discharge or icterus. PERRL, EOMI. NECK: Trachea midline. ENT: Mucous membranes pink and moist. LUNGS: Airway patent. No retractions. Breath sounds clear HEART: Regular tachycardia rate and rhythm. No chest wall tenderness ABDOMEN: Soft and non-tender, without guarding or rebound. SKIN: Acyanotic, warm, dry, without rashes EXTREMITIES: Without swelling, tenderness or deformity NEUROLOGICAL:No aphasia. No facial droop. Some drift of the left arm and left leg with some mildly decreased strength in the left arm and leg. Minimally decreased sensation of the fingers bilaterally. No significant weakness of the right arm and minimal weakness on exam in the bed of the right leg with straight leg raise. Some finger-nose ataxia on the left but not as much on the right. No slurred speech appreciated. EK bpm sinus tachycardia without acute ST segment elevation. QTc 438. No PVCs or PACs noted. Left anterior fascicular block noted. CONTINUOUS CARDIAC MONITORING: was ordered and showed a heart rate of 100s-130s bpm in sinus tachycardia Patient's laboratory studies and imaging reviewed. Differential includes Infection, dehydration, metabolic abnormality, hypo/hy perglycemia, electrolyte disturbance, anemia, hypoxia, cardiac sources, intracerebral event, toxicologic, neurologic, as well as other pathologies. IMPRESSION/MEDICAL DECISION MAKING: Patient history of GBM status postresection with seizures and recent stroke presenting with increased weakness and difficulty transferring. Home for the last several days from [facility]. Tachycardic upon arrival. Denies URI symptoms. Denies chest pain or abdominal pain or nausea or vomiting symptoms. Denies shortness of breath. Not hypoxic here. We will complete a CT of the head to exclude intracranial bleed given his history of massive stroke. Denies any speech issues at this time according to him and his . Discussion with him it seems like he is having persistent if may be slightly worse weakness in the left side but now some weakness when trying to stand and transfer with his right leg. Recent evaluation here for stroke with CT angiograms and do not feel that repeat angiograms would be that helpful today as I doubt a large vessel occlusion. We will complete basic blood work and given some IV fluids. We will look for possible infectious source to explain some of his tachycardia but it does not appear to be SVT or irregular like A. fib. May simply be dehydrated. Appears to be sinus tachycardia. Some headache here and requested a dose of oxycodone which was given. Chest x-ray completed without evidence of any significant pulmonary pathology. EKG with a sinus tachycardia. No significant leukocytosis or anemia today. No skin electrolyte abnormalities signs of renal dysfunction. No evidence of acute hepatitis or thyroid dysfunction on lab studies. Urinalysis appears to be contaminated but not highly impressive for infection. Procalcitonin not elevated and low suspicion for infection given this. Again did receive some IV fluids to see if this improve some sinus tachycardia has here. Not significantly hypoxic or with troponin elevation and bit of a lower suspicion for PE but discussed with him and his with persistent tachycardia likely proceed with a CT scan to exclude PE. Later requiring 2 L of nasal cannula supplementation. COVID returned positive. No history of COVID or vaccination reported CT per radiology without evidence of central PE but poor distal contrast; given findings have low suspicion for PE in light of his positive COVID status explaining his mild tachycardia and mild hypoxia. CT of the head with subacute evolving basilar infarct as previous without acute findings of mass-effect hemorrhage or ischemia by CT from the radiology report. Headache likely related to his COVID status. Patient's COVID test was run positive likely explaining most of his symptoms. Did desaturate a little bit in the high 80s and placed on 2 L of oxygen. Given a dose of IV dexamethasone. Patient with his COVID hypoxia and weakness requires further care here at the hospital. Hospitalist contacted. DIAGNOSIS: Weakness, history of CVA, sinus tachycardia, COVID-19, hypoxia DISPOSITION: Hospitalist will evaluate Patient was agreeable with this plan. Past Med/Surg History Medical History (Updated 02/27/22 @ 16:07 by Evelio Still MD) Brain cancer Diabetes mellitus, type 2 Renal stone Seizure Surgical History S/P cholecystectomy Status post craniectomy Family History Mother No problems noted. 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: No Beliefs That Will Affect Care: None marital status: Current Living Situation: Family current occupational status: unemployed current occupation: former [employer] How many Children do You have: 4 Feels Safe at Home: Yes Assistive Devices: Walker Allergies Allergies Allergy/AdvReac Type Severity Reaction Status Date / Time bacitracin Allergy Intermediate Rash Verified 02/27/22 17:18 [From Neosporin ([id number])] neomycin Allergy Intermediate Rash Verified 02/27/22 17:18 [From Neosporin ([id number])] polymyxin B Allergy Intermediate Rash Verified 02/27/22 17:18 [From Neosporin ([id number])] Home Meds Home Medications Medication Instructions Recorded Confirmed aspirin 81 mg tablet,delayed 81 mg PO DAILY 02/27/22 02/27/22 release hydrocodone 10 mg-acetaminophen 1 tab PO UD PRN Pain 02/27/22 02/27/22 325 mg tablet levetiracetam 750 mg tablet 1,500 mg PO BID 02/27/22 02/27/22 lisinopril 20 mg tablet 20 mg PO DAILY 02/27/22 02/27/22 Results & Data (ED) Vital Signs Vital Signs - 24 hr 02/27/22 10:59 02/27/22 10:56 02/27/22 11:16 Temperature 37.8 C H Temperature Source Oral Pulse Rate 144 H 139 H Pulse Rate [Apical] Pulse Rate from SpO2 Sensor 141 H Pulse Rhythm Regular Pulse Rhythm [Apical] Pulse Strength Normal Respiratory Rate 18 20 Respiratory Effort / Characteristics Non-Labored Spontaneous Respiratory Depth Normal Respiratory Pattern Regular Blood Pressure 137/96 Blood Pressure [Right Arm] Blood Pressure Mean 109 Blood Pressure Mean [Right Arm] Blood Pressure Position Sitting Pulse Oximetry 95 96 96 Oxygen Delivery Method Room Air Room Air Sepsis Recent Fever Within 48 Hours No Sepsis New/Unexplained Change in Mental Status No Sepsis Action Taken by Nursing No Action Required Oxygen Flow Rate - Titration Pulse Oximetry Post Tiitration 02/27/22 11:30 02/27/22 11:45 02/27/22 12:05 Temperature Temperature Source Pulse Rate 133 H 123 H 128 H Pulse Rate [Apical] Pulse Rate from SpO2 Sensor Pulse Rhythm Pulse Rhythm [Apical] Pulse Strength Respiratory Rate 13 19 12 Respiratory Effort / Characteristics Respiratory Depth Respiratory Pattern Blood Pressure Blood Pressure [Right Arm] Blood Pressure Mean Blood Pressure Mean [Right Arm] Blood Pressure Position Pulse Oximetry Oxygen Delivery Method Sepsis Recent Fever Within 48 Hours Sepsis New/Unexplained Change in Mental Status Sepsis Action Taken by Nursing Oxygen Flow Rate - Titration Pulse Oximetry Post Tiitration 02/27/22 12:12 02/27/22 12:12 02/27/22 12:15 Temperature Temperature Source Pulse Rate 123 H 126 H Pulse Rate [Apical] Pulse Rate from SpO2 Sensor 128 H 124 H Pulse Rhythm Pulse Rhythm [Apical] Pulse Strength Respiratory Rate 18 20 Respiratory Effort / Characteristics Respiratory Depth Respiratory Pattern Blood Pressure 129/92 Blood Pressure [Right Arm] Blood Pressure Mean 104 Blood Pressure Mean [Right Arm] Blood Pressure Position Pulse Oximetry 95 95 Oxygen Delivery Method Sepsis Recent Fever Within 48 Hours Sepsis New/Unexplained Change in Mental Status Sepsis Action Taken by Nursing Oxygen Flow Rate - Titration Pulse Oximetry Post Tiitration 02/27/22 13:09 02/27/22 13:09 02/27/22 13:39 Temperature Temperature Source Pulse Rate 116 H Pulse Rate [Apical] 116 H Pulse Rate from SpO2 Sensor Pulse Rhythm Regular Pulse Rhythm [Apical] Regular Pulse Strength Respiratory Rate 22 20 Respiratory Effort / Characteristics Non-Labored Spontaneous Respiratory Depth Normal Respiratory Pattern Regular Blood Pressure Blood Pressure [Right Arm] 130/95 Blood Pressure Mean Blood Pressure Mean [Right Arm] 106 Blood Pressure Position Pulse Oximetry 95 95 88 L Oxygen Delivery Method Room Air Room Air Room Air Sepsis Recent Fever Within 48 Hours Sepsis New/Unexplained Change in Mental Status Sepsis Action Taken by Nursing Oxygen Flow Rate - Titration 2 Pulse Oximetry Post Tiitration 93 02/27/22 12:30 02/27/22 12:45 02/27/22 13:00 Temperature Temperature Source Pulse Rate 125 H 118 H 121 H Pulse Rate [Apical] Pulse Rate from SpO2 Sensor 122 H Pulse Rhythm Pulse Rhythm [Apical] Pulse Strength Respiratory Rate 23 14 18 Respiratory Effort / Characteristics Respiratory Depth Respiratory Pattern Blood Pressure Blood Pressure [Right Arm] Blood Pressure Mean Blood Pressure Mean [Right Arm] Blood Pressure Position Pulse Oximetry 95 Oxygen Delivery Method Sepsis Recent Fever Within 48 Hours Sepsis New/Unexplained Change in Mental Status Sepsis Action Taken by Nursing Oxygen Flow Rate - Titration Pulse Oximetry Post Tiitration 02/27/22 13:07 02/27/22 13:07 02/27/22 13:15 Temperature Temperature Source Pulse Rate 122 H 115 H Pulse Rate [Apical] Pulse Rate from SpO2 Sensor 115 H Pulse Rhythm Pulse Rhythm [Apical] Pulse Strength Respiratory Rate 20 18 Respiratory Effort / Characteristics Respiratory Depth Respiratory Pattern Blood Pressure 130/95 Blood Pressure [Right Arm] Blood Pressure Mean 106 Blood Pressure Mean [Right Arm] Blood Pressure Position Pulse Oximetry 95 Oxygen Delivery Method Sepsis Recent Fever Within 48 Hours Sepsis New/Unexplained Change in Mental Status Sepsis Action Taken by Nursing Oxygen Flow Rate - Titration Pulse Oximetry Post Tiitration 02/27/22 13:30 02/27/22 13:45 02/27/22 14:15 Temperature Temperature Source Pulse Rate 112 H 101 H 113 H Pulse Rate [Apical] Pulse Rate from SpO2 Sensor 112 H 98 H Pulse Rhythm Pulse Rhythm [Apical] Pulse Strength Respiratory Rate 22 17 20 Respiratory Effort / Characteristics Respiratory Depth Respiratory Pattern Blood Pressure Blood Pressure [Right Arm] Blood Pressure Mean Blood Pressure Mean [Right Arm] Blood Pressure Position Pulse Oximetry 90 97 Oxygen Delivery Method Sepsis Recent Fever Within 48 Hours Sepsis New/Unexplained Change in Mental Status Sepsis Action Taken by Nursing Oxygen Flow Rate - Titration Pulse Oximetry Post Tiitration 02/27/22 14:16 02/27/22 14:16 02/27/22 14:30 Temperature Temperature Source Pulse Rate 112 H Pulse Rate [Apical] Pulse Rate from SpO2 Sensor 111 H 109 H Pulse Rhythm Pulse Rhythm [Apical] Pulse Strength Respiratory Rate 17 15 Respiratory Effort / Characteristics Respiratory Depth Respiratory Pattern Blood Pressure 116/86 Blood Pressure [Right Arm] Blood Pressure Mean 96 Blood Pressure Mean [Right Arm] Blood Pressure Position Pulse Oximetry 96 99 Oxygen Delivery Method Sepsis Recent Fever Within 48 Hours Sepsis New/Unexplained Change in Mental Status Sepsis Action Taken by Nursing Oxygen Flow Rate - Titration Pulse Oximetry Post Tiitration 02/27/22 14:45 02/27/22 15:00 02/27/22 15:00 Temperature Temperature Source Pulse Rate 105 H 106 H Pulse Rate [Apical] Pulse Rate from SpO2 Sensor 106 H 107 H Pulse Rhythm Pulse Rhythm [Apical] Pulse Strength Respiratory Rate 24 17 Respiratory Effort / Characteristics Respiratory Depth Respiratory Pattern Blood Pressure 126/88 Blood Pressure [Right Arm] Blood Pressure Mean 100 Blood Pressure Mean [Right Arm] Blood Pressure Position Pulse Oximetry 100 100 Oxygen Delivery Method Sepsis Recent Fever Within 48 Hours Sepsis New/Unexplained Change in Mental Status Sepsis Action Taken by Nursing Oxygen Flow Rate - Titration Pulse Oximetry Post Tiitration 02/27/22 15:15 02/27/22 15:30 02/27/22 15:45 Temperature Temperature Source Pulse Rate 109 H 105 H 111 H Pulse Rate [Apical] Pulse Rate from SpO2 Sensor 109 H 106 H 110 H Pulse Rhythm Pulse Rhythm [Apical] Pulse Strength Respiratory Rate 26 H 23 27 H Respiratory Effort / Characteristics Respiratory Depth Respiratory Pattern Blood Pressure Blood Pressure [Right Arm] Blood Pressure Mean Blood Pressure Mean [Right Arm] Blood Pressure Position Pulse Oximetry 99 100 98 Oxygen Delivery Method Sepsis Recent Fever Within 48 Hours Sepsis New/Unexplained Change in Mental Status Sepsis Action Taken by Nursing Oxygen Flow Rate - Titration Pulse Oximetry Post Tiitration 02/27/22 16:00 02/27/22 16:00 02/27/22 16:15 Temperature Temperature Source Pulse Rate Pulse Rate [Apical] Pulse Rate from SpO2 Sensor 115 H 109 H Pulse Rhythm Pulse Rhythm [Apical] Pulse Strength Respiratory Rate 27 H 22 Respiratory Effort / Characteristics Respiratory Depth Respiratory Pattern Blood Pressure 158/93 H Blood Pressure [Right Arm] Blood Pressure Mean 114 Blood Pressure Mean [Right Arm] Blood Pressure Position Pulse Oximetry 97 97 Oxygen Delivery Method Sepsis Recent Fever Within 48 Hours Sepsis New/Unexplained Change in Mental Status Sepsis Action Taken by Nursing Oxygen Flow Rate - Titration Pulse Oximetry Post Tiitration 02/27/22 16:30 02/27/22 16:45 02/27/22 17:00 Temperature Temperature Source Pulse Rate Pulse Rate [Apical] Pulse Rate from SpO2 Sensor 109 H 114 H 109 H Pulse Rhythm Pulse Rhythm [Apical] Pulse Strength Respiratory Rate 26 H 27 H Respiratory Effort / Characteristics Respiratory Depth Respiratory Pattern Blood Pressure 158/93 H Blood Pressure [Right Arm] Blood Pressure Mean 114 Blood Pressure Mean [Right Arm] Blood Pressure Position Pulse Oximetry 96 96 81 L Oxygen Delivery Method Sepsis Recent Fever Within 48 Hours Sepsis New/Unexplained Change in Mental Status Sepsis Action Taken by Nursing Oxygen Flow Rate - Titration Pulse Oximetry Post Tiitration 02/27/22 17:01 02/27/22 17:01 02/27/22 17:15 Temperature Temperature Source Pulse Rate Pulse Rate [Apical] Pulse Rate from SpO2 Sensor 106 H 113 H Pulse Rhythm Pulse Rhythm [Apical] Pulse Strength Respiratory Rate 16 10 L Respiratory Effort / Characteristics Respiratory Depth Respiratory Pattern Blood Pressure 144/95 H Blood Pressure [Right Arm] Blood Pressure Mean 111 Blood Pressure Mean [Right Arm] Blood Pressure Position Pulse Oximetry 90 97 Oxygen Delivery Method Sepsis Recent Fever Within 48 Hours Sepsis New/Unexplained Change in Mental Status Sepsis Action Taken by Nursing Oxygen Flow Rate - Titration Pulse Oximetry Post Tiitration 02/27/22 17:30 02/27/22 17:46 02/27/22 18:00 Temperature Temperature Source Pulse Rate 111 H 121 H Pulse Rate [Apical] Pulse Rate from SpO2 Sensor 109 H 112 H 120 H Pulse Rhythm Pulse Rhythm [Apical] Pulse Strength Respiratory Rate 18 22 Respiratory Effort / Characteristics Respiratory Depth Respiratory Pattern Blood Pressure Blood Pressure [Right Arm] Blood Pressure Mean Blood Pressure Mean [Right Arm] Blood Pressure Position Pulse Oximetry 96 95 96 Oxygen Delivery Method Sepsis Recent Fever Within 48 Hours Sepsis New/Unexplained Change in Mental Status Sepsis Action Taken by Nursing Oxygen Flow Rate - Titration Pulse Oximetry Post Tiitration 02/27/22 18:15 Temperature Temperature Source Pulse Rate 112 H Pulse Rate [Apical] Pulse Rate from SpO2 Sensor Pulse Rhythm Pulse Rhythm [Apical] Pulse Strength Respiratory Rate 21 Respiratory Effort / Characteristics Respiratory Depth Respiratory Pattern Blood Pressure Blood Pressure [Right Arm] Blood Pressure Mean Blood Pressure Mean [Right Arm] Blood Pressure Position Pulse Oximetry Oxygen Delivery Method Sepsis Recent Fever Within 48 Hours Sepsis New/Unexplained Change in Mental Status Sepsis Action Taken by Nursing Oxygen Flow Rate - Titration Pulse Oximetry Post Tiitration Laboratory Data 02/27/22 11:30 02/27/22 11:30 Lab Results 02/27/22 02/27/22 02/27/22 Range/Units 11:30 11:30 11:30 WBC 8.12 (4.8-10.8) K/ul RBC 5.50 (4.63-6.08) M/uL Hgb 16.7 (14.0-18.0) g/dl Hct 48.1 (40.1-51.0) % MCV 87.5 (80.0-100.0) fL MCH 30.4 (25.0-34.0) pg MCHC 34.7 (32.0-36.0) g/dL RDW Std Deviation 37.5 (36.4-46.3) fL RDW Coeff of Aisha 11.6 (11.5-14.5) % Plt Count 194 (130-400) K/uL MPV 11.3 (9.4-12.4) fL Immature Gran % (Auto) 0.2 % Neut % (Auto) 84.3 % Lymph % (Auto) 6.0 % [place] % (Auto) 8.3 % Eos % (Auto) 0.6 % Baso % (Auto) 0.6 % Neut # (Auto) 6.84 H (1.4-6.5) K/uL Lymph # (Auto) 0.49 L (1.2-3.4) K/uL [place] # (Auto) 0.67 (0.24-0.82) K/uL Eos # (Auto) 0.05 (0-0.50) K/uL Baso # (Auto) 0.05 (0-0.2) K/uL Immature Gran # (Auto) 0.02 (0.00-0.02) K/uL Sodium 137 (136-145) mmol/L Potassium 3.7 (3.5-5.1) mmol/L Chloride 103 (98-107) mmol/L Carbon Dioxide 26 (21-32) mmol/L Anion Gap 8 (3-11) BUN 11 (6-23) mg/dl Creatinine 0.69 (0.6-1.4) mg/dl Est Cr Clr Drug Dosing 162.3 ml/min Est GFR ( Amer) 126.5 ml/min Est GFR (Non-Af Amer) 109.1 ml/min BUN/Creatinine Ratio 15.9 (10-20) Glucose 195 H (70-99(Fasting)) mg/dl Calcium 9.1 (8.5-10.1) mg/dl Magnesium 1.6 L (1.7-2.4) mg/dl Total Bilirubin 0.7 (0.2-1.0) mg/dl AST 14 (13-39) U/L ALT 30 (7-52) U/L Alkaline Phosphatase 58 (34-104) U/L Troponin I High Sens 2.7 (0-20) pg/ml Total Protein 7.0 (6.0-8.3) gm/dl Albumin 4.1 (3.4-5.0) gm/dl Globulin 2.9 (2.5-4.0) gm/dl Albumin/Globulin Ratio 1.4 (0.9-2) Procalcitonin (0-0.5) ng/ml TSH 0.718 (0.300-4.500) uIu/ml Urine Color Urine Appearance (Clear) Urine pH (4.5-7.5) Ur Specific [place] (1.000-1.030) Urine Protein (Negative) Urine Glucose (UA) (Negative) Urine Ketones (Negative) Urine Blood (Negative) Urine Nitrite (Negative) Urine Bilirubin (Negative) Urine Urobilinogen (Negative) Ur Leukocyte Esterase (Negative) Urine WBC (Auto) (0-5) /hpf Urine RBC (Auto) (0-4) /hpf U Hyaline Cast (Auto) (0-5) /lpf U Epithel Cells (Auto) (0-5) /lpf Urine Bacteria (Auto) (Negative) SARS-CoV-2 (PCR) (Negative) Influenza Type A (PCR) (Neg) Influenza Type B (PCR) (Neg) RSV (RT-PCR) (Neg) 02/27/22 02/27/22 02/27/22 Range/Units 11:30 12:00 12:10 WBC (4.8-10.8) K/ul RBC (4.63-6.08) M/uL Hgb (14.0-18.0) g/dl Hct (40.1-51.0) % MCV (80.0-100.0) fL MCH (25.0-34.0) pg MCHC (32.0-36.0) g/dL RDW Std Deviation (36.4-46.3) fL RDW Coeff of Aisha (11.5-14.5) % Plt Count (130-400) K/uL MPV (9.4-12.4) fL Immature Gran % (Auto) % Neut % (Auto) % Lymph % (Auto) % [place] % (Auto) % Eos % (Auto) % Baso % (Auto) % Neut # (Auto) (1.4-6.5) K/uL Lymph # (Auto) (1.2-3.4) K/uL [place] # (Auto) (0.24-0.82) K/uL Eos # (Auto) (0-0.50) K/uL Baso # (Auto) (0-0.2) K/uL Immature Gran # (Auto) (0.00-0.02) K/uL Sodium (136-145) mmol/L Potassium (3.5-5.1) mmol/L Chloride (98-107) mmol/L Carbon Dioxide (21-32) mmol/L Anion Gap (3-11) BUN (6-23) mg/dl Creatinine (0.6-1.4) mg/dl Est Cr Clr Drug Dosing ml/min Est GFR ( Amer) ml/min Est GFR (Non-Af Amer) ml/min BUN/Creatinine Ratio (10-20) Glucose (70-99(Fasting)) mg/dl Calcium (8.5-10.1) mg/dl Magnesium (1.7-2.4) mg/dl Total Bilirubin (0.2-1.0) mg/dl AST (13-39) U/L ALT (7-52) U/L Alkaline Phosphatase (34-104) U/L Troponin I High Sens (0-20) pg/ml Total Protein (6.0-8.3) gm/dl Albumin (3.4-5.0) gm/dl Globulin (2.5-4.0) gm/dl Albumin/Globulin Ratio (0.9-2) Procalcitonin 0.05 (0-0.5) ng/ml TSH (0.300-4.500) uIu/ml Urine Color Dark Yellow Urine Appearance Cloudy A (Clear) Urine pH 5.5 (4.5-7.5) Ur Specific [place] 1.036 H (1.000-1.030) Urine Protein Trace H (Negative) Urine Glucose (UA) 2+ H (Negative) Urine Ketones Trace H (Negative) Urine Blood 2+ H (Negative) Urine Nitrite Negative (Negative) Urine Bilirubin Negative (Negative) Urine Urobilinogen Negative (Negative) Ur Leukocyte Esterase 1+ H (Negative) Urine WBC (Auto) 10-30 H (0-5) /hpf Urine RBC (Auto) 5-10 H (0-4) /hpf U Hyaline Cast (Auto) 5-10 H (0-5) /lpf U Epithel Cells (Auto) >30 H (0-5) /lpf Urine Bacteria (Auto) Negative (Negative) SARS-CoV-2 (PCR) POSITIVE A* (Negative) Influenza Type A (PCR) Negative (Neg) Influenza Type B (PCR) Negative (Neg) RSV (RT-PCR) Negative (Neg) Administered Medications Discontinued Medications Dexamethasone Sodium Phosphate (DexamethasonePf 10 Mg/Ml Vial) 6 mg IV NOW ONE Stop: 02/27/22 13:59 Last Admin: 02/27/22 14:21 Dose: 6 mg Documented By: CHRISTEN Sodium Chloride (Nss 1000ml) 1,000 mls @ 999 mls/hr IV .Q1H1M NAMAN Stop: 02/27/22 12:15 Last Infusion: 02/27/22 13:47 Dose: 0 mls/hr Documented By: Admin: 02/27/22 12:33 Dose: 999 mls/hr Documented By: CHRISTEN Ioversol (Optiray 320 500ml) 120 ml IV ONCE ONE Stop: 02/27/22 14:07 Last Admin: 02/27/22 14:07 Dose: 120 ml Documented By: IAN Oxycodone HCl (Oxycodone Hcl Ir 5 Mg Tab (Immediate Release)) 5 mg PO NOW STA Stop: 02/27/22 12:16 Last Admin: 02/27/22 12:34 Dose: 5 mg Documented By: CHRISTEN Imaging Data Radiologist's Impression: Chest X-Ray 02/27/22 11:15 SINGLE VIEW CHEST CLINICAL HISTORY: Generalized weakness. FINDINGS: An AP, portable, upright chest radiograph is compared to study dated 02/09/2022. The examination is degraded by portable technique and patient ro tation. The heart is top normal for projection. The pulmonary vasculature is noncongested. Chronic interstitial thickening similar to previous. The lungs and pleural spaces are clear noting bibasilar scarring/atelectasis. No pneumothorax is seen. The skeletal structures appear osteopenic. The bony thorax is grossly intact. IMPRESSION: No acute cardiopulmonary abnormality is identified. ACT 112: Negative or not required by law. Electronically signed by: Temo Santos M.D. 02/27/2022 11:[address] 02/27/22 11:15 CT SCAN OF THE BRAIN WITHOUT IV CONTRAST CLINICAL HISTORY: Generalized weakness. Recent stroke. COMPARISON STUDY: CT of the brain dated 02/09/2022. MRI of the brain dated 02/10/2022. TECHNIQUE: Unenhanced axial CT scan of the brain is performed from the vertex to the skull base. A dose lowering technique was utilized adhering to the principles of ALARA. FINDINGS: Brain parenchyma: There is high right posterior parietal encephalomalacia, likely due to previous surgery. There is associated ex vacuo dilatation of the posterior horn of the right lateral ventricle. There is also encephalomalacia in the right temporal lobe. There is no hemorrhage, mass effect, or evidence of acute territorial ischemia by CT criteria. A focus of low attenuation in the right basal ganglia on image #14 is consistent with a subacute/evolving lacunar infarct when compared to the recent MRI. Cortical calcifications at the vertex are unchanged. No extra-axial fluid collection is seen. Ventricles, sulci, cisterns: Normal in configuration. Intracranial vasculature: The visualized intracranial vessels at the skull base are normal in appearance. Calvarium: There is postoperative change from right-sided craniotomy. No depressed calvarial fracture is identified. The calvarium posteriorly and at the vertex is markedly heterogeneous. Soft tissues: There is a left frontal scalp hematoma. Sinuses and mastoids: The visualized paranasal sinuses are clear. The mastoid air cells are well pneumatized. Orbits: The bony orbits are grossly intact. IMPRESSION: 1. There is no hemorrhage, mass effect, or evidence of acute territorial ischemia by CT criteria. 2. Again seen is a subacute/evolving lacunar infarct in the right basal ganglia. 3. Chronic and postoperative changes as above. ACT 112: Negative or not required by law. Electronically signed by: Temo Santos M.D. 02/27/2022 12:17 PM Chest CTA 02/27/22 13:36 CT ANGIOGRAM OF THE CHEST CLINICAL HISTORY: Generalized weakness. Tachycardia. Covid. COMPARISON STUDY: Chest x-ray dated 02/27/2022. TECHNIQUE: Following the IV administration of 120 cc of Optiray 320, CT angiogram of the chest was performed from the upper abdomen to the thoracic inlet utilizing the pulmonary embolus protocol. Images are reviewed in the axial, sagittal, and coronal planes. 3-D MIPS images are created and assessed. IV contrast was administered without complication. A dose lowering technique was utilized adhering to the principles of ALARA. The examination is degraded by motion artifact, as well as by streak artifact from the left arm which could not be elevated above the chest. CT DOSE: 840.63 mGy.cm FINDINGS: Thyroid: Imaged portions of the thyroid gland are normal in size and attenuation. Thoracic aorta: The thoracic aorta is normal in caliber and demonstrates standard 3-vessel arch anatomy. No dissection is seen. Pulmonary vasculature: The pulmonary trunk is normal in caliber. There is no evidence of pulmonary embolus in the main or lobar pulmonary arteries. The segm ental and subsegmental branches cannot be evaluated due to lack of contrast opacification. Heart: The heart is mildly enlarged and without pericardial effusion. There are scattered coronary artery calcifications. Lungs and pleural spaces: Evaluation of the lung parenchyma is modestly degraded by motion artifact. There is no airspace consolidation or pleural effusion. The trachea and central airways are clear. A 3 mm right lower lobe pulmonary nodule is seen on image #188. A 4 mm nodule at the left apex is seen on image #273. Mild scarring/atelectasis is noted at the lung bases. Mediastinum: There is no mediastinal lymphadenopathy. Yuly: Clear. Axillae: There is no axillary lymphadenopathy. Upper abdomen: Cholecystectomy clips are noted. There is mild intrahepatic biliary ductal dilatation. The liver appears steatotic. There is a small hiatal hernia. A 13 mm cyst arises from the upper pole of the right kidney Skeletal structures: The skeletal structures are osteopenic. Mild degenerative changes noted in the thoracic spine. No lytic or blastic bony lesions are seen. IMPRESSION: 1. There is no evidence of central pulmonary embolus in the main or lobar pulmonary pulmonary arteries. The segmental and subsegmental branches cannot be assessed due to lack of contrast opacification. If there is strong clinical concern for pulmonary embolus consider a repeat examination. 2. There is no airspace consolidation or pleural effusion. 3. Mild cardiomegaly. 4. There are 2 pathologically indeterminate pulmonary nodules which measure up to 4 mm. These can be followed as per the Fleischner criteria below. 5. Additional findings as above. Please refer to below summary of Fleischner criteria recommendations for follow- up of incidental CT nodules (Marjan Winston, Guidelines for management of small pulmonary nodules detected on CT scans: A statement from the Fleischner Socie ty, Radiology 237: [phone].) SOLID NODULES Solitary nodule size: <6 mm * low risk patients: no follow-up needed * high risk patients: optional CT at 12 months Solitary nodule size: 6-8 mm * low risk patients: follow-up at 6-12 months, then consider further follow-up at 18-24 months * high risk patients: initial follow-up CT at 6-12 months and then at 18-24 m onths if no change Solitary nodule size: >8 mm * either low or high risk patients - consider follow-up CT at 3 months, and/or CT-PET, and/or biopsy Multiple nodules size: <6 mm * low risk patients: no routine follow-up * high risk patients: optional CT at 12 months Multiple nodules size: 6-8 mm * low risk patients: follow-up at 3-6 months, then consider further follow-up at 18-24 months * high risk patients: follow-up at 3-6 months, then at 18-24 months if no change Multiple nodules size: >8 mm * low risk patients: follow-up at 3-6 months, then consider further follow-up at 18-24 months * high risk patients: follow-up at 3-6 months, then at 18-24 months if no change Note: newly detected indeterminate nodule in persons 35 years of age or older. * low risk patients: minimal or absent history of smoking and/or other known risk factors * high risk patients: history of smoking or of other known risk factors (e.g. first degree relative with lung cancer, or exposure to asbestos, radon, uranium) * if a nodule up to 8 mm is partly solid or is ground glass further follow-up is required after 24 months to exclude possible slow growing adenocarcinoma (ROGERIO) SUBSOLID NODULES Solitary pure ground-glass nodule * nodule size <6 mm - no CT follow-up required * nodule size >=6 mm - follow-up CT at 6-12 months, then every 2 years until 5 years Solitary part-solid nodule * nodule size <6 mm - no CT follow-up required * nodule size >=6 mm - follow-up CT at 3-6 months. If unchanged, and solid co mponent remains <6 mm, then annual follow-up for 5 years Multiple subsolid nodules * nodule size <6 mm - follow-up CT at 3-6 months, consider further follow-up at 2 and 4 years if stable * nodule size >=6 mm - follow-up CT at 3-6 months, subsequent management based on the most suspicious nodule(s) ACT 112: Negative or not required by law. Electronically signed by: Temo Santos M.D. 02/27/2022 2:39 PM Discharge Plan Visit Data Chief Complaint: Stroke/CVA Symptoms Stated Complaint: POSSIBLE STROKE, WEAK, CANT STAND, LEFT SIDE NUMB ED Provider: Sy Sandy Discharge Problem: Weakness, H/O brain tumor, COVID-19, Hypoxia Patient Disposition: Being Evaluated by Hospitalist Forms Stand Alone Forms: My [facility] [place] [employer] [place] Prescriptions Prescriptions: No Action lisinopril 20 mg tablet 20 mg PO DAILY hydrocodone-acetaminophen 10-325 mg tablet 1 tab PO UD PRN (Reason: Pain) aspirin [Aspirin Low-Strength] 81 mg Tablet,Delayed Release (Dr/Ec) 81 mg PO DAILY levetiracetam 750 mg tablet 1,500 mg PO BID Rx Instructions: 2 tablets dose Referrals Referrals: Ronald Hickman DO [Primary Care Provider] -
[2022-02-27] MEDS ORDERED: SODIUM CHLORIDE 0.9% 1000ML 1,000 ML IV SCH (11:15)
--- NOTE | 2022-02-27 11:39 | XRay Report ---
SINGLE VIEW CHEST CLINICAL HISTORY: Generalized weakness. FINDINGS: An AP, portable, upright chest radiograph is compared to study dated 02/09/2022. The examinat ion is degraded by portable technique and patient rotation. The heart is top normal for projection. T he pulmonary vasculature is noncongested. Chronic interstitial thickening similar to previous. The amaury ngs and pleural spaces are clear noting bibasilar scarring/atelectasis. No pneumothorax is seen. The skeletal structures appear osteopenic. The bony thorax is grossly intact. IMPRESSION: No acute cardiopulmonary abnormality is identified. ACT 112: Negative or not required by law. Electronically signed by: Temo Santos M.D. 02/27/2022 11:38 AM
[2022-02-27 11:53] LABS: Basophils # (auto) 0.05 K/uL (0-0.2); Basophils % (auto) 0.6 %; Eosinophils # (auto) 0.05 K/uL (0-0.50); Eosinophils % (auto) 0.6 %; Hematocrit (blood only) 48.1 % (40.1-51.0); Hemoglobin 16.7 g/dl (14.0-18.0); Immature Granulocytes # (auto) 0.02 K/uL (0.00-0.02); Immature Granulocytes % (auto) 0.2 %; Lymphocytes # (auto) 0.49 K/uL (1.2-3.4); Mean Corpuscular Hemoglobin 30.4 pg (25.0-34.0); Mean Corpuscular Hgb Conc 34.7 g/dL (32.0-36.0); Mean Corpuscular Volume 87.5 fL (80.0-100.0); Mean Platelet Volume 11.3 fL (9.4-12.4); Monocytes # (auto) 0.67 K/uL (0.24-0.82); Monocytes % (auto) 8.3 %; Neutrophils # (auto) 6.84 K/uL (1.4-6.5); Neutrophils % (auto) 84.3 %; Platelet Count 194 K/uL (130-400); RDW Coefficient of Variation 11.6 % (11.5-14.5); RDW Standard Deviation 37.5 fL (36.4-46.3); White Blood Count 8.12 K/ul (4.8-10.8)
[2022-02-27] MEDS ORDERED: oxyCODONE HCL IR 5 MG TAB (IMMEDIATE RELEASE) PO STA (12:15)
--- NOTE | 2022-02-27 12:19 | CT Scan Report ---
CT SCAN OF THE BRAIN WITHOUT IV CONTRAST CLINICAL HISTORY: Generalized weakness. Recent stroke. COMPARISON STUDY: CT of the brain dated 02/09/2022. MRI of the brain dated 02/10/2022. TECHNIQUE: Unenhanced axial CT scan of the brain is performed from the vertex to the skull base. A do se lowering technique was utilized adhering to the principles of ALARA. FINDINGS: Brain parenchyma: There is high right posterior parietal encephalomalacia, likely due to previous martell arti. There is associated ex vacuo dilatation of the posterior horn of the right lateral ventricle. T here is also encephalomalacia in the right temporal lobe. There is no hemorrhage, mass effect, or jessica dence of acute territorial ischemia by CT criteria. A focus of low attenuation in the right basal jayden glia on image #14 is consistent with a subacute/evolving lacunar infarct when compared to the recent MRI. Cortical calcifications at the vertex are unchanged. No extra-axial fluid collection is seen. Ventricles, sulci, cisterns: Normal in configuration. Intracranial vasculature: The visualized intracranial vessels at the skull base are normal in appeara nce. Calvarium: There is postoperative change from right-sided craniotomy. No depressed calvarial fracture is identified. The calvarium posteriorly and at the vertex is markedly heterogeneous. Soft tissues: There is a left frontal scalp hematoma. Sinuses and mastoids: The visualized paranasal sinuses are clear. The mastoid air cells are well pneu matized. Orbits: The bony orbits are grossly intact. IMPRESSION: 1. There is no hemorrhage, mass effect, or evidence of acute territorial ischemia by CT criteria. 2. Again seen is a subacute/evolving lacunar infarct in the right basal ganglia. 3. Chronic and postoperative changes as above. ACT 112: Negative or not required by law. Electronically signed by: Temo Santos M.D. 02/27/2022 12:17 PM
[2022-02-27 12:25] LABS: Albumin Globulin Ratio 1.4 (0.9-2); Albumin Level 4.1 gm/dl (3.4-5.0); BUN Creatinine Ratio 15.9 (10-20); Bilirubin,Total 0.7 mg/dl (0.2-1.0); Calcium 9.1 mg/dl (8.5-10.1); Creatinine Clr Calc Pharmacy 162.3 ml/min; Est GFR (African American) 126.5 ml/min; Est GFR (Non-African American) 109.1 ml/min; Globulin 2.9 gm/dl (2.5-4.0); Magnesium 1.6 mg/dl (1.7-2.4); Potassium 3.7 mmol/L (3.5-5.1); Troponin I High Sensitivity 2.7 pg/ml (0-20)
[2022-02-27 12:31] LABS: Appearance Urine Cloudy (Clear); Bacteria Urine Automated Negative (Negative); Bilirubin Urine Negative (Negative); Blood Urine 2+ (Negative); Color Urine Dark Yellow; Epithelial Cell Urine Auto >30 /lpf (0-5); Glucose Urine UA 2+ (Negative); Ketones Urine Trace (Negative); Leukocyte Esterase Urine 1+ (Negative); Nitrite Urine Negative (Negative); Protein Urine Trace (Negative); Specific Gravity Urine 1.036 (1.000-1.030); Urobilinogen Urine Negative (Negative); pH Urine 5.5 (4.5-7.5)
[2022-02-27 13:09] LABS: Influenza A virus by PCR Negative (Neg); Influenza B virus by PCR Negative (Neg); RSV by PCR Negative (Neg)
[2022-02-27 13:30] LABS: SARS CoV2 RNA(COVID-19) Ceph POSITIVE (Negative)
[2022-02-27] MEDS ORDERED: dexAMETHasone**PF** 10 MG/ML VIAL IV ONE (13:58)
[2022-02-27] MEDS ORDERED: OPTIRAY 320 500ml IV ONE (14:06)
--- NOTE | 2022-02-27 14:40 | CT Scan Report ---
CT ANGIOGRAM OF THE CHEST CLINICAL HISTORY: Generalized weakness. Tachycardia. Covid. COMPARISON STUDY: Chest x-ray dated 02/27/2022. TECHNIQUE: Following the IV administration of 120 cc of Optiray 320, CT angiogram of the chest was pe rformed from the upper abdomen to the thoracic inlet utilizing the pulmonary embolus protocol. Images are reviewed in the axial, sagittal, and coronal planes. 3-D MIPS images are created and assessed. I V contrast was administered without complication. A dose lowering technique was utilized adhering to the principles of ALARA. The examination is degraded by motion artifact, as well as by streak artifa ct from the left arm which could not be elevated above the chest. CT DOSE: 840.63 mGy.cm FINDINGS: Thyroid: Imaged portions of the thyroid gland are normal in size and attenuation. Thoracic aorta: The thoracic aorta is normal in caliber and demonstrates standard 3-vessel arch anato my. No dissection is seen. Pulmonary vasculature: The pulmonary trunk is normal in caliber. There is no evidence of pulmonary em bolus in the main or lobar pulmonary arteries. The segmental and subsegmental branches cannot be eval uated due to lack of contrast opacification. Heart: The heart is mildly enlarged and without pericardial effusion. There are scattered coronary ar joycelyn calcifications. Lungs and pleural spaces: Evaluation of the lung parenchyma is modestly degraded by motion artifact. There is no airspace consolidation or pleural effusion. The trachea and central airways are clear. A 3 mm right lower lobe pulmonary nodule is seen on image #188. A 4 mm nodule at the left apex is seen on image #273. Mild scarring/atelectasis is noted at the lung bases. Mediastinum: There is no mediastinal lymphadenopathy. Yuly: Clear. Axillae: There is no axillary lymphadenopathy. Upper abdomen: Cholecystectomy clips are noted. There is mild intrahepatic biliary ductal dilatation. The liver appears steatotic. There is a small hiatal hernia. A 13 mm cyst arises from the upper pole of the right kidney Skeletal structures: The skeletal structures are osteopenic. Mild degenerative changes noted in the t horacic spine. No lytic or blastic bony lesions are seen. IMPRESSION: 1. There is no evidence of central pulmonary embolus in the main or lobar pulmonary pulmonary arterie s. The segmental and subsegmental branches cannot be assessed due to lack of contrast opacification. If there is strong clinical concern for pulmonary embolus consider a repeat examination. 2. There is no airspace consolidation or pleural effusion. 3. Mild cardiomegaly. 4. There are 2 pathologically indeterminate pulmonary nodules which measure up to 4 mm. These can be followed as per the Fleischner criteria below. 5. Additional findings as above. Please refer to below summary of Fleischner criteria recommendations for follow-up of incidental CT n odules (Marjan Winston, Guidelines for management of small pulmonary nodules detected on CT scans: A sta tement from the Fleischner Society, Radiology 237: [phone].) SOLID NODULES Solitary nodule size: <6 mm * low risk patients: no follow-up needed * high risk patients: optional CT at 12 months Solitary nodule size: 6-8 mm * low risk patients: follow-up at 6-12 months, then consider further follow-up at 18-24 months * high risk patients: initial follow-up CT at 6-12 months and then at 18-24 months if no change Solitary nodule size: >8 mm * either low or high risk patients - consider follow-up CT at 3 months, and/or CT-PET, and/or biopsy Multiple nodules size: <6 mm * low risk patients: no routine follow-up * high risk patients: optional CT at 12 months Multiple nodules size: 6-8 mm * low risk patients: follow-up at 3-6 months, then consider further follow-up at 18-24 months * high risk patients: follow-up at 3-6 months, then at 18-24 months if no change Multiple nodules size: >8 mm * low risk patients: follow-up at 3-6 months, then consider further follow-up at 18-24 months * high risk patients: follow-up at 3-6 months, then at 18-24 months if no change Note: newly detected indeterminate nodule in persons 35 years of age or older. * low risk patients: minimal or absent history of smoking and/or other known risk factors * high risk patients: history of smoking or of other known risk factors (e.g. first degree relative with lung cancer, or exposure to asbestos, radon, uranium) * if a nodule up to 8 mm is partly solid or is ground glass further follow-up is required after 24 m onths to exclude possible slow growing adenocarcinoma (ROGERIO) SUBSOLID NODULES Solitary pure ground-glass nodule * nodule size <6 mm - no CT follow-up required * nodule size >=6 mm - follow-up CT at 6-12 months, then every 2 years until 5 years Solitary part-solid nodule * nodule size <6 mm - no CT follow-up required * nodule size >=6 mm - follow-up CT at 3-6 months. If unchanged, and solid component remains <6 mm, then annual follow-up for 5 years Multiple subsolid nodules * nodule size <6 mm - follow-up CT at 3-6 months, consider further follow-up at 2 and 4 years if sta ble * nodule size >=6 mm - follow-up CT at 3-6 months, subsequent management based on the most suspiciou s nodule(s) ACT 112: Negative or not required by law. Electronically signed by: Temo Santos M.D. 02/27/2022 2:39 PM
--- NOTE | 2022-02-27 15:45 | History & Physical Report ---
Date of Service February 27, 2022 Assessment & Plan (1) COVID: Plan: Weakness, fever, tachycardia 2/2 COVID positive No leukocytosis, borderline fever at 37.8 in ER Sinus tachycardia in 130s on admission, improved slightly with fluids CThead: 1. There is no hemorrhage, mass effect, or evidence of acute territorial ischemia by CT criteria.2. Again seen is a subacute/evolving lacunar infarct in the right basal ganglia.3. Chronic and postoperative changes as above. - Troponin normal on admission Procalcitonin Normal TSH normal on admission Magnesium 1.6, repleted. Potassium normal, sodium normal. Hemoglobin 16.7, normal on admission Creatinine with normal baseline, 0.69 on admission On 2 L at bedside, no normal oxygen requirement. Given oxygen requirement discussed steroids and remdesivir. Patient agreeable to dexamethasone, wishes to defer remdesivir. Continue dexamethasone 6 mg x 10-day course CRP pending, and trended for morning Lovenox COVID DVT prophylaxis Tachycardia, sinus Improved slightly with fluids. Prefer slightly dry status with COVID, however patient cleared mildly volume depleted on initial assessment. Tolerating p.o., will defer Lasix at this time No hypoxia No evidence of PE on CTA Echo 02/12/2022: EF 60-65%, no valvular pathology, no intra-arterial shunt, no wall motion abnormalities Left-sided weakness with history of recent CVA, past history of GBM s/p resection - GBM resection 2004, [place] 2009 - Admitted for acute R basal ganglia CVA 02/10-02/12/2022, d/lucius on asp 81mg which is continued On admit With evolving infarct as noted, no additional acute infarct noted on repeat CT Sensation and strength is grossly intact on exam, patient with some weakness bilaterally which she appreciates more with baseline left-sided weakness. CT is normal, suspect acute weakness is due to COVID, no worsened focal sx. MRI deferred. History of seizure Continue Keppra twice daily. Lung nodules 2 nodules maximum [address] follow-up as outpatient History of type II DM Consistent carb diet Basal bolus insulin, weight-based Glucose checks AC/at bedtime, goal range [id number] DVT prophylaxis: Lovenox COVID dosing Diet: DM CODE STATUS: DNR/DNI Disposition: Telemetry given initial sinus tachycardia and 140s, gradually improving (2) Seizure disorder: (3) H/O brain tumor: (4) Status post craniectomy: (5) Hypoxia: (6) Diabetes mellitus, type 2: History of Present Illness Primary Care Provider: Ronald Hickman DO Trinh is a 51-year-old male with a history of glioblastoma multiform a s s/p resection 2004 and gamma knife treatment 2009 with residual left-sided weakness and a history of seizure who was recently hospitalized 02/10/2022 - 02/12/2022 for acutely worsened left-sided weakness and MRI consistent with right basal ganglier stroke suspected 2/2 small vessel ischemia who was discharged to continue aspirin monotherapy who presented to the emergency room 02/27 due to increased weakness and difficulty transferring after 2 days of initial improvement. On ER evaluation he is noted to have sinus tachycardia 132 which improved with fluids. Repeat CThead did not show any acute hemorrhage/ischemia, chronic postoperative changes and an evolving lacunar infarct of the right basal ganglia were redemonstrated. CXR was negative. Patient was borderline febrile with temperature of 37.8 and without a leukocytosis admission. He is found to be COVID-positive on admission. Ziggy is seen at the bedside. He reports that he normally has some left-sided l eg weakness but he felt much more weak than normal in both legs today without paresthesias/numbness. He had difficulty standing and was brought to the ER for evaluation. He denies fever, chills, sweats. Has had a cough of 1 day. No known COVID exposure. He is not COVID vaccinated. No diarrhea/constipation/nausea/vomiting. Other than feeling fatigued and weak, he does not know any other symptoms. He has not had chest pain or chest pressure. He has not noticed his heart racing, is aware that his heart was in the 140s and is now improved to around 100. Denies problems with fluid retention/heart failure. Does endorse chew use, goes through about 10 cans every 2 weeks. No history of blood clots, has received Loven[facility] before for prophylaxis without bleeding but has declined this intermittently in the past due to stomach discomfort/bruising. Is agreeable to COVID DVT prophylaxis while inpatient. Patient is on 2 L of oxygen, does not normally use oxygen assessment. Discussed steroids and remdesivir. Patient agreeable to steroids, wishes to defer remdesivir. Medical History: Reviewed Medications: Reviewed Surgical History: Reviewed Allergies: Reviewed Social History: Endorses chew use, denies alcohol use Code Status: DNR/DNI Allergies Allergy/AdvReac Type Severity Reaction Status Date / Time bacitracin Allergy Intermediate Rash Verified 02/09/22 22:40 [From Neosporin ([id number])] neomycin Allergy Intermediate Rash Verified 02/09/22 22:40 [From Neosporin ([id number])] polymyxin B Allergy Intermediate Rash Verified 02/09/22 22:40 [From Neosporin ([id number])] Home Medications Medication Instructions Recorded Confirmed Type levetiracetam 750 mg tablet 1,500 mg PO BID 30 days #120 tabs 11/01/21 02/09/22 Rx aspirin 81 mg tablet,delayed 81 mg PO QAM #30 tabs 02/12/22 Rx release Past Med/Surg History Medical History (Updated 02/27/22 @ 16:07 by Evelio Still MD) Brain cancer Diabetes mellitus, type 2 Renal stone Seizure Surgical History S/P cholecystectomy Status post craniectomy Family History Mother No problems noted. Father , the diagnose 60s of lung cancer Lung cancer Social History Smoking Status: Never smoker Cigarettes Per Day: 0; Second Hand Exposure: Yes; Hx Alcohol Use: Yes Alcohol type: beer Alcohol Intake Frequency Comment: 4 beers per week every 1-2 weeks Hx Substance Use: Yes Last Used Substance: Days (ago) Last Used Substance Other:: 02/09/22 Preferred Language: Albanian Communication Ability: Effective Community Living Instructor Required: No Beliefs That Will Affect Care: None marital status: Current Living Situation: Family current occupational status: unemployed current occupation: former [employer] How many Children do You have: 4 Feels Safe at Home: Yes Assistive Devices: Walker Review of Systems Review of Systems: All systems reviewed & are unremarkable except as noted in Subjective Physical Exam Physical Exam: General: A&Ox3. NAD. Cooperative. HEENT: Atraumatic, normocephalic. Vision/hearing intact Pulm: CTAB A&P. -wheezes, -rales, -rhonchi. Symmetrical chest rise. No increased work of breathing. No respiratory distress. Cardiac: Regular, tachycardic, -mrg. Radial pulses intact and symmetrical. Abdominal: Nontender, nondistended, soft. BS present. Extremities: Left hip flexion 4/5, left ankle dorsiflexion/plantarflexion 4/5. Right hip flexion 4+/5, ankle dorsiflexion/plantarflexion 5/5. Sensation intact to soft touch in feet bilaterally. [employer] Division strength is 4+/5 L, 5/5 R. Slight drift of L arm. Results & Data Results & Data ([facility]) Vital Signs (Past 12 Hours) Vital Signs Temp Pulse Pulse Resp BP BP Pulse Ox 02/27/22 13:45 101 H 17 97 02/27/22 13:30 112 H 22 90 02/27/22 13:15 115 H 18 95 02/27/22 13:07 130/95 02/27/22 13:07 122 H 20 02/27/22 13:00 121 H 18 02/27/22 12:45 118 H 14 02/27/22 12:30 125 H 23 95 02/27/22 13:39 88 L 02/27/22 13:09 116 H 20 95 02/27/22 13:09 116 H 22 130/95 95 02/27/22 12:15 126 H 20 95 02/27/22 12:12 123 H 18 95 02/27/22 12:12 129/92 02/27/22 12:05 128 H 12 02/27/22 11:45 123 H 19 02/27/22 11:30 133 H 13 02/27/22 11:16 139 H 20 96 02/27/22 10:56 96 02/27/22 10:59 37.8 C H 144 H 18 137/96 95 O2 Del Method 02/27/22 13:45 02/27/22 13:30 02/27/22 13:15 02/27/22 13:07 02/27/22 13:07 02/27/22 13:00 02/27/22 12:45 02/27/22 12:30 02/27/22 13:39 Room Air 02/27/22 13:09 Room Air 02/27/22 13:09 Room Air 02/27/22 12:15 02/27/22 12:12 02/27/22 12:12 02/27/22 12:05 02/27/22 11:45 02/27/22 11:30 02/27/22 11:16 02/27/22 10:56 Room Air 02/27/22 10:59 Room Air PG Care Time/CCT Total # of Minutes Spent Total Time Spent with Patient: Total time spent is greater than 50% in coordination of care (as documented) at patient's floor/unit and/or counseling patient: Coding Level of Care Code 41433 INT INP/OBS CARE 2/55MIN Diagnoses COVID U07.1 Seizure disorder G40.909 H/O brain tumor Z87.898 Status post craniectomy Z98.890 Hypoxia R09.02 Diabetes mellitus, type 2 E11.9
[2022-02-27] MEDS ORDERED: GLUCAGON FOR INJ 1 MG VIAL SQ PRN (18:38)
[2022-02-27] MEDS ORDERED: DEXTROSE 50% 50 ML SYRINGE IV PRN (18:38)
[2022-02-27] MEDS ORDERED: CARBOHYDRATES FOR HYPOGLYCEMIA PO PRN (18:38)
[2022-02-27] MEDS ORDERED: ACETAMINOPHEN 325 MG TAB PO PRN (18:38)
[2022-02-27] MEDS ORDERED: GLUCOSE 40% GEL 15 GM TUBE PO PRN (18:38)
[2022-02-27] MEDS ORDERED: GLUCOSE 10 TAB/TUBE PO PRN (18:38)
[2022-02-27] MEDS: MAGNESIUM SULFATE / D5W 1 GM/100 ML BAG IV SCH ×2 (19:50→21:17)
[2022-02-27] MEDS: ENOXAPARIN INJ 40 MG/0.4 ML SYR SQ SCH (19:51)
[2022-02-27] MEDS: INSULIN ASPART PER UNIT SC SCH ×2 (19:58→23:38)
[2022-02-27] MEDS: levETIRAcetam 500 MG TAB PO SCH (21:19)
[2022-02-27] MEDS: LANTUS PER UNIT CHARGE SQ SCH (21:33)
[2022-02-27] MEDS: oxyCODONE HCL IR 5 MG TAB (IMMEDIATE RELEASE) PO PRN (23:38)
[2022-02-28] MEDS: oxyCODONE HCL IR 5 MG TAB (IMMEDIATE RELEASE) PO PRN ×3 (05:37→21:15)
[2022-02-28 07:26] LABS: Basophils # (auto) 0.01 K/uL (0-0.2); Basophils % (auto) 0.2 %; Hematocrit (blood only) 44.6 % (40.1-51.0); Hemoglobin 15.7 g/dl (14.0-18.0); Immature Granulocytes # (auto) 0.01 K/uL (0.00-0.02); Immature Granulocytes % (auto) 0.2 %; Lymphocytes # (auto) 0.96 K/uL (1.2-3.4); Lymphocytes % (auto) 19.5 %; Mean Corpuscular Hemoglobin 30.4 pg (25.0-34.0); Mean Corpuscular Hgb Conc 35.2 g/dL (32.0-36.0); Mean Corpuscular Volume 86.4 fL (80.0-100.0); Mean Platelet Volume 11.1 fL (9.4-12.4); Monocytes # (auto) 0.63 K/uL (0.24-0.82); Monocytes % (auto) 12.8 %; Neutrophils # (auto) 3.32 K/uL (1.4-6.5); Neutrophils % (auto) 67.3 %; Platelet Count 192 K/uL (130-400); RDW Coefficient of Variation 11.5 % (11.5-14.5); RDW Standard Deviation 36.8 fL (36.4-46.3); Red Blood Count 5.16 M/uL (4.63-6.08); White Blood Count 4.93 K/ul (4.8-10.8)
[2022-02-28] MEDS: INSULIN ASPART PER UNIT SC SCH ×4 (09:12→21:19)
[2022-02-28] MEDS: LANTUS PER UNIT CHARGE SQ SCH ×2 (09:17→21:20)
[2022-02-28] MEDS: dexAMETHasone 6 MG in SYRINGE 0 ML IV SCH (09:30)
[2022-02-28] MEDS: ASPIRIN 81 MG ECTAB PO SCH (09:31)
[2022-02-28] MEDS: ENOXAPARIN INJ 40 MG/0.4 ML SYR SQ SCH ×2 (09:32→18:11)
[2022-02-28] MEDS: levETIRAcetam 500 MG TAB PO SCH ×2 (09:32→20:50)
[2022-02-28 10:41] LABS: Albumin Globulin Ratio 1.4 (0.9-2); Albumin Level 3.8 gm/dl (3.4-5.0); BUN Creatinine Ratio 14.4 (10-20); Bilirubin,Total 0.7 mg/dl (0.2-1.0); C Reactive Protein 2.53 mg/dl (0-0.5); Calcium 8.8 mg/dl (8.5-10.1); Creatinine Clr Calc Pharmacy 120.9 ml/min; Est GFR (African American) 113.4 ml/min; Est GFR (Non-African American) 97.9 ml/min; Globulin 2.7 gm/dl (2.5-4.0); Potassium 4.5 mmol/L (3.5-5.1); Total Protein 6.5 gm/dl (6.0-8.3)
--- NOTE | 2022-02-28 11:05 | Electrocardiogram Report ---
Test Reason : Blood Pressure : / mmHG Vent. Rate : 132 BPM Atrial Rate : 132 BPM P-R Int : 162 ms QRS Dur : 102 ms QT Int : 296 ms P-R-T Axes : 021 -63 053 degrees QTc Int : 438 ms Sinus tachycardia Left anterior fascicular block Abnormal ECG When compared with ECG of 09-FEB-2022 22:29, Vent. rate has increased BY 54 BPM Confirmed by Ranjan Daley ([id number]) on 02/28/2022 11:05:17 AM Referred By: REFERRED SELF Confirmed By:Ranjan Daley
[2022-02-28 11:42] LABS: Estimated Average Glucose 154 mg/dl
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
[2022-03-01] MEDS: oxyCODONE HCL IR 5 MG TAB (IMMEDIATE RELEASE) PO PRN ×3 (04:27→20:36)
[2022-03-01] MEDS: ENOXAPARIN INJ 40 MG/0.4 ML SYR SQ SCH ×2 (04:27→17:58)
[2022-03-01 06:28] LABS: Hemoglobin 16.7 g/dl (14.0-18.0); Mean Corpuscular Hgb Conc 34.8 g/dL (32.0-36.0); Mean Corpuscular Volume 86.3 fL (80.0-100.0); Mean Platelet Volume 11.6 fL (9.4-12.4); Platelet Count 220 K/uL (130-400); RDW Coefficient of Variation 11.5 % (11.5-14.5); RDW Standard Deviation 36.5 fL (36.4-46.3); Red Blood Count 5.56 M/uL (4.63-6.08); White Blood Count 5.92 K/ul (4.8-10.8)
[2022-03-01 06:46] LABS: Potassium 3.8 mmol/L (3.5-5.1)
[2022-03-01 06:51] LABS: BUN Creatinine Ratio 24.4 (10-20); Creatinine Clr Calc Pharmacy 138.4 ml/min; Est GFR (African American) 120.3 ml/min; Est GFR (Non-African American) 103.8 ml/min
[2022-03-01] MEDS: INSULIN ASPART PER UNIT SC SCH ×4 (09:36→20:57)
[2022-03-01] MEDS: LANTUS PER UNIT CHARGE SQ SCH ×2 (09:37→20:57)
[2022-03-01] MEDS: dexAMETHasone 6 MG in SYRINGE 0 ML IV SCH (09:51)
[2022-03-01] MEDS: ASPIRIN 81 MG ECTAB PO SCH (09:51)
[2022-03-01] MEDS: levETIRAcetam 500 MG TAB PO SCH ×2 (09:51→20:37)
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
[2022-03-02] MEDS: INSULIN ASPART PER UNIT SC SCH ×2 (08:22→12:04)
[2022-03-02] MEDS: LANTUS PER UNIT CHARGE SQ SCH (08:23)
[2022-03-02] MEDS: ENOXAPARIN INJ 40 MG/0.4 ML SYR SQ SCH (08:33)
[2022-03-02] MEDS: levETIRAcetam 500 MG TAB PO SCH (08:33)
[2022-03-02] MEDS: ASPIRIN 81 MG ECTAB PO SCH (08:34)
[2022-03-02] MEDS ORDERED: diazePAM 5 MG TABLET PO ONE (13:04)
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
== END 2022-03-02 17:14 | DRG 178 ==
LOC: ED 10:55 → SUATTDRO 15:49 → EDINP 15:49 → 2E 18:39

== ENCOUNTER 2024-08-26 15:32 | Observation (INO) ==
[2024-08-26] MEDS: OPTIRAY 320 125ml IV ONE (15:40)
--- NOTE | 2024-08-26 15:47 | Emergency Department Note ---
Impression & Plan Stroke-like episode Admission ED Provider Note HPI: History obtained from patient. The patient is a 54-year-old gentleman with history of glioblastoma, status post surgery, radiation and chemotherapy, presents the emergency department with a chief complaint of left-sided weakness that began at 12:30 PM today. Patient states that he was sitting into a recliner chair when he began to have a sensation of left-sided weakness including his left arm and left leg. No speech abnormalities were noted, patient did not have any issues with any facial droop or weakness. EMS was eventually contacted and the patient was transported to the ED as a stroke alert given the acuity of his symptoms. On arrival here to the ED the patient is alert, he is hemodynamically stable, he does have some noted left upper extremity and left lower extremity weakness that he states is new. ROS: - Per HPI Differential Diagnosis: Stroke, intracranial hemorrhage, mass effect from intracranial tumor, infection, metabolic abnormality/electrolyte abnormalities, amongst other potential pathologies. *Outpatient medications and allergy history reviewed. 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: (As interpreted by myself): - An order was placed for continuous cardiac monitoring - Patient was noted to be in sinus rhythm with a rate of 70 EKG: (As interpreted by myself): Rate: 77 Rhythm: Normal sinus rhythm Intervals: Within normal limits ST changes: No ST elevation Time: 1546 Interventions provided in ED: - Aspirin NIH STROKE SCALE: 1A: Level of consciousness Alert; keenly responsive 0 1B: Ask month and age Both questions right 0 1C: 'Blink eyes' & 'squeeze hands' Performs both tasks 0 2: Horizontal extraocular movements Normal 0 3: Visual cox No visual loss 0 4: Facial palsy Normal symmetry 0 5A: Left arm motor drift Drift, hits bed +2 5B: Right arm motor drift No drift for 10 seconds 0 6A: Left leg motor drift Drift, hits bed +2 6B: Right leg motor drift No drift for 5 seconds 0 7: Limb Ataxia No ataxia 0 8: Sensation Normal; no sensory loss 0 9: Language/aphasia Normal; no aphasia 0 10: Dysarthria Normal 0 11: Extinction/inattention No abnormality 0 TOTAL NIH SCORE = 4 Medical Decision Making: IV was established and lab work obtained, patient was placed on hydraulic riveter. Stroke alert was initiated from the field, CT imaging of the head as well as CT angiography of the head and neck were obtained that did not show any evidence of intracranial hemorrhage or large vessel occlusion. Lab work shows no leukocytosis, hemoglobin is normal, platelet count is normal, CMP does not show any evidence of any critical findings. Patient was not considered a candidate for thrombolysis on arrival given his history of intracranial surgery and history of intracranial mass/glioblastoma. I did discuss the patient's presentation given the acuity of his symptoms with the on-call stroke neurologist at [facility], Dr. Swift, he does recommend admission, aspirin, and MRI imaging of the head with and without contrast but he is in agreement that the patient is not a thrombolytic candidate given negative CT angiography of the head and neck does not recommend transfer for any other acute interventions. Patient was in agreement for admission on my reevaluation, I did discuss the patient's presentation with the on-call hospitalist and the patient was placed for admission in stable condition. Consultants/Discussions held with other healthcare providers: - Stroke neurology, Dr. Swift - Hospitalist, Dr. Aguilar Disposition discussion held by myself with: - Patient Diagnosis: 1. Strokelike episode, acute 2. History of glioblastoma Disposition: Admission Rishabh Dahl DO Emergency Medicine Past Med/Surg History Problem List (Updated 08/26/24 @ 19:17 by Rishabh Dahl DO) Stroke-like episode (Acute) HTN (hypertension) Diabetes mellitus, type 2 Seizure disorder Left arm weakness H/O malignant neoplasm of brain Basal ganglia stroke Degenerative tear of glenoid labrum of right shoulder Infraspinatus tendon tear Supraspinatus tendon tear Subscapularis tendonitis of right shoulder Pulmonary nodules Pneumonia Stroke Focal motor seizure (Acute) Nathan's paralysis (postepileptic) Left hemiparesis Brain cancer Medical History Stroke-like symptoms Biceps tendonitis on right Partial tear subscapularis tendon Cervicalgia Right shoulder pain COVID Lumbar pain Right shoulder pain Hypokalemia Hypomagnesemia Glioblastoma Seizure Acute left-sided weakness H/O brain tumor Complicated migraine Renal stone Left-sided weakness Surgical History S/P cholecystectomy Status post craniectomy Family History Mother No problems noted. 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 Beliefs That Will Affect Care: None marital status: Current Living Situation: Family current occupational status: unemployed 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 occupation: former g[employer] How many Children do You have: 4 Feels Safe at Home: Yes Assistive Devices: Wheelchair Allergies Allergies Allergy/AdvReac Type Severity Reaction Status Date / Time bacitracin Allergy Intermediate Rash Verified 08/26/24 15:50 [From Neosporin ([id number])] neomycin Allergy Intermediate Rash Verified 08/26/24 15:50 [From Neosporin ([id number])] polymyxin B Allergy Intermediate Rash Verified 08/26/24 15:50 [From Neosporin ([id number])] Home Meds Home Medications Medication Instructions Recorded Confirmed metformin 500 mg tablet 1,000 mg PO DAILY 08/26/24 08/26/24 Previous Rx's Medication Instructions Recorded diazepam 5 mg tablet 5 mg PO .COMPLEX PRN anxiety #2 10/20/22 tabs levetiracetam 750 mg 1,500 mg (2 x 750 mg) PO DAILY 90 05/04/24 tablet,extended release 24 hr days #180 tabs Results & Data (ED) Vital Signs Vital Signs - 24 hr 08/26/24 15:34 08/26/24 15:34 08/26/24 15:54 Temperature 36.6 C Temperature Source Temporal Artery Scan Pulse Rate 71 Pulse Rate [Apical] 73 Respiratory Rate 20 18 Respiratory Effort / Characteristics Non-Labored Spontaneous Non-Labored Spontaneous Respiratory Depth Normal Normal Respiratory Pattern Regular Regular Blood Pressure 155/83 H Blood Pressure [Right Arm] 155/83 H Blood Pressure Mean 107 Blood Pressure Mean [Right Arm] 107 Blood Pressure Position Sitting Blood Pressure Position [Right Arm] Sitting Pulse Oximetry 97 97 97 Oxygen Delivery Method Room Air Room Air Room Air Sepsis Recent Fever Within 48 Hours No Sepsis New/Unexplained Change in Mental Status N/A Sepsis Action Taken by Nursing No Action Required 08/26/24 15:54 08/26/24 16:04 08/26/24 16:19 Temperature Temperature Source Pulse Rate 70 Pulse Rate [Apical] 73 Respiratory Rate 18 Respiratory Effort / Characteristics Non-Labored Spontaneous Respiratory Depth Normal Respiratory Pattern Regular Blood Pressure Blood Pressure [Right Arm] 161/110 H Blood Pressure Mean Blood Pressure Mean [Right Arm] 127 Blood Pressure Position Blood Pressure Position [Right Arm] Sitting Pulse Oximetry 97 97 Oxygen Delivery Method Room Air Room Air Sepsis Recent Fever Within 48 Hours Sepsis New/Unexplained Change in Mental Status Sepsis Action Taken by Nursing 08/26/24 16:49 Temperature Temperature Source Pulse Rate Pulse Rate [Apical] 69 Respiratory Rate 18 Respiratory Effort / Characteristics Non-Labored Spontaneous Respiratory Depth Normal Respiratory Pattern Regular Blood Pressure Blood Pressure [Right Arm] 156/84 H Blood Pressure Mean Blood Pressure Mean [Right Arm] 108 Blood Pressure Position Blood Pressure Position [Right Arm] Pulse Oximetry 94 Oxygen Delivery Method Room Air Sepsis Recent Fever Within 48 Hours Sepsis New/Unexplained Change in Mental Status Sepsis Action Taken by Nursing Laboratory Data 08/26/24 15:49 08/26/24 15:49 Lab Results 08/26/24 08/26/24 Range/Units 15:42 15:49 WBC 8.69 (4.8-10.8) K/ul RBC 5.11 (4.70-6.10) M/uL Hgb 15.4 (14.0-18.0) g/dl Hct 45.3 (42.0-52.0) % MCV 88.6 (80.0-100.0) fL MCH 30.1 (25.0-34.0) pg MCHC 34.0 (32.0-36.0) g/dL RDW Std Deviation 38.4 (36.4-46.3) fL RDW Coeff of Aisha 11.9 (11.5-14.5) % Plt Count 170 (130-400) K/uL MPV 11.0 (9.4-12.4) fL Immature Gran % (Auto) 0.3 % Neut % (Auto) 71.4 % Lymph % (Auto) 22.0 % Wilkin % (Auto) 4.7 % Eos % (Auto) 0.9 % Baso % (Auto) 0.7 % Neut # (Auto) 6.20 (1.40-6.50) K/uL Lymph # (Auto) 1.91 (1.20-3.40) K/uL Wilkin # (Auto) 0.41 (0.11-0.59) K/uL Eos # (Auto) 0.08 (0.00-0.50) K/uL Baso # (Auto) 0.06 (0.00-0.20) K/uL Immature Gran # (Auto) 0.03 (0.01-0.20) K/uL PT 10.7 (9.0-12.0) Seconds INR 1.0 (0.9-1.1) APTT 25 (21-31) Seconds PTT Ratio 0.9 Sodium 137 (136-145) mmol/L Potassium 4.2 (3.5-5.1) mmol/L Chloride 101 (98-107) mmol/L Carbon Dioxide 34 H (21-32) mmol/L Anion Gap 2 L (3-11) BUN 9 (6-23) mg/dl Creatinine 0.74 (0.6-1.4) mg/dl Est Cr Clr Drug Dosing 140.3 ml/min eGFR 107.01 BUN/Creatinine Ratio 12.2 (10-20) Glucose 176 H (70-99(Fasting)) mg/dl POC Glucose 183 H (70-99) mg/dl Calcium 8.2 L (8.6-10.3) mg/dl Magnesium 1.7 (1.7-2.4) mg/dl Total Bilirubin 0.5 (0.2-1.0) mg/dl AST 17 (13-39) U/L ALT 30 (7-52) U/L Alkaline Phosphatase 56 (34-104) U/L Troponin I High Sens 2.8 (0-20) pg/ml Total Protein 6.1 (6.0-8.3) gm/dl Albumin 3.6 (3.4-5.0) gm/dl Globulin 2.5 (2.5-4.0) gm/dl Albumin/Globulin Ratio 1.4 (0.9-2) Administered Medications Discontinued Medications Aspirin (Aspirin Chew 324 Mg) 324 mg PO NOW STA Stop: 08/26/24 16:27 Last Admin: 08/26/24 16:49 Dose: 324 mg Documented By: ANKITA Sodium Chloride (Nss) 1,000 mls @ 999 mls/hr IV .Q1H1M ONE Stop: 08/26/24 17:25 Last Infusion: 08/26/24 18:12 Dose: Infused Documented By: Admin: 08/26/24 16:49 Dose: 999 mls/hr Documented By: ANKITA Ioversol (Optiray 320 125ml) 119 ml IV ONCE ONE Stop: 08/26/24 15:41 Last Admin: 08/26/24 15:40 Dose: 119 ml Documented By: JF Lorazepam (Lorazepam 2 Mg/1 Ml Vial) 0.5 mg IV NOW STA Stop: 08/26/24 18:38 Last Admin: 08/26/24 18:46 Dose: 0.5 mg Documented By: GUZMAN Ondansetron HCl (Ondansetron Inj 2 Mg/Ml 2 Ml Vial) 4 mg IV NOW STA Stop: 08/26/24 16:26 Last Admin: 08/26/24 16:48 Dose: 4 mg Documented By: ANKITA Imaging Data Radiologist's Impression: Head CT 08/26/24 15:34 CT head/brain wo con CLINICAL HISTORY: neuro deficit, acute stroke suspected. TECHNIQUE: Multiple axial CT images of the head were obtained without contrast. A dose lowering technique was utilized adhering to the principles of ALARA. CT DOSE: 1251.72 mGy.cm COMPARISON: 12/06/2022 FINDINGS: There are stable areas of encephalomalacia posterior right parietal lobe and anterior right temporal lobe. Stable ex vacuo dilatation posterior horn right lateral ventricle. Stable calcifications in the parietal lobes near the vertex. No intracranial hemorrhage seen. No mass effect, midline shift, or hydrocephalus. Stable right parietal craniectomy. Stable patchy lucency in the adjacent right skull. No skull fracture seen. Visualized paranasal sinuses and mastoid air cells are clear. IMPRESSION: No acute findings. ACT 112: Negative or not required by law. The above report was generated using voice recognition software. It may contain grammatical, syntax or spelling errors. Electronically signed by: Wallace Valle M.D. 08/26/2024 3:51 PM Head CTA 08/26/24 15:34 CT ANGIOGRAM OF THE BRAIN; CT ANGIOGRAM OF THE NECK CLINICAL HISTORY: Neurologic deficit. Stroke like symptoms. History of glioblastoma resection. COMPARISON STUDY: Unenhanced CT of the brain performed concurrently on 08/26/2024. CT head from of the head and neck dated 02/09/2022. Chest CT dated 02/27/2022. TECHNIQUE: Following the IV administration of 119 of Optiray 320, CT angiogram of the head and neck was performed from the aortic arch to the vertex. Images are reviewed in the axial, sagittal, and coronal planes. 3-D MIPS images are created and assessed. IV contrast was administered without complication. All measurements were calculated based on NASCET criteria. A dose lowering technique was utilized adhering to the principles of ALARA. FINDINGS: Brain parenchyma: Right parietal encephalomalacia is unchanged from previous and related to prior mass resection. A focus of right temporal encephalomalacia is also unchanged and related to a remote insult. There is no evidence of hemorrhage or mass effect noting angiographic phase technique. There is no evidence of enhancing mass lesion on the angiogram phase images. The ventricles, sulci, and cisterns are normal in configuration. Argueta-white matter differentiation is preserved. No extra-axial fluid collection is seen. Thoracic aorta: Visualized portions of the thoracic aorta are normal in caliber. The aortic arch demonstrates standard 3-vessel anatomy. Right carotid arterial system: The right common carotid artery is widely patent, as are the right internal and external carotid arteries. Left carotid arterial system: The left common carotid artery is widely patent, as are the left internal and external carotid arteries. Vertebral arteries: Widely patent bilaterally and codominant. Subclavian arteries: Widely patent bilaterally. Intracranial vasculature: There is atherosclerotic calcification of the cavernous carotid arteries. The internal carotid arteries are patent at the skull base, as are the anterior and middle cerebral arteries bilaterally. The right A1 segment is atretic. The vertebrobasilar system and posterior cerebral arteries are widely patent. The vertebral arteries are codominant. The basilar artery is diminutive. There is origin of the left posterior cerebral artery and a large right posterior communicating artery. There is no aneurysm, high-grade stenosis, or focal vessel cut off seen throughout the intracranial circulation. Jugular veins: Patent bilaterally. Dural sinuses: Patent. Lung apices: A 4 mm left apical pulmonary nodule image #128 is unchanged dating back to 2022. There is a 5 mm groundglass nodule in the left upper lobe in image #82. This is also likely unchanged from [address] Partially visualized upper lobe lung parenchyma otherwise appears clear. Soft tissues: The visualized pharyngeal soft tissues are normal in appearance noting angiographic phase technique. The oropharyngeal airway appears widely patent. The salivary and thyroid glands are normal in appearance. There are shotty cervical lymph nodes. Skeletal structures: The skeletal structures are osteopenic. There is postsurgical change from right-sided craniotomy. Bony heterogeneity along the right convexity likely represents treatment related change. The cervical spine is within normal limits. Orbits: The bony orbits are intact. Orbital contents are normal as visualized. Sinuses and mastoids: There is mild mucosal thickening within the right maxillary sinus and the ethmoid sinuses. A 13 mm retention cyst is noted in the right maxillary sinus. The mastoid air cells are well pneumatized. IMPRESSION: 1. Chronic and postsurgical changes as above with no evidence of hemorrhage or mass effect noting angiographic phase technique. 2. Unremarkable CT angiogram of the brain. 3. Unremarkable CT angiogram of the neck. 4. A 5 mm groundglass nodule and a 4 mm solid nodule at the left apex are unchanged from studies dating back to 2022. CT follow-up is advised as per the Fleischner criteria. See below. Please refer to below summary of Fleischner criteria recommendations for follow- up of incidental CT nodules (Marjan Winston, Guidelines for management of small pulmonary nodules detected on CT scans: A statement from the Fleischner Society, Radiology 237: [phone].) SOLID NODULES Solitary nodule size: <6 mm * low risk patients: no follow-up needed * high risk patients: optional CT at 12 months Solitary nodule size: 6-8 mm * low risk patients: follow-up at 6-12 months, then consider further follow-up at 18-24 months * high risk patients: initial follow-up CT at 6-12 months and then at 18-24 months if no change Solitary nodule size: >8 mm * either low or high risk patients - consider follow-up CT at 3 months, and/or CT-PET, and/or biopsy Multiple nodules size: <6 mm * low risk patients: no routine follow-up * high risk patients: optional CT at 12 months Multiple nodules size: 6-8 mm * low risk patients: follow-up at 3-6 months, then consider further follow-up at 18-24 months * high risk patients: follow-up at 3-6 months, then at 18-24 months if no change Multiple nodules size: >8 mm * low risk patients: follow-up at 3-6 months, then consider further follow-up at 18-24 months * high risk patients: follow-up at 3-6 months, then at 18-24 months if no change Note: newly detected indeterminate nodule in persons 35 years of age or older. * low risk patients: minimal or absent history of smoking and/or other known risk factors * high risk patients: history of smoking or of other known risk factors (e.g. first degree relative with lung cancer, or exposure to asbestos, radon, uranium) * if a nodule up to 8 mm is partly solid or is ground glass further follow-up is required after 24 months to exclude possible slow growing adenocarcinoma (ROGERIO) SUBSOLID NODULES Solitary pure ground-glass nodule * nodule size <6 mm - no CT follow-up required * nodule size >=6 mm - follow-up CT at 6-12 months, then every 2 years until 5 years Solitary part-solid nodule * nodule size <6 mm - no CT follow-up required * nodule size >=6 mm - follow-up CT at 3-6 months. If unchanged, and solid component remains <6 mm, then annual follow-up for 5 years Multiple subsolid nodules * nodule size <6 mm - follow-up CT at 3-6 months, consider further follow-up at 2 and 4 years if stable * nodule size >=6 mm - follow-up CT at 3-6 months, subsequent management based on the most suspicious nodule(s) ACT 112: Negative or not required by law. Electronically signed by: Temo Santos M.D. 08/26/2024 4:01 PM Neck CTA 08/26/24 15:34 CT ANGIOGRAM OF THE BRAIN; CT ANGIOGRAM OF THE NECK CLINICAL HISTORY: Neurologic deficit. Stroke like symptoms. History of glioblastoma resection. COMPARISON STUDY: Unenhanced CT of the brain performed concurrently on 08/26/2024. CT head from of the head and neck dated 02/09/2022. Chest CT dated 02/27/2022. TECHNIQUE: Following the IV administration of 119 of Optiray 320, CT angiogram of the head and neck was performed from the aortic arch to the vertex. Images are reviewed in the axial, sagittal, and coronal planes. 3-D MIPS images are created and assessed. IV contrast was administered without complication. All measurements were calculated based on NASCET criteria. A dose lowering technique was utilized adhering to the principles of ALARA. FINDINGS: Brain parenchyma: Right parietal encephalomalacia is unchanged from previous and related to prior mass resection. A focus of right temporal encephalomalacia is also unchanged and related to a remote insult. There is no evidence of hemorrhage or mass effect noting angiographic phase technique. There is no evidence of enhancing mass lesion on the angiogram phase images. The ventricles, sulci, and cisterns are normal in configuration. Argueta-white matter differentiation is preserved. No extra-axial fluid collection is seen. Thoracic aorta: Visualized portions of the thoracic aorta are normal in caliber. The aortic arch demonstrates standard 3-vessel anatomy. Right carotid arterial system: The right common carotid artery is widely patent, as are the right internal and external carotid arteries. Left carotid arterial system: The left common carotid artery is widely patent, as are the left internal and external carotid arteries. Vertebral arteries: Widely patent bilaterally and codominant. Subclavian arteries: Widely patent bilaterally. Intracranial vasculature: There is atherosclerotic calcification of the cavernous carotid arteries. The internal carotid arteries are patent at the skull base, as are the anterior and middle cerebral arteries bilaterally. The right A1 segment is atretic. The vertebrobasilar system and posterior cerebral arteries are widely patent. The vertebral arteries are codominant. The basilar artery is diminutive. There is origin of the left posterior cerebral artery and a large right posterior communicating artery. There is no aneurysm, high-grade stenosis, or focal vessel cut off seen throughout the intracranial circulation. Jugular veins: Patent bilaterally. Dural sinuses: Patent. Lung apices: A 4 mm left apical pulmonary nodule image #128 is unchanged dating back to 2022. There is a 5 mm groundglass nodule in the left upper lobe in image #82. This is also likely unchanged from [address] Partially visualized upper lobe lung parenchyma otherwise appears clear. Soft tissues: The visualized pharyngeal soft tissues are normal in appearance noting angiographic phase technique. The oropharyngeal airway appears widely patent. The salivary and thyroid glands are normal in appearance. There are shotty cervical lymph nodes. Skeletal structures: The skeletal structures are osteopenic. There is postsurgical change from right-sided craniotomy. Bony heterogeneity along the right convexity likely represents treatment related change. The cervical spine is within normal limits. Orbits: The bony orbits are intact. Orbital contents are normal as visualized. Sinuses and mastoids: There is mild mucosal thickening within the right maxillary sinus and the ethmoid sinuses. A 13 mm retention cyst is noted in the right maxillary sinus. The mastoid air cells are well pneumatized. IMPRESSION: 1. Chronic and postsurgical changes as above with no evidence of hemorrhage or mass effect noting angiographic phase technique. 2. Unremarkable CT angiogram of the brain. 3. Unremarkable CT angiogram of the neck. 4. A 5 mm groundglass nodule and a 4 mm solid nodule at the left apex are unchanged from studies dating back to 2022. CT follow-up is advised as per the Fleischner criteria. See below. Please refer to below summary of Fleischner criteria recommendations for follow- up of incidental CT nodules (Marjan Winston, Guidelines for management of small pulmonary nodules detected on CT scans: A statement from the Fleischner Society, Radiology 237: [phone].) SOLID NODULES Solitary nodule size: <6 mm * low risk patients: no follow-up needed * high risk patients: optional CT at 12 months Solitary nodule size: 6-8 mm * low risk patients: follow-up at 6-12 months, then consider further follow-up at 18-24 months * high risk patients: initial follow-up CT at 6-12 months and then at 18-24 months if no change Solitary nodule size: >8 mm * either low or high risk patients - consider follow-up CT at 3 months, and/or CT-PET, and/or biopsy Multiple nodules size: <6 mm * low risk patients: no routine follow-up * high risk patients: optional CT at 12 months Multiple nodules size: 6-8 mm * low risk patients: follow-up at 3-6 months, then consider further follow-up at 18-24 months * high risk patients: follow-up at 3-6 months, then at 18-24 months if no change Multiple nodules size: >8 mm * low risk patients: follow-up at 3-6 months, then consider further follow-up at 18-24 months * high risk patients: follow-up at 3-6 months, then at 18-24 months if no change Note: newly detected indeterminate nodule in persons 35 years of age or older. * low risk patients: minimal or absent history of smoking and/or other known risk factors * high risk patients: history of smoking or of other known risk factors (e.g. first degree relative with lung cancer, or exposure to asbestos, radon, uranium) * if a nodule up to 8 mm is partly solid or is ground glass further follow-up is required after 24 months to exclude possible slow growing adenocarcinoma (ROGERIO) SUBSOLID NODULES Solitary pure ground-glass nodule * nodule size <6 mm - no CT follow-up required * nodule size >=6 mm - follow-up CT at 6-12 months, then every 2 years until 5 years Solitary part-solid nodule * nodule size <6 mm - no CT follow-up required * nodule size >=6 mm - follow-up CT at 3-6 months. If unchanged, and solid component remains <6 mm, then annual follow-up for 5 years Multiple subsolid nodules * nodule size <6 mm - follow-up CT at 3-6 months, consider further follow-up at 2 and 4 years if stable * nodule size >=6 mm - follow-up CT at 3-6 months, subsequent management based on the most suspicious nodule(s) ACT 112: Negative or not required by law. Electronically signed by: Temo Santos M.D. 08/26/2024 4:01 PM Discharge Plan Visit Data Chief Complaint: Stroke Alert Stated Complaint: STROKE ALERT ED Provider: Rishabh Dahl Discharge Problem: Stroke-like episode Patient Disposition: Admitted As Inpatient Condition: Fair Forms Stand Alone Forms: Black coin Prescriptions Prescriptions: No Action diazepam 5 mg tablet 5 mg PO .COMPLEX PRN (Reason: anxiety) Qty: 2 0RF Rx Instructions: 5 mg PO TAKE 1 HOUR PRIOR TO PROCEDURE , MAY REPEAT DURING PROCEDURE IF NEEDED PRN; levetiracetam 750 mg tablet extended release 24 hr 1,500 mg PO DAILY 90 Days Qty: 180 3RF metformin 500 mg tablet 1,000 mg PO DAILY Referrals Referrals: PCP,NO [Primary Care Provider] -
--- NOTE | 2024-08-26 15:52 | CT Scan Report ---
CT head/brain wo con CLINICAL HISTORY: neuro deficit, acute stroke suspected. TECHNIQUE: Multiple axial CT images of the head were obtained without contrast. A dose lowering tech nique was utilized adhering to the principles of ALARA. CT DOSE: 1251.72 mGy.cm COMPARISON: 12/06/2022 FINDINGS: There are stable areas of encephalomalacia posterior right parietal lobe and anterior right temporal lobe. Stable ex vacuo dilatation posterior horn right lateral ventricle. Stable calcificati ons in the parietal lobes near the vertex. No intracranial hemorrhage seen. No mass effect, midline s hift, or hydrocephalus. Stable right parietal craniectomy. Stable patchy lucency in the adjacent righ t skull. No skull fracture seen. Visualized paranasal sinuses and mastoid air cells are clear. IMPRESSION: No acute findings. ACT 112: Negative or not required by law. The above report was generated using voice recognition software. It may contain grammatical, syntax o r spelling errors. Electronically signed by: Wallace Valle M.D. 08/26/2024 3:51 PM
--- NOTE | 2024-08-26 16:03 | CT Scan Report ---
CT ANGIOGRAM OF THE BRAIN; CT ANGIOGRAM OF THE NECK CLINICAL HISTORY: Neurologic deficit. Stroke like symptoms. History of glioblastoma resection. COMPARISON STUDY: Unenhanced CT of the brain performed concurrently on 08/26/2024. CT head from of th e head and neck dated 02/09/2022. Chest CT dated 02/27/2022. TECHNIQUE: Following the IV administration of 119 of Optiray 320, CT angiogram of the head and neck w as performed from the aortic arch to the vertex. Images are reviewed in the axial, sagittal, and faith nal planes. 3-D MIPS images are created and assessed. IV contrast was administered without complicati on. All measurements were calculated based on NASCET criteria. A dose lowering technique was utilize d adhering to the principles of ALARA. FINDINGS: Brain parenchyma: Right parietal encephalomalacia is unchanged from previous and related to prior mas s resection. A focus of right temporal encephalomalacia is also unchanged and related to a remote ins ult. There is no evidence of hemorrhage or mass effect noting angiographic phase technique. There is no evidence of enhancing mass lesion on the angiogram phase images. The ventricles, sulci, and cister ns are normal in configuration. Argueta-white matter differentiation is preserved. No extra-axial fluid collection is seen. Thoracic aorta: Visualized portions of the thoracic aorta are normal in caliber. The aortic arch demo nstrates standard 3-vessel anatomy. Right carotid arterial system: The right common carotid artery is widely patent, as are the right int ernal and external carotid arteries. Left carotid arterial system: The left common carotid artery is widely patent, as are the left internet researcher al and external carotid arteries. Vertebral arteries: Widely patent bilaterally and codominant. Subclavian arteries: Widely patent bilaterally. Intracranial vasculature: There is atherosclerotic calcification of the cavernous carotid arteries. T he internal carotid arteries are patent at the skull base, as are the anterior and middle cerebral ar teries bilaterally. The right A1 segment is atretic. The vertebrobasilar system and posterior cerebra l arteries are widely patent. The vertebral arteries are codominant. The basilar artery is diminutive . There is origin of the left posterior cerebral artery and a large right posterior communicati ng artery. There is no aneurysm, high-grade stenosis, or focal vessel cut off seen throughout the int racranial circulation. Jugular veins: Patent bilaterally. Dural sinuses: Patent. Lung apices: A 4 mm left apical pulmonary nodule image #128 is unchanged dating back to 2022. There i s a 5 mm groundglass nodule in the left upper lobe in image #82. This is also likely unchanged from [address] Partially visualized upper lobe lung parenchyma otherwise appears clear. Soft tissues: The visualized pharyngeal soft tissues are normal in appearance noting angiographic pha se technique. The oropharyngeal airway appears widely patent. The salivary and thyroid glands are nor mal in appearance. There are shotty cervical lymph nodes. Skeletal structures: The skeletal structures are osteopenic. There is postsurgical change from right- sided craniotomy. Bony heterogeneity along the right convexity likely represents treatment related ch killian. The cervical spine is within normal limits. Orbits: The bony orbits are intact. Orbital contents are normal as visualized. Sinuses and mastoids: There is mild mucosal thickening within the right maxillary sinus and the ethmo id sinuses. A 13 mm retention cyst is noted in the right maxillary sinus. The mastoid air cells are w ell pneumatized. IMPRESSION: 1. Chronic and postsurgical changes as above with no evidence of hemorrhage or mass effect noting ang iographic phase technique. 2. Unremarkable CT angiogram of the brain. 3. Unremarkable CT angiogram of the neck. 4. A 5 mm groundglass nodule and a 4 mm solid nodule at the left apex are unchanged from studies dati ng back to 2022. CT follow-up is advised as per the Fleischner criteria. See below. Please refer to below summary of Fleischner criteria recommendations for follow-up of incidental CT n odules (Marjan Winston, Guidelines for management of small pulmonary nodules detected on CT scans: A sta tement from the Fleischner Society, Radiology 237: [phone].) SOLID NODULES Solitary nodule size: <6 mm * low risk patients: no follow-up needed * high risk patients: optional CT at 12 months Solitary nodule size: 6-8 mm * low risk patients: follow-up at 6-12 months, then consider further follow-up at 18-24 months * high risk patients: initial follow-up CT at 6-12 months and then at 18-24 months if no change Solitary nodule size: >8 mm * either low or high risk patients - consider follow-up CT at 3 months, and/or CT-PET, and/or biopsy Multiple nodules size: <6 mm * low risk patients: no routine follow-up * high risk patients: optional CT at 12 months Multiple nodules size: 6-8 mm * low risk patients: follow-up at 3-6 months, then consider further follow-up at 18-24 months * high risk patients: follow-up at 3-6 months, then at 18-24 months if no change Multiple nodules size: >8 mm * low risk patients: follow-up at 3-6 months, then consider further follow-up at 18-24 months * high risk patients: follow-up at 3-6 months, then at 18-24 months if no change Note: newly detected indeterminate nodule in persons 35 years of age or older. * low risk patients: minimal or absent history of smoking and/or other known risk factors * high risk patients: history of smoking or of other known risk factors (e.g. first degree relative with lung cancer, or exposure to asbestos, radon, uranium) * if a nodule up to 8 mm is partly solid or is ground glass further follow-up is required after 24 m ont to exclude possible slow growing adenocarcinoma (ROGERIO) SUBSOLID NODULES Solitary pure ground-glass nodule * nodule size <6 mm - no CT follow-up required * nodule size >=6 mm - follow-up CT at 6-12 months, then every 2 years until 5 years Solitary part-solid nodule * nodule size <6 mm - no CT follow-up required * nodule size >=6 mm - follow-up CT at 3-6 months. If unchanged, and solid component remains <6 mm, then annual follow-up for 5 years Multiple subsolid nodules * nodule size <6 mm - follow-up CT at 3-6 months, consider further follow-up at 2 and 4 years if sta ble * nodule size >=6 mm - follow-up CT at 3-6 months, subsequent management based on the most suspiciou s nodule(s) ACT 112: Negative or not required by law. Electronically signed by: Temo Santos M.D. 08/26/2024 4:01 PM
[2024-08-26 16:06] LABS: Hematocrit (blood only) 45.3 % (42.0-52.0); Hemoglobin 15.4 g/dl (14.0-18.0); Immature Granulocytes # (auto) 0.03 K/uL (0.01-0.20); Immature Granulocytes % (auto) 0.3 %; Mean Corpuscular Hemoglobin 30.1 pg (25.0-34.0); Mean Corpuscular Volume 88.6 fL (80.0-100.0); Platelet Count 170 K/uL (130-400); RDW Standard Deviation 38.4 fL (36.4-46.3); Red Blood Count 5.11 M/uL (4.70-6.10); White Blood Count 8.69 K/ul (4.8-10.8)
[2024-08-26 16:25] LABS: Alanine Aminotransferase 30.0 U/L (7-52); Albumin Globulin Ratio 1.4 (0.9-2); Alkaline Phosphatase 56.0 U/L (34-104); Anion Gap 2.0 (3-11); Bilirubin,Total 0.5 mg/dl (0.2-1.0); Blood Urea Nitrogen 9.0 mg/dl (6-23); Calcium 8.2 mg/dl (8.6-10.3); Carbon Dioxide 34.0 mmol/L (21-32); Chloride 101.0 mmol/L (98-107); Creatinine Clr Calc Pharmacy 140.3 ml/min; Globulin 2.5 gm/dl (2.5-4.0); Glucose 176.0 mg/dl (70-99(Fasting)); Magnesium 1.7 mg/dl (1.7-2.4); Potassium 4.2 mmol/L (3.5-5.1); Sodium 137.0 mmol/L (136-145); Total Protein 6.1 gm/dl (6.0-8.3)
[2024-08-26] MEDS: ONDANSETRON INJ 2 MG/ML 2 ML VIAL IV STA (16:48)
[2024-08-26] MEDS: ASPIRIN CHEW 324 MG PO STA (16:49)
[2024-08-26] MEDS: SODIUM CHLORIDE 0.9% 1,000 ML IV ONE (16:49)
[2024-08-26 16:58] LABS: INR 1.0 (0.9-1.1); Partial Thromboplastin Time 25 Seconds (21-31); Prothrombin Time 10.7 Seconds (9.0-12.0)
--- NOTE | 2024-08-26 17:42 | History & Physical Report ---
Date of Service August 26, 2024 Assessment & Plan (1) Nathan's paralysis (postepileptic): (2) Seizure disorder: (3) Diabetes mellitus, type 2: (4) HTN (hypertension): Plan #left sided spasticity - given that he is spastic not flacid, given that he has intact sensation, and given that it is arm and leg but not face, strongly doubt stroke. (has had CT head no bleed, CT angio no significant stenoses, asa 324; but with such low suspicion of stroke will hold off on further stroke w/u and management until/unless testing/clinical situation suggest otherwise) -MRI brain - mostly looking for any scar tissue or tumor related changes, subtle areas of bleed, etc. of course also will eval for CVA - but again doubt this is the case -most suspicious of focal seizure activity; d/w dr groves (his neurologist) who noted most suspicious for having had a focal seizure w nathan's paralysis. if mri negative for acute process, he suggests adding depakote as an adjunct antiseizure med; can also consider tizanidine/baclofen or gabapentin or the spasticity if it doesn't improve --->for now will hold off on medications until MRI, but then if normal would start depakote, then if still spastic likely add baclofen DM2 -A1c 7.4 in december - recheck -fingersticks, supplemental insulin -hold metformin for now (had IV contrast) metabolic alkalosis -progressive over time; biggest suspicion would be SEUN. outpt f/u HTN -elevated now - most likely reactive to stress situation; not currently on home meds but still carries dx. can consider ACEi/ARB if BP persistently up; consider outpatient monitoring first - depending on clinical progress DVT proph -until clear that there's not subtle bleed/other contraindications will use SCDs. if MRI clear and hospital stay prolonged, then would add lovenox History of Present Illness Chief Complaint: L sided contractures Primary Care Provider: NO PCP very pleasant 54yo male. went to the gym this morning - L leg felt very stiff. as day progressed, L leg worse w stiffness, then L arm also stiff and contracted. no numbness. no facial involvement. otherwise feels OK. glio resected ~20yrs ago ROS otherwise negative except for as above Allergies Allergy/AdvReac Type Severity Reaction Status Date / Time bacitracin Allergy Intermediate Rash Verified 08/26/24 15:50 [From Neosporin ([id number])] neomycin Allergy Intermediate Rash Verified 08/26/24 15:50 [From Neosporin ([id number])] polymyxin B Allergy Intermediate Rash Verified 08/26/24 15:50 [From Neosporin ([id number])] Home Medications Medication Instructions Recorded Confirmed Type diazepam 5 mg tablet 5 mg PO .COMPLEX PRN anxiety #2 10/20/22 08/26/24 Rx tabs levetiracetam 750 mg 1,500 mg (2 x 750 mg) PO DAILY 90 05/04/24 08/26/24 Rx tablet,extended release 24 hr days #180 tabs metformin 500 mg tablet 1,000 mg PO DAILY 08/26/24 08/26/24 History Past Med/Surg History Problem List HTN (hypertension) Diabetes mellitus, type 2 Seizure disorder Left arm weakness H/O malignant neoplasm of brain Basal ganglia stroke Degenerative tear of glenoid labrum of right shoulder Infraspinatus tendon tear Supraspinatus tendon tear Subscapularis tendonitis of right shoulder Pulmonary nodules Pneumonia Stroke Focal motor seizure (Acute) Nathan's paralysis (postepileptic) Left hemiparesis Brain cancer Medical History Stroke-like symptoms Biceps tendonitis on right Partial tear subscapularis tendon Cervicalgia Right shoulder pain COVID Lumbar pain Right shoulder pain Hypokalemia Hypomagnesemia Glioblastoma Seizure Acute left-sided weakness H/O brain tumor Complicated migraine Renal stone Left-sided weakness Surgical History S/P cholecystectomy Status post craniectomy Family History Mother No problems noted. Father , the diagnose 60s of lung cancer Lung cancer Social History Smoking Status: Never smoker Tobacco Type: Smokeless Tobacco (Dip or Chew) Cigarettes Per Day: 0; Second Hand Exposure: No; Do You Dip or Chew Tobacco: Yes (Averages 1 can per day.); Hx Alcohol Use: No Hx Substance Use: Yes Prescribed Medications: Marijuana and Other Last Used Substance: Days (ago) Last Used Substance Other:: 02/26/2022 Preferred Language: Stateless Communication Ability: Effective Physical Therapy Manager Required: No Beliefs That Will Affect Care: None marital status: Current Living Situation: Family current occupational status: unemployed current occupation: former [employer] How many Children do You have: 4 Feels Safe at Home: Yes Assistive Devices: Wheelchair Review of Systems Review of Systems: All systems reviewed & are unremarkable except as noted in HPI & below Physical Exam Physical Exam: gen [id number] pleasant joking good sense of humor nad heent nc at mmm cardio reg no r/m/g lungs cta b/l no rrw good effort skin no rashes no pallor or icterus. neuro no facial droop cn 2-12 appear intact wtihout lateralizing/deficits. L arm good sensation but contracted at the elbow and won't straighten. hand default in a clenched fist, but he is able to loosen a little (but not entirely) voluntarily. L leg able to move slightly but mostly is extended at the knee and hip and not able to move much but feels stiff. good sensation. R side good sensation/motor/5/5 strength. mental status shows good recent and remote recall normal mood and affect good judgement and insight. Results & Data Results & Data Vital Signs (Past 12 Hours) Vital Signs Temp Pulse Pulse Resp BP BP Pulse Ox 08/26/24 16:49 69 18 156/84 H 94 08/26/24 16:19 70 08/26/24 16:04 73 18 161/110 H 97 08/26/24 15:54 97 08/26/24 15:54 73 18 155/83 H 97 08/26/24 15:34 97 08/26/24 15:34 97.9 F 71 20 155/83 H 97 O2 Del Method 08/26/24 16:49 Room Air 08/26/24 16:19 08/26/24 16:04 Room Air 08/26/24 15:54 Room Air 08/26/24 15:54 Room Air 08/26/24 15:34 Room Air 08/26/24 15:34 Room Air PG Care Time/CCT Total # of Minutes Spent Total Time Spent with Patient: Total time spent is greater than 50% in coordination of care (as documented) at patient's floor/unit and/or counseling patient: Coding Level of Care Code 59254 INT INP/OBS CARE MIN Diagnoses Nathan's paralysis (postepileptic) G83.84 Seizure disorder G40.909 Diabetes mellitus, type 2 E11.9 HTN (hypertension) I10
[2024-08-26] MEDS ORDERED: POLYETHYLENE (MIRALAX) 17 GM PACK PO PRN (19:20)
[2024-08-26] MEDS ORDERED: MELATONIN 3 MG TAB PO PRN (19:20)
[2024-08-26] MEDS ORDERED: ONDANSETRON INJ 2 MG/ML 2 ML VIAL IV PRN (19:20)
[2024-08-26] MEDS ORDERED: ACETAMINOPHEN 325 MG TAB PO PRN (19:20)
[2024-08-26] MEDS ORDERED: MAGNESIUM HYDROXIDE SUSP 30 ML UDC PO PRN (19:20)
[2024-08-26] MEDS ORDERED: ALUMINUM/MAGNESIUM SUSP 30 ML UDC PO PRN (19:20)
[2024-08-26 20:03] LABS: Hemoglobin A1C 7.8 % (4.5-5.6)
[2024-08-26] MEDS: GADOBUTROL 65ML VIAL IV ONE (21:18)
[2024-08-26] MEDS: INSULIN ASPART PER UNIT CHARGE SC SCH (21:55)
--- NOTE | 2024-08-26 23:24 | Magnetic Resonance Report ---
Exam(s): MRI HEAD W/WO Contrast EXAM: MR Head Without and With Intravenous Contrast CLINICAL HISTORY: Reason for exam: L sided contractures, prior glio. TECHNIQUE: Magnetic resonance images of the head/brain without and with intravenous contrast in multiple planes. CONTRAST: Contrast must be dictated COMPARISON: Prior head CT from August 26, 2024 and brain MRI from November 28, 2022. FINDINGS: Brain: Remote injuries of the right temporal, right frontal, bilateral parietal and occipital lobes with encephalomalacia and gliosis. Mild nonspecific white matter changes.. No mass. No hemorrhage. No acute infarct. The flow voids at the base the brain are intact. No evidence of abnormal enhancement. The dural venous sinuses are patent. Ventricles: Mild to moderate ventriculomegaly. Ventriculomegaly. Bones/joints: Remote right craniotomy. No acute fracture. Sinuses: Chronic ethmoid and maxillary sinusitis. No acute sinusitis. Mastoid air cells: Unremarkable as visualized. No mastoid effusion. Orbits: Unremarkable as visualized. IMPRESSION: No evidence of acute intracranial pathology. Electronically signed by: Bria Clemons MD 08/26/24 23:23 PM
--- NOTE | 2024-08-27 08:58 | Hospitalist Progress Note ---
Date of Service August 27, 2024 Assessment & Plan (1) Nathan's paralysis (postepileptic): (2) Seizure disorder: (3) Diabetes mellitus, type 2: (4) HTN (hypertension): Plan #left sided spasticity - given that he is spastic not flacid, given that he has intact sensation, and given that it is arm and leg but not face, strongly doubt stroke. (has had CT head no bleed, CT angio no significant stenoses, asa 324; but with such low suspicion of stroke will hold off on further stroke w/u and management until/unless testing/clinical situation suggest otherwise) -MRI brain - mostly looking for any scar tissue or tumor related changes, subtle areas of bleed, etc. of course also will eval for CVA - but again doubt this is the case -most suspicious of focal seizure activity; d/w dr groves (his neurologist) who noted most suspicious for having had a focal seizure w nathan's paralysis. if mri negative for acute process, he suggests adding depakote as an adjunct antiseizure med; can also consider tizanidine/baclofen or gabapentin or the spasticity if it doesn't improve --->for now will hold off on medications until MRI, but then if normal would start depakote, then if still spastic likely add baclofen DM2 -A1c 7.4 in December - recheck -fingersticks, supplemental insulin -hold metformin for now (had IV contrast) metabolic alkalosis -progressive over time; biggest suspicion would be SEUN. outpt f/u HTN -elevated now - most likely reactive to stress situation; not currently on home meds but still carries dx. can consider ACEi/ARB if BP persistently up; consider outpatient monitoring first - depending on clinical progress DVT proph -until clear that there's not subtle bleed/other contraindications will use SCDs. if MRI clear and hospital stay prolonged, then would add lovenox Admission and Anticipated Discharge Date Admission Date: August 26, 2024 Results & Data Results & Data Vital Signs (Past 12 Hours) Vital Signs Temp Pulse Pulse Pulse Resp BP BP 08/27/24 07:25 08/27/24 07:24 36.8 C 65 16 114/65 08/26/24 21:33 37.8 C H 87 17 136/81 08/26/24 21:19 70 20 146/88 H Pulse Ox O2 Del Method 08/27/24 07:25 Room Air 08/27/24 07:24 92 Room Air 08/26/24 21:33 97 Room Air 08/26/24 21:19 94 Room Air PG Care Time/CCT Total # of Minutes Spent Total Time Spent with Patient: Total time spent is greater than 50% in coordination of care (as documented) at patient's floor/unit and/or counseling patient: Coding Diagnoses Nathan's paralysis (postepileptic) G83.84 Seizure disorder G40.909 Diabetes mellitus, type 2 E11.9 HTN (hypertension) I10
--- NOTE | 2024-08-27 12:03 | Discharge Summary ---
Discharge Summary Date of Service August 27, 2024 Principal Dx & Hospital Course #1 = Principal Diagnosis (1) Nathan's paralysis (postepileptic): (2) Seizure disorder: (3) Diabetes mellitus, type 2: (4) HTN (hypertension): Plan 54 yo M with PMHx of glioblastoma s/p resection 20 yrs ago, DM II, seizure d/o presents to [facility] on 08/26/24 for the evaluation of left arm / leg stiffness and contraction. Pt denied numbness / tingling or facial involvement. He stated that he had gotten home from gym and he noticed these symptoms. His work up has been unremarkable with no acute findings on CT head, angio, and MRI brain. His symptoms have currently resolved and he feels like he is about 90% back to his baseline. His case was discussed with Dr. Salas, neurologist. Initial discussion was for him to get started on Depakote, however, pt stated that he had elevated ammonia level and was never to start that medication again. Thus he is being started on Lamotrigine 25mg po BID. Since his outpatient follow up with his neurologist is in Mar 2025, pt will follow up with Dr. Salas in 2-3 weeks. #left sided spasticity - given that he is spastic not flacid, given that he has intact sensation, and given that it is arm and leg but not face, strongly doubt stroke. (has had CT head no bleed, CT angio no significant stenoses, asa 324; but with such low suspicion of stroke will hold off on further stroke w/u and management until/unless testing/clinical situation suggest otherwise) -MRI brain: no acute abnormalities -most suspicious of focal seizure activity; d/w dr salas (his neurologist) who noted most suspicious for having had a focal seizure w nathan's paralysis. - pt had elevated ammonia with depakote, thus being started on lamotrigine 25mg po BID DM2 - A1c 7.8 (08/26/24) - cont metformin on discharge - outpatient follow up with PCP metabolic alkalosis - progressive over time; biggest suspicion would be SEUN. outpt f/u HTN - BP significantly improved - further follow up as outpatient Admission HPI Per Admitting Provider very pleasant 54yo male. went to the gym this morning - L leg felt very stiff. as day progressed, L leg worse w stiffness, then L arm also stiff and contracted. no numbness. no facial involvement. otherwise feels OK. glio resected ~20yrs ago ROS otherwise negative except for as above Discharge Exam Gen: resting in bed comfortable HEENT: NC/AT CVS: s1s2nl, RRR Lungs: CTAB Abd: soft, RUQ healed scar, nl bowel sounds, NT/ND Ext: no edema, good strength but coordination is poor in the left arm, pt is nonambulatory Neuro: AAOx3 Psych: calm / cooperative Discharge Plan Discharge Items Patient Disposition: Home - Self-Care Reason For Visit: L SIDED CONTRACTURES Discharge Diagnosis: Left sided contractures Condition on Discharge: Fair Activity: Resume your previous activity Non-emergency contact: Primary Care Provider and Neurologist Call non-emergency contact if: you have any medication questions and your symptoms worsen Follow-up/Referrals: Teddy Salas MD [Physician] - (AED adjusted while inpatient) PCP,NO [Primary Care Provider] - Diet: Regular Addtl Attending Provider Instructions: 1. Continue following seizure precautions (cook in the back burner, no baths, no operating heavy machinery, etc) 2. Follow up with Neurologist Dr. Salas in the next 2-3 weeks. Please call to make appointment. 3. Follow up with PCP in about 7 to 10 days after discharge to discuss elevated hemoglobin A1c as well as management of suspect obstructive sleep apnea. Pending Studies at Discharge: No Stand-Alone Forms: My [employer], Smoking Cessation Medications and DC Order Prescriptions: New lamotrigine 25 mg tablet 25 mg PO BID 30 Days Qty: 60 0RF Continued diazepam 5 mg tablet 5 mg PO .COMPLEX PRN (Reason: anxiety) Qty: 2 0RF Rx Instructions: 5 mg PO TAKE 1 HOUR PRIOR TO PROCEDURE , MAY REPEAT DURING PROCEDURE IF NEEDED PRN; levetiracetam 750 mg tablet extended release 24 hr 1,500 mg PO DAILY 90 Days Qty: 180 3RF metformin 500 mg tablet 1,000 mg PO DAILY Discharge Orders: Discharge Order (Routine); Ordered 08/27/24 Ordered By: Yashira Gifford/Other Patient Handouts: Managing Type 2 Diabetes Admission Data Admit Date/Time: 08/26/24 17:31 Attending Provider: Yashira Norris Admit Provider: Carmine Aguilar Primary Care Provider: PCP,NO Other Providers: Carmine Aguilar Hospital Stay Data Consultations 08/26/24 16:56 ED Decision to Admit Stat Diagnostic Imagining Performed 08/26/24 15:34 CT angio head w con Stat CT angio neck with con Stat CT head/brain wo con Stat 08/26/24 17:31 MRI Brain [MR brain wo/w con] Stat Pending Results Patient Have Any Pending Studies at Discharge: No Discharge Instructions Given to Patient (Per Discharging Provider) 1. Continue following seizure precautions (cook in the back burner, no baths, no operating heavy machinery, etc) 2. Follow up with Neurologist Dr. Salas in the next 2-3 weeks. Please call to make appointment. 3. Follow up with PCP in about 7 to 10 days after discharge to discuss elevated hemoglobin A1c as well as management of suspect obstructive sleep apnea. Total Time Total Time Spent Total Time Spent (In Minutes): 45 Coding Level of Care Code 95102 INP/OBS DISCH >30 MIN Diagnoses Nathan's paralysis (postepileptic) G83.84 Seizure disorder G40.909 Diabetes mellitus, type 2 E11.9 HTN (hypertension) I10
[2024-08-27] MEDS: lamoTRIgine 25 MG TAB PO ONE (13:43)
[2024-08-27] MEDS: lamoTRIgine 25 MG TAB PO SCH (20:43)
[2024-08-28 06:11] LABS: Hematocrit (blood only) 44.7 % (42.0-52.0); Hemoglobin 15.8 g/dl (14.0-18.0); Mean Corpuscular Hemoglobin 30.5 pg (25.0-34.0); Mean Corpuscular Volume 86.3 fL (80.0-100.0); Platelet Count 174 K/uL (130-400); RDW Standard Deviation 37.8 fL (36.4-46.3); Red Blood Count 5.18 M/uL (4.70-6.10); White Blood Count 8.66 K/ul (4.8-10.8)
[2024-08-28 06:36] LABS: Anion Gap 6.0 (3-11); Blood Urea Nitrogen 8.0 mg/dl (6-23); Calcium 8.5 mg/dl (8.6-10.3); Carbon Dioxide 28.0 mmol/L (21-32); Chloride 104.0 mmol/L (98-107); Creatinine Clr Calc Pharmacy 138.3 ml/min; Glucose 141.0 mg/dl (70-99(Fasting)); Magnesium 1.8 mg/dl (1.7-2.4); Potassium 3.8 mmol/L (3.5-5.1); Sodium 138.0 mmol/L (136-145)
--- NOTE | 2024-08-28 08:24 | Hospitalist Progress Note ---
Date of Service August 28, 2024 Assessment & Plan (1) Nathan's paralysis (postepileptic): (2) Seizure disorder: (3) Diabetes mellitus, type 2: (4) HTN (hypertension): Plan 54 yo M with PMHx of glioblastoma s/p resection 20 yrs ago, DM II, seizure d/o presents to [facility] on 08/26/24 for the evaluation of left arm / leg stiffness and contraction. Pt denied numbness / tingling or facial involvement. He stated that he had gotten home from gym and he noticed these symptoms. His work up has been unremarkable with no acute findings on CT head, angio, and MRI brain. His symptoms have currently resolved and he feels like he is about 90% back to his baseline. His case was discussed with Dr. Salas, neurologist. Initial discussion was for him to get started on Depakote, however, pt stated that he had elevated ammonia level and was never to start that medication again. Thus he is being started on Lamotrigine 25mg po BID. Since his outpatient follow up with his neurologist is in Mar 2025, pt will follow up with Dr. Salas in 2-3 weeks. 08/27: pt was planned for discharge however, he was very optimistic about his ability to transfer between bed and chair. When it came time to actually transfer, pt unfortunately was not able to shift weight on his own. He is now a high fall risk. Pt's sister also at bedside who stated that she is not available all the time to assist pt and if he is not independent like he was prior to coming into the hospital, then he cannot come home. We discussed PT / OT eval and possible rehab placement. Pt and pt's sister were both agreeable. Discharge has been cancelled. This note serves as progress note for today #left sided spasticity - given that he is spastic not flacid, given that he has intact sensation, and given that it is arm and leg but not face, strongly doubt stroke. (has had CT head no bleed, CT angio no significant stenoses, asa 324; but with such low suspicion of stroke will hold off on further stroke w/u and management until/unless testing/clinical situation suggest otherwise) -MRI brain: no acute abnormalities -most suspicious of focal seizure activity; d/w dr salas (his neurologist) who noted most suspicious for having had a focal seizure w nathan's paralysis. - pt had elevated ammonia with depakote, thus being started on lamotrigine 25mg po BID - Keppra XR 1500mg not hospital formulary, will initiate Keppra IR 750mg BID - PT / OT eval pending DM2 - A1c 7.8 (08/26/24) - cont metformin on discharge - outpatient follow up with PCP metabolic alkalosis - progressive over time; biggest suspicion would be SEUN. outpt f/u HTN - BP significantly improved - further follow up as outpatient 08/27: spoke with pt's sister Admission and Anticipated Discharge Date Admission Date: August 26, 2024 Review of Systems Review of Systems: Comprehensive ROS neg Physical Exam Physical Exam: Gen: resting in bed comfortable HEENT: NC/AT CVS: s1s2nl, RRR Lungs: CTAB Abd: soft, RUQ healed scar, nl bowel sounds, NT/ND Ext: no edema, good strength but coordination is poor in the left arm, pt is nonambulatory Neuro: AAOx3 Psych: calm / cooperative Results & Data Results & Data Vital Signs (Past 12 Hours) Vital Signs Temp Pulse Resp BP Pulse Ox O2 Del Method 08/27/24 21:34 36.7 C 70 18 154/87 H 98 Room Air 08/27/24 20:22 36.7 C 78 18 154/99 H 99 Room Air PG Care Time/CCT Total # of Minutes Spent Total Time Spent with Patient: Total time spent is greater than 50% in coordination of care (as documented) at patient's floor/unit and/or counseling patient: Coding Diagnoses Nathan's paralysis (postepileptic) G83.84 Seizure disorder G40.909 Diabetes mellitus, type 2 E11.9 HTN (hypertension) I10
[2024-08-28 08:51] VITALS: BP 142/86; RESP 20; TEMP 97.9; O2SAT 95
--- NOTE | 2024-08-28 12:16 | Discharge Summary ---
Discharge Summary Date of Service August 28, 2024 Principal Dx & Hospital Course #1 = Principal Diagnosis (1) Nathan's paralysis (postepileptic): (2) Seizure disorder: (3) Diabetes mellitus, type 2: (4) HTN (hypertension): Plan 54 yo M with PMHx of glioblastoma s/p resection 20 yrs ago, DM II, seizure d/o presents to [facility] on 08/26/24 for the evaluation of left arm / leg stiffness and contraction. Pt denied numbness / tingling or facial involvement. He stated that he had gotten home from gym and he noticed these symptoms. His work up has been unremarkable with no acute findings on CT head, angio, and MRI brain. His symptoms have currently resolved and he feels like he is about 90% back to his baseline. His case was discussed with Dr. Salas, neurologist. Initial discussion was for him to get started on Depakote, however, pt stated that he had elevated ammonia level and was never to start that medication again. Thus he is being started on Lamotrigine 25mg po BID. Since his outpatient follow up with his neurologist is in Mar 2025, pt will follow up with Dr. Salas in 2-3 weeks. 08/27: pt was planned for discharge however, he was very optimistic about his ability to transfer between bed and chair. When it came time to actually transfer, pt unfortunately was not able to shift weight on his own. He is now a high fall risk. Pt's sister also at bedside who stated that she is not available all the time to assist pt and if he is not independent like he was prior to coming into the hospital, then he cannot come home. We discussed PT / OT eval and possible rehab placement. Pt and pt's sister were both agreeable. Discharge has been cancelled. 08/28: during eval, pt was able to stand up and stay standing without difficulty. He stated that he is 100% back to baseline #left sided spasticity - given that he is spastic not flacid, given that he has intact sensation, and given that it is arm and leg but not face, strongly doubt stroke. (has had CT head no bleed, CT angio no significant stenoses, asa 324; but with such low suspicion of stroke will hold off on further stroke w/u and management until/unless testing/clinical situation suggest otherwise) -MRI brain: no acute abnormalities - most suspicious of focal seizure activity; d/w dr salas (his neurologist) who noted most suspicious for having had a focal seizure w nathan's paralysis. - pt had elevated ammonia with depakote, thus being started on lamotrigine 25mg po BID - Keppra XR 1500mg - PT evaluated patient and cleared him to discharge DM2 - A1c 7.8 (08/26/24) - cont metformin on discharge - outpatient follow up with PCP metabolic alkalosis - progressive over time; biggest suspicion would be SEUN. outpt f/u HTN - BP significantly improved - further follow up as outpatient 08/27: spoke with pt's sister 08/28: called sister but no answer Admission HPI Per Admitting Provider very pleasant 54yo male. went to the gym this morning - L leg felt very stiff. as day progressed, L leg worse w stiffness, then L arm also stiff and contracted. no numbness. no facial involvement. otherwise feels OK. glio resected ~20yrs ago ROS otherwise negative except for as above Discharge Exam Gen: resting in bed comfortable HEENT: NC/AT CVS: s1s2nl, RRR Lungs: CTAB Abd: soft, RUQ healed scar, nl bowel sounds, NT/ND Ext: no edema, good strength but coordination is poor in the left arm, pt is nonambulatory but was able to stand without assistance and remain standing Neuro: AAOx3 Psych: calm / cooperative Discharge Plan Discharge Items Patient Disposition: Home - Self-Care Reason For Visit: L SIDED CONTRACTURES Discharge Diagnosis: Left sided contractures Condition on Discharge: Fair Activity: Resume your previous activity Non-emergency contact: Primary Care Provider and Neurologist Call non-emergency contact if: you have any medication questions and your symptoms worsen Follow-up/Referrals: Teddy Salas MD [Physician] - (AED adjusted while inpatient) PCP,NO [Primary Care Provider] - Diet: Regular Addtl Attending Provider Instructions: 1. Continue following seizure precautions (cook in the back burner, no baths, no operating heavy machinery, etc) 2. Follow up with Neurologist Dr. Salas in the next 2-3 weeks. Please call to make appointment. 3. Follow up with PCP in about 7 to 10 days after discharge to discuss elevated hemoglobin A1c as well as management of suspect obstructive sleep apnea. Pending Studies at Discharge: No Stand-Alone Forms: My [facility], Smoking Cessation Medications and DC Order Prescriptions: New lamotrigine 25 mg tablet 25 mg PO BID 30 Days Qty: 60 0RF Continued diazepam 5 mg tablet 5 mg PO .COMPLEX PRN (Reason: anxiety) Qty: 2 0RF Rx Instructions: 5 mg PO TAKE 1 HOUR PRIOR TO PROCEDURE , MAY REPEAT DURING PROCEDURE IF NEEDED PRN; levetiracetam 750 mg tablet extended release 24 hr 1,500 mg PO DAILY 90 Days Qty: 180 3RF metformin 500 mg tablet 1,000 mg PO DAILY Discharge Orders: Discharge Order (Routine); Ordered 08/28/24 Ordered By: Yashira Gifford/Other Patient Handouts: Managing Type 2 Diabetes Admission Data Admit Date/Time: 08/26/24 17:31 Attending Provider: Yashira Norris Admit Provider: Carmine Aguilar Primary Care Provider: PCP,NO Other Providers: Carmine Aguilar Other Interventions: Discharge Summary Assessment (RN) Last Done: 08/27/24 12:32 Hospital Stay Data Consultations 08/26/24 16:56 ED Decision to Admit Stat Diagnostic Imagining Performed 08/26/24 15:34 CT angio head w con Stat CT angio neck with con Stat CT head/brain wo con Stat 08/26/24 17:31 MRI Brain [MR brain wo/w con] Stat Pending Results Patient Have Any Pending Studies at Discharge: No Discharge Instructions Given to Patient (Per Discharging Provider) 1. Continue following seizure precautions (cook in the back burner, no baths, no operating heavy machinery, etc) 2. Follow up with Neurologist Dr. Salas in the next 2-3 weeks. Please call to make appointment. 3. Follow up with PCP in about 7 to 10 days after discharge to discuss elevated hemoglobin A1c as well as management of suspect obstructive sleep apnea. Total Time Total Time Spent Total Time Spent (In Minutes): 45 Coding Level of Care Code 74184 INP/OBS DISCH >30 MIN Diagnoses Nathan's paralysis (postepileptic) G83.84 Seizure disorder G40.909 Diabetes mellitus, type 2 E11.9 HTN (hypertension) I10
[2024-08-28 12:59] VITALS: PULSE 87
--- NOTE | 2024-08-28 15:55 | Electrocardiogram Report ---
Test Reason : Blood Pressure : */* mmHG Vent. Rate : 77 BPM Atrial Rate : 77 BPM P-R Int : 184 ms QRS Dur : 138 ms QT Int : 410 ms P-R-T Axes : 47 -62 28 degrees QTcB Int : 463 ms Normal sinus rhythm Right bundle branch block Left anterior fascicular block Bifascicular block Minimal voltage criteria for LVH, may be normal variant ( R in aVL ) Abnormal ECG When compared with ECG of 06-Dec-2022 13:51, Criteria for Septal infarct are no longer Present Confirmed by Michael Rodriguez ([id number] on 08/28/2024 3:55:20 PM Referred By: Confirmed By: Michael Rodriguez
== END 2024-08-28 13:24 | disposition home or self-care (01) ==
LOC: ED 15:32 → EDINP 15:32 → SUATTDRO 17:31 → 3W 19:20